=== PATIENT | male | born 1950 | race Caucasian/White ===

== ENCOUNTER → 2019-11-16 | Outpatient (CLI) | payer MEDICARE, BC | END | disposition home or self-care (01) | LOC: LABPAT 13:12 | PROVIDERS: ATTEND Surgery Plastic and Reconstructive Surgery | DX: Z01.810 Encounter for preprocedural cardiovascular examination (principal) | CPT/HCPCS: 93005 ==

== ENCOUNTER 2019-12-13 09:09 | Day surgery (SDC) | payer MEDICARE, BC ==
[2019-12-09 18:15] VITALS: BMI 24.8
--- NOTE | 2019-12-12 15:59 | P.GSHP ---
History of Present Illness H&P Date: 12/13/19 CHIEF COMPLAINT: Inguinal hernia, right. HISTORY OF PRESENT ILLNESS: The patient is a 68-year-old male who presents with a history of swelling and pain along the right groin. He has noted increased swelling including pain of the area. Now he presents for repair of his inguinal hernia. PAST MEDICAL HISTORY: Please see list. PAST SURGICAL HISTORY: Please see list. MEDICATIONS: Please see list. ALLERGIES: Please see list. SOCIAL HISTORY: No illicit drug use FAMILY HISTORY: No reports of Crohn disease or ulcerative colitis. REVIEW OF ORGAN SYSTEMS: CONSTITUTIONAL: No reports of fevers or chills. No reports of weight loss despite prior attempts. GI: Denies any blood in stools or constipation. PHYSICAL EXAM: VITAL SIGNS: Stable GENERAL: Well-developed pleasant in no acute distress. HEENT: No scleral icterus. Extraocular movements grossly intact. Moist buccal mucosa. NECK: Supple without lymphadenopathy. CHEST: Unlabored respirations. Equal bilateral excursions. CARDIOVASCULAR: Regular rate and rhythm. Distal 2+ pulses. ABDOMEN: Soft, nondistended. No peritoneal signs. Right inguinal swelling MUSCULOSKELETAL: No clubbing, cyanosis, or edema. ASSESSMENT: 1. Inguinal hernia, right initial and symptomatic. PLAN: 1. Recommend proceeding robotic inguinal repair with mesh with possible bilateral approach. 2. Benefits and risks of surgical intervention was discussed including possibility of open technique. 3. DVT prophylaxis. 4. Antibiotic prophylaxis. Past Medical History Past Medical History: Hypertension, Respiratory Disorder Additional Past Medical History / Comment(s): RBBB. Sarcoidosis. Hx spontaneous pneumothorax. Rt inguinal hernia. History of Any Multi-Drug Resistant Organisms: None Reported Past Surgical History: Appendectomy, Hernia Repair Additional Past Surgical History / Comment(s): Hernia's x3. Past Anesthesia/Blood Transfusion Reactions: No Reported Reaction Smoking Status: Former smoker - Past Family History Mother Family Medical History: No Reported History Medications and Allergies Home Medications Medication Instructions Recorded Confirmed Type Lansoprazole [Prevacid] 15 mg PO HS 12/09/19 12/09/19 History Losartan [Cozaar] 50 mg PO HS 12/09/19 12/09/19 History Multivitamins, Thera [Multivitamin 1 tab PO DAILY 12/09/19 12/09/19 History (formulary)] Zolpidem Tartrate [Ambien] 10 mg PO HS PRN 12/09/19 12/09/19 History amLODIPine [Norvasc] 5 mg PO HS 12/09/19 12/09/19 History predniSONE 10 mg PO DAILY 12/09/19 12/09/19 History Allergies Allergy/AdvReac Type Severity Reaction Status Date / Time No Known Allergies Allergy Verified 12/09/19 17:57
[~2019-12-13 09:09] MED LIST: ACETAMINOPHEN TAB 500 MG TAB PO STA; DEXAMETHASONE SOD PHOSPHATE 10 MG/ML 1 ML VIAL IV ONE; GABAPENTIN 300 MG CAP PO STA; HEPARIN SODIUM,PORCINE 5,000 UNIT/ML 1 ML VIAL SQ ONE; KETOROLAC 15 MG/ML 1 ML VIAL IVP SCH; ONDANSETRON 4 MG/2 ML VIAL IVP ONE; SCOPOLAMINE 1.5MG/72HR PATCH TRANSDERM ONE; TAMSULOSIN 0.4 MG CAP.ER.24H PO STA
[2019-12-13] MEDS ORDERED: LIDOCAINE 1% (10MG/ML) FOR IV START INTRADERMA ONE (10:00)
[2019-12-13] MEDS: LACTATED RINGERS 1,000 ML IV SCH ×3 (10:02→13:06)
[2019-12-13 10:04] LABS: Glucose,Whole Blood 98 mg/dL (75-99)
[2019-12-13] MEDS ORDERED: HYDROCORTISONE SUCCINATE 100 MG/2 ML VIAL IVP ONE (10:30)
--- NOTE | 2019-12-13 10:38 | P.ANPRN ---
Procedure Note - Anesthesia - Nerve Block Performed Bilateral Transversus Abdominis Single Time Out Performed: Yes Date of Procedure: 12/13/19 Procedure Start Time: Procedure Stop Time: Location of Patient: PreOp Indication: Acute Post-Operative Pain, Requested by Surgeon Sedation Type: Sedate with meaningful contact maintained Preparation: Sterile Prep Position: Supine Catheter: None Needle Types: Pajunk Needle Gauge: 21 Ultrasound used to visualize needle placement: Yes Ultrasound used to observe medication spread: Yes Injectate: 0.5% Ropivacaine (see comment for volume) (30) Pain Paresthesia on Injection Noted: No Resistance on Injection: Normal Image Stored and Saved: Yes Events: Uneventful and Well Tolerated
[2019-12-13] MEDS ORDERED: MIDAZOLAM 2 MG/2 ML VIAL ONE (10:51)
[2019-12-13] MEDS ORDERED: PHENYLEPHRINE-0.9% NACL SYG 1 MG/10 ML SYRINGE ONE (10:51)
[2019-12-13] MEDS ORDERED: PROPOFOL 10 MG/ML 20 ML VIAL IV ONE (10:51)
[2019-12-13] MEDS ORDERED: GLYCOPYRROLATE 0.2 MG/ML 2 ML VIAL ONE (10:51)
[2019-12-13] MEDS ORDERED: fentaNYL (PF) 50 MCG/ML 2 ML AMP ONE (10:51)
[2019-12-13] MEDS ORDERED: ROCURONIUM BROMIDE 10 MG/ML 5 ML VIAL IV ONE (10:51)
[2019-12-13] MEDS ORDERED: NEOSTIGMINE 1 MG/ML 10 ML VIAL ONE (10:51)
[2019-12-13] MEDS ORDERED: LIDOCAINE 1% INJ 10MG/ML (20 ML MDV) ONE (10:51)
[2019-12-13] MEDS ORDERED: ROPIVACAINE 5 MG/ML 30 ML VIAL ONE (10:51)
[2019-12-13] MEDS ORDERED: SUCCINYLCHOLINE CHLORIDE 100 MG/5 ML SYR IV ONE (10:51)
[2019-12-13 11:45] LABS: ALT 18 U/L (4-49); AST 28 U/L (17-59); African American GFR (CKD) >90 (>60 ml/min/1.73 sqM); Albumin 3.8 g/dL (3.5-5.0); Alkaline Phosphatase 48 U/L (38-126); Anion Gap 4 mmol/L; Blood Urea Nitrogen 14 mg/dL (9-20); Calcium 8.9 mg/dL (8.4-10.2); Carbon Dioxide 26 mmol/L (22-30); Chloride 108 mmol/L (98-107); Glucose 94 mg/dL (74-99); Non-African American GFR(CKD) 84 (>60 ml/min/1.73 sqM); Potassium 3.7 mmol/L (3.5-5.1); Sodium 138 mmol/L (137-145); Total Bilirubin 1.1 mg/dL (0.2-1.3); Total Protein 6.1 g/dL (6.3-8.2)
[2019-12-13] MEDS ORDERED: LIDOCAINE 1%-EPI 1:100,000 20 ML VIAL SQ ONE (11:53)
[2019-12-13 11:54] LABS: Basophils % (A) 0 %; Eosinophils # (A) 0.1 k/uL (0-0.7); Eosinophils % (A) 1 %; HGB 14.3 gm/dL (13.0-17.5); Lymphocytes # (A) 0.6 k/uL (1.0-4.8); Lymphocytes % (A) 6 %; MCV 94.1 fL (80.0-100.0); Mean Platelet Volume 7.2; Monocytes # (A) 0.4 k/uL (0-1.0); Monocytes % (A) 4 %; Neutrophils # (A) 8.9 k/uL (1.3-7.7); Neutrophils % (A) 89 %; Platelet Count 238 k/uL (150-450); RBC 4.47 m/uL (4.30-5.90); RDW 13.9 % (11.5-15.5)
[2019-12-13 12:12] VITALS: TEMP 98
[2019-12-13] MEDS: HYDROmorphone 0.5 MG/0.5 ML SYRINGE IVP PRN ×2 (12:20→13:00)
[2019-12-13] MEDS ORDERED: LACTATED RINGERS 1,000 ML IV ONE ×2 (14:13)
[2019-12-13 15:35] VITALS: BP 123/75; PULSE 78; RESP 18
--- NOTE | 2019-12-13 21:07 | P.OP ---
Date of Procedure: 12/13/19 Description of Procedure: SURGEON: AILYN DOCKERY MD TEMPLATE STORAGE CLERK: None. PREOPERATIVE DIAGNOSES: 1. History of multiple right inguinal hernia repairs 2. Right groin pain 3. Hypertensive heart disease 4. Sarcoidosis 5. Gastroesophageal reflux disease 6. History of multiple abdominal wall hernias POSTOPERATIVE DIAGNOSES: 1. History of multiple right inguinal hernia repairs 2. Right groin pain 3. Hypertensive heart disease 4. Sarcoidosis 5. Gastroesophageal reflux disease 6. History of multiple abdominal wall hernias 7. Peritoneal adhesions, right lower quadrant PROCEDURES PERFORMED: 1. Robotic-assisted da Alisson Xi laparoscopic lysis of adhesions ANESTHESIA: General, local, abdominal wall block ESTIMATED BLOOD LOSS: 5 mL. SPECIMENS REMOVED: None. COMPLICATIONS: None. OPERATIVE FINDINGS: 1. No recurrent right inguinal hernia 2. Intact mesh repair along right groin 3. Omental peritoneal adhesions right lower quadrant at right groin hernia site lysed INDICATIONS: The patient is a 68-year-old male with history of multiple abdominal wall hernias including four(4) prior right inguinal hernia repairs. He presents with concerns of recurrence. Surgical intervention was described for exploration including inguinal hernia repair with placement of mesh. Benefits and risks, including possibility of open technique were described at length. Informed consent was obtained. DESCRIPTION OF PROCEDURE: Patient was brought to the operating room, laid in supine position. After general induction, the abdomen was prepped and draped in standard sterile fashion. Prior to incision, a timeout protocol was confirmed with surgical team regarding patient's name including procedure to be performed. Preoperative medications including antibiotics were given. Additionally, bilateral SCDs including subcutaneous DVT prophylaxis was administered. The abdomen had been prepped and draped in standard sterile fashion. Ioban draping was also placed. Prior to incision, a timeout protocol was confirmed with surgical team regarding patient's name including procedures to be performed and location along the right groin. Initial positioning for the robotic assisted ports were selected whereby 20 cm superior to the target anatomy, 0 degree 5 mm laparoscopic trocar entry was performed at the left upper quadrant. The abdomen was insufflated to 15 mmHg which he had tolerated well. Diagnostic laparoscopy demonstrated right lower quadrant peritoneal adhesions including mesh at the right groin. Next, along the epigastrium, 8 mm robot trocar was placed. An 8-mm robotic trocar was placed under direct visualization at the right upper quadrant. An 8 mm port was placed at the left upper quadrant. All trocars were positioned between 8 to 10-cm apart from each other. The Da Alisson [employer] XI robot was primed, draped, prepared for docking along the right side of the patient. The patient was placed in Trendelenberg position 16-degrees. I then went to the [employer] Xi console. The web press operator assistant was at bedside for exchange of the robot arms and equipment. No hernia was identified along the left groin. The right groin was obscured by omental peritoneal adhesions at the right lower quadrant. The adhesions were sharply lysed using Bovie cautery and scissors. Once removed, mesh repair was confirmed along the right groin without any recurrent inguinal hernias. The robot was undocked from the patient's bedside. I then rescrubbed into the case. Insufflation was released from the abdominal cavity and all instruments were removed from the abdominal cavity. The rest of incisions were reapproximated using 4-0 Monocryl in a running subcuticular fashion. Local anesthetic was placed along the incision including for a right groin block. Incisions were cleansed using dilute hydrogen peroxide. Liquid glue was applied to the skin. At the end of the procedure, the needle, sponge and instrument counts had been verified correct by the surgical endoscopist. The patient had tolerated the procedure well and was taken to the postanesthesia care unit in Plan - Discharge Summary Discharge Rx Participant: No New Discharge Prescriptions: New Acetaminophen [Tylenol] 650 mg PO Q6HR PRN #3 capsule PRN Reason: Pain Continue predniSONE 10 mg PO DAILY amLODIPine [Norvasc] 5 mg PO HS Multivitamins, Thera [Multivitamin (formulary)] 1 tab PO DAILY Lansoprazole [Prevacid] 15 mg PO HS Losartan [Cozaar] 50 mg PO HS Zolpidem Tartrate [Ambien] 10 mg PO HS PRN PRN Reason: sleep Discharge Medication List Lansoprazole [Prevacid] 15 mg PO HS 12/09/19 [History] Losartan [Cozaar] 50 mg PO HS 12/09/19 [History] Multivitamins, Thera [Multivitamin (formulary)] 1 tab PO DAILY 12/09/19 [History] Zolpidem Tartrate [Ambien] 10 mg PO HS PRN 12/09/19 [History] amLODIPine [Norvasc] 5 mg PO HS 12/09/19 [History] predniSONE 10 mg PO DAILY 12/09/19 [History] Acetaminophen [Tylenol] 650 mg PO Q6HR PRN #3 capsule 12/13/19 [Rx] Follow up Appointment(s)/Referral(s): Ailyn Dockery MD [STAFF PHYSICIAN] - 12/21/19 (FOLLOW UP W DR DOCKERY ON December AT 4:30) Patient Instructions/Handouts: *[facility] - Managing Your Pain After Surgery Without Opioids, *[facility] - (Anesthesia) Discharge Instructions Outpatient Surgery, Exploratory Laparoscopy (DC) Activity/Diet/Wound Care/Special Instructions: No lifting over 10 pounds in 2 weeks, December 19. July shower. No bath tub soaks for two weeks, December 19. Diet as tolerated. Use Tylenol and ibuprofen scheduled for the next 24-48 hours for best pain relief. Use ice along incisions for the today to prevent swelling. HAD TORADOL (IV MOTRIN) AT 12:20. CAN HAVE AGAIN AT 6:20 HAD TYLENOL AT 10:30. CAN HAVE AGAIN AT 4:30 Discharge Disposition: HOME SELF-CARE
== END 2019-12-13 16:04 | disposition home or self-care (01) ==
LOC: OR 09:09
PROVIDERS: ATTEND Surgery Plastic and Reconstructive Surgery
DX: K66.0 Peritoneal adhesions (postprocedural) (postinfection) (principal); K21.9 Gastro-esophageal reflux disease without esophagitis; I11.9 Hypertensive heart disease without heart failure; I45.10 Unspecified right bundle-branch block; D86.9 Sarcoidosis, unspecified; Z87.09 Personal history of other diseases of the respiratory system; Z87.891 Personal history of nicotine dependence; Z79.52 Long term (current) use of systemic steroids; Z79.899 Other long term (current) drug therapy
CPT/HCPCS: 44180; 64488; 80053; 85025; J2250; J1644; J2710; J1720; J0690; J2405; J2001; J3010; J2795; J1885; J2370; J0330; J2704; J1170

== ENCOUNTER 2020-07-23 21:29 | Inpatient (IN) | payer MEDICARE, BC ==
[2020-07-23] MEDS ORDERED: SODIUM CHLORIDE 0.9% 1,000 ML IV STA (21:49)
[2020-07-23 21:52] LABS: Glucose,Whole Blood 105 mg/dL (75-99)
--- NOTE | 2020-07-23 21:53 | ED ---
Neuro HPI - General Chief Complaint: Neuro Symptoms/Deficit Stated Complaint: Poss stroke Time Seen by Provider: 07/23/20 21:42 Source: patient, family, RN notes reviewed, old records reviewed Mode of arrival: wheelchair Limitations: no limitations - History of Present Illness Is the patient presenting with stroke symptoms?: Yes -: hour(s) Initial Comments: This is a 69-year-old male with history of high blood pressure coming in for evaluation. Patient Dese for strokelike symptoms numbness toleft arm and left leg weakness difficulty with ambulation. No prior history of stroke no prior history of heart attack. No current headache. No trauma fevers. No recent change in medications denies drugs or alcohol Location: speech, left face, left arm, left leg History of same: No Place: home Severity: moderate Quality: numb Improves With: none Worsens With: none Context: gradual onset Associated Symptoms: weakness Treatments Prior to Arrival: none - Related Data Home Medications: Home Medications Medication Instructions Recorded Confirmed Lansoprazole [Prevacid] 15 mg PO HS 12/09/19 07/23/20 Losartan [Cozaar] 50 mg PO HS 12/09/19 07/23/20 Zolpidem Tartrate [Ambien] 10 mg PO HS PRN 12/09/19 07/23/20 amLODIPine [Norvasc] 5 mg PO HS 12/09/19 07/23/20 predniSONE 10 mg PO DAILY 12/09/19 07/23/20 Cholecalciferol (Vitamin D3) 125 mcg PO DAILY 07/23/20 07/23/20 [Vitamin D3 (5000 Iu)] Fish Oil/Dha/Epa [Fish Oil 1,200 2 cap PO DAILY 07/23/20 07/23/20 mg Fish Oil] Melatonin 10 mg PO HS 07/23/20 07/23/20 Vitamin C With Zinc 1 tab PO DAILY 07/23/20 07/23/20 Zinc 50 mg PO HS 07/23/20 07/23/20 Allergies/Adverse Reactions: Allergies Allergy/AdvReac Type Severity Reaction Status Date / Time No Known Allergies Allergy Verified 07/23/20 23:11 Review of Systems ROS Statement: Those systems with pertinent positive or pertinent negative responses have been documented in the HPI. ROS Other: All systems not noted in ROS Statement are negative. General Exam Limitations: no limitations Stroke MDM - Lab Data Result diagrams: 07/23/20 21:50 07/23/20 21:50 Lab Results 07/23/20 07/23/20 07/23/20 Range/Units 21:41 21:50 21:50 WBC 9.2 (3.8-10.6) k/uL RBC 4.44 (4.30-5.90) m/uL Hgb 14.7 (13.0-17.5) gm/dL Hct 41.9 (39.0-53.0) % MCV 94.4 (80.0-100.0) fL MCH 33.1 (25.0-35.0) pg MCHC 35.1 (31.0-37.0) g/dL RDW 13.7 (11.5-15.5) % Plt Count 248 (150-450) k/uL MPV 6.6 Neutrophils % 80 % Lymphocytes % 11 % Monocytes % 6 % Eosinophils % 2 % Basophils % 0 % Neutrophils # 7.4 (1.3-7.7) k/uL Lymphocytes # 1.0 (1.0-4.8) k/uL Monocytes # 0.6 (0-1.0) k/uL Eosinophils # 0.2 (0-0.7) k/uL Basophils # 0.0 (0-0.2) k/uL PT 10.1 (9.0-12.0) sec INR 0.9 (<1.2) APTT 24.0 (22.0-30.0) sec Sodium (137-145) mmol/L Potassium (3.5-5.1) mmol/L Chloride (98-107) mmol/L Carbon Dioxide (22-30) mmol/L Anion Gap mmol/L BUN (9-20) mg/dL Creatinine (0.66-1.25) mg/dL Est GFR (CKD-EPI)AfAm (>60 ml/min/1.73 sqM) Est GFR (CKD-EPI)NonAf (>60 ml/min/1.73 sqM) Glucose (74-99) mg/dL POC Glucose (mg/dL) 105 H (75-99) mg/dL POC Glu Independent Freight Agent ID Ceci, Margie Calcium (8.4-10.2) mg/dL Total Bilirubin (0.2-1.3) mg/dL AST (17-59) U/L ALT (4-49) U/L Alkaline Phosphatase (38-126) U/L Creatine Kinase (55-170) U/L Troponin I (0.000-0.034) ng/mL Total Protein (6.3-8.2) g/dL Albumin (3.5-5.0) g/dL 07/23/20 07/23/20 Range/Units 21:50 21:50 WBC (3.8-10.6) k/uL RBC (4.30-5.90) m/uL Hgb (13.0-17.5) gm/dL Hct (39.0-53.0) % MCV (80.0-100.0) fL MCH (25.0-35.0) pg MCHC (31.0-37.0) g/dL RDW (11.5-15.5) % Plt Count (150-450) k/uL MPV Neutrophils % % Lymphocytes % % Monocytes % % Eosinophils % % Basophils % % Neutrophils # (1.3-7.7) k/uL Lymphocytes # (1.0-4.8) k/uL Monocytes # (0-1.0) k/uL Eosinophils # (0-0.7) k/uL Basophils # (0-0.2) k/uL PT (9.0-12.0) sec INR (<1.2) APTT (22.0-30.0) sec Sodium 138 (137-145) mmol/L Potassium 4.0 (3.5-5.1) mmol/L Chloride 105 (98-107) mmol/L Carbon Dioxide 27 (22-30) mmol/L Anion Gap 6 mmol/L BUN 14 (9-20) mg/dL Creatinine 0.89 (0.66-1.25) mg/dL Est GFR (CKD-EPI)AfAm >90 (>60 ml/min/1.73 sqM) Est GFR (CKD-EPI)NonAf 87 (>60 ml/min/1.73 sqM) Glucose 103 H (74-99) mg/dL POC Glucose (mg/dL) (75-99) mg/dL POC Glu Independent Freight Agent ID Calcium 9.5 (8.4-10.2) mg/dL Total Bilirubin 0.6 (0.2-1.3) mg/dL AST 28 (17-59) U/L ALT 20 (4-49) U/L Alkaline Phosphatase 55 (38-126) U/L Creatine Kinase 111 (55-170) U/L Troponin I <0.012 (0.000-0.034) ng/mL Total Protein 6.4 (6.3-8.2) g/dL Albumin 4.1 (3.5-5.0) g/dL - NIH Stroke Scale 1a. Level of Consciousness: (0) alert 1b. LOC Questions: (0) answers correctly 1c. LOC Commands: (0) performs tasks correctly 2. Best Gaze: (0) normal 4. Facial Palsy: (0) normal symmetrical movement 5a. Motor Arm Left: (2) some gravity effort 5b. Motor Arm Right: (0) no drift 6a. Motor Leg Left: (2) some gravity effort 6b. Motor Leg Right: (0) no drift 7. Limb Ataxia: (1) present 1 limb 8. Sensory: (1) mild/moderate sensory loss 9. Best Language: (0) no aphasia 10. Dysarthria: (1) mild/moderate dysarthria 11. Extinction/Inattention: (0) no abnormality - Thrombolytic Inclusion/Exclusion Thrombolytic Inclusion Criteria: Symptom Onset < 4.5 h - Medical Decision Making 69 male DF for evaluation of acute CVA symptoms rapidly improving patient did refuse TPA here in the ER, patient will be admitted for persistent neurologic testing - Radiology Data Radiology results: report reviewed (CT CTA shows no significant acute disease), image reviewed - EKG Data -: EKG Interpreted by Me (EKG sinus rhythm 77 AK 220 QRS 132 QTC 506) Past Medical History Past Medical History: Hypertension, Respiratory Disorder Additional Past Medical History / Comment(s): RBBB. Sarcoidosis. Hx spontaneous pneumothorax. Rt inguinal hernia. History of Any Multi-Drug Resistant Organisms: None Reported Past Surgical History: Appendectomy, Hernia Repair Additional Past Surgical History / Comment(s): Hernia's x3. Past Anesthesia/Blood Transfusion Reactions: No Reported Reaction Past Psychological History: No Psychological Hx Reported Smoking Status: Former smoker Past Alcohol Use History: Occasional Past Drug Use History: None Reported - Past Family History Mother Family Medical History: No Reported History Course Vital Signs 07/23/20 07/23/20 07/23/20 21:30 21:41 21:45 Temperature 97.3 F L Pulse Rate 87 78 80 Respiratory 22 16 Rate Blood Pressure 154/85 156/84 O2 Sat by Pulse 97 94 L 96 Oximetry 07/23/20 07/23/20 07/23/20 22:00 22:15 22:30 Temperature Pulse Rate 72 68 68 Respiratory 18 18 16 Rate Blood Pressure 149/85 162/87 159/83 O2 Sat by Pulse 99 98 99 Oximetry 07/23/20 07/23/20 07/23/20 22:45 23:00 23:15 Temperature Pulse Rate 72 78 78 Respiratory 16 16 18 Rate Blood Pressure 150/79 136/88 131/86 O2 Sat by Pulse 98 97 98 Oximetry - Reevaluation(s) Reevaluation #1: 07/23/20 22:45 Code stroke was paged on patient arrival Reevaluation #2: 07/24/20 00:45 Length discussion with patient family as well as intervention neurology all recommendations from the medical side were to do tPA but family and patient do not want to do tPA patient states he is significantly improving throughout his time in the ER and since the event started, 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
[2020-07-23 21:58] LABS: Basophils % (A) 0 %; Eosinophils # (A) 0.2 k/uL (0-0.7); Eosinophils % (A) 2 %; HCT 41.9 % (39.0-53.0); HGB 14.7 gm/dL (13.0-17.5); Lymphocytes % (A) 11 %; MCH 33.1 pg (25.0-35.0); MCHC 35.1 g/dL (31.0-37.0); MCV 94.4 fL (80.0-100.0); Mean Platelet Volume 6.6; Monocytes # (A) 0.6 k/uL (0-1.0); Monocytes % (A) 6 %; Neutrophils # (A) 7.4 k/uL (1.3-7.7); Neutrophils % (A) 80 %; Platelet Count 248 k/uL (150-450); RBC 4.44 m/uL (4.30-5.90); RDW 13.7 % (11.5-15.5); WBC 9.2 k/uL (3.8-10.6)
--- NOTE | 2020-07-23 22:12 | XR ---
EXAMINATION TYPE: XR chest 1V DATE OF EXAM: 07/23/2020 COMPARISON: NONE HISTORY: Altered mental status TECHNIQUE: Single view FINDINGS: Heart is normal. There is poor inspiration. There is coarse interstitial density in the sneha gs with patchy areas of atelectasis. There are chest leads. There is no obvious heart failure. IMPRESSION: Poor inspiration with pulmonary fibrotic changes and atelectasis. Calcified granulomata a t the right pulmonary hilum. No heart failure seen.
[2020-07-23 22:18] LABS: AST 28 U/L (17-59); African American GFR (CKD) >90 (>60 ml/min/1.73 sqM); Albumin 4.1 g/dL (3.5-5.0); Anion Gap 6 mmol/L; Blood Urea Nitrogen 14 mg/dL (9-20); Calcium 9.5 mg/dL (8.4-10.2); Carbon Dioxide 27 mmol/L (22-30); Chloride 105 mmol/L (98-107); Glucose 103 mg/dL (74-99); INR 0.9 (<1.2); Non-African American GFR(CKD) 87 (>60 ml/min/1.73 sqM); Prothrombin Time 10.1 sec (9.0-12.0); Sodium 138 mmol/L (137-145); Total Bilirubin 0.6 mg/dL (0.2-1.3); Total Protein 6.4 g/dL (6.3-8.2)
[2020-07-23 22:19] LABS: ALT 20 U/L (4-49); Alkaline Phosphatase 55 U/L (38-126); Creatine Kinase 111 U/L (55-170)
--- NOTE | 2020-07-23 22:19 | CT ---
EXAMINATION TYPE: CT brain wo con for TPA DATE OF EXAM: 07/23/2020 COMPARISON: None HISTORY: Code Stroke CT DLP: 1077 mGycm Automated exposure control for dose reduction was used. Images of the brain obtained without contrast. There is some patchy hypodensity in the periventricular white matter. There is no mass effect nor mid line shift. There is no sign of intracranial hemorrhage. Calvarium is intact. IMPRESSION: Patchy white matter hypodensity consistent with chronic small vessel ischemia. No hemorrhage.
--- NOTE | 2020-07-23 22:28 | CT ---
EXAMINATION TYPE: CT angio head neck DATE OF EXAM: 07/23/2020 COMPARISON: None HISTORY: Code Stroke CT DLP: 510.1 mGycm Automated exposure control for dose reduction was used. CONTRAST: Performed with IV Contrast, patient injected with 65 mL of Isovue 370. Images obtained from the aortic arch to the vertex of the brain with IV contrast. There are 3-D post processed images. There is normal branching pattern of the great vessels on the aortic arch. There is some infiltrate a t the superior left pulmonary hilum. There are numerous calcified granulomata in the mediastinum. The re is arterial flow in both subclavian arteries. There is arterial flow in the common internal and external carotid arteries bilaterally. The carotid artery bifurcations appear widely patent. There is dilated right jugular vein. This measures up to 2. 8 cm in diameter. There is arterial flow in both vertebral arteries. There is no evidence of carotid or vertebral arter y aneurysm or dissection. There is arterial flow in the vertebrobasilar artery system. There is arterial flow in the anterior middle and posterior cerebral arteries. There is no mass effec t. I see no evidence of intracranial aneurysm or neovascularity. I see no evidence of intracranial ar terial stenosis. IMPRESSION: Negative CT angiogram of the neck. Negative CT angiogram of the brain. 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 Left upper lobe perihilar infiltrate and atelectasis. Left upper lobe pleu ral and pulmonary scarring. Emphysema.
[2020-07-23 23:20] VITALS: RESP 18
[2020-07-23] MEDS ORDERED: ASPIRIN 325 MG TAB PO STA (23:45)
[2020-07-24 05:07] LABS: Cholesterol 187 mg/dL (<200); HDL Cholesterol 73 mg/dL (40-60); LDL Cholesterol,Calculated 99 mg/dL (0-99); Triglycerides 77 mg/dL (<150)
[2020-07-24] MEDS ORDERED: CLOPIDOGREL 75 MG TAB PO SCH (10:00)
--- NOTE | 2020-07-24 10:01 | ECHOF ---
Referral Reason:Thrombus MEASUREMENTS -------- HEIGHT: 177.8 cm WEIGHT: 77.1 kg BP: 160/89 RVIDd: 3.5 cm (< 3.3) IVSd: 1.4 cm (0.6 - 1.1) LVIDd: 4.5 cm (3.9 - 5.3) LVPWd: 1.3 cm (0.6 - 1.1) IVSs: 1.6 cm LVIDs: 3.0 cm LVPWs: 2.0 cm LA Diam: 3.9 cm (2.7 - 3.8) LAESV Index (A-L): 26.95 ml/m Ao Diam: 4.4 cm (2.0 - 3.7) AV Cusp: 2.4 cm (1.5 - 2.6) MV EXCURSION: 22.907 mm (> 18.000) MV EF SLOPE: 18 mm/s (70 - 150) EPSS: 0.6 cm MV E Dennis: 0.71 m/s MV DecT: 248 ms MV A Dennis: 0.65 m/s MV E/A Ratio: 1.10 AR PHT: 675 ms RAP: 5.00 mmHg RVSP: 36.66 mmHg FINDINGS -------- Sinus rhythm. This was a technically adequate study. The left ventricular size is normal. There is moderate concentric left ventricular hypertrophy. O verall left ventricular systolic function is low-normal with, an EF between 50 - 55 %. The right ventricle is mildly enlarged. Normal LA size by volume 22+/-6 ml/m2. The right atrium is normal in size. Interatrial and interventricular septum intact. The aortic valve is trileaflet and appears structurally normal. There is [id number]-[id number] aortic re gurgitation. Mild mitral regurgitation is present. Mild tricuspid regurgitation present. There is mild pulmonary hypertension. The right ventricular systolic pressure, as measured by Doppler, is 36.66mmHg. Trace/mild (physiologic) pulmonic regurgitation. The aortic root is dilated measuring 4.4cm. Normal inferior vena cava with normal inspiratory collapse consistent with estimated right atrial pre ssure of 5 mmHg. There is no pericardial effusion. CONCLUSIONS -------- 1. The left ventricular size is normal. 2. There is moderate concentric left ventricular hypertrophy. 3. Overall left ventricular systolic function is low-normal with, an EF between 50 - 55 %. 4. The right ventricle is mildly enlarged. 5. The aortic valve is trileaflet and appears structurally normal. 6. There is kgnk-rw-tippytwo aortic regurgitation. 7. Mild mitral regurgitation is present. 8. Mild tricuspid regurgitation present. 9. There is mild pulmonary hypertension. 10. The right ventricular systolic pressure, as measured by Doppler, is 36.66mmHg. 11. Trace/mild (physiologic) pulmonic regurgitation. 12. The aortic root is dilated measuring 4.4cm. 13. There is no pericardial effusion. [employer] SALES: Brigid Whitten RDCS
--- NOTE | 2020-07-24 10:13 | P.CNNES ---
History of Present Illness Consult date: 07/24/20 Requesting physician: Richard Mullins Reason for Consult: stroke: for left arm and leg weakness History of Present Illness: This is a 69-year-old gentleman with medical history of hypertension presented emergency department on 07/23/2020 for left leg and arm weakness and numbness. Patient arrived to the emergency department on 07/23/2020 at around 21:29. According to the patient and he stated that the around 845 to 9:00 PM yesterday he noticed that his left leg was weak and felt off then after that he said down and then he notices left side of the cheek was numb like he went to a dentist, then noticed his left upper and lower extremity was weak as well as numb. He felt he was having slurring of the speech. He said that his episode lasted the for a few hours then resolved. He feels he is back to baseline. 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 He said he had workup at [facility] and he has not had any further episodes since. His current event seems different then the . He denies any stroke in the past. He denies that being on the aspirin or any other antiplatelets or being on statins. He is an ex-tobacco use and socially drinks alcohol. He is on prednisone 10 mg daily. In the ED the patient NIH stroke scale was 7: And received 2 to for the left arm, 2 for the left leg 1 for limb ataxia 1 for sensory and 1 for dysarthria. Some of the workup consisted of: Patient initial blood pressure was 154/85, heart rate of 87, temperature of 97.[address] of the head is reported as patchy white matter hypodensity consistent with chronic small vessel ischemia. No hemorrhage. CT angiography of the head and neck is reported as negative CT angiography of the neck. Negative CT angiography of the brain. 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 Old granulomatous disease in the left upper lobe perihilar infiltrate and atelectasis. Left upper lobe pleural and pulmonary scarring. Emphysema. Patient initial POC glucose is 105 and the rest of the basic CBC and electrolytes were reviewed and nothing stood out. Lipid panel: Triglyceride of 77, cholesterol 27, LDL of 99, HDL 73. EKG is reported as sinus rhythm with sinus arrhythmia with first-degree AV block. Right bundle branch block. Abnormal EKG. In the ED the patient's symptoms were rapidly improving and the patient refused TPA according to the ED note. SARS covid2 PCR is detected Review of Systems Review of system: The 12 point system was reviewed and apparent positive and negative per HPI. Past Medical History Past Medical History: Hypertension, Respiratory Disorder Additional Past Medical History / Comment(s): RBBB. Sarcoidosis. Hx spontaneous pneumothorax. Rt inguinal hernia. History of Any Multi-Drug Resistant Organisms: None Reported Past Surgical History: Appendectomy, Hernia Repair Additional Past Surgical History / Comment(s): Hernia's x3. Past Anesthesia/Blood Transfusion Reactions: No Reported Reaction Past Psychological History: No Psychological Hx Reported Smoking Status: Former smoker Past Alcohol Use History: Occasional Past Drug Use History: None Reported - Past Family History Mother Family Medical History: No Reported History Father Additional Family Medical History / Comment(s): ETOH Medications and Allergies Home Medications Medication Instructions Recorded Confirmed Type Lansoprazole [Prevacid] 15 mg PO HS 12/09/19 07/23/20 History Losartan [Cozaar] 50 mg PO HS 12/09/19 07/23/20 History Zolpidem Tartrate [Ambien] 10 mg PO HS PRN 12/09/19 07/23/20 History amLODIPine [Norvasc] 5 mg PO HS 12/09/19 07/23/20 History predniSONE 10 mg PO DAILY 12/09/19 07/23/20 History Cholecalciferol (Vitamin D3) 125 mcg PO DAILY 07/23/20 07/23/20 History [Vitamin D3 (5000 Iu)] Fish Oil/Dha/Epa [Fish Oil 1,200 2 cap PO DAILY 07/23/20 07/23/20 History mg Fish Oil] Melatonin 10 mg PO HS 07/23/20 07/23/20 History Vitamin C With Zinc 1 tab PO DAILY 07/23/20 07/23/20 History Zinc 50 mg PO HS 07/23/20 07/23/20 History Allergies Allergy/AdvReac Type Severity Reaction Status Date / Time No Known Allergies Allergy Verified 07/23/20 23:11 Physical Examination - Vital Signs Vital Signs: Vital Signs Temp Pulse Resp BP Pulse Ox 07/24/20 08:10 64 18 160/89 97 07/24/20 03:08 97.6 F 79 18 146/77 97 07/23/20 23:15 78 18 131/86 98 07/23/20 23:00 78 16 136/88 97 07/23/20 22:45 72 16 150/79 98 07/23/20 22:30 68 16 159/83 99 07/23/20 22:15 68 18 162/87 98 07/23/20 22:00 72 18 149/85 99 07/23/20 21:45 80 16 156/84 96 07/23/20 21:41 78 94 L 07/23/20 21:30 97.3 F L 87 22 154/85 97 Intake and Output 07/23/20 07/24/20 07/24/20 22:59 06:59 14:59 Other: Weight 77.111 kg GENERAL: The patient is lying in bed and is not in acute distress. CHEST: The heart rate is regular rate rhythm. No murmurs to auscultation. No carotid bruit bilaterally. LUNG: Clear to auscultation bilaterally no wheezing noted throughout. Not labored breathing. ABDOMEN/GI: Bowel sounds present in all 4 quadrants. No tenderness to palpation throughout. NEUROLOGICAL: Higher mental function: The patient is awake, alert, oriented to self, place and time. Patient is following commands. No aphasia and no neglect. Cranial nerves: The pupils are round, equal and reactive to light and accommodation. Visual ellis are full to confrontation throughout. Extraocular movement is intact no nystagmus is noted. Facial sensation is normal to touch throughout. The facial strength is normal throughout. Hearing is normal bilaterally to hand rub. Tongue is midline and moved [id number] without any difficulty. No dysarthria is noted. Shoulder shrug is normal bilaterally. Motor: Gait is normal. The strength is 5 over 5 throughout. Normal tone and bulk. Cerebellum: Normal finger to nose heel to chin bilaterally. Sensation: Sensation is normal to touch throughout. Reflexes (right/left): 2+ throughout. Plantars are downgoing bilaterally. Results Coagulation study is reviewed and is within normal limits. - Laboratory Findings CBC and BMP: 07/23/20 21:50 07/23/20 21:50 Abnormal Lab Findings: Abnormal Labs 07/23/20 07/23/20 07/24/20 21:41 21:50 00:35 Glucose 103 H POC Glucose (mg/dL) 105 H HDL Cholesterol SARS-CoV-2 (PCR) Detected A 07/24/20 04:24 Glucose POC Glucose (mg/dL) HDL Cholesterol 73 H SARS-CoV-2 (PCR) Assessment and Plan Assessment: This is a 69-year-old gentleman who presented emergency department on 07/23/2020 for left leg and arm weakness and numbness. Per the ED note the patient initial NIH was 7, his symptoms were improving and she refused IV TPA. Transient ischemic attack (with symptoms of left upper extremity weakness and numbness, left facial numbness and dysarthria). 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 Had work-up at [facility]). Pneumonia due to COVID-19 Pumonary Sarcoidosis (Old granulomatous disease in the left upper lobe perihilar infiltrate and atelectasis. Left upper lobe pleural and pulmonary scarring) History of hypertension Remote tobacco use Plan: CT of the head is reported as patchy white matter hypodensity consistent with chronic small vessel ischemia. No hemorrhage. CT angiography of the head and neck is reported as negative CT angiography of the neck. Negative CT angiography of the brain. 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 Old granulomatous disease in the left upper lobe perihilar infiltrate and atelectasis. Left upper lobe pleural and pulmonary scarring. Emphysema. Lipid panel: Triglyceride of 77, cholesterol 27, LDL of 99, HDL 73. Goal in [facility] is LDL <70. In the ED the patient was given aspirin 325 once and was started on aspirin 325 daily. I decreased the aspirin from 325 mg to 81 and I started the patient on Plavix 75 mg daily patient is to be on dual antiplatelets for 21 days and to continue aspirin indefinitely. I started the patient on Lipitor 40 mg daily at bedtime. Recommend MRI of the brain with and without contrast especially with history of sarcoidosis. He stated that he does not want MRI of the brain as an inpatient like it as an outpatient. 2-D echo is ordered and is pending. Continue cardiac monitoring. PT OT and TRAFFIC CHIEF are consulted. Will defer the rest of the managent to the primary team. The basic workup is performed as a stated above and the patient is clear from neurological perspective. The patient was notified that he needs to follow-up with a neurologist as outpatient within 1-2 weeks and that to get MRI of the brain (as outpatient). The plan is discussed with the patient's nurse. Thank you for the consultation. Gaudencio Gruber MD Neuro-Hospitalist Time with Patient: Greater than 30
[2020-07-24] MEDS: ENOXAPARIN 40 MG/0.4 ML SYRINGE SQ SCH ×2 (12:04→12:05)
[2020-07-24] MEDS: SODIUM CHLORIDE 0.9% 1,000 ML IV SCH ×2 (12:05→12:06)
[2020-07-24 15:18] VITALS: BP 133/83; PULSE 71; TEMP 97.8
[2020-07-24] MEDS ORDERED: ATORVASTATIN 40 MG TAB PO SCH (21:00)
[2020-07-25] MEDS ORDERED: ASPIRIN 325 MG TAB PO SCH (09:00)
[2020-07-25] MEDS ORDERED: ASPIRIN 81 MG PO SCH (09:00)
--- NOTE | 2020-08-09 23:39 | P.HPIM ---
History of Present Illness H&P Date: 07/24/20 Chief Complaint: Left sided weakness Patient is a 69-year-old male with a known history of sarcoidosis, history of spontaneous pneumothorax, hypertension, right bundle branch block history, previous history of smoking and occasional alcohol use presents to ER with complaints of left leg and arm weakness and numbness. Patient arrived to the hospital on 07/23/2020 at around 2129. Patient started having symptoms around 9 PM yesterday he started noticing that his left leg was weak and felt of them after that he sat down and then he noticed that his left side of the cheek was numb like he went to a dentist that he noticed his left upper and lower extremity weakness and numbness. He was having slurred speech. Symptoms lasted for about few hours. Currently patient is back to his baseline. Patient states that he did have intermittent episodes of right or left lower ex tremity weakness/numbness lasting for few seconds. Patient had work-up done at [facility] in and was told he had UROLOGIC NURSE sarcoidosis. Denied any complaints of headache or dizziness. Patient is on aspirin and statins at home. Patient is also on prednisone 10 mg daily for his sarcoidosis. In the ED patient had NIH score of 7. Patient did not want TPA. Symptoms have DVT prophylaxis CT head showed patchy white matter hypodensity consistent with chronic small vessel ischemic changes. No acute CVA noted. CT angiogram chest showed no significant stenosis. 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 Old granulomatous disease in the left upper lobe perihilar infiltrate and atelectasis. Left upper lobe pleural and pulmonary scarring. Emphysema. EKG showed sinus rhythm with first-degree AV block. Right bundle branch block. Laboratory data showed WBC 9.2 hemoglobin 14.7 platelets 248 INR 0.9 sodium 138 potassium 4.0 chloride 105 BUN 14 and creatinine 0.89 LDL is 799 and HDL 73. Troponin x1 - and CPK 111 patient is positive for COVID-19 PCR and repeat test came out not detected. Patient was vaccinated. Review of Systems Constitutional: Patient denies any fever or chills . No generalized weakness or weight loss. Abdomen: Patient denied nausea vomiting and diarrhea and abdominal pain. Cardiovascular: Patient denies any chest pain or short of breath no palpitations. Respiratory: patient denied any cough or sputum production. No shortness of arias ath Neurologic: Patient denied any numbness or tingling headache. Musculoskeletal: Patient denies any complaints of joint swelling or deformity. Skin: Negative Psychiatric: Negative Endocrine: No heat or cold intolerance. No recent weight gain. Genitourinary: No dysuria or hematuria. All other 14 point ROS negative except the above Past Medical History Past Medical History: Hypertension, Respiratory Disorder Additional Past Medical History / Comment(s): RBBB. Sarcoidosis. Hx spontaneous pneumothorax. Rt inguinal hernia. History of Any Multi-Drug Resistant Organisms: None Reported Past Surgical History: Appendectomy, Hernia Repair Additional Past Surgical History / Comment(s): Hernia's x3. Past Anesthesia/Blood Transfusion Reactions: No Reported Reaction Past Psychological History: No Psychological Hx Reported Smoking Status: Former smoker Past Alcohol Use History: Occasional Past Drug Use History: None Reported - Past Family History Mother Family Medical History: No Reported History Additional Family Medical History / Comment(s): ETOH Father Additional Family Medical History / Comment(s): ETOH Medications and Allergies Home Medications Medication Instructions Recorded Confirmed Type Lansoprazole [Prevacid] 15 mg PO HS 12/09/19 07/23/20 History Losartan [Cozaar] 50 mg PO HS 12/09/19 07/23/20 History Zolpidem Tartrate [Ambien] 10 mg PO HS PRN 12/09/19 07/23/20 History amLODIPine [Norvasc] 5 mg PO HS 12/09/19 07/23/20 History predniSONE 10 mg PO DAILY 12/09/19 07/23/20 History Cholecalciferol (Vitamin D3) 125 mcg PO DAILY 07/23/20 07/23/20 History [Vitamin D3 (5000 Iu)] Fish Oil/Dha/Epa [Fish Oil 1,200 2 cap PO DAILY 07/23/20 07/23/20 History mg Fish Oil] Melatonin 10 mg PO HS 07/23/20 07/23/20 History Vitamin C With Zinc 1 tab PO DAILY 07/23/20 07/23/20 History Zinc 50 mg PO HS 07/23/20 07/23/20 History Aspirin 81 mg PO DAILY #30 chew 07/24/20 Rx Atorvastatin [Lipitor] 40 mg PO HS #30 tab 07/24/20 Rx Clopidogrel [Plavix] 75 mg PO DAILY #21 tab 07/24/20 Rx Allergies Allergy/AdvReac Type Severity Reaction Status Date / Time No Known Allergies Allergy Verified 07/23/20 23:11 Physical Exam Vitals: Vital Signs Temp Pulse Resp BP Pulse Ox 07/24/20 08:10 64 18 160/89 97 07/24/20 03:08 97.6 F 79 18 146/77 97 07/23/20 23:15 78 18 131/86 98 07/23/20 23:00 78 16 136/88 97 07/23/20 22:45 72 16 150/79 98 07/23/20 22:30 68 16 159/83 99 07/23/20 22:15 68 18 162/87 98 07/23/20 22:00 72 18 149/85 99 07/23/20 21:45 80 16 156/84 96 07/23/20 21:41 78 94 L 07/23/20 21:30 97.3 F L 87 22 154/85 97 Intake and Output 07/23/20 07/24/20 07/24/20 22:59 06:59 14:59 Other: Weight 77.111 kg 77.111 kg PHYSICAL EXAMINATION: Patient is lying in the bed comfortably, no acute distress, awake alert and oriented.. HEENT: Normocephalic. Neck is supple. Pupils reactive. Nostrils clear. Oral cavity is moist. Ears reveal no drainage. Neck reveals no JVD, carotid bruits, or thyromegaly. CHEST EXAMINATION: Trachea is central. Symmetrical expansion. Lung ellis clear to auscultation and percussion. CARDIAC: Normal S1, S2 with no gallops. No murmurs ABDOMEN: Soft. Bowel sounds normal. No organomegaly. No abdominal bruits. Extremities: reveal no edema. No clubbing or cyanosis Neurologically awake, alert, oriented x3 with well-coordinated movements. No focal deficits noted Skin: No rash or skin lesions. Psychiatric: Coperative. Nonsuicidal Musculoskeletal: No joint swelling or deformity. Normal range of motion. Results CBC & Chem 7: 07/23/20 21:50 07/23/20 21:50 Labs: Abnormal Lab Results - Last 24 Hours (Table) 07/23/20 07/23/20 07/24/20 Range/Units 21:41 21:50 00:35 Glucose 103 H (74-99) mg/dL POC Glucose (mg/dL) 105 H (75-99) mg/dL HDL Cholesterol (40-60) mg/dL SARS-CoV-2 (PCR) Detected A (Not Detectd) 07/24/20 Range/Units 04:24 Glucose (74-99) mg/dL POC Glucose (mg/dL) (75-99) mg/dL HDL Cholesterol 73 H (40-60) mg/dL SARS-CoV-2 (PCR) (Not Detectd) Thrombosis Risk Factor Assmnt - DVT/VTE Prophylaxis DVT/VTE Prophylaxis: Pharmacologic Prophylaxis ordered - Choose All That Apply Any of the Below Risk Factors Present?: Yes Other Risk Factors: Yes Each Risk Factor Represents 2 Points: Age 61-74 years Other congenital or acquired thrombophilia - If yes, enter type in comment: No Each Risk Factor Represents 5 Points: Stroke (< 1 month) Thrombosis Risk Factor Assessment Total Risk Factor Score: 7 Thrombosis Risk Factor Assessment Level: High Risk Assessment and Plan Assessment: Left-sided weakness and numbness due to acute TIA. 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 Possible false positive. Patient asymptomatic. Repeat test negative. Pulmonary sarcoidosis with old granulomatous changes in the CT Hypertension History of smoking. Plan: Patient will be continued on telemetry monitoring. Continue with aspirin and statins. Plavix was added as per neurology recommendations. Continue with home medications including prednisone 10 mg daily. Continue with home blood pressure medications. Due to COVID-19 positive and patient is asymptomatic. Repeat COVID-19 was ordered which is negative. Patient did improve clinically and is at baseline. Patient would like to be discharged home. Time with Patient: Greater than 30
--- NOTE | 2020-08-09 23:40 | P.DS ---
Providers Date of admission: 07/23/20 23:46 Expected date of discharge: 07/24/20 Attending physician: Cash Hong Consults: 07/23/20 23:45 Consult Physician Routine Consulting Provider: Hyun Grey Consult Reason/Comments: cva Do you want consulting provider notified?: Yes Primary care physician: Jannie Camejo [facility] Course: Discharge diagnosis Left-sided weakness and numbness due to acute TIA. 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 Possible false positive. Patient asymptomatic. Repeat test negative. Pulmonary sarcoidosis with old granulomatous changes in the CT Hypertension History of smoking. Hospital course Patient is a 69-year-old male with a known history of sarcoidosis, history of spontaneous pneumothorax, hypertension, right bundle branch block history, previous history of smoking and occasional alcohol use presents to ER with complaints of left leg and arm weakness and numbness. Patient arrived to the hospital on 07/23/2020 at around 2129. Patient started having symptoms around 9 PM yesterday he started noticing that his left leg was weak and felt of them after that he sat down and then he noticed that his left side of the cheek was numb like he went to a dentist that he noticed his left upper and lower extremity weakness and numbness. He was having slurred speech. Symptoms lasted for about few hours. Currently patient is back to his baseline. Patient states that he did have intermittent episodes of right or left lower extremity weakness/numbness lasting for few seconds. 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 Denied any complaints of headache or dizziness. Patient is on aspirin and statins at home. Patient is also on prednisone 10 mg daily for his sarcoidosis. In the ED patient had NIH score of 7. Patient did not want TPA. Symptoms have DVT prophylaxis CT head showed patchy white matter hypodensity consistent with chronic small vessel ischemic changes. No acute CVA noted. CT angiogram chest showed no significant stenosis. 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 Old granulomatous disease in the left upper lobe perihilar infiltrate and atelectasis. Left upper lobe pleural and pulmonary scarring. Emphysema. EKG showed sinus rhythm with first-degree AV block. Right bundle branch block. Laboratory data showed WBC 9.2 hemoglobin 14.7 platelets 248 INR 0.9 sodium 138 potassium 4.0 chloride 105 BUN 14 and creatinine 0.89 LDL is 799 and HDL 73. Troponin x1 - and CPK 111 patient is positive for COVID-19 PCR and repeat test came out not detected. Patient was vaccinated. Patient was continued on telemetry monitoring. Continue with aspirin and statins. Plavix was added as per neurology recommendations. Continue with home medications including prednisone 10 mg daily. Continue with home blood pressure medications. Due to COVID-19 positive and patient is asymptomatic. Repeat COVID-19 was ordered which is negative. Patient did improve clinically and is at baseline. Patient would like to be discharged home. Discharge vitals reviewed. Patient Condition at Discharge: Serious Plan - Discharge Summary Discharge Rx Participant: No New Discharge Prescriptions: New Clopidogrel [Plavix] 75 mg PO DAILY #21 tab Aspirin 81 mg PO DAILY #30 chew Atorvastatin [Lipitor] 40 mg PO HS #30 tab Continue predniSONE 10 mg PO DAILY amLODIPine [Norvasc] 5 mg PO HS Lansoprazole [Prevacid] 15 mg PO HS Losartan [Cozaar] 50 mg PO HS Zolpidem Tartrate [Ambien] 10 mg PO HS PRN PRN Reason: sleep Vitamin C With Zinc 1 tab PO DAILY Cholecalciferol (Vitamin D3) [Vitamin D3 (5000 Iu)] 125 mcg PO DAILY Fish Oil/Dha/Epa [Fish Oil 1,200 mg Fish Oil] 2 cap PO DAILY Melatonin 10 mg PO HS Zinc 50 mg PO HS Discharge Medication List Lansoprazole [Prevacid] 15 mg PO HS 12/09/19 [History] Losartan [Cozaar] 50 mg PO HS 12/09/19 [History] Zolpidem Tartrate [Ambien] 10 mg PO HS PRN 12/09/19 [History] amLODIPine [Norvasc] 5 mg PO HS 12/09/19 [History] predniSONE 10 mg PO DAILY 12/09/19 [History] Cholecalciferol (Vitamin D3) [Vitamin D3 (5000 Iu)] 125 mcg PO DAILY 07/23/20 [History] Fish Oil/Dha/Epa [Fish Oil 1,200 mg Fish Oil] 2 cap PO DAILY 07/23/20 [History] Melatonin 10 mg PO HS 07/23/20 [History] Vitamin C With Zinc 1 tab PO DAILY 07/23/20 [History] Zinc 50 mg PO HS 07/23/20 [History] Aspirin 81 mg PO DAILY #30 chew 07/24/20 [Rx] Atorvastatin [Lipitor] 40 mg PO HS #30 tab 07/24/20 [Rx] Clopidogrel [Plavix] 75 mg PO DAILY #21 tab 07/24/20 [Rx] Follow up Appointment(s)/Referral(s): Jannie Camejo MD [Primary Care Provider] - 1-2 days Patient Instructions/Handouts: Ischemic Stroke (DC) Discharge Disposition: HOME SELF-CARE Plan of Treatment: Pt to have outpt MRI and follow up with neurologist pt to take aspirin and plavix for 21 days then can stop plavix.
== END 2020-07-24 15:15 | disposition home or self-care (01) | DRG 69 ==
LOC: EC 21:29 → 3SCARD 23:46
PROVIDERS: ADMIT Hospitalist; ATTEND Hospitalist
DX: G45.9 Transient cerebral ischemic attack, unspecified (principal); G83.14 Monoplegia of lower limb affecting left nondominant side; R20.0 Anesthesia of skin; D86.0 Sarcoidosis of lung; I10 Essential (primary) hypertension; I44.0 Atrioventricular block, first degree; I45.10 Unspecified right bundle-branch block; J43.9 Emphysema, unspecified; R29.707 NIHSS score 7; I86.8 Varicose veins of other specified sites; Z53.20 Procedure and treatment not carried out because of patient's decision for unspecified reasons; Z20.822 Contact with and (suspected) exposure to COVID-19; Z79.02 Long term (current) use of antithrombotics/antiplatelets; Z79.82 Long term (current) use of aspirin; Z79.899 Other long term (current) drug therapy; Z87.891 Personal history of nicotine dependence; R47.1 Dysarthria and anarthria; Z90.49 Acquired absence of other specified parts of digestive tract
CPT/HCPCS: 36415; 70450; 70496; 70498; 71045; 80053; 80061; 82550; 84484; 85025; 85610; 85730; 87635; 87636; 93005; 93306; 99291

== ENCOUNTER → 2020-08-22 | Outpatient (CLI) | payer MEDICARE, BC ==
--- NOTE | 2020-08-22 16:54 | MR ---
EXAMINATION TYPE: MR brain wo/w con DATE OF EXAM: 08/22/2020 COMPARISON: CT 07/23/2020 HISTORY: 69-year-old male TIA, had a fall, left sided weakness and dizziness. Hx of Sarcoid. TECHNIQUE: Multiplanar, multisequence images of the brain and brainstem were acquired before and aft er administration of 7.5 mL IV Gadavist. Diffusion weighted imaging is performed. FINDINGS: No evidence for acute infarction, hemorrhage, mass, mass effect, midline shift, herniation, effacemen t of basal cisterns, or extra-axial fluid collection. The ventricles and sulci are age-appropriate. Mild generalized supratentorial volume loss. Major intracranial flow voids are intact. T2/FLAIR weighted sequences show moderate to severe burden of scattered white white matter change in the subcortical, deep, and periventricular regions of both cerebral hemispheres. More confluent arreola es along the body of the lateral ventricles and atria of the lateral ventricles. Some patchy signal c hange is also present in the right paramedian elba. Midline structures demonstrate normal morphology. The craniocervical junction is normal. Post contrast images demonstrate no evidence of pathologic enhancement. Dural venous sinuses are pat ent. No suspicious susceptibility on the T2* gradient sequence. Lobulated mucosal thickening with mucous retention cysts along the floors of the maxillary sinuses. M oderate mucosal thickening ethmoid air cells and mild within the frontal sinuses. Globes are intact. IMPRESSION: Moderate to severe scattered burden of T2 bright white matter change, likely relating to chronic smal l vessel ischemic disease. No acute intracranial abnormality seen. No enhancing intracranial lesions. Mild to moderate chronic ethmoid and maxillary sinus disease.
== END | disposition home or self-care (01) ==
LOC: RADMRIMAIN 13:01
PROVIDERS: ATTEND Family Medicine
DX: R93.0 Abnormal findings on diagnostic imaging of skull and head, not elsewhere classified (principal); D86.9 Sarcoidosis, unspecified; J32.8 Other chronic sinusitis
CPT/HCPCS: 70553; A9585

== ENCOUNTER 2020-10-25 12:24 | Inpatient (IN) | payer MEDICARE, BC ==
[2020-10-25] MEDS ORDERED: HYDROmorphone 0.5 MG/0.5 ML SYRINGE IVP STA ×2 (12:46→13:42)
[2020-10-25] MEDS ORDERED: LIDOCAINE 1% INJ 10MG/ML (20 ML MDV) SQ ONE (12:47)
[2020-10-25 13:01] LABS: Basophils % (A) 0 %; Eosinophils % (A) 0 %; HCT 45.2 % (39.0-53.0); HGB 15.7 gm/dL (13.0-17.5); Lymphocytes # (A) 0.7 k/uL (1.0-4.8); Lymphocytes % (A) 7 %; MCH 33.4 pg (25.0-35.0); MCHC 34.7 g/dL (31.0-37.0); MCV 96.3 fL (80.0-100.0); Monocytes # (A) 0.3 k/uL (0-1.0); Monocytes % (A) 3 %; Neutrophils # (A) 9.3 k/uL (1.3-7.7); Neutrophils % (A) 88 %; Platelet Count 289 k/uL (150-450); RBC 4.69 m/uL (4.30-5.90); RDW 13.7 % (11.5-15.5); WBC 10.5 k/uL (3.8-10.6)
--- NOTE | 2020-10-25 13:08 | XR ---
EXAMINATION TYPE: XR chest 1V portable DATE OF EXAM: 10/25/2020 COMPARISON: 07/23/2020 HISTORY: Shortness of breath TECHNIQUE: Single frontal view of the chest is obtained. FINDINGS: There is a large right-sided pneumothorax with mediastinal deviation. Report medially call ed to ER physician 1:05 PM 10/25/2020. Subsegmental changes left lung. Underlying COPD suspected. Hear t size stable. IMPRESSION: 1. Large right pneumothorax with mediastinal deviation correlate for tension pneumothorax. Report catarino led to the ER clinician.
[2020-10-25 13:09] LABS: African American GFR (CKD) >90 (>60 ml/min/1.73 sqM); Anion Gap 10 mmol/L; Blood Urea Nitrogen 17 mg/dL (9-20); Calcium 9.9 mg/dL (8.4-10.2); Carbon Dioxide 22 mmol/L (22-30); Chloride 106 mmol/L (98-107); Glucose 113 mg/dL (74-99); Non-African American GFR(CKD) 83 (>60 ml/min/1.73 sqM); Potassium 3.9 mmol/L (3.5-5.1); Sodium 138 mmol/L (137-145)
[2020-10-25 13:21] LABS: Partial Thromboplastin Time 23.8 sec (22.0-30.0); Prothrombin Time 10.4 sec (9.0-12.0)
[2020-10-25] MEDS ORDERED: HYDROmorphone 0.5 MG/0.5 ML SYRINGE IM PRN (14:26)
[2020-10-25] MEDS ORDERED: NALOXONE 0.4 MG/ML 1 ML VIAL IV PRN (14:30)
[2020-10-25] MEDS ORDERED: ACETAMINOPHEN TAB 325 MG TAB PO PRN (14:30)
--- NOTE | 2020-10-25 14:36 | XR ---
EXAMINATION TYPE: XR chest 1V portable DATE OF EXAM: 10/25/2020 COMPARISON: 10/25/2020 HISTORY: Chest tube placement TECHNIQUE: Single frontal view of the chest is obtained. FINDINGS: There is interval placement of a chest tube with near complete reexpansion of the right nusrat ng. Subcutaneous emphysema noted. Heart size now appears more midline. Calcified lymph nodes in the h ilum and mediastinum compatible chronic granulomatous disease and suspect underlying COPD. IMPRESSION: 1. Marked improvement with near complete reexpansion of the right lung post chest tube insertion.
[2020-10-25] MEDS ORDERED: HYDROmorphone 0.5 MG/0.5 ML SYRINGE IVP PRN (14:43)
--- NOTE | 2020-10-25 16:31 | P.GSCN ---
History of Present Illness Consult date: 10/25/20 Reason for Consult: Spontaneous pneumothorax, recurrence Requesting physician: Guerrero Zendejas History of present illness: This is a 69-year-old gentleman who follows on an outpatient basis with Dr. Jannie Camejo for primary care. He has a previous medical history of spontaneous pneumothorax in 2004 although he doesn't remember which side, as well as spontaneous pneumothorax in the right lung last , 10/19/2020, TIA in July of this year without residual, pulmonary sarcoidosis, hypertension, previous tobacco dependence, and daily EtOH use without history of withdrawal. Apparently last week he had significant shortness of breath and presented to [facility] for evaluation treatment. He reportedly had a right- sided spontaneous pneumothorax, a chest tube was placed. Per the patient his nusrat ng re-expanded, however he was told that the chest tube was in the wrong spot and it was removed a short time later. He was transferred true [facility] for cardiothoracic surgery evaluation for follow-up. He reports he was there for about 24 hours, was told his pneumothorax was gone, and was sent home. This history is all obtained from the patient is we have no records or studies to evaluate. Apparently this morning he began to have the same symptoms of shortness of breath. He presented to [facility] emergency room, chest x-ray revealed significant right-sided pneumothorax and a thoravent was placed by the emergency room physicians with reexpansion of the right lung. The th oravent was placed to continuous wall suction and there is an intermittent air leak present. The patient is to be admitted for continued treatment with consultation placed to Dr. Lackey from cardiothoracic surgery for recommendations. Review of Systems Review of systems was completed and was negative except as noted - Respiratory Reports as per HPI, Reports dyspnea Past Medical History Past Medical History: No Reported History, Hypertension, Respiratory Disorder Additional Past Medical History / Comment(s): RBBB. Sarcoidosis. Hx spontaneous pneumothorax. Rt inguinal hernia. History of Any Multi-Drug Resistant Organisms: None Reported Past Surgical History: Appendectomy, Hernia Repair Additional Past Surgical History / Comment(s): Hernia's x3. Past Anesthesia/Blood Transfusion Reactions: No Reported Reaction Past Psychological History: No Psychological Hx Reported Smoking Status: Former smoker Past Alcohol Use History: Occasional Past Drug Use History: None Reported Additional History: Quit smoking 40 years ago; admits to 1-2 beers per day - Past Family History Mother Family Medical History: No Reported History, Dementia Additional Family Medical History / Comment(s): ETOH Father Family Medical History: CVA/TIA Additional Family Medical History / Comment(s): ETOH Medications and Allergies Home Medications Medication Instructions Recorded Confirmed Type Losartan [Cozaar] 50 mg PO HS 12/09/19 10/25/20 History amLODIPine [Norvasc] 5 mg PO HS 12/09/19 10/25/20 History predniSONE 10 mg PO DAILY 12/09/19 10/25/20 History Melatonin 10 mg PO HS 07/23/20 10/25/20 History Lansoprazole [Prevacid] 30 mg PO DAILY 10/25/20 10/25/20 History Multivitamins, Thera [Multivitamin 1 tab PO DAILY 10/25/20 10/25/20 History (formulary)] Zolpidem Tartrate [Zolpidem 12.5 mg PO HS 10/25/20 10/25/20 History Tartrate ER] Allergies Allergy/AdvReac Type Severity Reaction Status Date / Time No Known Allergies Allergy Verified 10/25/20 14:04 Surgical - Exam Vital Signs Temp Pulse Resp BP Pulse Ox 98 F 114 H 24 145/77 87 L 10/25/20 12:25 10/25/20 12:25 10/25/20 12:25 10/25/20 12:25 10/25/20 12:25 CONSTITUTIONAL: Awake and alert, appears comfortable, cooperative, well- developed, well-nourished, no pain, no acute distress EYES: Pupils equal, round, reactive to light, normal ocular movement ENT: Moist mucous membranes without oral lesions present NECK: No masses, no bruits, trachea midline RESPIRATORY: Lungs sounds clear to auscultation bilaterally. Respirations even, nonlabored. Currently on nonrebreather with oxygen saturation 98%. Strong cough. Right-sided thoravent present, connected to continuous wall suc tion, positive intermittent air leak CARDIOVASCULAR: S1, S2 present. Regular rate and rhythm, sinus rhythm on telemetry. Palpable peripheral pulses bilaterally. No edema present. No calf pain or tenderness noted. GASTROINTESTINAL: Abdomen soft, nontender, nondistended without masses or organ omegaly noted. There is no rebound or guarding present. Active bowel sounds present 4 quadrants. GENITOURINARY: Deferred INTEGUMENTARY: Skin is warm and dry with evidence of good perfusion. NEUROLOGIC: Cranial nerves II through XII intact, normal coordination, no obvious motor or sensory deficits, speech is normal MUSKULOSKELETAL: Able to move all extremities, strength equal bilaterally, normal posture PSYCHIATRIC: Alert and oriented to person place and time, appropriate affect, intact judgment and insight Results - Labs 10/25/20 12:50 10/25/20 12:50 Abnormal Lab Results - Last 24 Hours (Table) 10/25/20 10/25/20 Range/Units 12:50 12:50 Neutrophils # 9.3 H (1.3-7.7) k/uL Lymphocytes # 0.7 L (1.0-4.8) k/uL Glucose 113 H (74-99) mg/dL Diabetes panel 10/25/20 Range/Units 12:50 Sodium 138 (137-145) mmol/L Potassium 3.9 (3.5-5.1) mmol/L Chloride 106 (98-107) mmol/L Carbon Dioxide 22 (22-30) mmol/L BUN 17 (9-20) mg/dL Creatinine 0.93 (0.66-1.25) mg/dL Glucose 113 H (74-99) mg/dL Calcium 9.9 (8.4-10.2) mg/dL Calcium panel 10/25/20 Range/Units 12:50 Calcium 9.9 (8.4-10.2) mg/dL Pituitary panel 10/25/20 Range/Units 12:50 Sodium 138 (137-145) mmol/L Potassium 3.9 (3.5-5.1) mmol/L Chloride 106 (98-107) mmol/L Carbon Dioxide 22 (22-30) mmol/L BUN 17 (9-20) mg/dL Creatinine 0.93 (0.66-1.25) mg/dL Glucose 113 H (74-99) mg/dL Calcium 9.9 (8.4-10.2) mg/dL Adrenal panel 10/25/20 Range/Units 12:50 Sodium 138 (137-145) mmol/L Potassium 3.9 (3.5-5.1) mmol/L Chloride 106 (98-107) mmol/L Carbon Dioxide 22 (22-30) mmol/L BUN 17 (9-20) mg/dL Creatinine 0.93 (0.66-1.25) mg/dL Glucose 113 H (74-99) mg/dL Calcium 9.9 (8.4-10.2) mg/dL - Imaging Chest x-ray: report reviewed, image reviewed Assessment and Plan Assessment: 1. Spontaneous pneumothorax, right-sided, status post thoravent placement by the emergency room physicians 2. History of spontaneous pneumothorax in 2004, not clear which side, with recent spontaneous pneumothorax in the right lung last , 10/19/2020 3. TIA in July of this year without residual 4. Pulmonary sarcoidosis 5. Hypertension 6. Previous tobacco dependence 7. Daily EtOH use without history of withdrawal Plan: The patient was seen and examined in the emergency room with Dr. Lackey. Chart/diagnostics were reviewed. We will continue thoravent to wall suction for another 24 hours. Likely we will remove suction tomorrow and send patient for CT of the chest to evaluate the lungs. Incentive spirometry was ordered and should be encouraged. Pain control with current medication regimen. Increase activity, ambulate as tolerated, may add more suction tubing to allow patient to ambulate in the room. We did discuss the possibility of VATS procedure as once pneumothorax has reoccurred it is likely to continue to recur, and surgery is the best course of treatment. The patient is reluctant at this time but will consider it. Medical management of other comorbidities per primary care service. More recommendations to follow. Thank you for this consult. We will follow along with you Time with Patient: Greater than 30
--- NOTE | 2020-10-25 16:41 | ED ---
General Adult HPI - General Chief complaint: Shortness of Breath Stated complaint: Collapsed Lung/BOBBY Time Seen by Provider: 10/25/20 12:38 Source: patient, RN notes reviewed, old records reviewed Mode of arrival: ambulatory Limitations: no limitations - History of Present Illness Initial comments: Patient is a 69-year-old male with past medical history remarkable for hypertension, respiratory neuro sarcoidosis, right bundle branch block who presents emergency Department complaining of right-sided chest discomfort with shortness of breath. Patient last week 6 days ago had a spontaneous pneumothorax diagnosed at an outside hospital. Chest tube was initially placed to reexpand the lung, and that was removed as it became misplaced. Repeat chest x-ray revealed lung reexpansion. They determined that he did not require an additional chest tube. He was admitted to the hospital for observation and eventually discharge without an additional chest tube placed. Chest tube was in total in place for approximately 5 minutes. Patient states that today he began having reaccumulation of shortness of breath, particularly over the right chest. States some right-sided chest discomfort as well. Denies any nausea, vomiting, abdominal pain. Denies any headache, lightheadedness, numbness, weakness. He denies any fevers, chills, cough. He has been vaccinated for COVID-19. His no other acute complaints at this time. He states that today his shortness of breath began at home, and he is not overly exerting himself. He states this is identical to the previous instance of spontaneous pneumothorax in terms of his presentation. - Related Data Home Medications Medication Instructions Recorded Confirmed Losartan [Cozaar] 50 mg PO HS 12/09/19 10/25/20 amLODIPine [Norvasc] 5 mg PO HS 12/09/19 10/25/20 predniSONE 10 mg PO DAILY 12/09/19 10/25/20 Melatonin 10 mg PO HS 07/23/20 10/25/20 Lansoprazole [Prevacid] 30 mg PO DAILY 10/25/20 10/25/20 Multivitamins, Thera [Multivitamin 1 tab PO DAILY 10/25/20 10/25/20 (formulary)] Zolpidem Tartrate [Zolpidem 12.5 mg PO HS 10/25/20 10/25/20 Tartrate ER] Allergies Allergy/AdvReac Type Severity Reaction Status Date / Time No Known Allergies Allergy Verified 10/25/20 14:04 Review of Systems ROS Statement: Those systems with pertinent positive or pertinent negative responses have been documented in the HPI. Review of Systems: CONST: Denies fever EYES: Denies blurry vision ENT: Denies nasal congestion C/V: Endorses primarily right-sided chest pain. RESP: Endorses shortness of breath GI: Denies abdominal pain : Denies dysuria SKIN: Denies rash. MSK: Denies joint pain. NEURO: Denies headache ROS Other: All systems not noted in ROS Statement are negative. Past Medical History Past Medical History: No Reported History, Hypertension, Respiratory Disorder Additional Past Medical History / Comment(s): RBBB. Sarcoidosis. Hx spontaneous pneumothorax. Rt inguinal hernia. History of Any Multi-Drug Resistant Organisms: None Reported Past Surgical History: Appendectomy, Hernia Repair Additional Past Surgical History / Comment(s): Hernia's x3. Past Anesthesia/Blood Transfusion Reactions: No Reported Reaction Past Psychological History: No Psychological Hx Reported Smoking Status: Former smoker Past Alcohol Use History: Occasional Past Drug Use History: None Reported - Past Family History Mother Family Medical History: No Reported History Additional Family Medical History / Comment(s): ETOH Father Additional Family Medical History / Comment(s): ETOH General Exam - General Exam Comments Initial Comments: General: Appears in no acute distress. HEAD: Normal with no signs of head trauma. EYES: PERRLA, EOMI, conjunctiva normal, no discharge. ENT: Hearing grossly intact, normal oropharynx. RESPIRATORY: Patient has reduced breath sounds over the right lung field. He has mild tachypnea. Patient is saturating 87% on room air, but 95% on 15 L nonrebreather. C/V: Patient is tachycardic with regular rhythm. S1 and S2 auscultated. Peripheral pulses are 2+ intact throughout. ABD: Abd is soft, nontender, nondistended EXT: Normal range of motion, no obvious deformity SKIN: No rashes or lesions observed on exposed skin. NEURO: Alert and oriented 4. Limitations: no limitations Course Vital Signs 10/25/20 10/25/20 10/25/20 12:25 12:43 13:44 Temperature 98 F Pulse Rate 114 H 105 H 86 Respiratory 24 20 20 Rate Blood Pressure 145/77 131/91 129/80 O2 Sat by Pulse 87 L 97 98 Oximetry 10/25/20 10/25/20 10/25/20 14:13 16:00 17:00 Temperature Pulse Rate 79 67 66 Respiratory 20 20 22 Rate Blood Pressure 116/75 142/85 132/79 O2 Sat by Pulse 99 98 99 Oximetry Procedures - Chest Tube Insertion Consent Obtained: written consent Side of Procedure: right Indication: Pneumothorax Placed on monitor/pulse oximetry: Yes Site Prep: Chloroprep, Sterile Drape Applied Local Anesthesia: Lidocaine 1% Amount (mLs): 10 Insertion Site: Other (2nd intercostal space midclavicular line) Scalpel: #11 Tube Size (Ukrainian): Other (13 F thoravent) Returns: Air Sutured in Place: No (Sterile dressing in place) Attached to Suction: Yes Type of Suction: Pleuravac Repeat X-ray Results: Lung Inflated Patient Tolerated Procedure: well Complications: Pain Medical Decision Making - Medical Decision Making Based on the patient's presentation and physical exam, I'm concerned for recurrence of his spontaneous pneumothorax. I cannot rule out the possibility of cardiac etiology at this time either. Therefore cardiac labs will be ordered as well as a chest x-ray, EKG. He will be connected to continuous cardiac monitoring was in the department. Patient was in agreement this plan. Patient's EKG shows right bundle branch block which is old, no signs of acute ischemia. Patient's lavatory studies are remarkable for a negative troponin. Remainder of his labs are unremarkable. Patient's chest x-ray revealed a moderate sized right pneumothorax. I did discuss with the patient the results of his chest x-ray And explained that we will be placing a chest tube at this time. He was in agreement this plan. Thoravent chest tube was placed in the second intercostal space on the right side midclavicular line. Patient tolerated the procedure well. This was done after providing pain medication Dilaudid as well as anesthetizing the area locally with lidocaine 10 mL. See separate procedure note for further details. Repeat chest x-ray revealed marked improvement in the right-sided pneumothorax. Patient's oxygen saturations are improved at this time. I did discuss with him that we will admit him to the hospital. Chest tube was placed to pleuravac which is in turn connected to suction. He will be admitted to a telemetry bed for chest tube monitoring. I did consult cardiothoracic surgery [facility] for management of the chest tube. They agreed to accept the consultation. I spoke with the patient's admitting Dr. Larissa sim who accepted the patient. Therefore patient was admitted to the hospital to a telemetry bed in serious condition. - Lab Data Result diagrams: 10/25/20 12:50 10/25/20 12:50 Lab Results 10/25/20 10/25/20 10/25/20 Range/Units 12:50 12:50 12:57 WBC 10.5 (3.8-10.6) k/uL RBC 4.69 (4.30-5.90) m/uL Hgb 15.7 (13.0-17.5) gm/dL Hct 45.2 (39.0-53.0) % MCV 96.3 (80.0-100.0) fL MCH 33.4 (25.0-35.0) pg MCHC 34.7 (31.0-37.0) g/dL RDW 13.7 (11.5-15.5) % Plt Count 289 (150-450) k/uL MPV 7.0 Neutrophils % 88 % Lymphocytes % 7 % Monocytes % 3 % Eosinophils % 0 % Basophils % 0 % Neutrophils # 9.3 H (1.3-7.7) k/uL Lymphocytes # 0.7 L (1.0-4.8) k/uL Monocytes # 0.3 (0-1.0) k/uL Eosinophils # 0.0 (0-0.7) k/uL Basophils # 0.0 (0-0.2) k/uL PT (9.0-12.0) sec INR (<1.2) APTT (22.0-30.0) sec Sodium 138 (137-145) mmol/L Potassium 3.9 (3.5-5.1) mmol/L Chloride 106 (98-107) mmol/L Carbon Dioxide 22 (22-30) mmol/L Anion Gap 10 mmol/L BUN 17 (9-20) mg/dL Creatinine 0.93 (0.66-1.25) mg/dL Est GFR (CKD-EPI)AfAm >90 (>60 ml/min/1.73 sqM) Est GFR (CKD-EPI)NonAf 83 (>60 ml/min/1.73 sqM) Glucose 113 H (74-99) mg/dL Calcium 9.9 (8.4-10.2) mg/dL Magnesium 2.0 (1.6-2.3) mg/dL Troponin I <0.012 (0.000-0.034) ng/mL 10/25/20 Range/Units 12:57 WBC (3.8-10.6) k/uL RBC (4.30-5.90) m/uL Hgb (13.0-17.5) gm/dL Hct (39.0-53.0) % MCV (80.0-100.0) fL MCH (25.0-35.0) pg MCHC (31.0-37.0) g/dL RDW (11.5-15.5) % Plt Count (150-450) k/uL MPV Neutrophils % % Lymphocytes % % Monocytes % % Eosinophils % % Basophils % % Neutrophils # (1.3-7.7) k/uL Lymphocytes # (1.0-4.8) k/uL Monocytes # (0-1.0) k/uL Eosinophils # (0-0.7) k/uL Basophils # (0-0.2) k/uL PT 10.4 (9.0-12.0) sec INR 1.0 (<1.2) APTT 23.8 (22.0-30.0) sec Sodium (137-145) mmol/L Potassium (3.5-5.1) mmol/L Chloride (98-107) mmol/L Carbon Dioxide (22-30) mmol/L Anion Gap mmol/L BUN (9-20) mg/dL Creatinine (0.66-1.25) mg/dL Est GFR (CKD-EPI)AfAm (>60 ml/min/1.73 sqM) Est GFR (CKD-EPI)NonAf (>60 ml/min/1.73 sqM) Glucose (74-99) mg/dL Calcium (8.4-10.2) mg/dL Magnesium (1.6-2.3) mg/dL Troponin I (0.000-0.034) ng/mL - EKG Data -: EKG Interpreted by Me EKG Comments: 12-lead Electrocardiogram Interpretation Note EKG was reviewed and interpreted by myself. 12-lead ECG performed at 12:30 is interpreted by me as revealing sinus tachycardia at a rate of 105 beats per minute. [place] appears normal. CT interval is 194 ms, QRS duration is 140 ms, QTc is 467 ms.. Patient is T-wave inversions in the anterior precordial leads which is seen on prior EKGs.. There is a right bundle branch block. This is seen on prior EKGs.. By my interpretation this EKG is non-diagnostic for acute ischemia. In comparison with prior EKGs, there are no acute changes. Disposition Clinical Impression: Spontaneous pneumothorax, Chest tube in place, History of sarcoidosis, Hypoxia Disposition: ADMITTED IP TO THIS HOSP Condition: Serious
[2020-10-25] MEDS ORDERED: MELATONIN 5 MG TABLET PO PRN (16:43)
--- NOTE | 2020-10-25 16:48 | P.HPIM ---
History of Present Illness Patient is a pleasant 69-year-old male came in with chest pain sharp in nature found to have a spontaneous pneumothorax on the right side. Patient has a prominent in place which is connected to suction. Patient had a pneumothorax which was significant which was reduced to be a small pneumothorax after the chest tube placement. Patient was recently is seen at an outside hospital was subsequently transferred to [facility] for right-sided pneumothorax. Chest tube was placed in the ER at that time which was malpo sitioned because of the chest tube was removed was transferred to cardiothoracic service, patient was monitored for a day without replacement of the chest to patient did okay without any recurrence of pneumothorax patient was subsequently discharged. Patient started having chest pain again came to the hospital found to have pneumothorax again. Patient doesn't use any oxygen but does have history of pulmonary and the neurosarcoidosis for which patient follows up with a specialist at [facility] REVIEW OF SYSTEMS: CONSTITUTIONAL: No fever, no malaise, no fatigue. HEENT: No recent visual problems or hearing problems. Denied any sore throat. CARDIOVASCULAR: No chest pain, orthopnea, PND, no palpitations, no syncope. PULMONARY: No shortness of breath, no cough, no hemoptysis. Patient has a right-sided predominant connected to suction GASTROINTESTINAL: No diarrhea, no nausea, no vomiting, no abdominal pain. NEUROLOGICAL: No headaches, no weakness, no numbness. HEMATOLOGICAL: Denies any bleeding or petechiae. GENITOURINARY: Denies any burning micturition, frequency, or urgency. MUSCULOSKELETAL/RHEUMATOLOGICAL: Denies any joint pain, swelling, or any muscle pain. ENDOCRINE: Denies any polyuria or polydipsia. The rest of the 14-point review of systems is negative. PHYSICAL EXAMINATION: GENERAL: The patient is alert and oriented x3, not in any acute distress. Well developed, well nourished. HEENT: Pupils are round and equally reacting to light. EOMI. No scleral icterus. No conjunctival pallor. Normocephalic, atraumatic. No pharyngeal erythema. No thyromegaly. CARDIOVASCULAR: S1 and S2 present. No murmurs, rubs, or gallops. PULMONARY: Chest is clear to auscultation, no wheezing or crackles. ABDOMEN: Soft, nontender, nondistended, normoactive bowel sounds. No palpable organomegaly. MUSCULOSKELETAL: No joint swelling or deformity. EXTREMITIES: No cyanosis, clubbing, or pedal edema. NEUROLOGICAL: Gross neurological examination did not reveal any focal deficits. SKIN: No rashes. Assessment and plan -Spontaneous pneumothorax right-sided, patient does have extensive history of sarcoidosis, continue with chest tube cardio thoracic surgery evaluated the patient and patient had history of spontaneous pneumothorax in the past. -Pulmonary and neurosarcoidosis patient is on prednisone which will be continued along with GI prophylaxis -Hypertension -Alcohol use, counseling was provided -CVA TIA in the past DVT prophylaxis: Lovenox Past Medical History Past Medical History: No Reported History, Hypertension, Respiratory Disorder Additional Past Medical History / Comment(s): RBBB. Sarcoidosis. Hx spontaneous pneumothorax. Rt inguinal hernia. History of Any Multi-Drug Resistant Organisms: None Reported Past Surgical History: Appendectomy, Hernia Repair Additional Past Surgical History / Comment(s): Hernia's x3. Past Anesthesia/Blood Transfusion Reactions: No Reported Reaction Past Psychological History: No Psychological Hx Reported Smoking Status: Former smoker Past Alcohol Use History: Occasional Past Drug Use History: None Reported - Past Family History Mother Family Medical History: No Reported History Additional Family Medical History / Comment(s): ETOH Father Family Medical History: CVA/TIA Additional Family Medical History / Comment(s): ETOH Medications and Allergies Home Medications Medication Instructions Recorded Confirmed Type Losartan [Cozaar] 50 mg PO HS 12/09/19 10/25/20 History amLODIPine [Norvasc] 5 mg PO HS 12/09/19 10/25/20 History predniSONE 10 mg PO DAILY 12/09/19 10/25/20 History Melatonin 10 mg PO HS 07/23/20 10/25/20 History Lansoprazole [Prevacid] 30 mg PO DAILY 10/25/20 10/25/20 History Multivitamins, Thera [Multivitamin 1 tab PO DAILY 10/25/20 10/25/20 History (formulary)] Zolpidem Tartrate [Zolpidem 12.5 mg PO HS 10/25/20 10/25/20 History Tartrate ER] Allergies Allergy/AdvReac Type Severity Reaction Status Date / Time No Known Allergies Allergy Verified 10/25/20 14:04 Physical Exam Vitals: Vital Signs Temp Pulse Resp BP Pulse Ox 10/25/20 16:00 67 20 142/85 98 10/25/20 14:13 79 20 116/75 99 10/25/20 13:44 86 20 129/80 98 10/25/20 12:43 105 H 20 131/91 97 10/25/20 12:25 98 F 114 H 24 145/77 87 L Intake and Output 10/25/20 10/25/20 10/25/20 06:59 14:59 22:59 Other: Weight 170 kg Results CBC & Chem 7: 10/25/20 12:50 10/25/20 12:50 Labs: Abnormal Lab Results - Last 24 Hours (Table) 10/25/20 10/25/20 Range/Units 12:50 12:50 Neutrophils # 9.3 H (1.3-7.7) k/uL Lymphocytes # 0.7 L (1.0-4.8) k/uL Glucose 113 H (74-99) mg/dL
[2020-10-25] MEDS: HYDROcodone/APAP 5-325MG 1 EACH TAB PO PRN (17:07)
[2020-10-25] MEDS ORDERED: VERAPAMIL 80 MG TAB PO SCH (17:15)
[2020-10-25] MEDS ORDERED: VALPROATE SODIUM 250 MG in SODIUM CHLORIDE 0.9% 100 ML IVPB SCH (18:00)
[2020-10-25] MEDS: LOSARTAN 50 MG TAB PO SCH (20:51)
[2020-10-25] MEDS: amLODIPine 5 MG TAB PO SCH (20:51)
[2020-10-25] MEDS: KETOROLAC 15 MG/ML 1 ML VIAL IVP PRN (22:00)
[2020-10-25] MEDS: ZOLPIDEM 5 MG TAB PO PRN (22:01)
[2020-10-26] MEDS: HYDROcodone/APAP 5-325MG 1 EACH TAB PO PRN ×2 (01:31→08:29)
[2020-10-26] MEDS: KETOROLAC 15 MG/ML 1 ML VIAL IVP PRN ×2 (06:16→12:44)
[2020-10-26] MEDS: PANTOPRAZOLE 40 MG TABLET PO SCH (06:16)
--- NOTE | 2020-10-26 07:51 | P.PN ---
Subjective Progress Note Date: 10/26/20 Principal diagnosis: Spontaneous pneumothorax, right-sided, status post thoravent placement by the emergency room physicians. Previous medical history of spontaneous pneumothorax in 2004, not clear which side, with recent spontaneous pneumothorax in the right lung 10/19/2020, TIA in July 2020 without residual, pulmonary sarcoidosis (sees specialist at [facility]), hypertension, previous tobacco dependence, daily EtOH use without history of withdrawal The patient is currently sitting up in bed on the cardiac stepdown unit in no acute distress. States pain is controlled on current medication regimen, denies shortness of breath. Has been ambulatory in the room. Right-sided chest tube present to continuous wall suction with no evidence of air leak this morning. Chest x-ray reviewed. No other new concerns. Objective - Vital Signs Vital signs: Vital Signs Temp 97.8 F 10/25/20 20:00 Pulse 68 10/26/20 04:00 Resp 18 10/26/20 04:00 BP 148/60 10/26/20 04:00 Pulse Ox 98 10/26/20 04:00 Intake & Output 10/25/20 10/26/20 10/26/20 18:59 06:59 18:59 Weight 170 kg 76.7 kg Other: Voiding Method Urinal # Voids 2 - Exam CONSTITUTIONAL: Appears comfortable, cooperative, no acute distress RESPIRATORY: Lungs sounds diminished bilaterally. Respirations even, nonlabored. Currently on room air with oxygen saturation 97%. Able to achieve 1500 mL on incentive spirometry. Strong cough. CARDIOVASCULAR: S1, S2 present. Regular rate and rhythm, sinus rhythm on telemetry. Palpable peripheral pulses bilaterally. No edema present. No calf pain or tenderness noted. GASTROINTESTINAL: Abdomen soft, nontender, nondistended. Active bowel sounds present 4 quadrants. Tolerating diet. GENITOURINARY: Continues to void INTEGUMENTARY: Skin is warm and dry with evidence of good perfusion. NEUROLOGIC: Cranial nerves II through XII intact MUSKULOSKELETAL: Able to move all extremities, strength equal bilaterally, gait normal PSYCHIATRIC: Alert and oriented to person place and time, appropriate affect, intact judgment and insight INVASIVE LINES AND TUBES: Right pleural chest tubes present and connected to wall suction, no air leaks present, no drainage. - Allied health notes Allied health notes reviewed: nursing - Labs CBC & Chem 7: 10/25/20 12:50 10/25/20 12:50 Labs: Abnormal Lab Results - Last 24 Hours (Table) 10/25/20 10/25/20 Range/Units 12:50 12:50 Neutrophils # 9.3 H (1.3-7.7) k/uL Lymphocytes # 0.7 L (1.0-4.8) k/uL Glucose 113 H (74-99) mg/dL - Imaging and Cardiology Chest x-ray: image reviewed Assessment and Plan Assessment: 1. Spontaneous pneumothorax, right-sided, status post thoravent placement by the emergency room physicians 2. History of spontaneous pneumothorax in 2004, not clear which side, with recent spontaneous pneumothorax in the right lung last , 10/19/2020 3. TIA in July of this year without residual 4. Pulmonary sarcoidosis 5. Hypertension 6. Previous tobacco dependence 7. Daily EtOH use without history of withdrawal Plan: 1. Suction removed from chest tube, nonocclusive cap placed 2. Will send patient for CT of the chest without contrast to evaluate the lungs 3. Encourage incentive spirometry use 10 times every hour while awake 4. Pain controlled current medication regimen 5. Increase activity, ambulate as tolerated 6. Medical management other comorbidities per primary care service 7. More recommendations to follow regarding chest tube management, possibility of VATS Time with Patient: Greater than 30
--- NOTE | 2020-10-26 08:01 | XR ---
EXAMINATION TYPE: XR chest 1V DATE OF EXAM: 10/26/2020 COMPARISON: 10/25/2020 HISTORY: 69-year-old male chest tube evaluation, pneumothorax evaluation TECHNIQUE: Single frontal view of the chest is obtained. FINDINGS: Right-sided chest tube is present. Some lung markings are seen up to the right apex but th ere is also a pleural edge seen projecting at the right mid to lower lung. Subcutaneous emphysema xander ng the right side of the chest. Interstitial changes similar throughout the left hemithorax. Heart up per limits of normal in size. Calcified mediastinal and hilar lymph nodes suggest prior granulomatous disease. IMPRESSION: 1. Right-sided chest tube in place. Lung markings are seen up to the apex but a pleural edge is also noted at the right mid and lower lung. Unable to exclude an anterior pneumothorax. We note that a CT of the chest has been ordered. This will be helpful in better characterizing the potential underlying pneumothorax. 2. Similar interstitial changes and some volume loss throughout the left side of the chest.
[2020-10-26] MEDS: ENOXAPARIN 40 MG/0.4 ML SYRINGE SQ SCH (08:28)
[2020-10-26] MEDS: predniSONE 10 MG TAB PO SCH (08:29)
--- NOTE | 2020-10-26 09:01 | CT ---
EXAMINATION TYPE: CT chest wo con DATE OF EXAM: 10/26/2020 COMPARISON: Radiograph same day HISTORY: 69-year-old male pneumothorax TECHNIQUE: Contiguous axial scanning of the chest without IV contrast. Coronal and sagittal reconstru ctions performed. CT DLP: 532.7 mGycm Automated exposure control for dose reduction was used. FINDINGS: Heart normal size without pericardial effusion. Ectatic ascending aorta 3.9 cm. Mild atherosclerotic arch calcifications within the target vessel bra nching anatomy. Numerous calcified mediastinal hilar lymph nodes compatible with prior granulomatous disease. There is some irregular opacity at the right hilum and infrahilar level measuring 3.4 x 1.6 cm. Punct ate calcifications are present within this density suggesting possible cicatricial atelectasis. Additional 1.5 cm subpleural nodule periphery of the right lower lung, axial image 32. 6 mm right basilar pulmonary nodule, axial image 40 There appears to be consolidation volume loss extending along the medial left upper lobe. Again, calc ifications are associated with this density suggesting cicatricial atelectasis. Moderate emphysema. Some scattered bullous change. A right anterior chest wall enters the second intercostal space. Scattered bullous changes are presen t. There is a small right-sided pneumothorax measuring approximately 15%. This is located mostly depe ndent anterior base but also extends medially into the apex. Scattered subcutaneous emphysema along the right chest wall. Hepatic hypodensities measuring up to 1.2 cm, likely cysts. Bones: No osseous destructive process. IMPRESSION: 1. RIGHT-SIDED CHEST TUBE ENTERING THE ANTERIOR SECOND INTERCOSTAL SPACE. THERE IS A SMALL UNDERLYING PNEUMOTHORAX ESTIMATED AT 15%. 2. COPD WITH SOME ASSOCIATED BULLOUS CHANGE. EVIDENCE OF PRIOR GRANULOMATOUS DISEASE. 3. FOCAL IRREGULAR RIGHT INFRAHILAR OPACITY MEASURING 3.4 X 1.6 CM. GIVEN INTERNAL PUNCTATE CALCIFICA TIONS, POSSIBLE CICATRICIAL ATELECTASIS. 3 MONTH FOLLOW-UP CONTRAST ENHANCED CT RECOMMENDED TO EXCLUD E THE POSSIBILITY OF AN EARLY MASS. 4. SIMILAR SMALLER DENSITY MEDIAL LEFT UPPER LOBE ALONG WITH SOME NODULARITY MEASURING UP TO 1.5 CM O N THE RIGHT. ALL OF THESE AREAS SHOULD BE REASSESSED WELL AT THE 3 MONTH FOLLOW-UP.
--- NOTE | 2020-10-26 13:53 | P.PN ---
Subjective Progress Note Date: 10/26/20 Patient is a pleasant 69-year-old male came in with chest pain sharp in nature found to have a spontaneous pneumothorax on the right side. Patient has a prominent in place which is connected to suction. Patient had a pneumothorax which was significant which was reduced to be a small pneumothorax after the chest tube placement. Patient was recently is seen at an outside hospital was subsequently transferred to [facility] for right-sided pneumothorax. Chest tube was placed in the ER at that time which was malpositioned because of the chest tube was removed was transferred to cardiotho racic service, patient was monitored for a day without replacement of the chest to patient did okay without any recurrence of pneumothorax patient was subsequently discharged. Patient started having chest pain again came to the hospital found to have pneumothorax again. Patient doesn't use any oxygen but does have history of pulmonary and the neurosarcoidosis for which patient follows up with a specialist at [facility] 10/26/2020 Patient is evaluated today sitting up in bed, patient denies any chest pain, cough, shortness of breath. Patient has a Serevent in place to the right chest wall, not to suction. Patient had a chest CT today which revealed a 50% pneumo. Patient is ambulating, using incentive spirometry. Patient is being followed by cardio thoracic services for management of sore event. Vital signs are stable today, afebrile, heart rate 77, blood pressure 118/64, 97% on room air. Patient's chemistry, blood count panel within normal limits. Patient continues on all current home medications, IV Dilaudid, [place] for pain management. ROS: Constitutional: Denied any fatigue denied any fever. Cardio vascular: denied any chest pain, palpitations Gastrointestinal denied any nausea vomiting Pulmonary: Denied any shortness of breath cough Neurologic denied any new focal deficits All inpatient medications were reviewed and appropriate changes in these medications as dictated in the interval history and assessment and plan. PHYSICAL EXAMINATION: GENERAL: The patient is alert and oriented x3, not in any acute distress. Well developed, well nourished. HEENT: Pupils are round and equally reacting to light. EOMI. No scleral icterus. No conjunctival pallor. Normocephalic, atraumatic. No pharyngeal erythema. No thyromegaly. CARDIOVASCULAR: S1 and S2 present. No murmurs, rubs, or gallops. PULMONARY: Chest is clear to auscultation, no wheezing or crackles. ABDOMEN: Soft, nontender, nondistended, normoactive bowel sounds. No palpable organomegaly. MUSCULOSKELETAL: No joint swelling or deformity. EXTREMITIES: No cyanosis, clubbing, or pedal edema. NEUROLOGICAL: Gross neurological examination did not reveal any focal deficits. SKIN: No rashes. Assessment and plan -Spontaneous pneumothorax right-sided, patient does have extensive history of sarcoidosis, continue with chest tube cardio thoracic surgery evaluated the patient and patient had history of spontaneous pneumothorax in the past. -Pulmonary and neurosarcoidosis patient is on prednisone which will be continued along with GI prophylaxis -Hypertension -Alcohol use, counseling was provided -CVA TIA in the past DVT prophylaxis: Lovenox Patient's chest CT today revealed a pneumo thorax at 15%. Patient will have a repeat chest x-ray in the morning. Discharge recommendations from cardiothoracic surgery. Objective - Vital Signs Vital signs: Vital Signs Temp 97.8 F 10/25/20 20:00 Pulse 77 10/26/20 08:00 Resp 20 10/26/20 08:00 BP 118/64 10/26/20 08:00 Pulse Ox 97 10/26/20 08:00 Intake & Output 10/25/20 10/26/20 10/26/20 18:59 06:59 18:59 Intake Total 240 Balance 240 Weight 170 kg 76.7 kg Intake: Oral 240 Other: Voiding Method Urinal # Voids 2 - Labs CBC & Chem 7: 10/25/20 12:50 10/25/20 12:50 Assessment and Plan Time with Patient: Greater than 30
[2020-10-26 17:00] VITALS: TEMP 98.5
[2020-10-26] MEDS: amLODIPine 5 MG TAB PO SCH (19:56)
[2020-10-26] MEDS: LOSARTAN 50 MG TAB PO SCH (19:56)
[2020-10-26] MEDS: ZOLPIDEM 5 MG TAB PO PRN (23:41)
[2020-10-27] MEDS: PANTOPRAZOLE 40 MG TABLET PO SCH (06:52)
--- NOTE | 2020-10-27 07:27 | XR ---
EXAMINATION TYPE: XR chest 2V DATE OF EXAM: 10/27/2020 COMPARISON: 10/26/2020, CTA 1221 INDICATION: Pneumothorax TECHNIQUE: Frontal and lateral views of the chest are obtained. FINDINGS: The heart size is normal. The pulmonary vasculature is normal. Some atelectatic changes may be at the left base.. Right-sided chest tube is present. Pleural line is evident again at the right midlung. CT appears to demonstrate extensive emphysematous changes with small loculated pneumothorax at the base. IMPRESSION: 1. Right-sided pneumothorax. This may be loculated based on CT findings.
[2020-10-27] MEDS: ENOXAPARIN 40 MG/0.4 ML SYRINGE SQ SCH (08:51)
[2020-10-27] MEDS: predniSONE 10 MG TAB PO SCH (08:52)
--- NOTE | 2020-10-27 13:04 | P.PN ---
Subjective Progress Note Date: 10/27/20 Principal diagnosis: Spontaneous pneumothorax, right-sided, status post thoravent placement by the emergency room physicians. Past medical history significant for spontaneous pneumothorax in 2004, not clear which side, with recent spontaneous pneumothorax in the right lung 10/19/2020, TIA in July 2020 without residual, pulmonary sarcoidosis (sees specialist at [facility]), hypertension, remote history of tobacco dependence, daily EtOH use without history of withdrawal. The patient was seen in follow-up today 10/27/2020 at his bedside on the cardiac stepdown unit. Currently is laying in bed, is awake, alert and oriented 3 and is in no acute distress. Denies any complaints of shortness of breath or pain at this time. Right chest Thoravent remains in place with nonocclusive cap, intermittent air leak present. Oxygen saturations are 98% on room air. He is achieving 0605-2114 ml on his incentive spirometry with encouragement. A computed tomography scan of his chest was completed yesterday without contrast which demonstrated a small underlying pneumothorax estimated at around 15%, COPD with some associated bullous change, evidence of prior granulomatous disease, focal irregular right infrahilar opacity measuring 3.4 x 1.6 cm, with similar smaller density medial left upper lobe along with some nodularity measuring up to 1.5 cm on the right. The patient reports that he is anxious to be discharged home and reports he has been up ambulating in the cardiac stepdown unit hallway without difficulty. Objective - Vital Signs Vital signs: Vital Signs Temp 98.5 F 10/26/20 16:00 Pulse 82 10/27/20 04:00 Resp 18 10/27/20 04:00 BP 130/71 10/27/20 04:00 Pulse Ox 100 10/27/20 04:00 Intake & Output 10/26/20 10/27/20 10/27/20 18:59 06:59 18:59 Intake Total 1020 118 Output Total 300 Balance 720 118 Weight 76.3 kg Intake: Oral 1020 118 Output: Urine 300 Other: Voiding Method Urinal # Voids 1 - Exam CONSTITUTIONAL: Lying in bed on the cardiac stepdown unit. Appears comfortable, cooperative, no acute distress. RESPIRATORY: Lungs sounds essentially clear throughout, diminished to his right lower lobe. Respirations are symmetrical and nonlabored. Currently on room air with oxygen saturation 98%. Able to achieve 6041-1010 mL on incentive spirometry. Strong cough. CARDIOVASCULAR: S1, S2 present, negative for S3, gallop or murmur. Regular rate and rhythm. Palpable peripheral pulses bilaterally. No edema present. No calf pain or tenderness noted. GASTROINTESTINAL: Abdomen soft, nontender, nondistended. Active bowel sounds present 4 quadrants. Tolerating diet. GENITOURINARY: Continues to void. INTEGUMENTARY: Skin is warm and dry, no clubbing or cyanosis is present. NEUROLOGIC: Cranial nerves II through XII intact. No focal deficits. MUSKULOSKELETAL: Able to move all extremities, strength equal bilaterally, gait normal. PSYCHIATRIC: Alert and oriented to person place and time, appropriate affect, intact judgment and insight. INVASIVE LINES AND TUBES: Right pleural Thoravent tube present with nonocclusive, intermittent air leak is present. - Labs CBC & Chem 7: 10/25/20 12:50 10/25/20 12:50 Assessment and Plan Assessment: 1. Spontaneous right sided pneumothorax, status post thoravent placement by the emergency room physicians 2. History of spontaneous pneumothorax in 2004, not clear which side, with recent spontaneous pneumothorax on the right side last , 10/19/2020 3. TIA in July of this year without residual 4. Pulmonary sarcoidosis, treated with daily prednisone 5. Hypertension 6. Remote history of tobacco dependence 7. Daily EtOH use without history of withdrawal Plan: 1. Right Thoravent remains in place with nonocclusive, intermittent air leak remains present. Per the cardiothoracic surgery standpoint the patient could be discharged home with the Thoravent in place and follow up as an outpatient with close monitoring for resolution of his air leak. Teaching was completed with the patient on the Thoravent to monitor for air leak resolution. 2. If the patient is discharged home, he will be sent home with a prescription for a follow-up chest x-ray for next week. 3. Continue to encourage incentive spirometry use 10 times every hour while awake. 4. Pain controlled current medication regimen. 5. Increase activity, ambulate as tolerated. Out of bed for all meals. 6. Medical management other comorbidities per primary care service. 7. More recommendations to follow regarding chest tube management, if the patient's air leak does not resolve he may require a VATS procedure. Time with Patient: Greater than 30
[2020-10-27 14:10] VITALS: BP 131/75; PULSE 82; RESP 18
--- NOTE | 2020-10-27 16:21 | P.DS ---
Providers Date of admission: 10/25/20 14:30 Attending physician: Diogo Dias Consults: 10/25/20 14:30 Consult Physician Stat Consulting Provider: Raul Lackey Reason/Comments: Chest tube, spontaneous pneumothorax Do you want consulting provider notified?: Already Contacted Primary care physician: Jannie Camejo [facility] Course: Final diagnoses -Spontaneous pneumothorax right-sided, patient does have extensive history of sarcoidosis, will discharge with thoravent,follow-up chest x-ray and follow-up with cardiothoracic in the office -Pulmonary and neurosarcoidosis patient is on prednisone which will be continued along with GI prophylaxis -Hypertension -Alcohol use, counseling was provided -CVA TIA in the past DVT prophylaxis: Lovenox GI prophylaxis: Protonix Discharge disposition Patient has been cleared by cardiothoracic services for discharge home with Thoravent in place to the right chest wall. Patient will have a repeat chest x- ray completed in one week, and will follow-up with Dr. Jaimes in the office. Hospital course This is a pleasant 69-year-old male who came in with a chest pain sharp in nature and was found to have a spontaneous pneumothorax on the right side. Patient received a thoravent in the EC, and was placed to suction with a consult for cardiothoracic services. Initially the pneumothorax was significant and was reduced to a small pneumothorax 15% post for thoravent placement. Patient was treated at [facility] for a right-sided pneumothorax on October 19, patient had a chest tube that was placed in the ER at that time that was malp ositioned, chest tube was removed and patient was transferred to cardiothoracic services. Patient was monitored for a day, and did okay without any recurrence of pneumothorax and was discharged. Patient presented to the ER at [facility] for urine on October 26 with chest pain, was found to have a repeat pneumothorax. Patient does not use oxygen at home, however has a history of neurosarcoidosis, he follows with a specialist at [place] is maintained on oral prednisone daily. Chest CT on 10/26/2020 revealed moderate bullous emphysema, small underlying pneumothorax estimated at 15%. Patient had a follow-up chest x-ray on 10/27/2020 which revealed a right-sided pneumothorax, questionable loculated findings based on CT results. Vital signs have remained stable this admission, afebrile, sinus rhythm heart rate in the 80s, 131/75, 96% on room air. Patient's blood count was within normal limits, coagulation panel within normal limits, chem panel within normal limits with a glucose level of 113. Troponin negative 1. Patient is discharged on all home medications. 10/27/2020 Patient is evaluated today sitting up at the bedside, he continues to ambulate without difficulty on room air. Patient continues to use his incentive spirometer. Patient denies any chest pain, cough, short of breath. Patient states that he is tolerating a diet, denies any nausea, vomiting, diarrhea. Patient denies fever or chills. Patient will be discharged home with thoravent in place, with a follow-up chest x-ray in one week. Patient's vital signs are stable today. Please see medication reconciliation for list of current medications. Patient Condition at Discharge: Fair Plan - Discharge Summary New Discharge Prescriptions: Continue predniSONE 10 mg PO DAILY amLODIPine [Norvasc] 5 mg PO HS Losartan [Cozaar] 50 mg PO HS Multivitamins, Thera [Multivitamin (formulary)] 1 tab PO DAILY Zolpidem Tartrate [Zolpidem Tartrate ER] 12.5 mg PO HS Melatonin 10 mg PO HS Lansoprazole [Prevacid] 30 mg PO DAILY Discharge Medication List Losartan [Cozaar] 50 mg PO HS 12/09/19 [History] amLODIPine [Norvasc] 5 mg PO HS 12/09/19 [History] predniSONE 10 mg PO DAILY 12/09/19 [History] Melatonin 10 mg PO HS 07/23/20 [History] Lansoprazole [Prevacid] 30 mg PO DAILY 10/25/20 [History] Multivitamins, Thera [Multivitamin (formulary)] 1 tab PO DAILY 10/25/20 [History] Zolpidem Tartrate [Zolpidem Tartrate ER] 12.5 mg PO HS 10/25/20 [History] Follow up Appointment(s)/Referral(s): Jannie Camejo MD [Primary Care Provider] - 1-2 days (Patient to schedule appointment.) Steven Jaimes MD [STAFF PHYSICIAN] - 11/03/20 1:45 pm (Follow up please with a 2 view chest xray next week as scheduled.) Ambulatory/Diagnostic Orders: XR chest 2V [RAD.AMB] Time Frame: 1 Week, Location: None Selected XR chest 2V [RAD.AMB] Time Frame: 1 Week, Facility: [facility], Location: [facility] Patient Instructions/Handouts: Spontaneous Pneumothorax (DC) Activity/Diet/Wound Care/Special Instructions: Continue to encourage ambulation, increase activity level Continue to use incentive spirometry 10 times an hour while awake Discharge Disposition: HOME SELF-CARE
== END 2020-10-27 15:40 | disposition home or self-care (01) | DRG 201 ==
LOC: EC 12:24 → 3SCARD 14:30
PROVIDERS: ADMIT Internal Medicine; ATTEND Internal Medicine
PROC: 0W9930Z Drainage of Right Pleural Cavity with Drainage Device, Percutaneous Approach (ICD-10-PCS; principal; 2020-10-25)
DX: J93.83 Other pneumothorax (principal); D86.0 Sarcoidosis of lung; J43.9 Emphysema, unspecified; J93.82 Other air leak; R09.02 Hypoxemia; I10 Essential (primary) hypertension; I45.10 Unspecified right bundle-branch block; Z79.52 Long term (current) use of systemic steroids; Z79.899 Other long term (current) drug therapy; Z87.891 Personal history of nicotine dependence; Z87.19 Personal history of other diseases of the digestive system; Z90.49 Acquired absence of other specified parts of digestive tract; Z86.73 Personal history of transient ischemic attack (TIA), and cerebral infarction without residual deficits; Z72.89 Other problems related to lifestyle; Z98.890 Other specified postprocedural states; Z71.41 Alcohol abuse counseling and surveillance of alcoholic; Z81.1 Family history of alcohol abuse and dependence; Z81.8 Family history of other mental and behavioral disorders
CPT/HCPCS: 31500; 36415; 71045; 71046; 71250; 80048; 83735; 84484; 85025; 85610; 85730; 93005; 96374; 96376; 99285

== ENCOUNTER 2020-10-31 23:57 | Inpatient (IN) | payer MEDICARE, BC ==
--- NOTE | 2020-11-01 00:39 | ED ---
SOB HPI - General Chief Complaint: Shortness of Breath Stated Complaint: SOB Time Seen by Provider: 11/01/20 00:19 Source: patient, family Mode of arrival: wheelchair Limitations: no limitations - History of Present Illness Initial Comments: This patient is 69-year-old man with history of sarcoidosis and previous spontaneous pneumothoraces who presents with complaint that he is becoming short of breath and he noticed some expansion of his right chest wall. The patient recent history notable for developing some shortness of breath and going to [facility] on October 19. He reportedly had right-sided spontaneous pneumothorax and then had a chest tube placed. It is reported that the pneumothorax had resolved and the chest tube was removed at that time. He did subsequently go to [facility] where he was reportedly observed for 24 hours and then discharged in good condition. He returned to this hospital on October 25 was shortness of breath was found to have recurrent pneumothorax on the right side. He had a sore events placed and was in the hospital until use discharged with the plan to follow-up in 7 days. MD Complaint: shortness of breath, chest pain -: hour(s) Severity: moderate Quality: dull Consistency: constant Improves With: nothing Worsens With: nothing Known History Of: other (Sarcoidosis, pneumothorax.) Associated Symptoms: denies other symptoms Treatments Prior to Arrival: none - Related Data Home Medications Medication Instructions Recorded Confirmed Losartan [Cozaar] 50 mg PO HS 12/09/19 10/25/20 amLODIPine [Norvasc] 5 mg PO HS 12/09/19 10/25/20 predniSONE 10 mg PO DAILY 12/09/19 10/25/20 Melatonin 10 mg PO HS 07/23/20 10/25/20 Lansoprazole [Prevacid] 30 mg PO DAILY 10/25/20 10/25/20 Multivitamins, Thera [Multivitamin 1 tab PO DAILY 10/25/20 10/25/20 (formulary)] Zolpidem Tartrate [Zolpidem 12.5 mg PO HS 10/25/20 10/25/20 Tartrate ER] Allergies Allergy/AdvReac Type Severity Reaction Status Date / Time No Known Allergies Allergy Verified 11/01/20 00:12 Review of Systems ROS Statement: Those systems with pertinent positive or pertinent negative responses have been documented in the HPI. ROS Other: All systems not noted in ROS Statement are negative. Constitutional: Denies: fever, chills, weakness Respiratory: Reports: as per HPI, cough, dyspnea. Denies: wheezes, hemoptysis Cardiovascular: Reports: as per HPI, chest pain. Denies: palpitations, edema, syncope Gastrointestinal: Denies: abdominal pain, vomiting, diarrhea Genitourinary: Denies: dysuria, frequency Musculoskeletal: Denies: back pain Skin: Denies: rash Neurological: Denies: headache, weakness Past Medical History Past Medical History: Hypertension, Respiratory Disorder Additional Past Medical History / Comment(s): RBBB. Sarcoidosis. Hx spontaneous pneumothorax. Rt inguinal hernia. History of Any Multi-Drug Resistant Organisms: None Reported Past Surgical History: Appendectomy, Hernia Repair Additional Past Surgical History / Comment(s): Hernia's x3. Past Anesthesia/Blood Transfusion Reactions: No Reported Reaction Past Psychological History: No Psychological Hx Reported Smoking Status: Former smoker Past Alcohol Use History: Occasional Past Drug Use History: None Reported - Past Family History Mother Family Medical History: No Reported History Additional Family Medical History / Comment(s): ETOH Father Family Medical History: CVA/TIA Additional Family Medical History / Comment(s): ETOH General Exam Limitations: no limitations General appearance: alert, in no apparent distress Head exam: Present: atraumatic, normocephalic Eye exam: Present: normal appearance. Absent: scleral icterus, conjunctival injection Neck exam: Present: normal inspection Respiratory exam: Present: respiratory distress (Tachypnea), chest wall tenderness (Subcu changes emphysema on the right side), decreased breath sounds (Right side). Absent: normal lung sounds bilaterally, wheezes, rales, rhonchi, stridor, accessory muscle use, prolonged expiratory Cardiovascular Exam: Present: normal rhythm, tachycardia, normal heart sounds. Absent: systolic murmur, diastolic murmur, rubs, gallop GI/Abdominal exam: Present: soft. Absent: distended, tenderness, guarding, rebound, rigid Extremities exam: Present: normal inspection, normal capillary refill. Absent: pedal edema, calf tenderness Back exam: Present: normal inspection. Absent: CVA tenderness (R), CVA tenderness (L) Neurological exam: Present: alert Skin exam: Present: warm, dry, intact, normal color. Absent: rash Course Vital Signs 11/01/20 11/01/20 00:04 00:59 Temperature 98.3 F Pulse Rate 108 H 93 Respiratory 26 H 18 Rate Blood Pressure 121/79 123/77 O2 Sat by Pulse 94 L 97 Oximetry Medical Decision Making - Medical Decision Making Chest x-ray reveals recurrent pneumothorax. Patient was placed back on suction. Case discussed with Dr. Jaimes and admitted to the medical service. - Lab Data Result diagrams: 11/01/20 00:45 Lab Results 11/01/20 Range/Units 00:45 WBC 10.1 (3.8-10.6) k/uL RBC 4.51 (4.30-5.90) m/uL Hgb 15.1 (13.0-17.5) gm/dL Hct 44.0 (39.0-53.0) % MCV 97.5 (80.0-100.0) fL MCH 33.4 (25.0-35.0) pg MCHC 34.3 (31.0-37.0) g/dL RDW 14.4 (11.5-15.5) % Plt Count 263 (150-450) k/uL MPV 7.5 Neutrophils % 78 % Lymphocytes % 10 % Monocytes % 7 % Eosinophils % 4 % Basophils % 1 % Neutrophils # 7.9 H (1.3-7.7) k/uL Lymphocytes # 1.0 (1.0-4.8) k/uL Monocytes # 0.7 (0-1.0) k/uL Eosinophils # 0.4 (0-0.7) k/uL Basophils # 0.1 (0-0.2) k/uL Poikilocytosis Slight - EKG Data -: EKG Interpreted by Nh EKG shows normal: sinus rhythm, axis (Normal), intervals (QRS duration 160 ms, prolonged consistent with a right bundle-branch block. VT interval 196 ms, normal. QTC 495 ms, normal.), QRS complexes (Possible old inferior infarct. Right bundle-branch block.), ST-T waves (Normal) Rate: normal (Rate 99 bpm) Disposition Clinical Impression: Chest tube in place, Spontaneous pneumothorax Disposition: ADMITTED IP TO THIS [facility] Condition: Fair Referrals: Jannie Camejo MD [Primary Care Provider] - 1-2 days
--- NOTE | 2020-11-01 00:44 | XR ---
EXAMINATION TYPE: XR chest 1V portable DATE OF EXAM: 11/01/2020 COMPARISON: 10/27/2020 HISTORY: Pneumothorax. Short of breath TECHNIQUE: Single view. There is large right-sided pneumothorax. Heart and mediastinum are shifted slightly to the left side . There are chest leads. There is right upper chest tube. There is soft tissue air on the right chest wall. There is coarse interstitial density in the left lung. Heart size is normal. IMPRESSION: Increased pneumothorax compared to last exam. There is some mild tension. Follow-up recom mended. Chest tube obstruction is suspected.
[2020-11-01 01:16] LABS: Basophils # (A) 0.1 k/uL (0-0.2); Basophils % (A) 1 %; Eosinophils # (A) 0.4 k/uL (0-0.7); Eosinophils % (A) 4 %; HGB 15.1 gm/dL (13.0-17.5); Lymphocytes % (A) 10 %; MCH 33.4 pg (25.0-35.0); MCHC 34.3 g/dL (31.0-37.0); MCV 97.5 fL (80.0-100.0); Mean Platelet Volume 7.5; Monocytes # (A) 0.7 k/uL (0-1.0); Monocytes % (A) 7 %; Neutrophils # (A) 7.9 k/uL (1.3-7.7); Neutrophils % (A) 78 %; Platelet Count 263 k/uL (150-450); Poikilocytosis Slight; RBC 4.51 m/uL (4.30-5.90); RDW 14.4 % (11.5-15.5); WBC 10.1 k/uL (3.8-10.6)
[2020-11-01] MEDS ORDERED: MORPHINE SULFATE 4 MG/ML SYRINGE IV PRN (01:17)
[2020-11-01] MEDS ORDERED: ONDANSETRON 4 MG/2 ML VIAL IVP PRN (01:17)
[2020-11-01] MEDS ORDERED: NALOXONE 0.4 MG/ML 1 ML VIAL IV PRN (01:17)
[2020-11-01] MEDS ORDERED: MAG HYDROX/AL HYDROX/SIMETH 30 ML CUP PO PRN (01:17)
[2020-11-01] MEDS ORDERED: HYDROmorphone 0.5 MG/0.5 ML SYRINGE IVP STA (01:20)
[2020-11-01 01:43] LABS: ALT 18 U/L (4-49); AST 23 U/L (17-59); African American GFR (CKD) >90 (>60 ml/min/1.73 sqM); Albumin 3.9 g/dL (3.5-5.0); Alkaline Phosphatase 54 U/L (38-126); Anion Gap 9 mmol/L; Blood Urea Nitrogen 19 mg/dL (9-20); Calcium 9.5 mg/dL (8.4-10.2); Carbon Dioxide 23 mmol/L (22-30); Chloride 108 mmol/L (98-107); Glucose 83 mg/dL (74-99); Non-African American GFR(CKD) 86 (>60 ml/min/1.73 sqM); Potassium 3.6 mmol/L (3.5-5.1); Sodium 140 mmol/L (137-145); Total Bilirubin 0.8 mg/dL (0.2-1.3); Total Protein 6.2 g/dL (6.3-8.2)
[2020-11-01] MEDS: HYDROmorphone 1 MG/ML 1 ML SYRINGE IVP PRN ×4 (04:25→15:59)
[2020-11-01] MEDS: HYDROmorphone 0.5 MG/0.5 ML SYRINGE IVP PRN ×3 (08:53→20:12)
[2020-11-01] MEDS: THIAMINE 100 MG TAB PO SCH (09:57)
[2020-11-01] MEDS: FAMOTIDINE 20 MG TAB PO SCH ×2 (09:57→20:06)
[2020-11-01] MEDS: MULTIVITAMINS, THERA 1 EACH TAB PO SCH (09:57)
[2020-11-01] MEDS: PANTOPRAZOLE 40 MG TABLET PO SCH (09:57)
[2020-11-01] MEDS ORDERED: guaiFENesin-DM 100-10MG/5ML 10 ML CUP PO PRN (10:24)
--- NOTE | 2020-11-01 10:24 | P.HPIM ---
History of Present Illness This is a pleasant 69 years old male with past medical history of hypertension. Sarcoidosis pulmonary sarcoidosis with chronic dyspnea and coughing. He had previous history of TIA and he was told it could be related to his neurosa rcoidosis however he is not sure. Patient takes prednisone daily for the last 38 years. he was recently discharged from the hospital -10/27 Patient presents because of dyspnea. He has history of spontaneous pneumothorax on 10/26/2020 status post thora-vent. Patient was tachypneic on admission at 26-27, he was saturating 94% on room air, currently his breathing easier 18-20 breaths per minute to 98% on 2 L oxygen via nasal cannula. Labs are unremarkable including CBC, BMP, liver enzymes. Chest x-ray:. Chest acute obstruction is suspected Review of Systems CONSTITUTIONAL: No fever, no malaise, no fatigue. HEENT: No recent visual problems or hearing problems. Denied any sore throat. CARDIOVASCULAR: No orthopnea, PND, no palpitations, no syncope. PULMONARY: No chest wall tenderness, no hemoptysis. GASTROINTESTINAL: No diarrhea, no nausea, no vomiting, no abdominal pain. Normoactive bowel sounds. NEUROLOGICAL: No headaches, no weakness, no numbness. HEMATOLOGICAL: Denies any bleeding or petechiae. GENITOURINARY: Denies any burning micturition, frequency, or urgency. MUSCULOSKELETAL/RHEUMATOLOGICAL: Denies any joint pain, swelling, or any muscle pain. ENDOCRINE: Denies any polyuria or polydipsia. Past Medical History Past Medical History: Hypertension, Respiratory Disorder Additional Past Medical History / Comment(s): RBBB. Sarcoidosis. Hx spontaneous pneumothorax. Rt inguinal hernia. History of Any Multi-Drug Resistant Organisms: None Reported Past Surgical History: Appendectomy, Hernia Repair Additional Past Surgical History / Comment(s): Hernia's x3. Past Anesthesia/Blood Transfusion Reactions: No Reported Reaction Past Psychological History: No Psychological Hx Reported Smoking Status: Former smoker Past Alcohol Use History: Occasional Past Drug Use History: None Reported - Past Family History Mother Family Medical History: No Reported History Additional Family Medical History / Comment(s): ETOH Father Family Medical History: CVA/TIA Additional Family Medical History / Comment(s): ETOH Medications and Allergies Home Medications Medication Instructions Recorded Confirmed Type Losartan [Cozaar] 50 mg PO HS 12/09/19 11/01/20 History amLODIPine [Norvasc] 5 mg PO HS 12/09/19 11/01/20 History predniSONE 10 mg PO DAILY 12/09/19 11/01/20 History Melatonin 10 mg PO HS 07/23/20 11/01/20 History Lansoprazole [Prevacid] 30 mg PO DAILY 10/25/20 11/01/20 History Multivitamins, Thera [Multivitamin 1 tab PO DAILY 10/25/20 11/01/20 History (formulary)] Zolpidem Tartrate [Zolpidem 12.5 mg PO HS 10/25/20 11/01/20 History Tartrate ER] Allergies Allergy/AdvReac Type Severity Reaction Status Date / Time No Known Allergies Allergy Verified 11/01/20 09:32 Physical Exam Vitals: Vital Signs Temp Pulse Resp BP Pulse Ox 11/01/20 08:56 77 18 113/81 95 11/01/20 04:24 98.0 F 75 18 126/83 98 11/01/20 03:00 98 11/01/20 02:00 98 11/01/20 01:28 84 20 123/72 98 11/01/20 00:59 93 18 123/77 97 11/01/20 00:26 27 H 11/01/20 00:04 98.3 F 108 H 26 H 121/79 94 L Intake and Output 10/31/20 11/01/20 11/01/20 22:59 06:59 14:59 Other: Weight 77.111 kg GENERAL: The patient is alert and oriented x3, not in any acute distress. Well developed, well nourished. HEENT: Pupils are round and equally reacting to light. EOMI. No scleral icterus. No conjunctival pallor. Normocephalic, atraumatic. No pharyngeal erythema. No thyromegaly. CARDIOVASCULAR: S1 and S2 present. No murmurs, rubs, or gallops. -PULMONARY: Chest is clear to auscultation, no wheezing or crackles. Right chest to vent, connected to chest tube ABDOMEN: Soft, nontender, nondistended, normoactive bowel sounds. No palpable organomegaly. MUSCULOSKELETAL: No joint swelling or deformity. EXTREMITIES: No cyanosis, clubbing, or pedal edema. NEUROLOGICAL: Gross neurological examination did not reveal any focal deficits. SKIN: No rashes. No petechiae Results CBC & Chem 7: 11/01/20 00:45 11/01/20 00:45 Labs: Abnormal Lab Results - Last 24 Hours (Table) 11/01/20 11/01/20 Range/Units 00:45 00:45 Neutrophils # 7.9 H (1.3-7.7) k/uL Chloride 108 H (98-107) mmol/L Total Protein 6.2 L (6.3-8.2) g/dL Assessment and Plan Assessment: Recurrent right-sided spontaneous pneumothorax Hypertension, with possible obstructed chest tube. History of sarcoidosis on steroids. Alcohol abuse Plan: This is a pleasant 69 years old male who presents with recurrent spontaneous pneumothorax. Patient status Thora vent. Thoracic surgeon consulted. Labs and medication were reviewed.. Continue same treatment. Continue with symptomatic treatment. Resume home medication. Monitor lytes and vitals. DVT and GI prophylaxis. Further recommendations depends on the clinical course of the patient DVT prophylaxis: Subcutaneous heparin GI Prophylaxis: Pepcid
--- NOTE | 2020-11-01 10:34 | P.GSCN ---
History of Present Illness Consult date: 11/01/20 Reason for Consult: Right-sided pneumothorax Requesting physician: Vipul Castrejon History of present illness: This is a 69-year-old gentleman who follows on an outpatient basis with Dr. Jannie Camejo for primary care. He has a previous medical history of spontaneous pneumothorax in 2004 although he doesn't remember which side, as well as spontaneous pneumothorax in the right lung 10/19/2020 with recent admission here for the same, TIA in July of this year without residual, pulmonary sarcoidosis, hypertension, previous tobacco dependence, and daily EtOH use without history of withdrawal. Apparently a couple of weeks ago he had significant shortness of breath and presented to [facility] for evaluation treatment. He reportedly had a right-sided spontaneous pneumothorax, a chest tube was placed. Per the patient his lung re-expanded, however he was told that the chest tube was in the wrong spot and it was removed a short time later. He was transferred true [facility] for cardiothoracic surgery evaluation for follow-up. He reports he was there for about 24 hours, was told his pneumothorax was gone, and was sent home. This history is all obtained from the patient is we have no records or studies to evaluate. Last week he began to have the same symptoms of shortness of breath. He presented to [facility] emergency room, chest x-ray revealed significant right-sided pneumothorax and a thoravent was placed by the emergency room physicians with reexpansion of the right lung. The patient was admitted for further treatment, suction was removed from the thoravent the next day and a computed tomography scan was obtained. We did discuss surgical intervention at that time for repeated pneumothorax as there was high probability this would continue to happen, the patient wished for conservative treatment and did not want surgery at that time. The patient continued to recover and was sent home with the thoravent in place as there was still an air leak present to follow up with cardiothoracic surgery this 11/03/2020. He had been recovering without incident at home, however yesterday he became significantly more short of breath and was unable to walk any signi ficant distance without having to sit to catch his breath. In addition, he felt the right side of his chest where the thoravent was present had increased in size. He presented to [facility] emergency room again, chest x-ray was completed demonstrating increased right-sided pneumothorax. The thoravent was placed to continuous wall suction and there is an intermittent air leak present. The patient is to be admitted for continued treatment with consultation placed to cardiothoracic surgery for recommendations. Review of Systems Review of systems was completed and was negative except as noted - Respiratory Reports as per HPI, Reports dyspnea Past Medical History Past Medical History: Hypertension, Respiratory Disorder Additional Past Medical History / Comment(s): RBBB. Sarcoidosis. Hx spontaneous pneumothorax. Rt inguinal hernia. History of Any Multi-Drug Resistant Organisms: None Reported Past Surgical History: Appendectomy, Hernia Repair Additional Past Surgical History / Comment(s): Hernia's x3. Past Anesthesia/Blood Transfusion Reactions: No Reported Reaction Past Psychological History: No Psychological Hx Reported Smoking Status: Former smoker Past Alcohol Use History: Occasional Past Drug Use History: None Reported - Past Family History Mother Family Medical History: No Reported History Additional Family Medical History / Comment(s): ETOH Father Family Medical History: CVA/TIA Additional Family Medical History / Comment(s): ETOH Medications and Allergies Home Medications Medication Instructions Recorded Confirmed Type Losartan [Cozaar] 50 mg PO HS 12/09/19 11/01/20 History amLODIPine [Norvasc] 5 mg PO HS 12/09/19 11/01/20 History predniSONE 10 mg PO DAILY 12/09/19 11/01/20 History Melatonin 10 mg PO HS 07/23/20 11/01/20 History Lansoprazole [Prevacid] 30 mg PO DAILY 10/25/20 11/01/20 History Multivitamins, Thera [Multivitamin 1 tab PO DAILY 10/25/20 11/01/20 History (formulary)] Zolpidem Tartrate [Zolpidem 12.5 mg PO HS 10/25/20 11/01/20 History Tartrate ER] Allergies Allergy/AdvReac Type Severity Reaction Status Date / Time No Known Allergies Allergy Verified 11/01/20 09:32 Surgical - Exam Vital Signs Temp Pulse Resp BP Pulse Ox 98.3 F 108 H 26 H 121/79 94 L 11/01/20 00:04 11/01/20 00:04 11/01/20 00:04 11/01/20 00:04 11/01/20 00:04 CONSTITUTIONAL: Awake and alert, appears comfortable, cooperative, well- developed, well-nourished, mild pain reported at the thoravent site, no acute distress EYES: Pupils equal, round, reactive to light, normal ocular movement ENT: Moist mucous membranes without oral lesions present NECK: No masses, no bruits, trachea midline RESPIRATORY: Lungs sounds are present bilaterally but diminished in the right lung base. Respirations even, nonlabored. Currently on 2 L nasal cannula with oxygen saturation 98%. Strong cough. Right sided thoravent present to cont inuous wall suction with intermittent air leak present CARDIOVASCULAR: S1, S2 present. Regular rate and rhythm, sinus rhythm on telemetry. Palpable peripheral pulses bilaterally. No edema presen GASTROINTESTINAL: Abdomen soft, nontender, nondistended without masses or organomegaly noted. There is no rebound or guarding present. Active bowel sounds present 4 quadrants. GENITOURINARY: Deferred INTEGUMENTARY: Skin is warm and dry with evidence of good perfusion. NEUROLOGIC: Cranial nerves II through XII intact, normal coordination, no obvious motor or sensory deficits, speech is normal MUSKULOSKELETAL: Able to move all extremities, strength equal bilaterally, normal posture PSYCHIATRIC: Alert and oriented to person place and time, appropriate affect, intact judgment and insight Results - Labs 11/01/20 00:45 11/01/20 00:45 Abnormal Lab Results - Last 24 Hours (Table) 11/01/20 11/01/20 Range/Units 00:45 00:45 Neutrophils # 7.9 H (1.3-7.7) k/uL Chloride 108 H (98-107) mmol/L Total Protein 6.2 L (6.3-8.2) g/dL Diabetes panel 11/01/20 Range/Units 00:45 Sodium 140 (137-145) mmol/L Potassium 3.6 (3.5-5.1) mmol/L Chloride 108 H (98-107) mmol/L Carbon Dioxide 23 (22-30) mmol/L BUN 19 (9-20) mg/dL Creatinine 0.90 (0.66-1.25) mg/dL Glucose 83 (74-99) mg/dL Calcium 9.5 (8.4-10.2) mg/dL AST 23 (17-59) U/L ALT 18 (4-49) U/L Alkaline Phosphatase 54 (38-126) U/L Total Protein 6.2 L (6.3-8.2) g/dL Albumin 3.9 (3.5-5.0) g/dL Calcium panel 11/01/20 Range/Units 00:45 Calcium 9.5 (8.4-10.2) mg/dL Albumin 3.9 (3.5-5.0) g/dL Pituitary panel 11/01/20 Range/Units 00:45 Sodium 140 (137-145) mmol/L Potassium 3.6 (3.5-5.1) mmol/L Chloride 108 H (98-107) mmol/L Carbon Dioxide 23 (22-30) mmol/L BUN 19 (9-20) mg/dL Creatinine 0.90 (0.66-1.25) mg/dL Glucose 83 (74-99) mg/dL Calcium 9.5 (8.4-10.2) mg/dL Adrenal panel 11/01/20 Range/Units 00:45 Sodium 140 (137-145) mmol/L Potassium 3.6 (3.5-5.1) mmol/L Chloride 108 H (98-107) mmol/L Carbon Dioxide 23 (22-30) mmol/L BUN 19 (9-20) mg/dL Creatinine 0.90 (0.66-1.25) mg/dL Glucose 83 (74-99) mg/dL Calcium 9.5 (8.4-10.2) mg/dL Total Bilirubin 0.8 (0.2-1.3) mg/dL AST 23 (17-59) U/L ALT 18 (4-49) U/L Alkaline Phosphatase 54 (38-126) U/L Total Protein 6.2 L (6.3-8.2) g/dL Albumin 3.9 (3.5-5.0) g/dL - Imaging Chest x-ray: report reviewed, image reviewed Assessment and Plan Assessment: 1. Spontaneous pneumothorax, right-sided, thoravent present and connected to continuous wall suction 2. History of spontaneous pneumothorax in 2004, not clear which side, with recent spontaneous pneumothorax in the right lung 10/19/2020 with admission 10/25/2020 for the same 3. TIA in July of this year without residual 4. Pulmonary sarcoidosis 5. Hypertension 6. Previous tobacco dependence 7. Daily EtOH use without history of withdrawal Plan: The patient was seen and examined in the emergency room. Chart/diagnostics were reviewed. The case was discussed in detail with Dr. Jaimes including a previous admission, and CT findings. We will continue thoravent to wall suction. VATS surgery with stapling of blebs and mechanical pleurodesis was discussed again with the patient, at this time he is agreeable as he states he cannot continue to live this way. We will likely plan for surgery in the next 24-48 hours. Incentive spirometry was ordered and should be encouraged. Pain control with current medication regimen. Increase activity, ambulate as tolerated, may add more suction tubing to allow patient to ambulate in the room. Medical management of other comorbidities per primary care service. More recommendations to follow. Thank you for this consult. We will follow along with you Time with Patient: Greater than 30
[2020-11-01] MEDS: amLODIPine 5 MG TAB PO SCH (20:05)
[2020-11-01] MEDS: HEPARIN SODIUM,PORCINE/PF 5,000 UNIT/0.5 ML SYRINGE SQ SCH (20:06)
[2020-11-01] MEDS: LOSARTAN 50 MG TAB PO SCH (20:06)
[2020-11-01] MEDS: SENNOSIDES-DOCUSATE SODIUM 1 EACH TAB PO SCH (20:06)
[2020-11-01] MEDS: MELATONIN 5 MG TABLET PO SCH (20:06)
[2020-11-01] MEDS: ZOLPIDEM 5 MG TAB PO SCH (21:33)
[2020-11-02] MEDS: HYDROmorphone 0.5 MG/0.5 ML SYRINGE IVP PRN (06:56)
--- NOTE | 2020-11-02 07:52 | P.PN ---
Subjective Progress Note Date: 11/02/20 Principal diagnosis: Spontaneous pneumothorax, right-sided, thoravent present and connected to continuous wall suction. Previous medical history of spontaneous pneumothorax in 2004, not clear which side, with recent spontaneous pneumothorax in the right lung 10/19/2020, with admission 10/25/2020 for the same, TIA in July of this year without residual, pulmonary sarcoidosis, hypertension, previous tobacco dependence, daily EtOH use without history of withdrawal Patient currently sitting up in bed on the cardiac stepdown unit in no acute distress. States pain is mostly controlled on current medication regimen, denies shortness of breath and is currently on room air. Apparently this morning he coughed up a large chunk of what sounds like a mucous plug and since then has had no air leak in his chest tube. He does state he feels better and his breathing is better since this event. He is tentatively scheduled for right VATS tomorrow afternoon. States he has been out of bed and ambulatory in the room. No other new concerns. Objective - Vital Signs Vital signs: Vital Signs Temp 98.6 F 11/02/20 03:56 Pulse 84 11/02/20 03:56 Resp 18 11/02/20 03:56 BP 128/72 11/02/20 03:56 Pulse Ox 96 11/02/20 03:56 Intake & Output 11/01/20 11/02/20 11/02/20 18:59 06:59 18:59 Intake Total 0 240 Output Total 0 Balance 0 240 Weight 71.5 kg Intake: Oral 0 240 Output: Chest Tube Drainage 0 Thora-Vent Right 0 Other: # Voids 2 - Exam CONSTITUTIONAL: Appears comfortable, cooperative, no acute distress RESPIRATORY: Lungs sounds diminished bilaterally. Respirations even, nonlabored. Currently on room air with oxygen saturation 96%. Able to achieve 1500 mL on incentive spirometry. Strong cough. CARDIOVASCULAR: S1, S2 present. Regular rate and rhythm, sinus rhythm on telemetry. Palpable peripheral pulses bilaterally. No edema present. No calf pain or tenderness noted. GASTROINTESTINAL: Abdomen soft, nontender, nondistended. Active bowel sounds present 4 quadrants. Tolerating diet. GENITOURINARY: Continues to void clear, yellow urine INTEGUMENTARY: Skin is warm and dry with evidence of good perfusion. NEUROLOGIC: Cranial nerves II through XII intact MUSKULOSKELETAL: Able to move all extremities, strength equal bilaterally, gait normal PSYCHIATRIC: Alert and oriented to person place and time, appropriate affect, intact judgment and insight INVASIVE LINES AND TUBES: Right thoravent present and connected to wall suction, no air leaks present with minimal serous drainage. - Allied health notes Allied health notes reviewed: nursing - Labs CBC & Chem 7: 11/01/20 00:45 11/01/20 00:45 - Imaging and Cardiology Chest x-ray: image reviewed Assessment and Plan Assessment: 1. Spontaneous pneumothorax, right-sided, thoravent present and connected to continuous wall suction 2. History of spontaneous pneumothorax in 2004, not clear which side, with recent spontaneous pneumothorax in the right lung 10/19/2020 with admission 10/25/2020 for the same 3. TIA in July of this year without residual 4. Pulmonary sarcoidosis 5. Hypertension 6. Previous tobacco dependence 7. Daily EtOH use without history of withdrawal Plan: 1. Continue thoravent to wall suction 2. The patient is tentatively scheduled for right sided VATS tomorrow afternoon with Dr. Preston 3. Encourage incentive spirometry use 4. Increase activity, ambulate as tolerated 5. Pain control with current medication regimen 6. Medical management of other comorbidities per primary care service 7. More recommendations to follow Time with Patient: Greater than 30
--- NOTE | 2020-11-02 08:23 | XR ---
EXAMINATION TYPE: XR chest 1V portable DATE OF EXAM: 11/02/2020 COMPARISON: 11/01/2020 HISTORY: Right pneumothorax TECHNIQUE: Single frontal view of the chest is obtained. FINDINGS: Chest tube was placed in position. There remains diffuse subcutaneous emphysema. Lucency a long the right hemidiaphragm suspicious for residual pneumothorax. There is prominence of the right h ilum with interstitial changes involving the left lung. Left basilar infiltrate and small. Right victor hugo hilar infiltrate noted. IMPRESSION: 1. Fluoroscopy guided placement with residual pneumothorax may be slightly reduced relative to prior exam. Diffuse subcutaneous emphysema noted
[2020-11-02] MEDS: FAMOTIDINE 20 MG TAB PO SCH ×2 (08:54→20:50)
[2020-11-02] MEDS: PANTOPRAZOLE 40 MG TABLET PO SCH (08:54)
[2020-11-02] MEDS: THIAMINE 100 MG TAB PO SCH (08:54)
[2020-11-02] MEDS: HEPARIN SODIUM,PORCINE/PF 5,000 UNIT/0.5 ML SYRINGE SQ SCH ×2 (08:54→20:50)
[2020-11-02] MEDS: MULTIVITAMINS, THERA 1 EACH TAB PO SCH (08:54)
--- NOTE | 2020-11-02 14:34 | P.PN ---
Subjective This is a pleasant 69 years old male with past medical history of hypertension. Sarcoidosis pulmonary sarcoidosis with chronic dyspnea and coughing. He had previous history of TIA and he was told it could be related to his neurosarcoidosis however he is not sure. Patient takes prednisone daily for the last 38 years. he was recently discharged from the hospital -10/27 Patient presents because of dyspnea. He has history of spontaneous pneumothorax on 10/26/2020 status post thora-vent. Patient was tachypneic on admission at 26-27, he was saturating 94% on room air, currently his breathing easier 18-20 breaths per minute to 98% on 2 L oxygen via nasal cannula. Labs are unremarkable including CBC, BMP, liver enzymes. Chest x-ray:. Chest acute obstruction is suspected 11/02/2020 Patient is dyspneic. Showing slightly improved right pneumothorax and subcutaneous emphysema. He is saturating 86% on room air and 95% in 2 L. Rest of vital signs stable. Planned for VATS with cardiothoracic surgery team tomorrow Objective - Vital Signs Vital signs: Vital Signs Temp 97.6 F 11/02/20 08:00 Pulse 84 11/02/20 12:00 Resp 18 11/02/20 03:56 BP 108/69 11/02/20 12:00 Pulse Ox 95 11/02/20 12:00 Intake & Output 11/01/20 11/02/20 11/02/20 18:59 06:59 18:59 Intake Total 0 240 580 Output Total 0 Balance 0 240 580 Weight 71.5 kg Intake: Oral 0 240 580 Output: Chest Tube Drainage 0 Thora-Vent Right 0 Other: # Voids 2 - Exam GENERAL: The patient is alert and oriented x3, not in any acute distress. Well developed, well nourished. HEENT: Pupils are round and equally reacting to light. EOMI. No scleral icterus. No conjunctival pallor. Normocephalic, atraumatic. No pharyngeal erythema. No thyromegaly. CARDIOVASCULAR: S1 and S2 present. No murmurs, rubs, or gallops. -PULMONARY: Chest is clear to auscultation, no wheezing or crackles. Right chest to vent, connected to chest tube ABDOMEN: Soft, nontender, nondistended, normoactive bowel sounds. No palpable organomegaly. MUSCULOSKELETAL: No joint swelling or deformity. EXTREMITIES: No cyanosis, clubbing, or pedal edema. NEUROLOGICAL: Gross neurological examination did not reveal any focal deficits. SKIN: No rashes. No petechiae - Labs CBC & Chem 7: 11/01/20 00:45 11/01/20 00:45 Assessment and Plan Assessment: Recurrent right-sided spontaneous pneumothorax Hypertension, with possible obstructed chest tube. History of sarcoidosis on steroids. Alcohol abuse Plan: This is a pleasant 69 years old male who presents with recurrent spontaneous pneumothorax. Patient status Thora vent. Thoracic surgeon consulted. Plan for VATS with cardiothoracic surgery team tomorrow Labs and medication were reviewed.. Continue same treatment. Continue with symptomatic treatment. Resume home medication. Monitor lytes and vitals. DVT and GI prophylaxis. Further recommendations depends on the clinical course of the patient DVT prophylaxis: Subcutaneous heparin GI Prophylaxis: Pepcid
[2020-11-02] MEDS ORDERED: ACETAMINOPHEN TAB 500 MG TAB PO PRN (15:32)
[2020-11-02] MEDS: ALPRAZolam 0.25 MG TAB PO PRN (16:04)
[2020-11-02] MEDS: amLODIPine 5 MG TAB PO SCH (20:49)
[2020-11-02] MEDS: ZOLPIDEM 5 MG TAB PO SCH (20:50)
[2020-11-02] MEDS: SENNOSIDES-DOCUSATE SODIUM 1 EACH TAB PO SCH (20:50)
[2020-11-02] MEDS: LOSARTAN 50 MG TAB PO SCH (20:50)
[2020-11-02] MEDS: MELATONIN 5 MG TABLET PO SCH (20:50)
[2020-11-03] MEDS: PANTOPRAZOLE 40 MG TABLET PO SCH (06:15)
[2020-11-03] MEDS: FAMOTIDINE 20 MG TAB PO SCH ×2 (06:15→20:54)
[2020-11-03] MEDS: HEPARIN SODIUM,PORCINE/PF 5,000 UNIT/0.5 ML SYRINGE SQ SCH ×2 (06:15→20:54)
[2020-11-03] MEDS: ALPRAZolam 0.25 MG TAB PO PRN (06:16)
[2020-11-03] MEDS: MULTIVITAMINS, THERA 1 EACH TAB PO SCH (06:16)
[2020-11-03] MEDS: THIAMINE 100 MG TAB PO SCH (06:16)
--- NOTE | 2020-11-03 08:51 | XR ---
EXAMINATION TYPE: XR chest 2V DATE OF EXAM: 11/03/2020 COMPARISON: 11/02/2020 TECHNIQUE: PA and lateral views submitted. HISTORY: Right pneumothorax FINDINGS: Diffuse subcutaneous emphysema noted and there is a large right-sided pneumothorax. Chest tube noted. Patient is rotated which limits assessment for mediastinal deviation. Prominence of the right hilum with left lower lobe infiltrate and small effusion. Left apical pleural thickening. Findings are raegan lar to prior exam. IMPRESSION: 1. Large right pneumothorax similar to prior exam 2. Left lower lobe infiltrate and small effusion.
--- NOTE | 2020-11-03 09:48 | XR ---
EXAMINATION TYPE: XR chest 1V portable DATE OF EXAM: 11/03/2020 COMPARISON: 11/03/2020 HISTORY: Right-sided pneumothorax TECHNIQUE: Single frontal view of the chest is obtained. FINDINGS: Persistent right-sided pneumothorax appears slightly improved relative to prior exam. Ches t tube noted in position. Mild prominence the right hilum and calcified lymph nodes suspected. Subseg mental left basilar atelectasis or infiltrate. Diffuse subcutaneous emphysema and underlying COPD. IMPRESSION: 1. There appears be interval mild improvement in the right-sided pneumothorax
--- NOTE | 2020-11-03 09:55 | P.PN ---
Subjective Progress Note Date: 11/03/20 Principal diagnosis: Spontaneous pneumothorax, right-sided, thoravent present and connected to continuous wall suction. Previous medical history of spontaneous pneumothorax in 2004, not clear which side, with recent spontaneous pneumothorax in the right lung 10/19/2020, with admission 10/25/2020 for the same, TIA in July of this year without residual, pulmonary sarcoidosis, hypertension, previous tobacco dependence, daily EtOH use without history of withdrawal Patient currently sitting up in bed on the cardiac stepdown unit in no acute distress. States pain is mostly controlled on current medication regimen, denies shortness of breath and is currently on room air. X-rays and computed tomography scan were reviewed with Dr. Preston this morning. This morning's chest x-ray looked a bit worse, T piece was connected to thoravent with syringe suction applied, subsequently patient did have air leak present in the chest tube chamber. He is scheduled for right VATS with stapling of blebs and mechanical pleurodesis this afternoon. No other new concerns. Objective - Vital Signs Vital signs: Vital Signs Temp 97.7 F 11/03/20 08:00 Pulse 87 11/03/20 08:00 Resp 16 11/03/20 08:00 BP 103/71 11/03/20 08:00 Pulse Ox 95 11/03/20 08:00 Intake & Output 11/02/20 11/03/20 11/03/20 18:59 06:59 18:59 Intake Total 580 240 Output Total 12 Balance 580 228 Weight 73.5 kg Intake: Oral 580 240 Output: Chest Tube Drainage 10 Thora-Vent Right 10 Urine 2 - Exam CONSTITUTIONAL: Appears comfortable, cooperative, no acute distress RESPIRATORY: Lungs sounds diminished bilaterally. Respirations even, nonlabored. Currently on room air with oxygen saturation 94%. Able to achieve 1500 mL on incentive spirometry. Strong cough. CARDIOVASCULAR: S1, S2 present. Regular rate and rhythm, sinus rhythm on telemetry. Palpable peripheral pulses bilaterally. No edema present. No calf pain or tenderness noted. GASTROINTESTINAL: Abdomen soft, nontender, nondistended. Active bowel sounds p resent 4 quadrants. Currently NPO for surgery GENITOURINARY: Continues to void clear, yellow urine INTEGUMENTARY: Skin is warm and dry with evidence of good perfusion. NEUROLOGIC: Cranial nerves II through XII intact MUSKULOSKELETAL: Able to move all extremities, strength equal bilaterally, gait normal PSYCHIATRIC: Alert and oriented to person place and time, appropriate affect, intact judgment and insight INVASIVE LINES AND TUBES: Right thoravent present to waterseal, intermittent air leak present with expiration. - Allied health notes Allied health notes reviewed: nursing - Labs CBC & Chem 7: 11/01/20 00:45 11/01/20 00:45 - Imaging and Cardiology Chest x-ray: report reviewed, image reviewed Assessment and Plan Assessment: 1. Spontaneous pneumothorax, right-sided, thoravent present with intermittent a ir leak present 2. History of spontaneous pneumothorax in 2004, not clear which side, with recent spontaneous pneumothorax in the right lung 10/19/2020 with admission 10/25/2020 for the same 3. TIA in July of this year without residual 4. Pulmonary sarcoidosis 5. Hypertension 6. Previous tobacco dependence 7. Daily EtOH use without history of withdrawal Plan: 1. Continue thoravent to waterseal 2. The patient is scheduled for right sided VATS with stapling of blebs and mechanical pleurodesis this afternoon with Dr. Preston 3. Encourage incentive spirometry use 4. Increase activity, ambulate as tolerated 5. Pain control with current medication regimen 6. Medical management of other comorbidities per primary care service 7. More recommendations to follow Time with Patient: Greater than 30
[2020-11-03] MEDS ORDERED: LACTATED RINGERS 1,000 ML IV ONE (12:45)
[2020-11-03] MEDS ORDERED: ONDANSETRON 4 MG/2 ML VIAL IVP ONE (12:50)
[2020-11-03] MEDS ORDERED: MIDAZOLAM 2 MG/2 ML VIAL IV ONE (13:11)
[2020-11-03] MEDS ORDERED: ROCURONIUM 10 MG/ML (5 ML VIAL) IV ONE (13:49)
[2020-11-03] MEDS ORDERED: SODIUM CHLORIDE 0.9% (PF) 10 ML VIAL ONE (13:49)
[2020-11-03] MEDS ORDERED: PHENYLEPHRINE-0.9% NACL SYG 1,000 MCG/10 ML SYRINGE ONE (13:49)
[2020-11-03] MEDS ORDERED: MIDAZOLAM 2 MG/2 ML VIAL ONE (13:49)
[2020-11-03] MEDS ORDERED: ROPIVACAINE 5 MG/ML 30 ML VIAL ONE (13:49)
[2020-11-03] MEDS ORDERED: LIDOCAINE 1% INJ 10MG/ML (20 ML MDV) ONE (13:49)
[2020-11-03] MEDS ORDERED: SUGAMMADEX SODIUM 500 MG/5 ML SDV IV ONE (13:49)
[2020-11-03] MEDS ORDERED: PROPOFOL 10 MG/ML 20 ML VIAL IV ONE (13:49)
[2020-11-03] MEDS ORDERED: SUCCINYLCHOLINE CHLORIDE 100 MG/5 ML SYR IV ONE (13:49)
[2020-11-03] MEDS ORDERED: HYDROmorphone (PF) 1 MG/ML ONE (13:49)
[2020-11-03] MEDS ORDERED: fentaNYL (PF) 50 MCG/ML 2 ML AMP ONE (13:49)
[2020-11-03] MEDS ORDERED: GLYCOPYRROLATE 0.2 MG/ML 2 ML VIAL ONE (13:49)
[2020-11-03] MEDS ORDERED: NEOSTIGMINE 1 MG/ML 10 ML VIAL ONE (13:49)
--- NOTE | 2020-11-03 14:38 | P.ANPRN ---
Procedure Note - Anesthesia - Nerve Block Performed Right Erector Spinae Time Out Performed: Yes (13:11) Date of Procedure: 11/03/20 Procedure Start Time: :11 Procedure Stop Time: Location of Patient: PreOp Indication: Acute Post-Operative Pain, Requested by Surgeon (Kary) Sedation Type: Sedate with meaningful contact maintained Preparation: Sterile Prep Position: Sitting Catheter: None Needle Types: Pajunk Needle Gauge: 21 Ultrasound used to visualize needle placement: Yes Ultrasound used to observe medication spread: Yes Injectate: 0.5% Ropivacaine (see comment for volume) (15cc + 5cc PFNormal saline) Blood Aspirated: No Pain Paresthesia on Injection Noted: No Resistance on Injection: Normal Image Stored and Saved: Yes Events: Uneventful and Well Tolerated
[2020-11-03] MEDS ORDERED: HYDROmorphone 0.5 MG/0.5 ML SYRINGE IVP ONE ×2 (16:44→17:25)
[2020-11-03] MEDS: fentaNYL (PF) 50 MCG/ML 2 ML AMP IVP ONE ×4 (16:48→17:34)
--- NOTE | 2020-11-03 17:11 | XR ---
EXAMINATION TYPE: XR chest 1V portable DATE OF EXAM: 11/03/2020 COMPARISON: 11/03/2020 HISTORY: Right-sided pneumothorax TECHNIQUE: FINDINGS: There is right-sided chest tube over the mid lung field. There is soft tissue air on the ri ght chest wall. There is probably a small right pneumothorax. There is coarse interstitial density an d atelectasis in both lungs. There is no gross heart failure. There is a second right chest tube with the tip at the right lung apex. There are chest leads. IMPRESSION: Very small right-sided pneumothorax probably not changed compared to exam earlier today. There is increased patchy atelectasis at the lung bases compared to exam this morning.
--- NOTE | 2020-11-03 17:27 | OP ---
OPERATIVE REPORT DATE OF SURGERY: 11/03/2020 SURGEON: Dr. Maude Preston. ANESTHESIA: General. PREOPERATIVE DIAGNOSIS: Pulmonary sarcoidosis with persistent right pneumothorax. POSTOPERATIVE DIAGNOSIS: Pulmonary sarcoidosis with persistent right pneumothorax with presence of multiple bullae. PROCEDURE: Video thoracoscopic exploration, resection of bullae and mechanical pleurodesis. INDICATION FOR SURGERY: The patient is a 69-year-old gentleman with a history of pulmonary sarcoidosis who presented with right pneumothorax over the last several weeks with failed chest tube therapy at [facility], then eventually Thora-Vent therapy, and at this point has a Thora-Vent with persistent pneumothorax. The patient was offered potential surgical therapy, understanding that in view of his diseased lungs and blebs, we might be in a scenario postoperatively of prolonged air leak. He understood it and agreed to proceed. DESCRIPTION OF PROCEDURE: The patient was brought to the operating room, where general double-lumen endotracheal intubation was performed easily. Fiberoptic bronchoscopy confirmed good position of the tube. A Saenz catheter was inserted. Sequential compression stockings were inserted. Proper timeout was conducted. The patient was placed in a left lateral decubitus position and all pressure points were supported. An axillary roll was placed. Position was held with a dumas bag. We started by deflating the right lung and we made a 12 mm incision at the level of the eighth intercostal space mid axillary line, through which a 10.5 mm port was inserted. A 10 mm zero-degree scope was inserted. Exploration revealed some adhesions between the right upper lobe and the anterior chest wall with adjacent ruptured bleb. There were blebs that were not ruptured at the level of the lower lobe and other area in the upper lobe. We proceeded with a hook cautery at lysing all the adhesions to be able to identify and resect that particular area with ruptured blebs. This was done again with no problem. Subsequently, in firing multiple reinforced 60 mm JASON staplers, an area encompassing the ruptured bleb and the adjacent blebs was resected. A separate bleb close by was also separately resected with another firing of a 60 mm reinforced JASON. At this point, attention was moved to a conglomeration of blebs that were not ruptured at the level of the right lower lobe. Those were also excised by firing a 60 mm reinforced JASON in what seemed to be a healthier lung at the base, with two firings for that. All staple lines appeared to be hemostatic. Progel was sprayed over the upper lobe area of the adhesions and the lysis. Subsequently we proceeded with a Bovie pad at aggressive mechanical pleurodesis of the parietal chest wall. Two 28-Danish chest tubes, one posterior apical and one anterior apical, were placed and connected to suction. Patient tolerated the procedure well, was extubated and transferred to the recovery room in stable condition. MMODL / IJN: [id number] /
[2020-11-03] MEDS: HYDROcodone/APAP 5-325MG 1 EACH TAB PO PRN (18:22)
[2020-11-03] MEDS: KETOROLAC 15 MG/ML 1 ML VIAL IVP PRN (18:22)
[2020-11-03] MEDS: HYDROmorphone 1 MG/ML 1 ML SYRINGE IVP PRN ×2 (18:22→20:55)
[2020-11-03] MEDS: LOSARTAN 50 MG TAB PO SCH (20:54)
[2020-11-03] MEDS: SENNOSIDES-DOCUSATE SODIUM 1 EACH TAB PO SCH (20:54)
[2020-11-03] MEDS: ZOLPIDEM 5 MG TAB PO SCH (20:54)
[2020-11-03] MEDS: MELATONIN 5 MG TABLET PO SCH (20:54)
[2020-11-03] MEDS: amLODIPine 5 MG TAB PO SCH (20:54)
[2020-11-04] MEDS: KETOROLAC 15 MG/ML 1 ML VIAL IVP PRN (00:55)
[2020-11-04] MEDS: HYDROmorphone 1 MG/ML 1 ML SYRINGE IVP PRN ×5 (02:25→20:57)
[2020-11-04] MEDS: HEPARIN SODIUM,PORCINE/PF 5,000 UNIT/0.5 ML SYRINGE SQ SCH ×2 (08:26→19:48)
[2020-11-04] MEDS: MULTIVITAMINS, THERA 1 EACH TAB PO SCH (08:32)
[2020-11-04] MEDS: THIAMINE 100 MG TAB PO SCH (08:32)
[2020-11-04] MEDS: PANTOPRAZOLE 40 MG TABLET PO SCH (08:32)
[2020-11-04] MEDS: FAMOTIDINE 20 MG TAB PO SCH ×2 (08:32→19:48)
--- NOTE | 2020-11-04 09:31 | XR ---
EXAMINATION TYPE: XR chest 1V portable DATE OF EXAM: 11/04/2020 COMPARISON: Chest radiograph November 03, 2020 HISTORY: Postop right VATS. TECHNIQUE: Single frontal view of the chest is obtained. FINDINGS: Two right chest tubes in stable position. The cardiomediastinal silhouette and pulmonary v asculature are within normal limits. There is redemonstration of low lung volumes with patchy airspace opacity on the left. Minimally impr michael subcutaneous emphysema in the right greater than left chest wall and neck. The subcutaneous gas limits assessment for a right pneumothorax. The osseous structures are intact. IMPRESSION: Stable right-sided chest tubes and similar left patchy airspace opacity. Degree of subcu taneous gas over the right chest wall limits assessment for pneumothorax. A CT may be considered if clinically warranted.
--- NOTE | 2020-11-04 09:53 | P.PN ---
Subjective Progress Note Date: 11/03/20 69 years old male with past medical history of hypertension. Sarcoidosis pulmonary sarcoidosis with chronic dyspnea and coughing. He had previous history of TIA and he was told it could be related to his neurosarcoidosis however he is not sure. Patient takes prednisone daily for the last 38 years. he was recently discharged from the hospital -10/27 Patient presents because of dyspnea. He has history of spontaneous pneumothorax on 10/26/2020 status post thora-vent. Patient was tachypneic on admission at 26-27, he was saturating 94% on room air, currently his breathing easier 18-20 breaths per minute to 98% on 2 L oxygen via nasal cannula. Labs are unremarkable including CBC, BMP, liver enzymes. Chest x-ray:. Chest acute obstruction is suspected Objective - Vital Signs Vital signs: Vital Signs Temp 98.2 F 11/03/20 11:18 Pulse 91 11/03/20 11:18 Resp 16 11/03/20 11:18 BP 136/85 11/03/20 11:18 Pulse Ox 97 11/03/20 11:18 Intake & Output 11/02/20 11/03/20 11/03/20 18:59 06:59 18:59 Intake Total 580 240 Output Total 12 Balance 580 228 Weight 73.5 kg Intake: Oral 580 240 Output: Chest Tube Drainage 10 Thora-Vent Right 10 Urine 2 - Exam GENERAL: The patient is alert and oriented x3, not in any acute distress. Well developed, well nourished. HEENT: Pupils are round and equally reacting to light. EOMI. No scleral icterus. No conjunctival pallor. Normocephalic, atraumatic. No pharyngeal erythema. No th yromegaly. CARDIOVASCULAR: S1 and S2 present. No murmurs, rubs, or gallops. -PULMONARY: Chest is clear to auscultation, no wheezing or crackles. Right chest to vent, connected to chest tube ABDOMEN: Soft, nontender, nondistended, normoactive bowel sounds. No palpable organomegaly. MUSCULOSKELETAL: No joint swelling or deformity. EXTREMITIES: No cyanosis, clubbing, or pedal edema. NEUROLOGICAL: Gross neurological examination did not reveal any focal deficits. SKIN: No rashes. No petechiae - Labs CBC & Chem 7: 11/01/20 00:45 11/01/20 00:45 Assessment and Plan Assessment: Recurrent right-sided spontaneous pneumothorax Hypertension, with possible obstructed chest tube. History of sarcoidosis on steroids. Alcohol abuse Plan: This is a pleasant 69 years old male who presents with recurrent spontaneous pneumothorax. Patient status Thora vent. Thoracic surgeon consulted. Plan for VATS with cardiothoracic surgery team tomorrow Labs and medication were reviewed.. Continue same treatment. Continue with symptomatic treatment. Resume home medication. Monitor lytes and vitals. DVT and GI prophylaxis. Further recommendations depends on the clinical course of the patient DVT prophylaxis: Subcutaneous heparin GI Prophylaxis: Pepcid
[2020-11-04 10:51] LABS: HCT 38.7 % (39.0-53.0); MCH 33.2 pg (25.0-35.0); MCHC 33.7 g/dL (31.0-37.0); MCV 98.3 fL (80.0-100.0); Mean Platelet Volume 7.6; Platelet Count 214 k/uL (150-450); Poikilocytosis Slight; RBC 3.93 m/uL (4.30-5.90); RDW 13.9 % (11.5-15.5); WBC 10.7 k/uL (3.8-10.6)
[2020-11-04] MEDS: HYDROcodone/APAP 5-325MG 1 EACH TAB PO PRN ×3 (11:01→19:47)
[2020-11-04 11:12] LABS: Potassium 4.2 mmol/L (3.5-5.1)
[2020-11-04 11:13] LABS: Calcium 8.6 mg/dL (8.4-10.2)
--- NOTE | 2020-11-04 12:19 | P.PN ---
Subjective Progress Note Date: 11/04/20 Principal diagnosis: Pulmonary sarcoidosis with persistent right-sided pneumothorax and presence of multiple bullae. Past medical history significant for spontaneous pneumothorax in 2004, not clear which side, with recent right-sided pneumothorax on 10/19/2020, TIA in July 2020 without residual, hypertension, remote history of tobacco dependence, daily EtOH use without history of withdrawal. POD #1 right sided video thoracoscopic exploration, resection of bullae and mechanical pleurodesis. The patient was seen in follow-up today 11/04/2020 at his bedside on the cardiac stepdown unit. Currently he is lying in bed, is awake, alert and oriented 3 and is in no acute distress. He denies any complaints of shortness of breath although is complaining of some surgical type pain to his chest tube insertion sites rating his pain 8 out of 10 on the pain scale. Oxygen saturations are 95% on 2 L nasal cannula and he is achieving 1000 mL on his incentive spirometry with encouragement. Remote telemetry is showing normal sinus rhythm with a bundle branch block heart rate 85 BPM. Right anterior and posterior pleural chest tubes remain in place to low continuous wall suction -20 cm H2O. No air leak is present. Draining thin serosanguineous drainage. Objective - Vital Signs Vital signs: Vital Signs Temp 99 F 11/04/20 04:38 Pulse 95 11/04/20 04:38 Resp 17 11/04/20 04:38 BP 108/61 11/04/20 04:38 Pulse Ox 96 11/04/20 07:25 Intake & Output 11/03/20 11/04/20 11/04/20 18:59 06:59 18:59 Intake Total 1450 Output Total 697 350 Balance 753 -350 Weight 82.5 kg Intake: IV 1450 Output: Chest Tube Drainage 172 150 Right Lower Lateral Chest 120 70 Right Upper Lateral Chest 52 80 Urine 500 200 Estimated Blood Loss 25 Other: Voiding Method Indwelling Catheter Indwelling Catheter # Voids 2 1 - Exam CONSTITUTIONAL: Laying in bed on the cardiac stepdown unit. Appears comfortable, cooperative, no apparent acute distress. HEENT: Neck is supple, no JVD, no lymphadenopathy. RESPIRATORY: Lungs sounds essentially clear throughout, few scattered crackles to his right lobes, diminished to his bilateral bases. Respirations are symmetrical and nonlabored. Currently on 2 L nasal cannula with oxygen saturations 95%. Able to achieve 1000 mL on his incentive spirometry. Strong cough. CARDIOVASCULAR: Regular rhythm and rate. S1 and S2 present, negative for S3, gallop or murmur. Palpable peripheral pulses bilaterally. No calf pain or tenderness noted. Heart hugger in place with patient demonstrating appropriate use. Sequential compression devices in place to his bilateral lower extremities. GASTROINTESTINAL: Abdomen soft, nontender, nondistended. Active bowel sounds present 4 quadrants. Tolerating diet. Passing flatus. No guarding or rig idity. GENITOURINARY: Saenz present draining claudia urine. INTEGUMENTARY: Skin is warm and dry with no evidence of clubbing or cyanosis. Right lateral chest incisions clean, dry and approximated. No drainage or redness is present. Dressings are clean, dry and intact. NEUROLOGIC: Cranial nerves II through XII intact. No focal deficits. MUSKULOSKELETAL: Able to move all extremities, strength equal bilaterally, generalized weakness. PSYCHIATRIC: Alert and oriented to person place and time, appropriate affect, intact judgment and insight. INVASIVE LINES AND TUBES: Right anterior and posterior pleural chest tubes present and connected to low continuous wall suction, no air leaks present. Draining thin serosanguineous drainage. Anterior chest tube drained 80 mL output in the last 8 hours and 140 mL output since surgery. Posterior chest tube drained 70 mL output in the last 8 hours and 210 mL output since surgery. - Labs CBC & Chem 7: 11/04/20 09:50 11/01/20 00:45 Labs: Abnormal Lab Results - Last 24 Hours (Table) 11/04/20 Range/Units 09:50 WBC 10.7 H (3.8-10.6) k/uL RBC 3.93 L (4.30-5.90) m/uL Hct 38.7 L (39.0-53.0) % Assessment and Plan Assessment: 1. Spontaneous pneumothorax, right-sided, with history of pulmonary sarcoidosis and presence of multiple bullae, status post right-sided video thoracoscopic exploration, resection of bullae and mechanical pleurodesis 2. History of spontaneous pneumothorax in 2004, not clear which side, with recent spontaneous pneumothorax in the right lung 10/19/2020 with admission 10/15 for the same 3. TIA in July of this year without residual 4. Pulmonary sarcoidosis 5. Hypertension 6. Remote history of tobacco dependence 7. Daily EtOH use without history of withdrawal Plan: 1. Place right anterior and posterior chest tubes to water seal. Continue to monitor for air leaks. 2. Increase activity as tolerated. Out of bed for all meals, ambulate as tolerated. 3. Encourage incentive spirometry use 10 times every hour while awake. 4. Pain control with current medication regimen 5. Medical management of other comorbidities per primary care service 6. Pathology results remain pending. 7. Continue to monitor daily chest x-rays. 8. Discontinue Saenz catheter, continue to record accurate and strict I's and O's. 9. More recommendations to follow based on patient's clinical course. Time with Patient: Greater than 30
[2020-11-04] MEDS: predniSONE 10 MG TAB PO SCH (15:26)
--- NOTE | 2020-11-04 17:47 | P.PN ---
Subjective Progress Note Date: 11/04/20 Principal diagnosis: Recurrent right-sided pneumothorax Alcohol abuse 69 years old male with past medical history of hypertension. Sarcoidosis pulmonary sarcoidosis with chronic dyspnea and coughing. He had previous history of TIA and he was told it could be related to his neurosarcoidosis however he is not sure. Patient takes prednisone daily for the last 38 years. he was recently discharged from the hospital -10/27 Patient presents because of dyspnea. He has history of spontaneous pneumothorax on 10/26/2020 status post thora-vent. Patient was tachypneic on admission at 26-27, he was saturating 94% on room air, currently his breathing easier 18-20 breaths per minute to 98% on 2 L oxygen via nasal cannula. Labs are unremarkable including CBC, BMP, liver enzymes. Chest x-ray:. Chest acute obstruction is suspected 11/04/2020 Patient seen and evaluated at his bedside on the cardiac stepdown unit. Currently he is lying in bed, is awake, alert and oriented 3 and is in no acute distress. He denies any complaints of shortness of breath although is complaining of some surgical type pain to his chest tube insertion sites rating his pain 8 out of 10 on the pain scale. Oxygen saturations are 95% on 2 L nasal cannula and he is achieving 1000 mL on his incentive spirometry with encouragement; vital signs are stable with a temperature of 99, pulse 95, respirations 17 and blood pressure 128/61. Remote telemetry is showing normal sinus rhythm with a bundle branch block heart rate 85 BPM. Right anterior and posterior pleural chest tubes remain in place to low continuous wall suction -20 cm H2O. No air leak is present. Draining thin serosanguineous drainage. Right anterior and posterior chest tubes to water is seen; thoracic surgery following and recommending to encourage and incentive spirometry and increase activity; continue with current pain control medication; plan to repeat chest x- ray tomorrow with further recommendations Objective - Vital Signs Vital signs: Vital Signs Temp 99 F 11/04/20 04:38 Pulse 95 11/04/20 04:38 Resp 17 11/04/20 04:38 BP 108/61 11/04/20 04:38 Pulse Ox 96 11/04/20 07:25 Intake & Output 11/03/20 11/04/20 11/04/20 18:59 06:59 18:59 Intake Total 1450 Output Total 697 350 Balance 753 -350 Weight 82.5 kg Intake: IV 1450 Output: Chest Tube Drainage 172 150 Right Lower Lateral Chest 120 70 Right Upper Lateral Chest 52 80 Urine 500 200 Estimated Blood Loss 25 Other: Voiding Method Indwelling Catheter Indwelling Catheter # Voids 2 1 - Exam GENERAL: The patient is alert and oriented x3, not in any acute distress. Well developed, well nourished. HEENT: Pupils are round and equally reacting to light. EOMI. No scleral icterus. No conjunctival pallor. Normocephalic, atraumatic. No pharyngeal erythema. No thyromegaly. CARDIOVASCULAR: S1 and S2 present. No murmurs, rubs, or gallops. -PULMONARY: Chest is clear to auscultation, no wheezing or crackles. Right chest to vent, connected to chest tube ABDOMEN: Soft, nontender, nondistended, normoactive bowel sounds. No palpable organomegaly. MUSCULOSKELETAL: No joint swelling or deformity. EXTREMITIES: No cyanosis, clubbing, or pedal edema. NEUROLOGICAL: Gross neurological examination did not reveal any focal deficits. SKIN: No rashes. No petechiae - Labs CBC & Chem 7: 11/04/20 09:50 11/04/20 09:50 Assessment and Plan Assessment: Recurrent right-sided spontaneous pneumothorax Hypertension, with possible obstructed chest tube. History of sarcoidosis on steroids. Alcohol abuse Plan: This is a pleasant 69 years old male who presents with recurrent spontaneous pneumothorax. Patient status Thora vent. Thoracic surgeon consulted. Plan for VATS with cardiothoracic surgery team tomorrow Labs and medication were reviewed.. Continue same treatment. Continue with symptomatic treatment. Resume home medication. Monitor lytes and vitals. DVT and GI prophylaxis. Further recommendations depends on the clinical course of the patient DVT prophylaxis: Subcutaneous heparin GI Prophylaxis: Pepcid
[2020-11-04] MEDS: amLODIPine 5 MG TAB PO SCH (19:48)
[2020-11-04] MEDS: LOSARTAN 50 MG TAB PO SCH (19:48)
[2020-11-04] MEDS: SENNOSIDES-DOCUSATE SODIUM 1 EACH TAB PO SCH (19:48)
[2020-11-04] MEDS: MELATONIN 5 MG TABLET PO SCH (20:56)
[2020-11-04] MEDS: ZOLPIDEM 5 MG TAB PO SCH (20:57)
[2020-11-05] MEDS: HYDROmorphone 1 MG/ML 1 ML SYRINGE IVP PRN (00:49)
--- NOTE | 2020-11-05 07:25 | XR ---
EXAMINATION TYPE: XR chest 1V portable DATE OF EXAM: 11/05/2020 COMPARISON: 11/04/2020 HISTORY: Shortness of breath TECHNIQUE: Single frontal view of the chest is obtained. FINDINGS: There are 2 right-sided chest tubes and no pneumothorax. There is ill-defined scattered in terstitial and airspace opacities bilaterally with no interval change. The lung volumes are small. There is diffuse subcutaneous emphysema on the right which is stable. The heart size is normal pulmonary vasculature does not appear grossly congested. The osseous structures are grossly intact. IMPRESSION: Mild scattered diffuse interstitial and airspace opacity unchanged since the prior study . No change in the right-sided chest tubes and no pneumothorax. No change in the right subcutaneous e mphysema.
[2020-11-05 08:00] LABS: Basophils % (A) 0 %; Eosinophils # (A) 0.2 k/uL (0-0.7); Eosinophils % (A) 1 %; HCT 40.4 % (39.0-53.0); HGB 13.8 gm/dL (13.0-17.5); Lymphocytes # (A) 0.5 k/uL (1.0-4.8); Lymphocytes % (A) 5 %; MCH 33.2 pg (25.0-35.0); MCV 97.5 fL (80.0-100.0); Mean Platelet Volume 7.6; Monocytes # (A) 0.7 k/uL (0-1.0); Monocytes % (A) 6 %; Neutrophils # (A) 9.7 k/uL (1.3-7.7); Neutrophils % (A) 87 %; Platelet Count 261 k/uL (150-450); RBC 4.15 m/uL (4.30-5.90); RDW 13.4 % (11.5-15.5); WBC 11.2 k/uL (3.8-10.6)
[2020-11-05] MEDS ORDERED: HYDROcodone/APAP 5-325MG 1 EACH TAB PO PRN (08:16)
[2020-11-05 08:18] LABS: Potassium 4.5 mmol/L (3.5-5.1)
[2020-11-05] MEDS: MULTIVITAMINS, THERA 1 EACH TAB PO SCH (08:54)
[2020-11-05] MEDS: predniSONE 10 MG TAB PO SCH (08:54)
[2020-11-05] MEDS: HEPARIN SODIUM,PORCINE/PF 5,000 UNIT/0.5 ML SYRINGE SQ SCH ×2 (08:54→20:30)
[2020-11-05] MEDS: FAMOTIDINE 20 MG TAB PO SCH ×2 (08:54→20:30)
[2020-11-05] MEDS: THIAMINE 100 MG TAB PO SCH (08:54)
[2020-11-05] MEDS: PANTOPRAZOLE 40 MG TABLET PO SCH (08:54)
--- NOTE | 2020-11-05 10:22 | P.CNPUL ---
History of Present Illness Consult date: 11/05/20 Reason for consult: pneumothorax History of present illness: This is a very pleasant 69-year-old male patient with previous history of sarcoidosis and previous history of strokes is pneumothorax on the left back in 2004 secondary to COPD and emphysematous lung. The patient is having issues with recurrent right-sided pneumothorax and the patient was ultimately taken to the operating room and underwent a right-sided thoracoscopic exploration, resected the bullae and underwent a mechanical pleurodesis. Today the patient is postop day #2. Doing well. The patient has to chest tubes one anterior and one posterior and there is no evidence of air leak and subsequent chest x-rays showing adequate expansion of both lungs. No evidence of any pneumothorax. His resting comfortably in bed. He is on room air oxygen. He remains on 10 mg of p rednisone and he has been seeing a loan approver outside [place] was kept in mind 10 mg of prednisone for YEARS. Meanwhile, the CAT scan of the chest shows no evidence of any interstitial infiltrates, groundglass changes or any other indications of active sarcoidosis. There is extensive mediastinal lymph node calcification related to previous/old sarcoidosis. No history of kidney stones. No uveitis. No skin lesions. No hepatitic insufficiency. No encephalopathy. Review of Systems Constitutional: Denies chills, Denies fever Eyes: denies as per HPI, denies blurred vision, denies bulging eye, denies decreased vision, denies diplopia, denies discharge, denies dry eye, denies irritation, denies itching, denies pain, denies photophobia, denies loss of peripheral vision, denies loss of vision, denies tunnel vision/blind spots Ears: deny: decreased hearing, ear discharge, earache, tinnitus Breasts: absent: as per HPI, gynecomastia Cardiovascular: Reports decreased exercise tolerance Respiratory: Reports dyspnea Genitourinary: Reports as per HPI Musculoskeletal: Reports as per HPI Musculoskeletal: absent: ankle pain, ankle stiffness, ankle swelling, as per HPI, elbow pain, elbow stiffness, elbow swelling, foot pain, foot stiffness, foot swelling, hand pain, hand stiffness, hand swelling, hip pain, hip stiffness, hip swelling, knee pain, knee stiffness, knee swelling, shoulder pain, shoulder stiffness, shoulder swelling, wrist pain, wrist stiffness, wrist swelling Integumentary: Reports as per HPI Neurological: Reports as per HPI Psychiatric: Reports as per HPI Endocrine: Reports as per HPI Hematologic/Lymphatic: Reports as per HPI Allergic/Immunologic: Reports as per HPI Past Medical History Past Medical History: Hypertension, Respiratory Disorder Additional Past Medical History / Comment(s): RBBB. Sarcoidosis. Hx spontaneous pneumothorax. Rt inguinal hernia. History of Any Multi-Drug Resistant Organisms: None Reported Past Surgical History: Appendectomy, Hernia Repair Additional Past Surgical History / Comment(s): Hernia's x3. Past Anesthesia/Blood Transfusion Reactions: No Reported Reaction Past Psychological History: No Psychological Hx Reported Smoking Status: Former smoker Past Alcohol Use History: Occasional Past Drug Use History: None Reported - Past Family History Mother Family Medical History: No Reported History Additional Family Medical History / Comment(s): ETOH Father Family Medical History: CVA/TIA Additional Family Medical History / Comment(s): ETOH Medications and Allergies Home Medications Medication Instructions Recorded Confirmed Type Losartan [Cozaar] 50 mg PO HS 12/09/19 11/01/20 History amLODIPine [Norvasc] 5 mg PO HS 12/09/19 11/01/20 History predniSONE 10 mg PO DAILY 12/09/19 11/01/20 History Melatonin 10 mg PO HS 07/23/20 11/01/20 History Lansoprazole [Prevacid] 30 mg PO DAILY 10/25/20 11/01/20 History Multivitamins, Thera [Multivitamin 1 tab PO DAILY 10/25/20 11/01/20 History (formulary)] Zolpidem Tartrate [Zolpidem 12.5 mg PO HS 10/25/20 11/01/20 History Tartrate ER] Allergies Allergy/AdvReac Type Severity Reaction Status Date / Time No Known Allergies Allergy Verified 11/01/20 09:32 Physical Exam Vitals: Vital Signs Temp Pulse Resp BP Pulse Ox 11/05/20 08:58 91 L 11/05/20 04:30 98.7 F 82 18 122/71 95 11/04/20 23:10 82 17 103/68 93 L 11/04/20 19:45 98.9 F 84 17 124/71 93 L 11/04/20 16:00 99.3 F 82 16 111/66 95 11/04/20 13:55 88 18 11/04/20 12:00 98.2 F 88 18 108/61 99 Intake and Output 11/04/20 11/05/20 11/05/20 22:59 06:59 14:59 Intake Total 560 240 Output Total 90 570 Balance 470 -570 240 Intake: Oral 560 240 Output: Chest Tube Drainage 90 100 Right Lower Lateral Chest 40 50 Right Upper Lateral Chest 50 50 Urine 470 Other: Voiding Method Urinal Urinal # Voids 1 Weight 83 kg CONSTITUTIONAL: Laying in bed on the cardiac stepdown unit. Appears comfortable, cooperative, no apparent acute distress. HEENT: Neck is supple, no JVD, no lymphadenopathy. RESPIRATORY: Lungs sounds essentially clear throughout, few scattered crackles to his right lobes, diminished to his bilateral bases. Respirations are symmetrical and nonlabored. Currently on 2 L nasal cannula with oxygen saturations 95%. Able to achieve 1000 mL on his incentive spirometry. Strong cough. CARDIOVASCULAR: Regular rhythm and rate. S1 and S2 present, negative for S3, gallop or murmur. Palpable peripheral pulses bilaterally. No calf pain or tenderness noted. Heart hugger in place with patient demonstrating appropriate use. Sequential compression devices in place to his bilateral lower extremities. GASTROINTESTINAL: Abdomen soft, nontender, nondistended. Active bowel sounds present 4 quadrants. Tolerating diet. Passing flatus. No guarding or rigidity. GENITOURINARY: Saenz present draining claudia urine. INTEGUMENTARY: Skin is warm and dry with no evidence of clubbing or cyanosis. Right lateral chest incisions clean, dry and approximated. No drainage or redness is present. Dressings are clean, dry and intact. NEUROLOGIC: Cranial nerves II through XII intact. No focal deficits. MUSKULOSKELETAL: Able to move all extremities, strength equal bilaterally, generalized weakness. PSYCHIATRIC: Alert and oriented to person place and time, appropriate affect, intact judgment and insight. INVASIVE LINES AND TUBES: Right anterior and posterior pleural chest tubes present and connected to low continuous wall suction, no air leaks present. Draining thin serosanguineous drainage. Results - Laboratory Findings CBC and BMP: 11/05/20 07:21 11/05/20 07:21 Abnormal lab findings: Abnormal Labs 11/01/20 11/01/20 11/04/20 00:45 00:45 09:50 WBC 10.7 H RBC 3.93 L Hct 38.7 L Neutrophils # 7.9 H Lymphocytes # Sodium Chloride 108 H Glucose Total Protein 6.2 L 11/04/20 11/05/20 11/05/20 09:50 07:21 07:21 WBC 11.2 H RBC 4.15 L Hct Neutrophils # 9.7 H Lymphocytes # 0.5 L Sodium 134 L 133 L Chloride Glucose 123 H 112 H Total Protein - Diagnostic Findings Chest x-ray: image reviewed CT scan - chest: image reviewed Assessment and Plan Plan: 1. Spontaneous pneumothorax, right-sided, with history of pulmonary sarcoidosis and presence of multiple bullae, status post right-sided video thoracoscopic exploration, resection of bullae and mechanical pleurodesis, and the patient is postop day #2. The chest x-ray from today showing no acute pneumothorax. Chest tubes are in place. No evidence of any air leak. 2. History of spontaneous pneumothorax in 2004, not clear which side, with recent spontaneous pneumothorax in the right lung 10/19/2020 with admission 10/25/2020 for the same 3. COPD with emphysematous upper lobe blebs 4. Pulmonary sarcoidosis maintained on 10 mg of prednisone for many years. CAT scan of the chest is not showing any acute inflammatory changes or sarcoidosis. There is chronic calcification mediastinal lymph nodes related to previous history of sarcoid. 5. Hypertension 6. Remote history of tobacco dependence 7. Daily EtOH use without history of withdrawal 8 TIA in July of this year without residual Plan: Chest tube management per thoracic surgery. The posterior chest tube can be likely removed today Chest x-ray shows no evidence of pneumothorax Patient was restarted on prednisone 10 mg by mouth daily. My advice to ultimately wean the patient off prednisone and discontinued knowing that his CAT scan of the chest has not shown any evidence of active sarcoidosis. He sarcoidosis currently quiescent that inactive and stable. As such, I do not see any value for long-term steroids use in this patient. Obviously this can be tapered off on outpatient basis He'll be also useful to look at the pathology samples from surgical resection to see if there is any sarcoidosis activity. I think that predominant pathology will be emphysema. Continues incentive spirometer Daily chest x-rays We'll continue to follow
--- NOTE | 2020-11-05 10:59 | P.PN ---
Subjective Progress Note Date: 11/05/20 Principal diagnosis: Pulmonary sarcoidosis with persistent right-sided pneumothorax and presence of multiple bullae. Past medical history significant for spontaneous pneumothorax in 2004, not clear which side, with recent right-sided pneumothorax on 10/19/2020, TIA in July 2020 without residual, hypertension, remote history of tobacco dependence, daily EtOH use without history of withdrawal. POD #2 right sided video thoracoscopic exploration, resection of bullae and mechanical pleurodesis. The patient was seen in follow-up today 11/05/2020 at his bedside on the cardiac stepdown unit. Currently he is sitting up to the bedside chair, is awake, alert and oriented 3 and is in no acute distress. The patient's nurse this morning reports that he is having some episodes of confusion and is pulling off his telemetry leads. His dilaudid was discontinued due to the episodes of confusion. He denies any complaints of shortness of breath at this time, although is complaining of some surgical type pain to his chest tube insertion sites rating his pain 5 out of 10 on the pain scale. Oxygen saturation are 95% on room air and he is achieving 8481-6649 mL on his incentive spirometry with encouragement. Surgical pathology results remain pending. Remote telemetry showing normal sinus rhythm heart rate 87 BPM. He has been afebrile the last 24 hours. Right anterior and posterior chest tubes remain in place on waterseal. No air leak is present. Draining thin serosanguineous drainage. Objective - Vital Signs Vital signs: Vital Signs Temp 98.7 F 11/05/20 04:30 Pulse 82 11/05/20 04:30 Resp 18 11/05/20 04:30 BP 122/71 11/05/20 04:30 Pulse Ox 91 L 11/05/20 08:58 Intake & Output 11/04/20 11/05/20 11/05/20 18:59 06:59 18:59 Intake Total 1640 240 Output Total 490 570 Balance 1150 -570 240 Weight 83 kg Intake: Oral 1640 240 Output: Chest Tube Drainage 90 100 Right Lower Lateral Chest 40 50 Right Upper Lateral Chest 50 50 Urine 400 470 Other: Voiding Method Urinal Urinal # Voids 1 - Exam CONSTITUTIONAL: Sitting up to the bedside chair on the cardiac stepdown unit. Appears comfortable, cooperative, no apparent acute distress. HEENT: Neck is supple, no JVD, no lymphadenopathy. RESPIRATORY: Lungs sounds essentially clear throughout, few scattered crackles to his right lobes, diminished to his bilateral bases, right greater than left. Respirations are symmetrical and nonlabored. Currently on room air with oxygen saturations 95%. Able to achieve 7469-5758 mL on his incentive spirometry. Strong cough. CARDIOVASCULAR: Regular rhythm and rate. S1 and S2 present, negative for S3, gallop or murmur. Palpable peripheral pulses bilaterally. No calf pain or tenderness noted. Heart hugger in place with patient demonstrating appropriate use. Sequential compression devices in place to his bilateral lower extremities. Remote telemetry showing normal sinus rhythm heart rate 87 BPM. GASTROINTESTINAL: Abdomen soft, nontender, nondistended. Active bowel sounds present 4 quadrants. Tolerating diet. Passing flatus. No guarding or rigidity. Bowel movement this a.m. GENITOURINARY: Continues to void. INTEGUMENTARY: Skin is warm and dry with no evidence of clubbing or cyanosis. Right lateral chest incisions clean, dry and approximated. No drainage or redness is present. Dressings are clean, dry and intact. NEUROLOGIC: Cranial nerves II through XII intact. No focal deficits. MUSKULOSKELETAL: Able to move all extremities, strength equal bilaterally, generalized weakness. PSYCHIATRIC: Alert and oriented to person place and time, appropriate affect, intact judgment and insight. Episodes of confusion. INVASIVE LINES AND TUBES: Right anterior and posterior pleural chest tubes present and connected to low continuous wall suction, no air leaks present. Draining thin serosanguineous drainage. Anterior chest tube drained 50 mL output in the last 8 hours and 100 mL output since surgery. Posterior chest tube drained 50 mL output in the last 8 hours and 100 mL output since surgery. - Labs CBC & Chem 7: 11/05/20 07:21 11/05/20 07:21 Labs: Abnormal Lab Results - Last 24 Hours (Table) 11/04/20 11/05/20 11/05/20 Range/Units 09:50 07: 07:21 WBC 11.2 H (3.8-10.6) k/uL RBC 4.15 L (4.30-5.90) m/uL Neutrophils # 9.7 H (1.3-7.7) k/uL Lymphocytes # 0.5 L (1.0-4.8) k/uL Sodium 134 L 133 L (137-145) mmol/L Glucose 123 H 112 H (74-99) mg/dL Assessment and Plan Assessment: 1. Spontaneous pneumothorax, right-sided, with history of pulmonary sarcoidosis and presence of multiple bullae, status post right-sided video thoracoscopic exploration, resection of bullae and mechanical pleurodesis 2. History of spontaneous pneumothorax in 2004, not clear which side, with recent spontaneous pneumothorax in the right lung 10/19/2020 with admission 10/25/2020 for the same 3. TIA in July of this year without residual 4. Pulmonary sarcoidosis 5. Hypertension 6. Remote history of tobacco dependence 7. Daily EtOH use without history of withdrawal Plan: 1. Keep posterior chest tube to water seal. Continue to monitor for air leaks. Right anterior chest tube was removed without incident. Vaseline impregnated gauze, 4 x 4 gauze to cover and secured with tape. 2. Increase activity as tolerated. Out of bed for all meals, ambulate as tolerated. 3. Encourage incentive spirometry use 10 times every hour while awake. 4. Pain control with current medication regimen. Dilaudid discontinued due to episodes of confusion. 5. Medical management of other comorbidities per primary care service. 6. Pathology results remain pending. 7. Continue to monitor daily chest x-rays. 8. Continue to record accurate and strict I's and O's. 9. Pulmonary medicine consult noted and appreciated. 10. More recommendations to follow based on patient's clinical course. Time with Patient: Greater than 30
--- NOTE | 2020-11-05 17:14 | P.PN ---
Subjective Progress Note Date: 11/05/20 Principal diagnosis: Recurrent right-sided pneumothorax COPD with emphysematous upper lobe blebs Pulmonary sarcoidosis 69 years old male with past medical history of hypertension. Sarcoidosis pulmonary sarcoidosis with chronic dyspnea and coughing. He had previous history of TIA and he was told it could be related to his neurosarcoidosis however he is not sure. Patient takes prednisone daily for the last 38 years. he was recently discharged from the hospital -10/27 Patient presents because of dyspnea. He has history of spontaneous pneumothorax on 10/26/2020 status post thora-vent. Patient was tachypneic on admission at 26-27, he was saturating 94% on room air, currently his breathing easier 18-20 breaths per minute to 98% on 2 L oxygen via nasal cannula. Labs are unremarkable including CBC, BMP, liver enzymes. Chest x-ray:. Chest acute obstruction is suspected 11/04/2020 Patient seen and evaluated at his bedside on the cardiac stepdown unit. Currently he is lying in bed, is awake, alert and oriented 3 and is in no acute distress. He denies any complaints of shortness of breath although is complain ing of some surgical type pain to his chest tube insertion sites rating his pain 8 out of 10 on the pain scale. Oxygen saturations are 95% on 2 L nasal cannula and he is achieving 1000 mL on his incentive spirometry with encouragement; vital signs are stable with a temperature of 99, pulse 95, respirations 17 and blood pressure 128/61. Remote telemetry is showing normal sinus rhythm with a bundle branch block heart rate 85 BPM. Right anterior and posterior pleural chest tubes remain in place to low continuous wall suction -20 cm H2O. No air leak is present. Draining thin serosanguineous drainage. Right anterior and posterior chest tubes to water is seen; thoracic surgery following and recommending to encourage and incentive spirometry and increase activity; continue with current pain control medication; plan to repeat chest x- ray tomorrow with further recommendations 11/05/2020 Patient is seen and evaluated in room with family members at bedside; sitting up in bed and denies any complaint of chest pain; reports he's been ambulating adequately; per nursing staff patient had episode of confusion this morning, Dilaudid was discontinued Vital signs remained stable with temperature of 98.7, pulse 82, respiration 18 and blood pressure 122/71; O2 saturation 97% on room air Thoracic surgery is following and right anterior chest tube was removed this morning; plan is to continue with posterior chest tube to waterseal; patient is recommended to continue to increase activity as tolerated and continue with incentive spirometry 10 times every hour while awake Objective - Vital Signs Vital signs: Vital Signs Temp 98.7 F 11/05/20 04:30 Pulse 82 11/05/20 04:30 Resp 18 11/05/20 04:30 BP 122/71 11/05/20 04:30 Pulse Ox 91 L 11/05/20 08:58 Intake & Output 11/04/20 11/05/20 11/05/20 18:59 06:59 18:59 Intake Total 1640 240 Output Total 490 570 Balance 1150 -570 240 Weight 83 kg Intake: Oral 1640 240 Output: Chest Tube Drainage 90 100 Right Lower Lateral Chest 40 50 Right Upper Lateral Chest 50 50 Urine 400 470 Other: Voiding Method Urinal Urinal # Voids 1 - Exam GENERAL: The patient is alert and oriented x3, not in any acute distress. Well developed, well nourished. HEENT: Pupils are round and equally reacting to light. EOMI. No scleral icterus. No conjunctival pallor. Normocephalic, atraumatic. No pharyngeal erythema. No thyromegaly. CARDIOVASCULAR: S1 and S2 present. No murmurs, rubs, or gallops. -PULMONARY: Chest is clear to auscultation, no wheezing or crackles. Right chest to vent, connected to chest tube ABDOMEN: Soft, nontender, nondistended, normoactive bowel sounds. No palpable organomegaly. MUSCULOSKELETAL: No joint swelling or deformity. EXTREMITIES: No cyanosis, clubbing, or pedal edema. NEUROLOGICAL: Gross neurological examination did not reveal any focal deficits. SKIN: No rashes. No petechiae - Labs CBC & Chem 7: 11/05/20 07:21 11/05/20 07:21 Labs: Abnormal Lab Results - Last 24 Hours (Table) 11/04/20 11/04/20 11/05/20 Range/Units 09:50 09:50 07: WBC 10.7 H 11.2 H (3.8-10.6) k/uL RBC 3.93 L 4.15 L (4.30-5.90) m/uL Hct 38.7 L (39.0-53.0) % Neutrophils # 9.7 H (1.3-7.7) k/uL Lymphocytes # 0.5 L (1.0-4.8) k/uL Sodium 134 L (137-145) mmol/L Glucose 123 H (74-99) mg/dL 11/05/20 Range/Units 07:21 WBC (3.8-10.6) k/uL RBC (4.30-5.90) m/uL Hct (39.0-53.0) % Neutrophils # (1.3-7.7) k/uL Lymphocytes # (1.0-4.8) k/uL Sodium 133 L (137-145) mmol/L Glucose 112 H (74-99) mg/dL Assessment and Plan Assessment: Recurrent right-sided spontaneous pneumothorax Hypertension, with possible obstructed chest tube. History of sarcoidosis on steroids. Alcohol abuse Plan: This is a pleasant 69 years old male who presents with recurrent spontaneous pneumothorax. Patient status Thora vent. Thoracic surgeon consulted. Plan for VATS with cardiothoracic surgery team tomorrow Labs and medication were reviewed.. Continue same treatment. Continue with symptomatic treatment. Resume home medication. Monitor lytes and vitals. DVT and GI prophylaxis. Further recommendations depends on the clinical course of the patient DVT prophylaxis: Subcutaneous heparin GI Prophylaxis: Pepcid
[2020-11-05] MEDS: HYDROcodone/APAP 5-325MG 1 EACH TAB PO PRN ×2 (18:04→22:16)
[2020-11-05 19:59] LABS: Appearance,Urine Clear (Clear); Bilirubin,Urine Negative (Negative); Blood,Urine Negative (Negative); Color,Urine Light Yellow; Glucose,Urine (UA) Negative (Negative); Ketones,Urine Negative (Negative); Leukocyte Esterase,Urine Negative (Negative); Nitrite,Urine Negative (Negative); Protein,Urine Negative (Negative); Specific Gravity,Urine 1.006 (1.001-1.035); Urobilinogen,Urine <2.0 mg/dL (<2.0)
[2020-11-05] MEDS: SENNOSIDES-DOCUSATE SODIUM 1 EACH TAB PO SCH (20:30)
[2020-11-05] MEDS: amLODIPine 5 MG TAB PO SCH (20:30)
[2020-11-05] MEDS: LOSARTAN 50 MG TAB PO SCH (20:30)
[2020-11-05] MEDS: MELATONIN 5 MG TABLET PO SCH (22:16)
[2020-11-05] MEDS: ZOLPIDEM 5 MG TAB PO SCH (22:16)
[2020-11-05 22:48] VITALS: RESP 18
[2020-11-06] MEDS: HYDROcodone/APAP 5-325MG 1 EACH TAB PO PRN ×2 (02:10→05:51)
[2020-11-06] MEDS: THIAMINE 100 MG TAB PO SCH (09:01)
[2020-11-06] MEDS: HEPARIN SODIUM,PORCINE/PF 5,000 UNIT/0.5 ML SYRINGE SQ SCH (09:01)
[2020-11-06] MEDS: predniSONE 10 MG TAB PO SCH (09:01)
[2020-11-06] MEDS: FAMOTIDINE 20 MG TAB PO SCH (09:01)
[2020-11-06] MEDS: PANTOPRAZOLE 40 MG TABLET PO SCH (09:01)
[2020-11-06] MEDS: MULTIVITAMINS, THERA 1 EACH TAB PO SCH (09:01)
--- NOTE | 2020-11-06 09:12 | XR ---
EXAMINATION TYPE: XR chest 1V portable DATE OF EXAM: 11/06/2020 COMPARISON: 11/05/2020 HISTORY: Postop VATS TECHNIQUE: Single frontal view of the chest is obtained. FINDINGS: Diffuse subcutaneous emphysema and chest tube noted in position. No sizable pneumothorax. Bilateral consolidation and small effusion with left pleural thickening. Heart size normal. Calcified mediastinal and hilar lymph nodes suspected. Diffuse subcutaneous emphysema. IMPRESSION: 1. Bilateral infiltrate and small effusion with diffuse subcutaneous emphysema. No sizable pneumothor ax.
--- NOTE | 2020-11-06 09:50 | P.PN ---
Subjective Progress Note Date: 11/06/20 Principal diagnosis: Pulmonary sarcoidosis with persistent right-sided pneumothorax and presence of multiple bullae. Past medical history significant for spontaneous pneumothorax in 2004, not clear which side, with recent right-sided pneumothorax on 10/19/2020, TIA in July 2020 without residual, hypertension, remote history of tobacco dependence, daily EtOH use without history of withdrawal. POD #3 right sided video thoracoscopic exploration, resection of bullae and mechanical pleurodesis. The patient was seen in follow-up today 11/06/2020 at his bedside on the cardiac stepdown unit. Currently the patient is sitting up to the bedside edge, is awake, alert and oriented 3 and is in no acute apparent distress. Denies any complaints of shortness of breath or pain at this time. He reports he had much better night last night and states he feels much improved since having his anterior right pleural chest tube removed yesterday. Remote telemetry showing normal sinus rhythm heart rate 69 BPM. Oxygen saturation are 97% on room air and he is achieving 1250 mL on his incentive spirometry with encouragement. Right pleural chest tube remains in place to water seal. No air leak is present. Draining thin serosanguineous drainage with 130 mL output in the last 24 hours. Surgical pathology results remain pending. Chest x-ray this morning demonstrates bilateral infiltrate and small effusion with effusive subcutaneous emphysema and no sizable pneumothorax. Objective - Vital Signs Vital signs: Vital Signs Temp 98 F 11/06/20 04:00 Pulse 82 11/06/20 04:00 Resp 18 11/06/20 04:00 BP 128/76 11/06/20 04:00 Pulse Ox 96 11/06/20 07:46 Intake & Output 11/05/20 11/06/20 11/06/20 18:59 06:59 18:59 Intake Total 480 400 120 Output Total 380 400 Balance 100 0 120 Weight 76.2 kg Intake: Oral 480 400 120 Output: Chest Tube Drainage 80 0 Right Lower Lateral Chest 0 Right Upper Lateral Chest 80 Urine 300 400 Other: Voiding Method Urinal Urinal # Voids 2 - Exam CONSTITUTIONAL: Sitting up to the bedside edge on the cardiac stepdown unit. Appears comfortable, cooperative, no apparent acute distress. HEENT: Neck is supple, no JVD, no lymphadenopathy. RESPIRATORY: Lungs sounds essentially clear throughout, few scattered crackles to his right lobes, diminished to his bilateral bases. Respirations are symmetrical and nonlabored. Currently on room air with oxygen saturations 97%. Able to achieve 1250 mL on his incentive spirometry. Strong cough. CARDIOVASCULAR: Regular rhythm and rate. S1 and S2 present, negative for S3, gallop or murmur. Palpable peripheral pulses bilaterally. No calf pain or tenderness noted. Heart hugger in place with patient demonstrating appropriate use. Sequential compression devices in place to his bilateral lower ex tremities. Remote telemetry showing normal sinus rhythm heart rate 69 BPM. GASTROINTESTINAL: Abdomen soft, nontender, nondistended. Active bowel sounds present 4 quadrants. Tolerating diet. Passing flatus. No guarding or rigidity. GENITOURINARY: Continues to void. INTEGUMENTARY: Skin is warm and dry with no evidence of clubbing or cyanosis. Right lateral chest incisions clean, dry and approximated. No drainage or redness is present. Dressings are clean, dry and intact. NEUROLOGIC: Cranial nerves II through XII intact. No focal deficits. MUSKULOSKELETAL: Able to move all extremities, strength equal bilaterally, generalized weakness. PSYCHIATRIC: Alert and oriented to person place and time, appropriate affect, intact judgment and insight. INVASIVE LINES AND TUBES: Right pleural chest tube present and connected to waterseal, no air leaks present. Draining thin serosanguineous drainage. Right pleural chest tube drained 130 mL output in the last 24 hours. - Allied health notes Allied health notes reviewed: nursing - Labs CBC & Chem 7: 11/05/20 07:21 11/05/20 07:21 Labs: Abnormal Lab Results - Last 24 Hours (Table) 11/05/20 Range/Units 07:21 Procalcitonin 0.53 H (0.02-0.09) ng/mL - Imaging and Cardiology Chest x-ray: report reviewed, image reviewed Assessment and Plan Assessment: 1. Spontaneous pneumothorax, right-sided, with history of pulmonary sarcoidosis and presence of multiple bullae, status post right-sided video thoracoscopic exploration, resection of bullae and mechanical pleurodesis 2. History of spontaneous pneumothorax in 2004, not clear which side, with recent spontaneous pneumothorax in the right lung 10/19/2020 with admission 10/25/2020 for the same 3. TIA in July of this year without residual 4. Pulmonary sarcoidosis 5. Hypertension 6. Remote history of tobacco dependence 7. Daily EtOH use without history of withdrawal Plan: 1. We will clamp his right pleural chest tube today for 2 hours, on clamping the chest tube after 2 hours and if there is no air leak present we will remove the chest tube and obtain a chest x-ray 2 hours after chest tube removal. If there is no pneumothorax after chest tube removal the patient may be discharged home per the cardiothoracic surgery standpoint. 2. Increase activity as tolerated. Out of bed for all meals, ambulate as tolerated. 3. Encourage incentive spirometry use 10 times every hour while awake. 4. Pain control with current medication regimen. Once his chest tube has been removed we will discontinue the [place]. 5. Medical management of other comorbidities per primary care service. 6. Pathology results remain pending. 7. Continue to monitor daily chest x-rays. 8. Continue to record accurate and strict I's and O's. 9. More recommendations to follow based on patient's clinical course. Time with Patient: Greater than 30
[2020-11-06 12:36] VITALS: BP 137/78; PULSE 67; TEMP 98
--- NOTE | 2020-11-06 12:39 | P.PN ---
Subjective Progress Note Date: 11/06/20 Principal diagnosis: Right-sided pneumothorax This is a very pleasant 69-year-old male patient with previous history of sarcoidosis and previous history of strokes is pneumothorax on the left back in 2004 secondary to COPD and emphysematous lung. The patient is having issues wi th recurrent right-sided pneumothorax and the patient was ultimately taken to the operating room and underwent a right-sided thoracoscopic exploration, resected the bullae and underwent a mechanical pleurodesis. Today the patient is postop day #2. Doing well. The patient has to chest tubes one anterior and one posterior and there is no evidence of air leak and subsequent chest x-rays showing adequate expansion of both lungs. No evidence of any pneumothorax. His resting comfortably in bed. He is on room air oxygen. He remains on 10 mg of prednisone and he has been seeing a colon and rectal surgeon outside [place] was kept in mind 10 mg of prednisone for YEARS. Meanwhile, the CAT scan of the chest shows no evidence of any interstitial infiltrates, groundglass changes or any other indications of active sarcoidosis. There is extensive mediastinal lymph node calcification related to previous/old sarcoidosis. No history of kidney stones. No uveitis. No skin lesions. No hepatitic insufficiency. No encephalopathy. On 11/06/2020 patient seen in follow-upon selective care unit, this morning his chest x-ray showed bilateral infiltrates and small pleural effusion with diffuse cutaneous emphysema, but no sizable pneumothorax, right-sided chest tube has been discontinued.is breathing comfortably, he is on room air with a pulse ox of 94%, vital signs have been stable, follow-up chest x-ray is pending. no fever or chills, no complaints of chest discomfort, his incisions are clean dry and intact, surgical dressings are in place. Coarse crackles bilateral bases right greater than left. No new labs today, surgical biopsy results are still pending at this time. Objective - Vital Signs Vital signs: Vital Signs Temp 97.3 F L 11/06/20 08:10 Pulse 75 11/06/20 08:10 Resp 18 11/06/20 08:10 BP 150/69 11/06/20 08:10 Pulse Ox 94 L 11/06/20 08:10 Intake & Output 11/05/20 11/06/20 11/06/20 18:59 06:59 18:59 Intake Total 480 400 120 Output Total 380 400 Balance 100 0 120 Weight 76.2 kg Intake: Oral 480 400 120 Output: Chest Tube Drainage 80 0 Right Lower Lateral Chest 0 Right Upper Lateral Chest 80 Urine 300 400 Other: Voiding Method Urinal Urinal Urinal # Voids 2 1 - Exam GENERAL EXAM: Alert, very pleasant, 69-year-old white male, on room air, the pulse ox is 94-96% comfortable in no apparent distress. HEAD: Normocephalic/atraumatic. EYES: Normal reaction of pupils, equal size. Conjunctiva pink, sclera white. NOSE: Clear with pink turbinates. THROAT: No erythema or exudates. NECK: No masses, no JVD, no thyroid enlargement, no adenopathy. CHEST: No chest wall deformity. Symmetrical expansion. Right lateral chest incision clean dry and intact, covered with surgical dressing. Chest tube on the right side has been discontinued, insertion site is covered with surgical dressing, clean dry and intact. LUNGS: Equal air entry with diffuse crackles bilateral bases, coarse, right g reater than left. CVS: Regular rate and rhythm, normal S1 and S2, no gallops, no murmurs, no rubs ABDOMEN: Soft, nontender. No hepatosplenomegaly, normal bowel sounds, no guarding or rigidity. EXTREMITIES: No clubbing, no edema, no cyanosis, 2+ pulses and upper and lower extremities. MUSCULOSKELETAL: Muscle strength and tone normal. SPINE: No scoliosis or deformity SKIN: No rashes CENTRAL NERVOUS SYSTEM: Alert and oriented -3. No focal deficits, tone is normal in all 4 extremities. PSYCHIATRIC: Alert and oriented -3. Appropriate affect. Intact judgment and insight. - Labs CBC & Chem 7: 11/05/20 07:21 11/05/20 07:21 Labs: Abnormal Lab Results - Last 24 Hours (Table) 11/05/20 Range/Units 07:21 Procalcitonin 0.53 H (0.02-0.09) ng/mL Assessment and Plan Plan: 1. Spontaneous pneumothorax, right-sided, with history of pulmonary sarcoidosis and presence of multiple bullae, status post right-sided video thoracoscopic exploration, resection of bullae and mechanical pleurodesis, and the patient is postop day #3. The chest x-ray from today showing no acute pneumothorax. Chest tubes has been discontinued. No evidence of any air leak. 2. History of spontaneous pneumothorax in 2004, not clear which side, with recent spontaneous pneumothorax in the right lung 10/19/2020 with admission 10/25/2020 for the same 3. COPD with emphysematous upper lobe blebs 4. Pulmonary sarcoidosis maintained on 10 mg of prednisone for many years. CAT scan of the chest is not showing any acute inflammatory changes or sarcoidosis. There is chronic calcification mediastinal lymph nodes related to previous history of sarcoid. 5. Hypertension 6. Remote history of tobacco dependence 7. Daily EtOH use without history of withdrawal 8 TIA in July of this year without residual Plan: Right chest has been discontinued Follow-up chest x-ray is pending Vital signs are stable Patient is on room air Breathing comfortably Continue encouraging deep breathing and coughing and incentive spirometry use Surgical biopsy results are still pending at this time Patient continues on prednisone 10 mg daily Outpatient follow-up in the office with Dr. Gabriel in 7-10 days upon discharge Time with Patient: Less than 30
--- NOTE | 2020-11-06 13:11 | XR ---
EXAMINATION TYPE: XR chest 2V DATE OF EXAM: 11/06/2020 COMPARISON: 11/06/2020 TECHNIQUE: PA and lateral views submitted. HISTORY: Right pneumothorax FINDINGS: Chest tube is been removed and there is diffuse subcutaneous emphysema but no evidence of sizable pne umothorax. Subsegmental areas of consolidation persist. Heart size stable. Apical pleural thickening noted. IMPRESSION: 1. Chest tube removal with no sizable pneumothorax. Persistent bilateral infiltrate and subcutaneous emphysema on the right.
== END 2020-11-06 15:18 | disposition home or self-care (01) | DRG 165 ==
LOC: EC 23:57 → 3SCARD 11-01 01:18
PROVIDERS: ADMIT Hospitalist; ATTEND Hospitalist
PROC: 0B5N4ZZ Destruction of Right Pleura, Percutaneous Endoscopic Approach (ICD-10-PCS; principal; 2020-11-03 12:30)
DX: J93.83 Other pneumothorax (principal); Z86.73 Personal history of transient ischemic attack (TIA), and cerebral infarction without residual deficits; Z87.891 Personal history of nicotine dependence; F10.10 Alcohol abuse, uncomplicated; I10 Essential (primary) hypertension; J44.9 Chronic obstructive pulmonary disease, unspecified; K40.90 Unilateral inguinal hernia, without obstruction or gangrene, not specified as recurrent; D86.89 Sarcoidosis of other sites; J93.82 Other air leak; D86.0 Sarcoidosis of lung
CPT/HCPCS: 36415; 64999; 71045; 71046; 76942; 80048; 80053; 81003; 84145; 84484; 85025; 85027; 86850; 86900; 86901; 88307; 93005; 94760; 96374; 96376; 99285

== ENCOUNTER → 2020-11-10 | Outpatient (CLI) | payer MEDICARE, BC ==
--- NOTE | 2020-11-10 09:55 | XR ---
EXAMINATION TYPE: XR chest 2V DATE OF EXAM: 11/10/2020 COMPARISON: 11/06/2020 TECHNIQUE: PA and lateral views submitted. HISTORY: Postop FINDINGS: Persistent diffuse subcutaneous emphysema along the right chest. Areas of consolidation involving the right lower lobe and small effusion or pleural thickening and right upper lobe are noted. No sizable pneumothorax. Pleural reflection at the left lung base stable with apical pleural thickening. Heart size unchanged and there is calcified lymph nodes in the mediastinum and hilum. IMPRESSION: 1. Persistent subcutaneous emphysema with right-sided infiltrate and no sizable pneumothorax.
== END | disposition home or self-care (01) ==
LOC: RADXRMAIN 09:37
PROVIDERS: ATTEND Nurse Practitioner Family
DX: Z48.813 Encounter for surgical aftercare following surgery on the respiratory system (principal); J98.2 Interstitial emphysema; J93.0 Spontaneous tension pneumothorax
CPT/HCPCS: 71046

== ENCOUNTER → 2020-12-11 | Outpatient (CLI) | payer MEDICARE, BC ==
--- NOTE | 2020-12-11 15:38 | XR ---
EXAMINATION TYPE: XR chest 2V DATE OF EXAM: 12/11/2020 COMPARISON: Chest x-ray 11/10/2020 HISTORY: Chest pain TECHNIQUE: Frontal and lateral views of the chest are obtained. FINDINGS: Extensive scarring within the lungs is again noted. Subcutaneous emphysema has resolved. T here is tenting of the left hemidiaphragm unchanged. Cardiac and mediastinal sweat shows a similar ap pearance, there is evidence of old granulomatous disease, calcified hilar and mediastinal nodes. Apic al pleural thickening on the left is unchanged. IMPRESSION: Stable abnormal chest x-ray there is scarring and old granulomatous disease
== END | disposition home or self-care (01) ==
LOC: RADXRMAIN 15:02
PROVIDERS: ATTEND Nurse Practitioner Acute Care
DX: D71 Functional disorders of polymorphonuclear neutrophils (principal); R91.8 Other nonspecific abnormal finding of lung field
CPT/HCPCS: 71046

== ENCOUNTER → 2020-12-18 | Outpatient (CLI) | payer MEDICARE, BC ==
[2020-12-18 16:18] LABS: African American GFR (CKD) >90 (>60 ml/min/1.73 sqM); Blood Urea Nitrogen 17 mg/dL (9-20); Non-African American GFR(CKD) 86 (>60 ml/min/1.73 sqM)
--- NOTE | 2020-12-18 17:10 | CT ---
EXAMINATION TYPE: CT abdomen w con DATE OF EXAM: 12/18/2020 COMPARISON: None. HISTORY: RUQ pain x2 weeks CT DLP: 1092 mGycm, Automated Exposure Control for Dose Reduction was Utilized. CONTRAST: CT scan of the abdomen is performed with oral and with IV Contrast, patient injected with 100 mL of I sovue 300. FINDINGS: LUNG BASES: Mild to moderate bibasilar linear scarring and/or atelectasis. Calcified right hilar and subcarinal lymph nodes consistent with product of old granulomatous disease. LIVER/GB: Occasional hypodense small lesions throughout the liver too small to further characterize b ut presumed benign. Contracted gallbladder without surrounding inflammatory change. Tiny gallstone to wards the gallbladder neck coronal image 44. No biliary dilatation. PANCREAS: No significant abnormality is seen. SPLEEN: No significant abnormality is seen. ADRENALS: No significant abnormality is seen. KIDNEYS: Possible punctate nonobstructing 1 to 2 mm calculus right kidney midpole level coronal image 60. Symmetric cortical medullary uptake and excretion without hydronephrosis seen bilaterally. Occas ional tiny hypodense lesion too small to further characterize presumed benign BOWEL: Oral contrast does not reach colonic level making evaluation distally slightly suboptimal. Occ asional distal colonic diverticula. No CT evidence for acute diverticulitis. No suspicious small or l arge bowel dilatation. LYMPH NODES: No greater than 1cm abdominal lymph nodes are appreciated. OSSEOUS STRUCTURES: Slight scoliotic curvature with mild multilevel spurring. OTHER: Mild/moderate calcified plaque infrarenal abdominal aorta extends into branch vessels. IMPRESSION: Single gallstone towards gallbladder neck in contracted gallbladder. No CT evidence for a cute cholecystitis. No abnormal biliary dilatation. Single nonobstructing 1 to 2 mm right renal calcu mamadou. No acute findings identified.
== END | disposition home or self-care (01) ==
LOC: RADCTMAIN 15:36
PROVIDERS: ATTEND Physician Assistant Medical
DX: K80.80 Other cholelithiasis without obstruction (principal); N20.0 Calculus of kidney; R19.01 Right upper quadrant abdominal swelling, mass and lump
CPT/HCPCS: 82565; 84520; 74160; 36415; Q9967

== ENCOUNTER → 2021-02-22 | Outpatient (CLI) | payer MEDICARE, BC ==
--- NOTE | 2021-02-22 07:47 | US ---
EXAMINATION TYPE: US abdomen complete DATE OF EXAM: 02/22/2021 COMPARISON: CT 2020 CLINICAL HISTORY: Attn: right upper quadrant pain. Right flank pain x couple months EXAM MEASUREMENTS: Liver Length: 14.2 cm Gallbladder Wall: 0.2 cm CBD: 0.3 cm Right Kidney: 9.9 x 5.3 x 5.9 cm Pancreas: obscured by overlying midline bowel gas Liver: limited visualization, scanned intercostally, appears wnl as seen Gallbladder: limited visualization, scanned intercostally, appears wnl as seen Evidence for sonographic Ramey's sign: no CBD: visualized portions wnl, Right Kidney: 0.5cm echogenic focus mid pole The liver is homogenous. The intrahepatic portion of the IVC and proximal abdominal aorta are within normal limits. There is no evidence of cholelithiasis. Common bile duct is unremarkable. The visu alized portions of the pancreas are homogenous. The spleen is unremarkable. Kidneys are symmetric a nd free of hydronephrosis. No renal lesions are seen. IMPRESSION: Nonobstructing right renal calculus.
== END | disposition home or self-care (01) ==
LOC: RADUSWWP 06:58
PROVIDERS: ATTEND Family Medicine
DX: N20.0 Calculus of kidney (principal)
CPT/HCPCS: 76705

== ENCOUNTER → 2021-05-08 | Outpatient (CLI) | payer MEDICARE, BC ==
--- NOTE | 2021-05-08 17:31 | MR ---
EXAMINATION TYPE: MR knee LT wo con DATE OF EXAM: 05/08/2021 COMPARISON: Radiograph 04/24/2021 HISTORY: 70-year-old male Left inner knee pain, painful kneecap, and swelling for 1 month. TECHNIQUE: Multiplanar, multisequence imaging of the left knee is performed without IV contrast. FINDINGS: The ACL, PCL, and LCL complex are intact. There is thickening and intermediate signal along the MCL which otherwise remains intact. Moderate diffuse thinning of medial compartment articular cartilage with areas of full-thickness cart ilage loss especially along the mid peripheral aspect of the joint and additional full-thickness hardeep dral defect measuring 6 cm wide and 1.3 cm AP along the mid weightbearing aspect of the joint. Patchy degenerative subchondral signal changes on both sides of the joint. The posterior horn and body of the medial meniscus is diffusely degenerative, torn, and extruded. Mild diffuse thinning of lateral compartment articular cartilage. Lateral meniscus appears intact. Focal deep cartilage fissuring and cartilage flaps along the superior aspect of the mid patella, sagi ttal image 18. Otherwise, patellofemoral compartment cartilage is maintained. Extensor mechanism appears intact. There is a moderate to large knee joint effusion with mild chronic synovitis. A trace leaking Giron's cyst is noted. There is deep soft tissue edema also present probably extravasating joint fluid. 1.7 cm multilocular ganglion cyst formation at the origin of the medial head gastrocnemius. Normal popliteal artery anatomy. Generalized muscle atrophy. No suspicious bone marrow replacement. IMPRESSION: 1. 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 2. Grade 1 MCL sprain. 3. Deep fissuring with formation of cartilage flaps along the superior third mid patella. The remaini ng patellofemoral compartment articular cartilage is largely maintained. 4. Moderate to large knee joint effusion with mild chronic synovitis. Deep soft tissue edema probably represents extravasated joint fluid.
== END | disposition home or self-care (01) ==
LOC: RADMRIMAIN 11:04
PROVIDERS: ATTEND Orthopaedic Surgery
DX: M17.12 Unilateral primary osteoarthritis, left knee (principal); M65.88 Other synovitis and tenosynovitis, other site

== ENCOUNTER 2021-07-26 17:25 | Inpatient (IN) | payer MEDICARE, BC ==
--- NOTE | 2021-07-26 18:58 | CT ---
EXAMINATION TYPE: CT abdomen pelvis wo con CT DLP: 588 mGycm, Automated exposure control for dose reduction was used. DATE OF EXAM: 07/26/2021 6:31 PM COMPARISON: CT abdomen pelvis most recent from 12/18/2020 CLINICAL INDICATION:Male, 70 years old with history of abdominal pain, localized; LLQ pain TECHNIQUE: Standard CT of the abdomen and pelvis without IV or oral contrast. Lack of IV or oral co ntrast limits evaluation of solid and hollow organ viscera. Coronal and sagittal reformats were perfo rmed. FINDINGS: LOWER CHEST: Paraseptal emphysema changes in the lung bases. ABDOMEN LIVER: Hepatic dome cyst. GALLBLADDER AND BILE DUCTS: Unremarkable. PANCREAS: Unremarkable. SPLEEN: Unremarkable. ADRENAL GLANDS: Unremarkable. KIDNEYS AND URETERS: No evidence of hydronephrosis or obstructing renal calculus. Nonobstructing krystal l calculi measuring up to 3 mm on the right are present. The ureters are unremarkable. PELVIS BLADDER: Unremarkable REPRODUCTIVE: Coarse calcifications of the prostate gland are identified. Prostate gland is enlarged measuring up to 56 mm in transverse dimension. ABDOMEN & PELVIS STOMACH AND BOWEL: There is inflammatory changes around the sigmoid colon around multiple colonic div erticula. There is free air extending into the mesentery up near the upper abdomen and around the dis carmen esophagus. No evidence of organizing fluid collection at this time. No evidence of bowel obstruct ion. PERITONEUM: No evidence of free fluid. VASCULATURE: No evidence of aortic aneurysm. Atherosclerosis of the arterial vasculature are present. MUSCULOSKELETAL: No acute osseous abnormalities. LYMPH NODES: No gross evidence for lymphadenopathy. SOFT TISSUE/ABDOMINAL WALL: Unremarkable Findings communicated to Nurse Keon Best on 07/26/2021 6:[address] Tucker Betancourt. IMPRESSION: 1. Perforated sigmoid colonic diverticulitis with extensive pneumoperitoneum throughout the mesentery and extending up into the upper abdomen around the distal esophagus. No evidence organizing fluid co llection to suggest abscess at this time. 2. Nonobstructing right renal calculi. 3. Paraseptal emphysema changes. 4. Prostatomegaly.
[2021-07-26] MEDS ORDERED: SODIUM CHLORIDE 0.9% 1,000 ML IV STA (19:02)
[2021-07-26] MEDS ORDERED: PIPERACILLIN-TAZOBACTAM 3.375 GM in SODIUM CHLORIDE 0.9% 100 ML IVPB STA (19:02)
[2021-07-26] MEDS ORDERED: MORPHINE SULFATE 4 MG/ML SYRINGE IVP STA (19:07)
--- NOTE | 2021-07-26 19:12 | ED ---
General Adult HPI - General Chief complaint: Abdominal Pain Stated complaint: Abd pain Time Seen by Provider: 07/26/21 19:01 Source: patient Mode of arrival: ambulatory Limitations: no limitations - History of Present Illness Initial comments: Dictation was produced using [employer] dictation software. please excuse any grammatical, word or spelling errors. Chief Complaint: 70-year-old male past nuchal history of sarcoidosis presents to the emergency department for abdominal pain History of Present Illness: 70-year-old male presents emergency department for abdominal pain. Patient states he's been having symptoms for approximately 5-6 days. His pain increased exponentially today prompting him to come to the emergency department. Denies any fever or constitutional symptoms. No history of diverticulitis. He has had some small bouts of loose stool. Denies any nausea. Patient does report that his pain was initially in his left lower quadrant however not feels like it starting to migrate upwards into his left upper quadrant. Patient's was at the bedside is a nurse states that patient likely has diverticulitis. The ROS documented in this emergency department record has been reviewed and confirmed by me. Those systems with pertinent positive or negative responses have been documented in the HPI. All other systems are other negative and/or noncontributory. PHYSICAL EXAM: General Impression: Alert and oriented x3, acute distress secondary to pain HEENT: Normocephalic atraumatic, extra-ocular movements intact, pupils equal and reactive to light bilaterally, mucous membranes moist. Cardiovascular: Heart regular rate and rhythm Chest: Able to complete full sentences, no retractions, no tachypnea Abdomen: Peritoneal abdomen, voluntary guarding Musculoskeletal: Pulses present and equal in all extremities, no peripheral edema Motor: no focal deficits noted Neurological: CN II-XII grossly intact, no focal motor or sensory deficits noted Skin: Intact with no visualized rashes Psych: Normal affect and mood ED course: 70-year-old male presents to the emergency department for abdominal pain for several days. He has a surgical abdomen on physical examination. Vital signs upon arrival shows heart rate of 1:15, temperature 99.4, rest of vital signs within acceptable limits. Computed tomography scan of the abdomen and pelvis was ordered by triage nurse. Report was reviewed showing diverticulitis with pneumoperitoneum. 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 She spoke with one of our surgeons, Dr. Camejo about patient's case. Laboratory evaluation shows leukocytosis of 15.0. Coag panel is unremarkable. Metabolic panel is within acceptable limits. Case was discussed with Dr. Nielsen who is willing to accept patients care for hospital admission. He requests that medicine be consulted. Patient started on Zosyn. EKG interpretation: Ventricular rate 70, sinus rhythm, WV interval 204, QS 154, QTC 425 no WV prolongation, no QTC prolongation, no ST or T-wave changes noted. EKG compared to 11/01/2020 showing no changes. Overall, this EKG is unremarkable - Related Data Home Medications Medication Instructions Recorded Confirmed Losartan [Cozaar] 50 mg PO HS 12/09/19 07/26/21 amLODIPine [Norvasc] 5 mg PO HS 12/09/19 07/26/21 predniSONE 10 mg PO DAILY 12/09/19 07/26/21 Zolpidem Tartrate [Zolpidem 12.5 mg PO HS 10/25/20 07/26/21 Tartrate ER] Ascorbic Acid [Vitamin C] 500 mg PO DAILY 06/18/21 07/26/21 Cholecalciferol [Vitamin D3 (25 25 mcg PO DAILY 06/18/21 07/26/21 Mcg = 1000 Iu)] [place]-3 Fatty Acids/Fish Oil [Fish 2 capsule PO DAILY 06/18/21 07/26/21 Oil 1,000 mg Softgel] Lansoprazole 15 mg PO HS 07/26/21 07/26/21 Allergies Allergy/AdvReac Type Severity Reaction Status Date / Time No Known Allergies Allergy Verified 07/26/21 19:41 Review of Systems ROS Statement: Those systems with pertinent positive or pertinent negative responses have been documented in the HPI. ROS Other: All systems not noted in ROS Statement are negative. Past Medical History Past Medical History: Hypertension, Respiratory Disorder Additional Past Medical History / Comment(s): RBBB. Sarcoidosis. Hx spontaneous pneumothorax. Rt inguinal hernia. History of Any Multi-Drug Resistant Organisms: None Reported Past Surgical History: Orthopedic Surgery Additional Past Surgical History / Comment(s): Hernia's x3. Past Anesthesia/Blood Transfusion Reactions: No Reported Reaction Past Psychological History: No Psychological Hx Reported Smoking Status: Former smoker Past Alcohol Use History: None Reported Past Drug Use History: None Reported - Past Family History Mother Family Medical History: No Reported History Additional Family Medical History / Comment(s): ETOH Father Family Medical History: CVA/TIA Additional Family Medical History / Comment(s): ETOH General Exam Limitations: no limitations Course Vital Signs 07/26/21 07/26/21 18:02 19:04 Temperature 99.4 F 99.2 F Pulse Rate 115 H 83 Respiratory 18 18 Rate Blood Pressure 117/57 125/69 O2 Sat by Pulse 98 98 Oximetry Medical Decision Making - Lab Data Result diagrams: 07/26/21 19:04 07/26/21 19:04 Lab Results 07/26/21 07/26/21 07/26/21 Range/Units 19:04 19:04 19:04 WBC 15.0 H (3.8-10.6) k/uL RBC 4.43 (4.30-5.90) m/uL Hgb 14.0 (13.0-17.5) gm/dL Hct 43.0 (39.0-53.0) % MCV 97.1 D (80.0-100.0) fL MCH 31.7 (25.0-35.0) pg MCHC 32.7 (31.0-37.0) g/dL RDW 13.8 (11.5-15.5) % Plt Count 277 (150-450) k/uL MPV 7.0 Neutrophils % 91 % Lymphocytes % 4 % Monocytes % 4 % Eosinophils % 1 % Basophils % 0 % Neutrophils # 13.6 H (1.3-7.7) k/uL Lymphocytes # 0.5 L (1.0-4.8) k/uL Monocytes # 0.6 (0-1.0) k/uL Eosinophils # 0.1 (0-0.7) k/uL Basophils # 0.0 (0-0.2) k/uL PT 10.3 (9.0-12.0) sec INR 0.9 (<1.2) APTT 25.4 (22.0-30.0) sec Sodium 136 L (137-145) mmol/L Potassium 4.0 (3.5-5.1) mmol/L Chloride 102 (98-107) mmol/L Carbon Dioxide 27 (22-30) mmol/L Anion Gap 7 mmol/L BUN 14 (9-20) mg/dL Creatinine 1.04 (0.66-1.25) mg/dL Est GFR (CKD-EPI)AfAm 84 (>60 ml/min/1.73 sqM) Est GFR (CKD-EPI)NonAf 72 (>60 ml/min/1.73 sqM) Glucose 114 H (74-99) mg/dL Plasma Lactic Acid Stefan (0.7-2.0) mmol/L Calcium 8.8 (8.4-10.2) mg/dL Total Bilirubin 1.1 (0.2-1.3) mg/dL AST 24 (17-59) U/L ALT 17 (4-49) U/L Alkaline Phosphatase 52 (38-126) U/L Total Protein 6.3 (6.3-8.2) g/dL Albumin 3.9 (3.5-5.0) g/dL 07/26/21 Range/Units 19:04 WBC (3.8-10.6) k/uL RBC (4.30-5.90) m/uL Hgb (13.0-17.5) gm/dL Hct (39.0-53.0) % MCV (80.0-100.0) fL MCH (25.0-35.0) pg MCHC (31.0-37.0) g/dL RDW (11.5-15.5) % Plt Count (150-450) k/uL MPV Neutrophils % % Lymphocytes % % Monocytes % % Eosinophils % % Basophils % % Neutrophils # (1.3-7.7) k/uL Lymphocytes # (1.0-4.8) k/uL Monocytes # (0-1.0) k/uL Eosinophils # (0-0.7) k/uL Basophils # (0-0.2) k/uL PT (9.0-12.0) sec INR (<1.2) APTT (22.0-30.0) sec Sodium (137-145) mmol/L Potassium (3.5-5.1) mmol/L Chloride (98-107) mmol/L Carbon Dioxide (22-30) mmol/L Anion Gap mmol/L BUN (9-20) mg/dL Creatinine (0.66-1.25) mg/dL Est GFR (CKD-EPI)AfAm (>60 ml/min/1.73 sqM) Est GFR (CKD-EPI)NonAf (>60 ml/min/1.73 sqM) Glucose (74-99) mg/dL Plasma Lactic Acid Stefan 1.4 (0.7-2.0) mmol/L Calcium (8.4-10.2) mg/dL Total Bilirubin (0.2-1.3) mg/dL AST (17-59) U/L ALT (4-49) U/L Alkaline Phosphatase (38-126) U/L Total Protein (6.3-8.2) g/dL Albumin (3.5-5.0) g/dL Disposition Clinical Impression: Diverticulitis Disposition: ADMITTED IP TO THIS HOSP Condition: Serious Referrals: Jannie Camejo MD [Primary Care Provider] - 1-2 days
[2021-07-26] MEDS ORDERED: NALOXONE 0.4 MG/ML 1 ML VIAL IV PRN (19:20)
[2021-07-26] MEDS ORDERED: ONDANSETRON 4 MG/2 ML VIAL IVP PRN (19:20)
[2021-07-26] MEDS ORDERED: MORPHINE SULFATE 4 MG/ML SYRINGE IV PRN (19:20)
[2021-07-26 19:28] LABS: Basophils % (A) 0 %; Eosinophils # (A) 0.1 k/uL (0-0.7); Eosinophils % (A) 1 %; Lymphocytes # (A) 0.5 k/uL (1.0-4.8); Lymphocytes % (A) 4 %; MCH 31.7 pg (25.0-35.0); MCHC 32.7 g/dL (31.0-37.0); MCV 97.1 fL (80.0-100.0); Monocytes # (A) 0.6 k/uL (0-1.0); Monocytes % (A) 4 %; Neutrophils # (A) 13.6 k/uL (1.3-7.7); Neutrophils % (A) 91 %; Platelet Count 277 k/uL (150-450); RBC 4.43 m/uL (4.30-5.90); RDW 13.8 % (11.5-15.5)
[2021-07-26] MEDS ORDERED: PIPERACILLIN-TAZOBACTAM 3.375 GM in SODIUM CHLORIDE 0.9% 100 ML IVPB ONE (19:30)
[2021-07-26 19:36] LABS: INR 0.9 (<1.2); Partial Thromboplastin Time 25.4 sec (22.0-30.0); Prothrombin Time 10.3 sec (9.0-12.0)
[2021-07-26 19:38] LABS: Albumin 3.9 g/dL (3.5-5.0); Calcium 8.8 mg/dL (8.4-10.2); Total Bilirubin 1.1 mg/dL (0.2-1.3); Total Protein 6.3 g/dL (6.3-8.2)
[2021-07-26] MEDS: KETOROLAC 15 MG/ML 1 ML VIAL IVP SCH (21:00)
[2021-07-26] MEDS: SODIUM CHLORIDE 0.9% 1,000 ML IV SCH (21:01)
[2021-07-26] MEDS: metroNIDAZOLE-NS PMX 500 MG in SALINE 1 100ML.BAG IVPB SCH (21:02)
[2021-07-27] MEDS ORDERED: KETOROLAC 15 MG/ML 1 ML VIAL ONE (02:55)
[2021-07-27] MEDS: HEPARIN SODIUM,PORCINE/PF 5,000 UNIT/0.5 ML SYRINGE SQ SCH ×4 (05:41→23:03)
[2021-07-27] MEDS: ACETAMINOPHEN IV (For NPO) 1,000 MG in EMPTY BAG 1 BAG IVPB SCH ×5 (07:27→21:06)
[2021-07-27] MEDS: KETOROLAC 15 MG/ML 1 ML VIAL IVP SCH ×4 (07:29→21:07)
[2021-07-27] MEDS: metroNIDAZOLE-NS PMX 500 MG in SALINE 1 100ML.BAG IVPB SCH ×4 (07:29→21:40)
[2021-07-27] MEDS: SODIUM CHLORIDE 0.9% 1,000 ML IV SCH ×3 (07:30→21:06)
[2021-07-27] MEDS: PIPERACILLIN-TAZOBACTAM 3.375 GM in SODIUM CHLORIDE 0.9% 100 ML IVPB SCH ×3 (07:39→21:06)
--- NOTE | 2021-07-27 07:55 | P.GSHP ---
History of Present Illness H&P Date: 07/27/21 Chief Complaint: Perforated sigmoid diverticulitis 70-year-old male presents to the ER yesterday with a 1.5 days worth of left lower abdominal pain. Mild anorexia, no nausea or vomiting. Pain was a 10 out of 10 when he came to the ER. He was tachycardic at 1:15 in the ER initially. White blood cell count 15. CAT scan was performed which revealed a area of proximal sigmoid diverticulitis with evidence of retroperitoneal perforation containing a moderate amount of air. The amount of inflammatory changes in that area are somewhat minimal and there is no evidence of any abscess or sizable fluid collection. The patient was started on Zosyn and Flagyl last night. A nalgesics were provided. Pain is now a 0 out of 10 more unless he is moving. Patient's tachycardia resolved as well. No fevers. Repeat labs pending. 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 He takes 10 mg daily. - Review of Systems Comment: The patient denies any acute changes in vision or hearing, no dysphagia or odynophagia, no chest pain or shortness of breath, no dysuria or hematuria, no headache, no runny nose, no rectal bleeding or melena, no unexplained weight loss Past Medical History Past Medical History: Hypertension, Respiratory Disorder Additional Past Medical History / Comment(s): RBBB. Sarcoidosis. Hx spontaneous pneumothorax. Rt inguinal hernia. History of Any Multi-Drug Resistant Organisms: None Reported Past Surgical History: Orthopedic Surgery Additional Past Surgical History / Comment(s): Hernia's x3. knee Past Anesthesia/Blood Transfusion Reactions: No Reported Reaction Past Psychological History: No Psychological Hx Reported Additional Psychological History / Comment(s): Pt resides with his spouse. He is independent. Smoking Status: Former smoker Past Alcohol Use History: None Reported Additional Past Alcohol Use History / Comment(s): Pt started smoking in 1967 and quit in 1979. Past Drug Use History: None Reported - Past Family History Mother Family Medical History: No Reported History Additional Family Medical History / Comment(s): ETOH Father Family Medical History: CVA/TIA Additional Family Medical History / Comment(s): ETOH Medications and Allergies Home Medications Medication Instructions Recorded Confirmed Type Losartan [Cozaar] 50 mg PO HS 12/09/19 07/26/21 History amLODIPine [Norvasc] 5 mg PO HS 12/09/19 07/26/21 History predniSONE 10 mg PO DAILY 12/09/19 07/26/21 History Zolpidem Tartrate [Zolpidem 12.5 mg PO HS 10/25/20 07/26/21 History Tartrate ER] Ascorbic Acid [Vitamin C] 500 mg PO DAILY 06/18/21 07/26/21 History Cholecalciferol [Vitamin D3 (25 25 mcg PO DAILY 06/18/21 07/26/21 History Mcg = 1000 Iu)] [place]-3 Fatty Acids/Fish Oil [Fish 2 capsule PO DAILY 06/18/21 07/26/21 History Oil 1,000 mg Softgel] Lansoprazole 15 mg PO HS 07/26/21 07/26/21 History Allergies Allergy/AdvReac Type Severity Reaction Status Date / Time No Known Allergies Allergy Verified 07/26/21 19:41 Surgical - Exam Vital Signs Temp Pulse Resp BP Pulse Ox 99.4 F 115 H 18 117/57 98 07/26/21 18:02 07/26/21 18:02 07/26/21 18:02 07/26/21 18:02 07/26/21 18:02 Physical exam: General: Well-developed, well-nourished HEENT: Normocephalic, sclerae nonicteric Abdomen: Mild left lower quadrant tenderness, nondistended Extremities: No edema Neuro: Alert and oriented Results - Labs 07/26/21 19:04 07/26/21 19:04 Abnormal Lab Results - Last 24 Hours (Table) 07/26/21 07/26/21 Range/Units 19:04 19:04 WBC 15.0 H (3.8-10.6) k/uL Neutrophils # 13.6 H (1.3-7.7) k/uL Lymphocytes # 0.5 L (1.0-4.8) k/uL Sodium 136 L (137-145) mmol/L Glucose 114 H (74-99) mg/dL Diabetes panel 07/26/21 Range/Units 19:04 Sodium 136 L (137-145) mmol/L Potassium 4.0 (3.5-5.1) mmol/L Chloride 102 (98-107) mmol/L Carbon Dioxide 27 (22-30) mmol/L BUN 14 (9-20) mg/dL Creatinine 1.04 (0.66-1.25) mg/dL Glucose 114 H (74-99) mg/dL Calcium 8.8 (8.4-10.2) mg/dL AST 24 (17-59) U/L ALT 17 (4-49) U/L Alkaline Phosphatase 52 (38-126) U/L Total Protein 6.3 (6.3-8.2) g/dL Albumin 3.9 (3.5-5.0) g/dL Calcium panel 07/26/21 Range/Units 19:04 Calcium 8.8 (8.4-10.2) mg/dL Albumin 3.9 (3.5-5.0) g/dL Pituitary panel 07/26/21 Range/Units 19:04 Sodium 136 L (137-145) mmol/L Potassium 4.0 (3.5-5.1) mmol/L Chloride 102 (98-107) mmol/L Carbon Dioxide 27 (22-30) mmol/L BUN 14 (9-20) mg/dL Creatinine 1.04 (0.66-1.25) mg/dL Glucose 114 H (74-99) mg/dL Calcium 8.8 (8.4-10.2) mg/dL Adrenal panel 07/26/21 Range/Units 19:04 Sodium 136 L (137-145) mmol/L Potassium 4.0 (3.5-5.1) mmol/L Chloride 102 (98-107) mmol/L Carbon Dioxide 27 (22-30) mmol/L BUN 14 (9-20) mg/dL Creatinine 1.04 (0.66-1.25) mg/dL Glucose 114 H (74-99) mg/dL Calcium 8.8 (8.4-10.2) mg/dL Total Bilirubin 1.1 (0.2-1.3) mg/dL AST 24 (17-59) U/L ALT 17 (4-49) U/L Alkaline Phosphatase 52 (38-126) U/L Total Protein 6.3 (6.3-8.2) g/dL Albumin 3.9 (3.5-5.0) g/dL Assessment and Plan (1) Diverticulitis Narrative/Plan: 70-year-old male with perforated sigmoid diverticulitis with moderate amount of retroperitoneal air. Patient doing much better this morning. I had discussed his case with his and the patient last night while he was in the emergency department. Our plan at the time was 2 try to treat him conservatively with bowel rest and antibiotics and see if we can avoid operative intervention. So far that seems to be progressing well. We'll begin sips of liquids at this time. Continue broad-spectrum antibiotics. Await consultation to the hospitalist and pulmonary. Repeat labs today and tomorrow. Gradually increase activity. Current Visit: Yes Status: Acute Code(s): K57.92 - DVTRCLI OF INTEST, PART UNSP, W/O PERF OR ABSCESS W/O BLEED SNOMED Code(s): 085430326
[2021-07-27] MEDS: methylPREDNISolone SOD SUCCI 40 MG/ML 1 ML VIAL IV SCH ×2 (08:27→21:07)
[2021-07-27] MEDS: PANTOPRAZOLE 40 MG/10 ML VIAL IV SCH (08:28)
[2021-07-27 09:08] LABS: Basophils # (A) 0.03 X 10*3/uL (0.00-0.10); Basophils % (A) 0.3 %; Eosinophils # (A) 0.11 X 10*3/uL (0.04-0.35); Eosinophils % (A) 1.1 %; HCT 34.7 % (39.6-50.0); HGB 11.7 g/dL (13.0-17.0); Immature Grans, Automated 0.7 %; Lymphocytes % (A) 4.8 %; MCH 32.7 pg (27.0-32.0); MCHC 33.7 g/dL (32.0-37.0); MCV 96.9 fL (80.0-97.0); Mean Platelet Volume 10.3 fL (9.5-12.2); Monocytes # (A) 0.91 X 10*3/uL (0.20-1.00); Monocytes % (A) 8.8 %; NRBC Per 100 WBC 0 /100 WBCS (0.0-0.0); Neutrophils # (A) 8.78 X 10*3/uL (1.80-7.70); Neutrophils % (A) 84.3 %; Platelet Count 202 X 10*3/uL (140-440); RBC 3.58 X 10*6/uL (4.40-5.60); RDW 13.7 % (11.5-14.5)
--- NOTE | 2021-07-27 09:26 | P.CNPUL ---
History of Present Illness Consult date: 07/27/21 Requesting physician: Chepe Camejo Reason for consult: other (Sarcoidosis) Chief complaint: Abdominal pain History of present illness: This is a very pleasant 70-year-old male patient who follows with Dr. Jannie Camejo as his primary care provider. He has a history of hypertension, gastroesophageal reflux disease, former smoker. He also has a history of pulmonary sarcoidosis and follows with Dr. Gabriel in our office for the same. He is maintained on prednisone 10 mg daily. He also has a history of previous spontaneous pneumothorax. Most recently on the right side requiring video tho rascopic exploration, resection of bullae and mechanical pleurodesis in October 2020. He presented here to the emergency room yesterday with complaints of abdominal pain mostly in the left lower quadrant. No previous history of diverticulitis. No fever or chills. Computed tomography scan of the abdomen and pelvis revealed a perforated sigmoid colonic diverticulitis with extensive pneumoperitoneum throughout the mesentery and extending up into the upper abdomen around the distal esophagus. No evidence of organizing fluid collection to suggest abscess at this time. There is a nonobstructive right renal calculi. He had been seen and evaluated by surgical services. No intervention planned at this time. White count 10.4. Hemoglobin 11.7. Sodium 136. Potassium 4.0. Chloride 102. Bicarb 27. BUN 19. Creatinine 1.04. AST 24. ALT 17. Lactic acid 1.4. He's been started on Zosyn and Flagyl. Normal saline at 130 ML's per hour. He is seen today in consultation on the regular medical floor. He is laying comfortably in bed. Awake and alert in no acute distress. His left lower quadrant abdominal pain is present but subsiding. He is maintaining O2 saturations in the 90s on room air. He's been afebrile. Hemodynamically stable. Review of Systems REVIEW OF SYSTEMS: CONSTITUTIONAL: Denies any recent significant weight loss or weight gain. EYES: Denies change in vision. EARS, NOSE, MOUTH, THROAT: Denies headaches, denies sore throat. CARDIOVASCULAR: Denies chest pain, palpitations or syncopal episodes. RESPIRATORY: Denies shortness of breath, cough, congestion or hemoptysis. GASTROINTESTINAL: Abdominal pain, mainly in the left lower quadrant GENITOURINARY: Denies hematuria, denies infections. MUSKULOSKELETAL: Denies pain, denies swelling. INTEGUMENTARY: Denies rash, denies eczema. NEUROLOGICAL: Denies recent memory loss, no recent seizure activity. PSYCHIATRIC: Denies anxiety, denies depression. HEMATOLOGIC/LYMPHATIC: Denies anemia, denies enlarged lymph nodes. Past Medical History Past Medical History: Hypertension, Respiratory Disorder Additional Past Medical History / Comment(s): RBBB. Sarcoidosis. Hx spontaneous pneumothorax. Rt inguinal hernia. History of Any Multi-Drug Resistant Organisms: None Reported Past Surgical History: Orthopedic Surgery Additional Past Surgical History / Comment(s): Hernia's x3. knee Past Anesthesia/Blood Transfusion Reactions: No Reported Reaction Past Psychological History: No Psychological Hx Reported Additional Psychological History / Comment(s): Pt resides with his spouse. He is independent. Smoking Status: Former smoker Past Alcohol Use History: None Reported Additional Past Alcohol Use History / Comment(s): Pt started smoking in 1967 and quit in 1979. Past Drug Use History: None Reported - Past Family History Mother Family Medical History: No Reported History Additional Family Medical History / Comment(s): ETOH Father Family Medical History: CVA/TIA Additional Family Medical History / Comment(s): ETOH Medications and Allergies Home Medications Medication Instructions Recorded Confirmed Type Losartan [Cozaar] 50 mg PO HS 12/09/19 07/26/21 History amLODIPine [Norvasc] 5 mg PO HS 12/09/19 07/26/21 History predniSONE 10 mg PO DAILY 12/09/19 07/26/21 History Zolpidem Tartrate [Zolpidem 12.5 mg PO HS 10/25/20 07/26/21 History Tartrate ER] Ascorbic Acid [Vitamin C] 500 mg PO DAILY 06/18/21 07/26/21 History Cholecalciferol [Vitamin D3 (25 25 mcg PO DAILY 06/18/21 07/26/21 History Mcg = 1000 Iu)] [place]-3 Fatty Acids/Fish Oil [Fish 2 capsule PO DAILY 06/18/21 07/26/21 History Oil 1,000 mg Softgel] Lansoprazole 15 mg PO HS 07/26/21 07/26/21 History Allergies Allergy/AdvReac Type Severity Reaction Status Date / Time No Known Allergies Allergy Verified 07/26/21 19:41 Physical Exam Vitals: Vital Signs Temp Pulse Pulse Resp BP BP Pulse Ox 07/27/21 02:00 98.0 F 70 16 109/66 96 07/26/21 23:05 98.3 F 74 16 126/69 96 07/26/21 22:32 98.9 F 82 18 116/67 97 07/26/21 19:04 99.2 F 83 18 125/69 98 07/26/21 18:02 99.4 F 115 H 18 117/57 98 Intake and Output 07/26/21 07/27/21 07/27/21 22:59 06:59 14:59 Intake Total 590 Balance 590 Intake: Oral 590 Other: # Voids 2 Weight 79.379 kg 79.379 kg GENERAL EXAM: Alert, very pleasant 70-year-old male patient, on room air, fairly comfortable in no apparent distress. HEAD: Normocephalic. EYES: Normal reaction of pupils, equal size. NOSE: Clear with pink turbinates. THROAT: No erythema or exudates. NECK: No masses, no JVD. CHEST: No chest wall deformity. LUNGS: Equal air entry with no crackles, wheeze, rhonchi or dullness. CVS: S1 and S2 normal with no audible murmur, regular rhythm. ABDOMEN: Left lower quadrant tenderness. SPINE: No scoliosis or deformity SKIN: No rashes CENTRAL NERVOUS SYSTEM: No focal deficits, tone is normal in all 4 extremities. EXTREMITIES: There is no peripheral edema. No clubbing, no cyanosis. Peripheral pulses are intact. Results - Laboratory Findings CBC and BMP: 07/27/21 05:32 07/26/21 19:04 PT/INR, D-dimer PT 10.3 sec (9.0-12.0) 07/26/21 19:04 INR 0.9 (<1.2) 07/26/21 19:04 Abnormal lab findings: Abnormal Labs 07/26/21 07/26/21 07/27/21 19:04 19:04 05:32 WBC 15.0 H 10.40 H RBC 3.58 L Hgb 11.7 L Hct 34.7 L MCH 32.7 H Immature Gran # 0.07 H Neutrophils # 13.6 H 8.78 H Lymphocytes # 0.5 L 0.50 L Sodium 136 L Glucose 114 H Assessment and Plan Assessment: 1 Acute abdominal pain secondary to perforated sigmoid diverticulitis with moderate amount of retroperitoneal air. Currently being treated conservatively. On Zosyn and Flagyl. 2 History of sarcoidosis, currently inactive and stable, maintained on prednisone 10 mg daily in the outpatient setting 3 History of right-sided spontaneous pneumothorax status post video thorascopic exploration, resection of the bullae and mechanical pleurodesis in October 2020 4 History of gastroesophageal reflux disease 5 Former smoker 6 History of hypertension Plan: The patient was seen and evaluated Computed tomography scan of the abdomen and labs reviewed Continued on Zosyn and Flagyl for now Add IV Solu Medrol 40 mg every 12 hours We will continue to follow and make further recommendations based on his clinical status I have personally seen and examined the patient, performed the documentation and the assessment and plan as written. Number of minutes spent on the visit: 20.
[2021-07-27] MEDS: FAMOTIDINE 20 MG/2 ML VIAL IV SCH ×2 (09:34→21:07)
[2021-07-27 09:35] LABS: African American GFR (CKD) 87.4 (60.0-200.0); Albumin 3.1 g/dL (3.8-4.9); Albumin/Globulin Ratio 1.72 (1.60-3.17); Anion Gap 9.7 mmol/L (10.00-18.00); BUN/Creat Ratio 10.4 Ratio (12.00-20.00); Blood Urea Nitrogen 10.4 mg/dL (9.0-27.0); Calcium 8.1 mg/dL (8.7-10.3); Carbon Dioxide 24.3 mmol/L (20.0-27.5); Globulin 1.8 g/dL (1.6-3.3); Non-African American GFR(CKD) 75.4 (60.0-200.0); Total Bilirubin 0.8 mg/dL (0.30-1.20); Total Protein 4.9 g/dL (6.2-8.2)
--- NOTE | 2021-07-27 11:15 | P.CONS ---
History of Present Illness - History of Present Illness This is a pleasant 70 male with past medical history of sarcoidosis, hypert ension. Presents because of abdominal pain in the left lower quadrant about 10/10 inm severity and now feels better with pain medication , pain is not radiating much, non specific in character, no nausea or vomiting , no diarrhea , his last bowel movement was about 2 days ago. also he is not eating well over the last two days he denies chest pain or shortness of breath, no fever , no headache or dizziness, no weakens or numbness he denies smoking or alcohol or illicit drugs Hemodynamically stable and patient is afebrile. As leukocytosis with WBC 15k, INR 0.9 BMP showing mild low sodium 136, rest of BMP and liver enzymes are unremarkable. CT of the abdomen and pelvis with no contrast, perforated sigmoid colonic diverticulitis with extensive pneumoperitoneum throughout the mesentery and e xtending up into the upper abdomen around the distal esophagus. No evidence of organizing fluid collection to suggest abscess at this time. Nonobstructing right renal calculi.Septal emphysema changes. Prostatomegaly Patient currently on normal saline with 30 mL/h and Zosyn. Review of Systems CONSTITUTIONAL: No fever, no malaise, no fatigue. HEENT: No recent visual problems or hearing problems. Denied any sore throat. CARDIOVASCULAR: No orthopnea, PND, no palpitations, no syncope. PULMONARY: No shortness of breath, no cough, no hemoptysis. GASTROINTESTINAL: No diarrhea, no nausea, no vomiting, Normoactive bowel sounds. NEUROLOGICAL: No headaches, no weakness, no numbness. HEMATOLOGICAL: Denies any bleeding or petechiae. GENITOURINARY: Denies any burning micturition, frequency, or urgency. MUSCULOSKELETAL/RHEUMATOLOGICAL: Denies any joint pain, swelling, or any muscle pain. ENDOCRINE: Denies any polyuria or polydipsia. Past Medical History Past Medical History: Hypertension, Respiratory Disorder Additional Past Medical History / Comment(s): RBBB. Sarcoidosis. Hx spontaneou s pneumothorax. Rt inguinal hernia. History of Any Multi-Drug Resistant Organisms: None Reported Past Surgical History: Orthopedic Surgery Additional Past Surgical History / Comment(s): Hernia's x3. knee Past Anesthesia/Blood Transfusion Reactions: No Reported Reaction Past Psychological History: No Psychological Hx Reported Additional Psychological History / Comment(s): Pt resides with his spouse. He is independent. Smoking Status: Former smoker Past Alcohol Use History: None Reported Additional Past Alcohol Use History / Comment(s): Pt started smoking in 1967 and quit in 1979. Past Drug Use History: None Reported - Past Family History Mother Family Medical History: No Reported History Additional Family Medical History / Comment(s): ETOH Father Family Medical History: CVA/TIA Additional Family Medical History / Comment(s): ETOH Medications and Allergies Home Medications Medication Instructions Recorded Confirmed Type Losartan [Cozaar] 50 mg PO HS 12/09/19 07/26/21 History amLODIPine [Norvasc] 5 mg PO HS 12/09/19 07/26/21 History predniSONE 10 mg PO DAILY 12/09/19 07/26/21 History Zolpidem Tartrate [Zolpidem 12.5 mg PO HS 10/25/20 07/26/21 History Tartrate ER] Ascorbic Acid [Vitamin C] 500 mg PO DAILY 06/18/21 07/26/21 History Cholecalciferol [Vitamin D3 (25 25 mcg PO DAILY 06/18/21 07/26/21 History Mcg = 1000 Iu)] [place]-3 Fatty Acids/Fish Oil [Fish 2 capsule PO DAILY 06/18/21 07/26/21 History Oil 1,000 mg Softgel] Lansoprazole 15 mg PO HS 07/26/21 07/26/21 History Allergies Allergy/AdvReac Type Severity Reaction Status Date / Time No Known Allergies Allergy Verified 07/26/21 19:41 Physical Exam Vitals: Vital Signs Temp Pulse Pulse Resp BP BP Pulse Ox 07/27/21 02:00 98.0 F 70 16 109/66 96 07/26/21 23:05 98.3 F 74 16 126/69 96 07/26/21 22:32 98.9 F 82 18 116/67 97 07/26/21 19:04 99.2 F 83 18 125/69 98 07/26/21 18:02 99.4 F 115 H 18 117/57 98 Intake and Output 07/26/21 07/27/21 07/27/21 22:59 06:59 14:59 Intake Total 590 Balance 590 Intake: Oral 590 Other: # Voids 2 Weight 79.379 kg 79.379 kg GENERAL: The patient is alert and oriented x3, not in any acute distress. Well developed, well nourished. HEENT: Pupils are round and equally reacting to light. EOMI. No scleral icterus. No conjunctival pallor. Normocephalic, atraumatic. No pharyngeal erythema. No thyromegaly. CARDIOVASCULAR: S1 and S2 present. No murmurs, rubs, or gallops. PULMONARY: Chest is clear to auscultation, no wheezing or crackles. -ABDOMEN: Soft, M.D. LQ tenderness, nondistended, normoactive bowel sounds. No palpable organomegaly. MUSCULOSKELETAL: No joint swelling or deformity. EXTREMITIES: No cyanosis, clubbing, or pedal edema. NEUROLOGICAL: Gross neurological examination did not reveal any focal deficits. SKIN: No rashes. no petechiae. Results CBC & Chem 7: 07/27/21 05:32 07/27/21 05:32 Labs: Abnormal Lab Results - Last 24 Hours (Table) 07/26/21 07/26/21 Range/Units 19:04 19:04 WBC 15.0 H (3.8-10.6) k/uL Neutrophils # 13.6 H (1.3-7.7) k/uL Lymphocytes # 0.5 L (1.0-4.8) k/uL Sodium 136 L (137-145) mmol/L Glucose 114 H (74-99) mg/dL Assessment and Plan Assessment: Acute diverticulitis, perforated sigmoid diverticulitis and extensive pneumo peritoneum Hypertension History of sarcoidosis None obstructing right renal calculi Enlarged prostate Plan: This is a pleasant 70 years old male who presents with acute diverticulitis Continue with antibiotic, currently on [facility] Surgery primary team on the case Pain management Continue with IV normal saline hydration Check hemoglobin A1c Labs and medication were reviewed.. Continue same treatment. Continue with symptomatic treatment. Resume home medication. Monitor lytes and vitals. DVT and GI prophylaxis. Further recommendations depends on the clinical course of the patient DVT prophylaxis: Subcutaneous heparin GI Prophylaxis: Pepcid PT/OT: Pending Prognosis is guarded Thank you for consulting us, we will follow up
[2021-07-27] MEDS: HYDROmorphone 1 MG/ML 1 ML SYRINGE IVP PRN ×2 (14:12→19:35)
[2021-07-28] MEDS: HYDROmorphone 1 MG/ML 1 ML SYRINGE IVP PRN (00:09)
[2021-07-28] MEDS: metroNIDAZOLE-NS PMX 500 MG in SALINE 1 100ML.BAG IVPB SCH ×4 (03:18→20:12)
[2021-07-28] MEDS: ACETAMINOPHEN IV (For NPO) 1,000 MG in EMPTY BAG 1 BAG IVPB SCH ×4 (03:19→20:09)
[2021-07-28] MEDS: SODIUM CHLORIDE 0.9% 1,000 ML IV SCH ×3 (03:26→20:13)
[2021-07-28] MEDS: KETOROLAC 15 MG/ML 1 ML VIAL IVP SCH ×3 (04:32→16:25)
[2021-07-28] MEDS: PIPERACILLIN-TAZOBACTAM 3.375 GM in SODIUM CHLORIDE 0.9% 100 ML IVPB SCH ×3 (04:32→20:12)
[2021-07-28 08:59] LABS: Basophils # (A) 0.01 X 10*3/uL (0.00-0.10); Basophils % (A) 0.1 %; Eosinophils # (A) 0 X 10*3/uL (0.04-0.35); Eosinophils % (A) 0 %; HCT 34.7 % (39.6-50.0); HGB 11.7 g/dL (13.0-17.0); Immature Grans, Automated 0.7 %; Lymphocytes # (A) 0.23 X 10*3/uL (0.90-5.00); Lymphocytes % (A) 2.3 %; MCH 32.2 pg (27.0-32.0); MCHC 33.7 g/dL (32.0-37.0); MCV 95.6 fL (80.0-97.0); Monocytes # (A) 0.19 X 10*3/uL (0.20-1.00); Monocytes % (A) 1.9 %; NRBC Per 100 WBC 0 /100 WBCS (0.0-0.0); Neutrophils # (A) 9.48 X 10*3/uL (1.80-7.70); Platelet Count 224 X 10*3/uL (140-440); RBC 3.63 X 10*6/uL (4.40-5.60); RDW 13.3 % (11.5-14.5); WBC 9.98 X 10*3/uL (4.50-10.00)
[2021-07-28] MEDS: HEPARIN SODIUM,PORCINE/PF 5,000 UNIT/0.5 ML SYRINGE SQ SCH ×2 (09:00→16:20)
[2021-07-28] MEDS: methylPREDNISolone SOD SUCCI 40 MG/ML 1 ML VIAL IV SCH ×2 (09:00→20:13)
[2021-07-28] MEDS: PANTOPRAZOLE 40 MG/10 ML VIAL IV SCH (09:00)
[2021-07-28 09:27] LABS: African American GFR (CKD) 99.2 (60.0-200.0); Anion Gap 11.3 mmol/L (10.00-18.00); BUN/Creat Ratio 16.89 Ratio (12.00-20.00); Blood Urea Nitrogen 15.2 mg/dL (9.0-27.0); Calcium 8.2 mg/dL (8.7-10.3); Carbon Dioxide 21.7 mmol/L (20.0-27.5); Non-African American GFR(CKD) 85.6 (60.0-200.0); Potassium 4.2 mmol/L (3.5-5.5)
--- NOTE | 2021-07-28 10:18 | P.PN ---
Subjective Progress Note Date: 07/28/21 This is a very pleasant 70-year-old male patient who follows with Dr. Jannie Camejo as his primary care provider. He has a history of hypertension, gastroesophageal reflux disease, former smoker. He also has a history of pulmonary sarcoidosis and follows with Dr. Gabriel in our office for the same. He is maintained on prednisone 10 mg daily. He also has a history of previous spontaneous pneumothorax. Most recently on the right side requiring video thorascopic exploration, resection of bullae and mechanical pleurodesis in October 2020. He presented here to the emergency room yesterday with complaints of abdominal pain mostly in the left lower quadrant. No previous history of diverticulitis. No fever or chills. Computed tomography scan of the abdomen and pelvis revealed a perforated sigmoid colonic diverticulitis with extensive pneumoperitoneum throughout the mesentery and extending up into the upper abdomen around the distal esophagus. No evidence of organizing fluid collection to suggest abscess at this time. There is a nonobstructive right renal calculi. He had been seen and evaluated by surgical services. No intervention planned at this time. White count 10.4. Hemoglobin 11.7. Sodium 136. Potassium 4.0. Chloride 102. Bicarb 27. BUN 19. Creatinine 1.04. AST 24. ALT 17. Lactic acid 1.4. He's been started on Zosyn and Flagyl. Normal saline at 130 ML's per hour. He is seen today in consultation on the regular medical floor. He is laying comfortably in bed. Awake and alert in no acute distress. His left lower quadrant abdominal pain is present but subsiding. He is maintaining O2 saturations in the 90s on room air. He's been afebrile. Hemodynamically stable. The patient is seen today in 07/28/2021 in follow-up on the regular medical floor. He is currently sitting up in bed. Awake and alert in no acute distress. His abdominal pain is improving. He is on room air. No IV fluids. He is continued on Zosyn and Flagyl. White count 9.9. Hemoglobin 11.7. Sodium 143. Potassium 4.2. BUN 15. Creatinine 0.9. Glucose 118. Heparin for DVT prophylaxis. He remains on IV Solu-Medrol, IV Protonix. Tolerating a clear liquid diet. Objective - Vital Signs Vital signs: Vital Signs Temp 97.8 F 07/28/21 02:00 Pulse 89 07/28/21 02:00 Resp 16 07/28/21 02:00 BP 150/78 07/28/21 02:00 Pulse Ox 96 07/28/21 02:00 Intake & Output 07/27/21 07/28/21 07/28/21 18:59 06:59 18:59 Intake Total 100 925 Balance 100 925 Intake: Intake, IV Titration 100 925 Amount Piperacillin-Tazobactam 3 200 .375 gm In Sodium Chloride 0.9% 100 ml @ 25 mls/hr IVPB Q8H [facility] Rx#: [id number] Sodium Chloride 0.9% 1, 525 000 ml @ 130 mls/hr IV . Q7H42M [facility] Rx#:[id number] metroNIDAZOLE-NS PMX 500 100 200 mg In Saline 1 100ml.bag @ 100 mls/hr IVPB Q6H [facility] Rx#:[id number] - Exam GENERAL EXAM: Alert, very pleasant 70-year-old male patient, on room air, comfortable in no apparent distress. HEAD: Normocephalic. EYES: Normal reaction of pupils, equal size. NOSE: Clear with pink turbinates. THROAT: No erythema or exudates. NECK: No masses, no JVD. CHEST: No chest wall deformity. LUNGS: Equal air entry with no crackles, wheeze, rhonchi or dullness. CVS: S1 and S2 normal with no audible murmur, regular rhythm. ABDOMEN: Left lower quadrant tenderness. SPINE: No scoliosis or deformity SKIN: No rashes CENTRAL NERVOUS SYSTEM: No focal deficits, tone is normal in all 4 extremities. EXTREMITIES: There is no peripheral edema. No clubbing, no cyanosis. Peripheral pulses are intact. - Labs CBC & Chem 7: 07/28/21 05:58 07/28/21 05:58 Labs: Abnormal Lab Results - Last 24 Hours (Table) 07/28/21 07/28/21 Range/Units 05:58 05:58 RBC 3.63 L (4.40-5.60) X 10*6/uL Hgb 11.7 L (13.0-17.0) g/dL Hct 34.7 L (39.6-50.0) % MCH 32.2 H (27.0-32.0) pg Immature Gran # 0.07 H (0.00-0.04) X 10*3/uL Neutrophils # 9.48 H (1.80-7.70) X 10*3/uL Lymphocytes # 0.23 L (0.90-5.00) X 10*3/uL Monocytes # 0.19 L (0.20-1.00) X 10*3/uL Eosinophils # 0 L (0.04-0.35) X 10*3/uL Chloride 110 H (96-109) mmol/L Glucose 118 H (70-110) mg/dL Calcium 8.2 L (8.7-10.3) mg/dL Assessment and Plan Assessment: 1 Acute abdominal pain secondary to perforated sigmoid diverticulitis with moderate amount of retroperitoneal air. Currently being treated conservatively. On Zosyn and Flagyl. 2 History of sarcoidosis, currently inactive and stable, maintained on prednisone 10 mg daily in the outpatient setting 3 History of right-sided spontaneous pneumothorax status post video thorascopic exploration, resection of the bullae and mechanical pleurodesis in October 2020 4 History of gastroesophageal reflux disease 5 Former smoker 6 History of hypertension Plan: The patient was seen and evaluated Medications and labs reviewed Continued on Zosyn and Flagyl Tolerating clear liquid diet We will continue to follow I have personally seen and examined the patient, performed the documentation and the assessment and plan as written. Number of minutes spent on the visit: 10.
--- NOTE | 2021-07-28 12:55 | P.PN ---
Progress Note - Text Progress Note Date: 07/28/21 Patient's resting comfortably in his bed. He denies any significant pain. On exam his vital signs are stable. At esophagus and minimal tenderness in the lower quadrants. Improving diverticula is. Patient received IV antibiotics and supportive care.
[2021-07-28] MEDS ORDERED: LOSARTAN 50 MG TAB PO SCH (21:00)
[2021-07-28] MEDS ORDERED: SODIUM CHLORIDE 0.9% 500 ML 500 ML IV ONE (21:17)
--- NOTE | 2021-07-28 21:22 | P.PN ---
Subjective This is a pleasant 70 male with past medical history of sarcoidosis, hypertension. Presents because of abdominal pain in the left lower quadrant ab out 12/24 inm severity and now feels better with pain medication , pain is not radiating much, non specific in character, no nausea or vomiting , no diarrhea , his last bowel movement was about 2 days ago. also he is not eating well over the last two days he denies chest pain or shortness of breath, no fever , no headache or dizziness, no weakens or numbness he denies smoking or alcohol or illicit drugs Hemodynamically stable and patient is afebrile. As leukocytosis with WBC 15k, INR 0.9 BMP showing mild low sodium 136, rest of BMP and liver enzymes are unremarkable. CT of the abdomen and pelvis with no contrast, perforated sigmoid colonic diverticulitis with extensive pneumoperitoneum throughout the mesentery and extending up into the upper abdomen around the distal esophagus. No evidence of organizing fluid collection to suggest abscess at this time. Nonobstructing right renal calculi.Septal emphysema changes. Prostatomegaly Patient currently on normal saline with 30 mL/h and Zosyn. 07/28/2021 Patient abdominal pain in the left lower quadrant is improving, no nausea vomiting today. However patient still nothing by mouth. He does not have bowel movement and passing gas. Blood pressure is slightly elevated and restarted his Cozaar. Later on tonight patient refused to take his night dose of Solu-Medrol because it gets somewhat agitated, restarted his Ambien at night dose as needed also give him a bolus of 500 mL and close monitoring. Labs are stable. Hemoglobin A1c is 5.4%. He remains on Solu-Medrol 40 mg twice daily, Flagyl and Zosyn and normal saline at 1 30 mL/h Objective - Vital Signs Vital signs: Vital Signs Temp 97.8 F 07/28/21 02:00 Pulse 89 07/28/21 08:00 Resp 16 07/28/21 08:00 BP 150/78 07/28/21 02:00 Pulse Ox 96 07/28/21 02:00 Intake & Output 07/27/21 07/28/21 07/28/21 18:59 06:59 18:59 Intake Total 100 925 Balance 100 925 Intake: Intake, IV Titration 100 925 Amount Piperacillin-Tazobactam 3 200 .375 gm In Sodium Chloride 0.9% 100 ml @ 25 mls/hr IVPB Q8H [facility] Rx#: [id number] Sodium Chloride 0.9% 1, 525 000 ml @ 130 mls/hr IV . Q7H42M [facility] Rx#:[id number] metroNIDAZOLE-NS PMX 500 100 200 mg In Saline 1 100ml.bag @ 100 mls/hr IVPB Q6H [facility] Rx#:[id number] - Exam GENERAL: The patient is alert and oriented x3, not in any acute distress. Well developed, well nourished. HEENT: Pupils are round and equally reacting to light. EOMI. No scleral icterus. No conjunctival pallor. Normocephalic, atraumatic. No pharyngeal erythema. No thyromegaly. CARDIOVASCULAR: S1 and S2 present. No murmurs, rubs, or gallops. PULMONARY: Chest is clear to auscultation, no wheezing or crackles. -ABDOMEN: Soft, LLQ tenderness, nondistended, normoactive bowel sounds. No palpable organomegaly. MUSCULOSKELETAL: No joint swelling or deformity. EXTREMITIES: No cyanosis, clubbing, or pedal edema. NEUROLOGICAL: Gross neurological examination did not reveal any focal deficits. SKIN: No rashes. no petechiae. - Labs CBC & Chem 7: 07/28/21 05:58 07/28/21 05:58 Labs: Abnormal Lab Results - Last 24 Hours (Table) 07/28/21 07/28/21 Range/Units 05:58 05:58 RBC 3.63 L (4.40-5.60) X 10*6/uL Hgb 11.7 L (13.0-17.0) g/dL Hct 34.7 L (39.6-50.0) % MCH 32.2 H (27.0-32.0) pg Immature Gran # 0.07 H (0.00-0.04) X 10*3/uL Neutrophils # 9.48 H (1.80-7.70) X 10*3/uL Lymphocytes # 0.23 L (0.90-5.00) X 10*3/uL Monocytes # 0.19 L (0.20-1.00) X 10*3/uL Eosinophils # 0 L (0.04-0.35) X 10*3/uL Chloride 110 H (96-109) mmol/L Glucose 118 H (70-110) mg/dL Calcium 8.2 L (8.7-10.3) mg/dL Assessment and Plan Assessment: Acute diverticulitis, perforated sigmoid diverticulitis and extensive pneumoperitoneum Hypertension History of sarcoidosis None obstructing right renal calculi Enlarged prostate Plan: This is a pleasant 70 years old male who presents with acute diverticulitis Continue with antibiotic, currently on Zosyn Surgery primary team on the case Pain management Continue with IV normal saline hydration Labs and medication were reviewed.. Continue same treatment. Continue with symptomatic treatment. Resume home medication. Monitor lytes and vitals. DVT and GI prophylaxis. Further recommendations depends on the clinical course of the patient DVT prophylaxis: Subcutaneous heparin GI Prophylaxis: Pepcid PT/OT: Pending Prognosis is guarded Thank you for consulting us, we will follow up
[2021-07-28] MEDS: ZOLPIDEM 5 MG TAB PO PRN (23:02)
[2021-07-29] MEDS: ACETAMINOPHEN IV (For NPO) 1,000 MG in EMPTY BAG 1 BAG IVPB SCH ×2 (00:22→09:06)
[2021-07-29] MEDS: HEPARIN SODIUM,PORCINE/PF 5,000 UNIT/0.5 ML SYRINGE SQ SCH ×4 (00:22→23:09)
[2021-07-29] MEDS: SODIUM CHLORIDE 0.9% 1,000 ML IV SCH ×3 (02:48→15:32)
[2021-07-29] MEDS: PIPERACILLIN-TAZOBACTAM 3.375 GM in SODIUM CHLORIDE 0.9% 100 ML IVPB SCH ×3 (02:56→20:10)
[2021-07-29] MEDS: metroNIDAZOLE-NS PMX 500 MG in SALINE 1 100ML.BAG IVPB SCH ×4 (02:56→20:10)
[2021-07-29] MEDS: predniSONE 10 MG TAB PO SCH (09:13)
[2021-07-29] MEDS: PANTOPRAZOLE 40 MG/10 ML VIAL IV SCH (09:13)
[2021-07-29] MEDS: HYDROmorphone 1 MG/ML 1 ML SYRINGE IVP PRN ×3 (09:17→20:08)
--- NOTE | 2021-07-29 10:09 | P.PN ---
Progress Note - Text Progress Note Date: 07/29/21 Patient has complaints of increased pain today. He was roughly pain-free yesterday and then suddenly had more pain on exam vital signs are stable. Abdomen soft. There is tenderness in the left and right lower quadrant. There is no rebound or guarding. Diverticula is. Patient was instructed to stop drinking is clear liquids. He will continue IV antibiotics. He'll be closely observed.
--- NOTE | 2021-07-29 12:07 | P.PN ---
Subjective Progress Note Date: 07/29/21 Principal diagnosis: Acute abdominal pain, perforated sigmoid diverticulitis, history of sarcoidosis This is a very pleasant 70-year-old male patient who follows with Dr. Jannie bunch as his primary care provider. He has a history of hypertension, gastroesophageal reflux disease, former smoker. He also has a history of pulmonary sarcoidosis and follows with Dr. Gabriel in our office for the same. He is maintained on prednisone 10 mg daily. He also has a history of previous spontaneous pneumothorax. Most recently on the right side requiring video thorascopic exploration, resection of bullae and mechanical pleurodesis in October 2020. He presented here to the emergency room yesterday with complaints of abdominal pain mostly in the left lower quadrant. No previous history of diverticulitis. No fever or chills. Computed tomography scan of the abdomen and pelvis revealed a perforated sigmoid colonic diverticulitis with extensive pneumoperitoneum throughout the mesentery and extending up into the upper abdomen around the distal esophagus. No evidence of organizing fluid collection to suggest abscess at this time. There is a nonobstructive right renal calculi. He had been seen and evaluated by surgical services. No intervention planned at this time. White count 10.4. Hemoglobin 11.7. Sodium 136. Potassium 4.0. Chloride 102. Bicarb 27. BUN 19. Creatinine 1.04. AST 24. ALT 17. Lactic acid 1.4. He's been started on Zosyn and Flagyl. Normal saline at 130 ML's per hour. He is seen today in consultation on the regular medical floor. He is laying comfortably in bed. Awake and alert in no acute distress. His left lower quadrant abdominal pain is present but subsiding. He is maintaining O2 saturations in the 90s on room air. He's been afebrile. Hemodynamically stable. The patient is seen today in 07/28/2021 in follow-up on the regular medical floor. He is currently sitting up in bed. Awake and alert in no acute distress. His abdominal pain is improving. He is on room air. No IV fluids. He is continued on Zosyn and Flagyl. White count 9.9. Hemoglobin 11.7. Sodium 143. Potassium 4.2. BUN 15. Creatinine 0.9. Glucose 118. Heparin for DVT prophylaxis. He remains on IV Solu-Medrol, IV Protonix. Tolerating a clear liquid diet. On 07/29/2021 patient seen in follow-up on medical surgical floor, patient is awake and alert, in no acute distress, room air pulse ox is 95%, his been afebrile, vital signs have been stable. His abdomen is soft with some tenderness in the left and right lower quadrant, no rebound or guarding. He continues on IV antibiotics for acute diverticulitis. General surgeries on the case and followed closely. Patient is just on clear liquids. Antibiotic coverage with Zosyn. And Flagyl. Patient continues on IV steroids, which we can switch over to his home dose prednisone 10 mg daily. Denies any difficulty breathing. No cough and no chest pain. Today's labs have been reviewed, white blood cell count is 9.9, improving hemoglobin is 11.7, electrolytes and renal profile were unremarkable. Objective - Vital Signs Vital signs: Vital Signs Temp 98.6 F 07/29/21 05:00 Pulse 71 07/29/21 05:00 Resp 16 07/29/21 05:00 BP 118/68 07/29/21 05:00 Pulse Ox 95 07/29/21 05:00 Intake & Output 07/28/21 07/29/21 07/29/21 18:59 06:59 18:59 Intake Total 600 Balance 600 Intake: Intake, IV Titration 600 Amount Sodium Chloride 0.9% 1, 600 000 ml @ 130 mls/hr IV . Q7H42M [facility] Rx#:[id number] Other: Voiding Method Toilet - Exam GENERAL EXAM: Alert, active, 70-year-old white male on room air with pulse ox of 95% comfortable in no apparent distress. HEAD: Normocephalic/atraumatic. EYES: Normal reaction of pupils, equal size. Conjunctiva pink, sclera white. NOSE: Clear with pink turbinates. THROAT: No erythema or exudates. NECK: No masses, no JVD, no thyroid enlargement, no adenopathy. CHEST: No chest wall deformity. Symmetrical expansion. LUNGS: Equal air entry with no crackles, wheeze, rhonchi or dullness. CVS: Regular rate and rhythm, normal S1 and S2, no gallops, no murmurs, no rubs ABDOMEN: Soft, slightly tender in the bilateral lower quadrants without rebound or guarding. hepatosplenomegaly, normal bowel sounds, no guarding or rigidity. EXTREMITIES: No clubbing, no edema, no cyanosis, 2+ pulses and upper and lower extremities. MUSCULOSKELETAL: Muscle strength and tone normal. SPINE: No scoliosis or deformity SKIN: No rashes CENTRAL NERVOUS SYSTEM: Alert and oriented -3. No focal deficits, tone is normal in all 4 extremities. PSYCHIATRIC: Alert and oriented -3. Appropriate affect. Intact judgment and insight. - Labs CBC & Chem 7: 07/28/21 05:58 07/28/21 05:58 Assessment and Plan Plan: Assessment: #1. Acute abdominal pain secondary to perforated sigmoid diverticulitis with moderate amount of retroperitoneal air, being treated conservatively with Zosyn and Flagyl #2. History of sarcoidosis, inactive and stable, on maintenance dose prednisone 10 mg daily #3. History of right-sided spontaneous pneumothorax status post video thoracoscopic exploration, resection of the dual a and mechanical pleurodesis in October 2020 #4. History of GERD/reflux #5. Former smoker #6. History of hypertension Plan: Patient can be switched back to his oral prednisone 10 mg daily We'll DC IV steroids From pulmonary perspective he stable Continues on IV antibiotics Tolerating clear liquids Surgical recommendations GI and DVT prophylaxis I have personally seen and examined the patient, performed the documentation and the assessment and plan as written. Number of minutes spent on the visit: [10] Time with Patient: Less than 30
[2021-07-29] MEDS ORDERED: LOSARTAN 25 MG TAB PO SCH (21:00)
[2021-07-29] MEDS: ZOLPIDEM 5 MG TAB PO PRN (22:02)
[2021-07-30] MEDS: SODIUM CHLORIDE 0.9% 1,000 ML IV SCH ×3 (00:44→18:32)
[2021-07-30] MEDS: metroNIDAZOLE-NS PMX 500 MG in SALINE 1 100ML.BAG IVPB SCH ×3 (03:17→14:43)
[2021-07-30] MEDS: PIPERACILLIN-TAZOBACTAM 3.375 GM in SODIUM CHLORIDE 0.9% 100 ML IVPB SCH ×3 (03:19→21:30)
[2021-07-30] MEDS: HYDROmorphone 1 MG/ML 1 ML SYRINGE IVP PRN ×3 (03:39→11:32)
--- NOTE | 2021-07-30 08:22 | P.PN ---
Subjective This is a pleasant 70 male with past medical history of sarcoidosis, hypertension. Presents because of abdominal pain in the left lower quadrant ab out 12/24 inm severity and now feels better with pain medication , pain is not radiating much, non specific in character, no nausea or vomiting , no diarrhea , his last bowel movement was about 2 days ago. also he is not eating well over the last two days he denies chest pain or shortness of breath, no fever , no headache or dizziness, no weakens or numbness he denies smoking or alcohol or illicit drugs Hemodynamically stable and patient is afebrile. As leukocytosis with WBC 15k, INR 0.9 BMP showing mild low sodium 136, rest of BMP and liver enzymes are unremarkable. CT of the abdomen and pelvis with no contrast, perforated sigmoid colonic diverticulitis with extensive pneumoperitoneum throughout the mesentery and extending up into the upper abdomen around the distal esophagus. No evidence of organizing fluid collection to suggest abscess at this time. Nonobstructing right renal calculi.Septal emphysema changes. Prostatomegaly Patient currently on normal saline with 30 mL/h and Zosyn. 07/28/2021 Patient abdominal pain in the left lower quadrant is improving, no nausea vomiting today. However patient still nothing by mouth. He does not have bowel movement and passing gas. Blood pressure is slightly elevated and restarted his Cozaar. Later on tonight patient refused to take his night dose of Solu-Medrol because it gets somewhat agitated, restarted his Ambien at night dose as needed also give him a bolus of 500 mL and close monitoring. Labs are stable. Hemoglobin A1c is 5.4%. He remains on Solu-Medrol 40 mg twice daily, Flagyl and Zosyn and normal saline at 1 30 mL/h 07/29/2021 Patient awake and alert not in distress, he was started on liquid diet but he started developing pain in his left lower quadrant and some colic which comes and goes which concerned him, explanation provided for the patient. He is hemodynamically stable. Steroids discharged back to prednisone 10 mg orally. We added losartan 25 mg daily, we'll increase it to his home dose of 50 mg from tomorrow. Continue with IV fluids normal saline 1:30, Flagyl and Zosyn per surgery team will follow closely as well Objective - Vital Signs Vital signs: Vital Signs Temp 98.6 F 07/29/21 05:00 Pulse 71 07/29/21 05:00 Resp 16 07/29/21 05:00 BP 118/68 07/29/21 05:00 Pulse Ox 95 07/29/21 05:00 Intake & Output 07/28/21 07/29/21 07/29/21 18:59 06:59 18:59 Intake Total 600 Balance 600 Intake: Intake, IV Titration 600 Amount Sodium Chloride 0.9% 1, 600 000 ml @ 130 mls/hr IV . Q7H42M [facility] Rx#:[id number] Other: Voiding Method Toilet - Exam GENERAL: The patient is alert and oriented x3, not in any acute distress. Well developed, well nourished. HEENT: Pupils are round and equally reacting to light. EOMI. No scleral icterus. No conjunctival pallor. Normocephalic, atraumatic. No pharyngeal erythema. No thyromegaly. CARDIOVASCULAR: S1 and S2 present. No murmurs, rubs, or gallops. PULMONARY: Chest is clear to auscultation, no wheezing or crackles. -ABDOMEN: Soft, LLQ tenderness, nondistended, normoactive bowel sounds. No palpable organomegaly. MUSCULOSKELETAL: No joint swelling or deformity. EXTREMITIES: No cyanosis, clubbing, or pedal edema. NEUROLOGICAL: Gross neurological examination did not reveal any focal deficits. SKIN: No rashes. no petechiae. - Labs CBC & Chem 7: 07/28/21 05:58 07/28/21 05:58 Assessment and Plan Assessment: Acute diverticulitis, perforated sigmoid diverticulitis and extensive pneum operitoneum Hypertension History of sarcoidosis None obstructing right renal calculi Enlarged prostate Plan: This is a pleasant 70 years old male who presents with acute diverticulitis Continue with antibiotic, currently on Zosyn Surgery primary team on the case Pain management Continue with IV normal saline hydration Labs and medication were reviewed.. Continue same treatment. Continue with symptomatic treatment. Resume home medication. Monitor lytes and vitals. DVT and GI prophylaxis. Further recommendations depends on the clinical course of the patient DVT prophylaxis: Subcutaneous heparin GI Prophylaxis: Pepcid PT/OT: Pending Prognosis is guarded Thank you for consulting us, we will follow up
[2021-07-30] MEDS: PANTOPRAZOLE 40 MG/10 ML VIAL IV SCH (08:38)
[2021-07-30] MEDS: HEPARIN SODIUM,PORCINE/PF 5,000 UNIT/0.5 ML SYRINGE SQ SCH ×2 (08:38→18:30)
[2021-07-30] MEDS: predniSONE 10 MG TAB PO SCH (08:38)
[2021-07-30 08:59] LABS: African American GFR (CKD) >90 (>60 ml/min/1.73 sqM); Anion Gap 9 mmol/L; Blood Urea Nitrogen 12 mg/dL (9-20); Calcium 7.9 mg/dL (8.4-10.2); Carbon Dioxide 24 mmol/L (22-30); Chloride 105 mmol/L (98-107); Glucose 78 mg/dL (74-99); Magnesium 1.9 mg/dL (1.6-2.3); Non-African American GFR(CKD) 81 (>60 ml/min/1.73 sqM); Potassium 3.3 mmol/L (3.5-5.1); Sodium 138 mmol/L (137-145)
[2021-07-30 09:19] LABS: Basophils % (A) 0 %; Eosinophils # (A) 0.1 k/uL (0-0.7); Eosinophils % (A) 1 %; HCT 39.1 % (39.0-53.0); HGB 12.7 gm/dL (13.0-17.5); Lymphocytes # (A) 0.5 k/uL (1.0-4.8); Lymphocytes % (A) 5 %; MCH 32.5 pg (25.0-35.0); MCHC 32.5 g/dL (31.0-37.0); MCV 99.9 fL (80.0-100.0); Monocytes # (A) 0.5 k/uL (0-1.0); Monocytes % (A) 4 %; Neutrophils # (A) 10.1 k/uL (1.3-7.7); Neutrophils % (A) 89 %; Platelet Count 337 k/uL (150-450); RBC 3.91 m/uL (4.30-5.90); RDW 13.8 % (11.5-15.5); WBC 11.4 k/uL (3.8-10.6)
[2021-07-30] MEDS ORDERED: Potassium Replacement Protocol 1 EACH MISC MISCELLANE PRN (09:27)
--- NOTE | 2021-07-30 10:30 | P.PN ---
Subjective Progress Note Date: 07/30/21 Principal diagnosis: Acute abdominal pain, perforated sigmoid diverticulitis, history of sarcoidosis This is a very pleasant 70-year-old male patient who follows with Dr. Jannie bunch as his primary care provider. He has a history of hypertension, gastroesophageal reflux disease, former smoker. He also has a history of pulmonary sarcoidosis and follows with Dr. Gabriel in our office for the same. He is maintained on prednisone 10 mg daily. He also has a history of previous spontaneous pneumothorax. Most recently on the right side requiring video thorascopic exploration, resection of bullae and mechanical pleurodesis in October 2020. He presented here to the emergency room yesterday with complaints of abdominal pain mostly in the left lower quadrant. No previous history of diverticulitis. No fever or chills. Computed tomography scan of the abdomen and pelvis revealed a perforated sigmoid colonic diverticulitis with extensive pneumoperitoneum throughout the mesentery and extending up into the upper abdomen around the distal esophagus. No evidence of organizing fluid collection to suggest abscess at this time. There is a nonobstructive right renal calculi. He had been seen and evaluated by surgical services. No intervention planned at this time. White count 10.4. Hemoglobin 11.7. Sodium 136. Potassium 4.0. Chloride 102. Bicarb 27. BUN 19. Creatinine 1.04. AST 24. ALT 17. Lactic acid 1.4. He's been started on Zosyn and Flagyl. Normal saline at 130 ML's per hour. He is seen today in consultation on the regular medical floor. He is laying comfortably in bed. Awake and alert in no acute distress. His left lower quadrant abdominal pain is present but subsiding. He is maintaining O2 saturations in the 90s on room air. He's been afebrile. Hemodynamically stable. The patient is seen today in 07/28/2021 in follow-up on the regular medical floor. He is currently sitting up in bed. Awake and alert in no acute distress. His abdominal pain is improving. He is on room air. No IV fluids. He is continued on Zosyn and Flagyl. White count 9.9. Hemoglobin 11.7. Sodium 143. Potassium 4.2. BUN 15. Creatinine 0.9. Glucose 118. Heparin for DVT prophylaxis. He remains on IV Solu-Medrol, IV Protonix. Tolerating a clear liquid diet. On 07/29/2021 patient seen in follow-up on medical surgical floor, patient is awake and alert, in no acute distress, room air pulse ox is 95%, his been afebrile, vital signs have been stable. His abdomen is soft with some tenderness in the left and right lower quadrant, no rebound or guarding. He continues on IV antibiotics for acute diverticulitis. General surgeries on the case and followed closely. Patient is just on clear liquids. Antibiotic coverage with Zosyn. And Flagyl. Patient continues on IV steroids, which we can switch over to his home dose prednisone 10 mg daily. Denies any difficulty breathing. No cough and no chest pain. Today's labs have been reviewed, white blood cell count is 9.9, improving hemoglobin is 11.7, electrolytes and renal profile were unremarkable. On 07/30/2021 patient seen in follow-up on medical surgical floor, he has no pulmonary complaints, his lung sounds are clear, room air pulse ox is 96%. He continues to have left lower quadrant tenderness, he remains on antibiotics with Zosyn and Flagyl. Patient has been afebrile, hemodynamically stable, he has been tolerating sips of clear liquids, however this morning he states his left lower quadrant pain is not any better. Today's labs have been reviewed, his blood blood cell count is 11.4, hemoglobin is 12.7, his platelet count is 337, potassium is 3.3, sodium is 138, the rest of the electrolytes and renal profile are unremarkable. Objective - Vital Signs Vital signs: Vital Signs Temp 99 F 07/30/21 03:55 Pulse 78 07/30/21 03:55 Resp 16 07/30/21 03:55 BP 147/79 07/30/21 03:55 Pulse Ox 96 07/30/21 03:55 Intake & Output 07/29/21 07/30/21 07/30/21 18:59 06:59 18:59 Intake Total 1400 Balance 1400 Intake: Intake, IV Titration 1400 Amount Piperacillin-Tazobactam 3 200 .375 gm In Sodium Chloride 0.9% 100 ml @ 25 mls/hr IVPB Q8H [facility] Rx#: [id number] Sodium Chloride 0.9% 1, 1000 000 ml @ 130 mls/hr IV . Q7H42M [facility] Rx#:[id number] metroNIDAZOLE-NS PMX 500 200 mg In Saline 1 100ml.bag @ 100 mls/hr IVPB Q6H [facility] Rx#:[id number] Other: Voiding Method Toilet Toilet # Voids 4 - Exam GENERAL EXAM: Alert, active, 70-year-old white male on room air with pulse ox of 96% comfortable in no apparent distress. HEAD: Normocephalic/atraumatic. EYES: Normal reaction of pupils, equal size. Conjunctiva pink, sclera white. NOSE: Clear with pink turbinates. THROAT: No erythema or exudates. NECK: No masses, no JVD, no thyroid enlargement, no adenopathy. CHEST: No chest wall deformity. Symmetrical expansion. LUNGS: Equal air entry with no crackles, wheeze, rhonchi or dullness. CVS: Regular rate and rhythm, normal S1 and S2, no gallops, no murmurs, no rubs ABDOMEN: Soft, slightly tender in the bilateral lower quadrants without rebound or guarding. hepatosplenomegaly, normal bowel sounds, no guarding or rigidity. EXTREMITIES: No clubbing, no edema, no cyanosis, 2+ pulses and upper and lower extremities. MUSCULOSKELETAL: Muscle strength and tone normal. SPINE: No scoliosis or deformity SKIN: No rashes CENTRAL NERVOUS SYSTEM: Alert and oriented -3. No focal deficits, tone is normal in all 4 extremities. PSYCHIATRIC: Alert and oriented -3. Appropriate affect. Intact judgment and insight. - Labs CBC & Chem 7: 07/30/21 08:27 07/30/21 08:27 Labs: Abnormal Lab Results - Last 24 Hours (Table) 07/30/21 07/30/21 Range/Units 08:27 08:27 WBC 11.4 H (3.8-10.6) k/uL RBC 3.91 L (4.30-5.90) m/uL Hgb 12.7 L (13.0-17.5) gm/dL Neutrophils # 10.1 H (1.3-7.7) k/uL Lymphocytes # 0.5 L (1.0-4.8) k/uL Potassium 3.3 L (3.5-5.1) mmol/L Calcium 7.9 L (8.4-10.2) mg/dL Assessment and Plan Plan: Assessment: #1. Acute abdominal pain secondary to perforated sigmoid diverticulitis with moderate amount of retroperitoneal air, being treated conservatively with Zosyn and Flagyl #2. History of sarcoidosis, inactive and stable, on maintenance dose prednisone 10 mg daily #3. History of right-sided spontaneous pneumothorax status post video thoracosc opic exploration, resection of the dual a and mechanical pleurodesis in October 2020 #4. History of GERD/reflux #5. Former smoker #6. History of hypertension Plan: From pulmonary perspective patient has remained stable Vital signs are stable However he continues to have left lower quadrant tenderness He remains on IV antibiotics Discussed case with Dr. Camejo, patient will likely need surgical intervention for perforated sigmoid diverticulitis We'll continue to follow closely with general surgery for any critical care/pulmonary needs I have personally seen and examined the patient, performed the documentation and the assessment and plan as written. Number of minutes spent on the visit: [10] Time with Patient: Less than 30
[2021-07-30] MEDS: POTASSIUM CHLORIDE 10 MEQ in WATER FOR INJECTION 1 100ML.BAG IVPB SCH ×4 (11:21→23:23)
--- NOTE | 2021-07-30 11:42 | P.PN ---
Subjective Progress Note Date: 07/30/21 Principal diagnosis: Diverticulitis Patient seen this morning complaining of increased abdominal pain. He says that Friday and Friday he had minimal if any discomfort. Yesterday afternoon he started having some vague abdominal discomfort and gassiness. This progressed overnight through this morning. I spoke with the extrusion supervisor who evaluated the patient earlier. He was concerned that his exam had changed. Today's white blood cell count went back up a little bit to 11. He is afebrile. Objective - Vital Signs Vital signs: Vital Signs Temp 99 F 07/30/21 03:55 Pulse 78 07/30/21 03:55 Resp 16 07/30/21 03:55 BP 147/79 07/30/21 03:55 Pulse Ox 96 07/30/21 03:55 Intake & Output 07/29/21 07/30/21 07/30/21 18:59 06:59 18:59 Intake Total 1400 Balance 1400 Intake: Intake, IV Titration 1400 Amount Piperacillin-Tazobactam 3 200 .375 gm In Sodium Chloride 0.9% 100 ml @ 25 mls/hr IVPB Q8H [facility] Rx#: [id number] Sodium Chloride 0.9% 1, 1000 000 ml @ 130 mls/hr IV . Q7H42M [facility] Rx#:[id number] metroNIDAZOLE-NS PMX 500 200 mg In Saline 1 100ml.bag @ 100 mls/hr IVPB Q6H [facility] Rx#:[id number] Other: Voiding Method Toilet Toilet # Voids 4 - Exam Abdomen: Soft, left-sided tenderness increased with increased swelling - Labs CBC & Chem 7: 07/30/21 08:27 07/30/21 08:27 Labs: Abnormal Lab Results - Last 24 Hours (Table) 07/30/21 07/30/21 Range/Units 08:27 08:27 WBC 11.4 H (3.8-10.6) k/uL RBC 3.91 L (4.30-5.90) m/uL Hgb 12.7 L (13.0-17.5) gm/dL Neutrophils # 10.1 H (1.3-7.7) k/uL Lymphocytes # 0.5 L (1.0-4.8) k/uL Potassium 3.3 L (3.5-5.1) mmol/L Calcium 7.9 L (8.4-10.2) mg/dL Assessment and Plan (1) Diverticulitis Narrative/Plan: 70-year-old male with progression of his perforated sigmoid diverticulitis. Options reviewed. We'll proceed with exploratory laparotomy with partial colectomy, possible colostomy at this time. Risks of bleeding, infection, need for ostomy, abscess, hernia, leak, ureteral injury, dehiscence, anesthesia related complications reviewed. He understands and wishes to proceed. Current Visit: Yes Status: Acute Code(s): K57.92 - DVTRCLI OF INTEST, PART UNSP, W/O PERF OR ABSCESS W/O BLEED SNOMED Code(s): 694829447
[2021-07-30] MEDS ORDERED: IV FLUID CONTINUATION 1,000 ML IV ONE ×2 (13:15)
[2021-07-30] MEDS ORDERED: ONDANSETRON 4 MG/2 ML VIAL IVP ONE (13:29)
[2021-07-30] MEDS ORDERED: DEXAMETHASONE SOD PHOSPHATE 10 MG/ML 1 ML VIAL IVP ONE (13:30)
[2021-07-30] MEDS ORDERED: MIDAZOLAM 2 MG/2 ML VIAL IVP ONE (13:31)
[2021-07-30] MEDS ORDERED: NALOXONE 0.4 MG/ML 1 ML VIAL IV PRN (13:51)
--- NOTE | 2021-07-30 13:54 | P.ANPRN ---
Procedure Note - Anesthesia - Epidural/Spinal Epidural Time Out Performed: Yes Date of Procedure: 07/30/21 Procedure Start Time: 13:29 Procedure Stop Time: 13:36 Indication: Acute Post-Operative Pain, Requested by Surgeon Sedation Type: Sedate with meaningful contact maintained Preparation: Sterile Prep Position: Sitting Catheter: Indwelling Needle Guage: 18 Injectate: Test Dose Lidocaine1.5% w/1:200,000 epi (negative test) Narrative: STONEY @5, CATHETER AT 14CM. Blood Aspirated: No Pain Paresthesia on Injection Noted: No Events: Uneventful and Well Tolerated
[2021-07-30] MEDS ORDERED: SUCCINYLCHOLINE CHLORIDE 100 MG/5 ML SYR IV ONE (14:02)
[2021-07-30] MEDS ORDERED: MIDAZOLAM 2 MG/2 ML VIAL ONE (14:02)
[2021-07-30] MEDS ORDERED: PHENYLEPHRINE-0.9% NACL SYG 1,000 MCG/10 ML SYRINGE ONE (14:02)
[2021-07-30] MEDS ORDERED: NEOSTIGMINE 1 MG/ML 10 ML VIAL ONE (14:02)
[2021-07-30] MEDS ORDERED: fentaNYL (PF) 50 MCG/ML 2 ML AMP ONE (14:02)
[2021-07-30] MEDS ORDERED: GLYCOPYRROLATE 0.2 MG/ML 2 ML VIAL ONE (14:02)
[2021-07-30] MEDS ORDERED: LIDOCAINE 2% INJ 20 MG/ML (2 ML VIAL) ONE (14:02)
[2021-07-30] MEDS ORDERED: ROCURONIUM 10 MG/ML (5 ML VIAL) IV ONE (14:02)
[2021-07-30] MEDS ORDERED: BUPIVACAINE (PF) 0.25% 30 ML VIAL SQ ONE (14:36)
[2021-07-30] MEDS ORDERED: LACTATED RINGERS 1,000 ML IV ONE (14:44)
[2021-07-30] MEDS ORDERED: METOCLOPRAMIDE 5 MG/ML 2 ML VIAL IVP PRN (16:18)
--- NOTE | 2021-07-30 16:24 | P.OP ---
Date of Procedure: 07/30/21 Procedure(s) Performed: PREOPERATIVE DIAGNOSIS: Perforated sigmoid diverticulitis POSTOPERATIVE DIAGNOSIS: Same PROCEDURE: Sigmoid colectomy with end colostomy SURGEON: Nell EBL: 50 mL ANESTHESIA: General COMPLICATIONS: None OPERATIVE PROCEDURE: Patient place in the operative table in the supine position. The patient was placed under general anesthesia. The abdomen was prepped and draped in usual sterile fashion. A vertical incision was made encompassing extending from the suprapubic region above the umbilicus. The fascia was divided as well. Upon entrance into the peritoneal cavity a light semi-purulent fluid was identified. The Bookwalter retractor was utilized. There were small bowel loops that were gently adherence to the inflamed sigmoid colon loop. These were able to be lysed quite easily. The sigmoid colon just beyond the junction with the descending colon was adherent to the left pelvic sidewall. There was noted to be some air present within the retroperitoneum. As I mobilized the sigmoid colon bluntly away from the pelvic sidewall 1 and possibly 2 separate areas of perforation from the sigmoid colon was seen. Blunt dissection was utilized to mobilize the colon medially. The bowel was divided proximally and distally to this using a linear 75 stapler. The mesentery was divided using the LigaSure device. A small area of bleeding was controlled using a #2 [id number] Vicryl suture. The retroperitoneum was inspected. There was a tract present extending into the retroperitoneum along the mesentery of the sigmoid colon. This was bluntly dissected. Some additional purulence was evacuated from that area. Compressing the retroperitoneum on the left hand side allowed for the escape of some air bubbles. I did also bluntly dissect into the retroperitoneum proximal on the colonic mesentery and some additional air and light purulence was evacuated. The descending colon was further mobilized to allow for colostomy placement. Once I had enough length on the colon the abdomen was copiously irrigated with 3 L of saline. No further purulence was encountered at that time. A circular incision was made in the left midabdomen. Dissection through the subcutaneous fat and fascia took place using electrocautery. I bluntly entered the perineal cavity and this was further bluntly opened. The bowel was brought out through this defect in the left midabdomen. I placed a drain into the pelvis from the right lower quadrant. This drain extended into our retroperitoneal dissection as well. This was in place using a 3-0 silk stitch. The midline fascia was then reapproximated using 2 separate double-stranded #1 PDS sutures. The subcutaneous tissues were irrigated. The subcutaneous tissues were closed using 3-0 Vicryl sutures. The skin was then loosely reapproximated using keyon. The ostomy was then addressed. A portion of the pericolonic fat was removed using the LigaSure device. The staple line was then removed using electrocautery. The ostomy was then matured in a [place] fashion using interrupted 3-0 Vicryl sutures. An ostomy appliance was then applied. Sterile dressings were then applied to the midline incision. DISPOSITION: Stable to recovery room
[2021-07-30] MEDS: ROPIVACAINE 250 MG, HYDROMORPHONE (PF) 5 MG in SODIUM CHLORIDE 0.9% 200 ML EPIDURAL PRN ×2 (16:25→17:51)
[2021-07-30] MEDS ORDERED: MORPHINE SULFATE 4 MG/ML SYRINGE IVP ONE (17:30)
[2021-07-30] MEDS: ZOLPIDEM 5 MG TAB PO PRN (21:54)
--- NOTE | 2021-07-30 23:33 | P.PN ---
Subjective Progress Note Date: 07/30/21 This is a pleasant 70 male with past medical history of sarcoidosis, hypertension. Presents because of abdominal pain in the left lower quadrant about 10/10 inm severity and now feels better with pain medication , pain is not radiating much, non specific in character, no nausea or vomiting , no diarrhea , his last bowel movement was about 2 days ago. also he is not eating well over the last two days he denies chest pain or shortness of breath, no fever , no headache or dizziness, no weakens or numbness he denies smoking or alcohol or illicit drugs Hemodynamically stable and patient is afebrile. As leukocytosis with WBC 15k, INR 0.9 BMP showing mild low sodium 136, rest of BMP and liver enzymes are unremarkable. CT of the abdomen and pelvis with no contrast, perforated sigmoid colonic diverticulitis with extensive pneumoperitoneum throughout the mesentery and extending up into the upper abdomen around the distal esophagus. No evidence of organizing fluid collection to suggest abscess at this time. Nonobstructing right renal calculi.Septal emphysema changes. Prostatomegaly Patient currently on normal saline with 30 mL/h and Zosyn. 07/28/2021 Patient abdominal pain in the left lower quadrant is improving, no nausea vomiting today. However patient still nothing by mouth. He does not have bowel movement and passing gas. Blood pressure is slightly elevated and restarted his Cozaar. Later on tonight patient refused to take his night dose of Solu-Medrol because it gets somewhat agitated, restarted his Ambien at night dose as needed also give him a bolus of 500 mL and close monitoring. Labs are stable. Hemoglobin A1c is 5.4%. He remains on Solu-Medrol 40 mg twice daily, Flagyl and Zosyn and normal saline at 1 30 mL/h 07/29/2021 Patient awake and alert not in distress, he was started on liquid diet but he started developing pain in his left lower quadrant and some colic which comes and goes which concerned him, explanation provided for the patient. He is hemodynamically stable. Steroids discharged back to prednisone 10 mg orally. We added losartan 25 mg daily, we'll increase it to his home dose of 50 mg from tomorrow. Continue with IV fluids normal saline 1:30, Flagyl and Zosyn per surgery team will follow closely as well 07/30/2021 Patient evaluated today ambulating from the rest room. Denies nausea, denies vomiting. Has not had a BM in 2 days. He is scheduled to undergo surgical repair of perforated diverticula today. He is also following with pulmonary for history of pulmonary sarcoidosis, continues on oral prednisone daily. Labs today white count 11.4, hemoglobin 12.7, neutrophils 10.1, sodium 138, potassium 3.3, magnesium 1.9, calcium 7.9. Patient received 1 bag of IV potassium. We will repeat this afternoon. Temperature 90.9, heart rate 78, blood pressure 147/79, 96% room air. Currently complains of abdominal pain mainly left lower quadrant rating a 6 out of 10 states that the pain medication helps when he gets it ho wever he is currently requesting medication. Continues on IV metronidazole, IV Zosyn. Review of Systems Constitutional: Denied any fatigue denied any fever. Cardio vascular: denied any chest pain, palpitations Gastrointestinal: denied any nausea, vomiting, diarrhea. Reports abdominal pain, bloating. Pulmonary: Denied any shortness of breath cough Neurologic denied any new focal deficits All inpatient medications were reviewed and appropriate changes in these medications as dictated in the interval history and assessment and plan. PHYSICAL EXAMINATION: GENERAL: The patient is alert and oriented x3, not in any acute distress. Well developed, well nourished. HEENT: Pupils are round and equally reacting to light. EOMI. No scleral icterus. No conjunctival pallor. Normocephalic, atraumatic. No pharyngeal erythema. No thyromegaly. CARDIOVASCULAR: S1 and S2 present. No murmurs, rubs, or gallops. PULMONARY: Chest is clear to auscultation, no wheezing or crackles. ABDOMEN: Soft, tender, nondistended, hypoactive bowel sounds. No palpable organomegaly. MUSCULOSKELETAL: No joint swelling or deformity. EXTREMITIES: No cyanosis, clubbing, or pedal edema. NEUROLOGICAL: Gross neurological examination did not reveal any focal deficits. SKIN: No rashes. Assessment and Plan Assessment Acute abdominal pain secondary to acute diverticulitis, perforated sigmoid diverticulitis and extensive pneumoperitoneum scheduled to undergo surgical repair later today. Hypokalemia, improved after replacement therapy History of hypertension, currently normotensive - losartan has been increased prior to surgery, this may need to be adjusted to avoid postsurgical hypotension. History of sarcoidosis, on prednisone daily History of spontaneous pneumothorax Non obstructing right renal calculi Enlarged prostate GI Prophylaxis DVT Prophylaxis as per primary Full Code Plan Patient pending surgical intervention today Continue IV antibiotics Continue IV fluids Pain management Follow up labs in AM. Ordered incentive spirometer Thank you kindly for this consultation. The impression and plan of care has been dictated by Mae Quintana, Nurse Practitioner as directed. Dr. Larissa MD I have performed a history and physical examination and medical decision making of this patient, discussed the same with the dictator, and agree with the dictators assessment and plan as written, documented as a scribe. Based on total visit time, I have performed more than 50% of this visit. Objective - Vital Signs Vital signs: Vital Signs Temp 99.1 F 07/30/21 13:17 Pulse 91 07/30/21 13:17 Resp 16 07/30/21 13:17 BP 136/75 07/30/21 13:17 Pulse Ox 95 07/30/21 13:17 Intake & Output 07/29/21 07/30/21 07/30/21 18:59 06:59 18:59 Intake Total 1400 Balance 1400 Intake: Intake, IV Titration 1400 Amount Piperacillin-Tazobactam 3 200 .375 gm In Sodium Chloride 0.9% 100 ml @ 25 mls/hr IVPB Q8H [facility] Rx#: [id number] Sodium Chloride 0.9% 1, 1000 000 ml @ 130 mls/hr IV . Q7H42M [facility] Rx#:[id number] metroNIDAZOLE-NS PMX 500 200 mg In Saline 1 100ml.bag @ 100 mls/hr IVPB Q6H [facility]WAN[facility] Rx#:[id number] Other: Voiding Method Toilet Toilet # Voids 4 - Labs CBC & Chem 7: 07/30/21 08:27 07/30/21 17:47 Labs: Abnormal Lab Results - Last 24 Hours (Table) 07/30/21 07/30/21 Range/Units 08:27 08:27 WBC 11.4 H (3.8-10.6) k/uL RBC 3.91 L (4.30-5.90) m/uL Hgb 12.7 L (13.0-17.5) gm/dL Neutrophils # 10.1 H (1.3-7.7) k/uL Lymphocytes # 0.5 L (1.0-4.8) k/uL Potassium 3.3 L (3.5-5.1) mmol/L Calcium 7.9 L (8.4-10.2) mg/dL Assessment and Plan Time with Patient: Less than 30
[2021-07-31] MEDS: metroNIDAZOLE-NS PMX 500 MG in SALINE 1 100ML.BAG IVPB SCH ×4 (01:00→21:05)
[2021-07-31] MEDS: SODIUM CHLORIDE 0.9% 1,000 ML IV SCH ×4 (01:00→21:09)
[2021-07-31] MEDS: HEPARIN SODIUM,PORCINE/PF 5,000 UNIT/0.5 ML SYRINGE SQ SCH ×4 (01:00→22:28)
[2021-07-31] MEDS: LOSARTAN 50 MG TAB PO SCH ×2 (02:55→21:05)
[2021-07-31] MEDS: PIPERACILLIN-TAZOBACTAM 3.375 GM in SODIUM CHLORIDE 0.9% 100 ML IVPB SCH ×3 (04:00→17:25)
--- NOTE | 2021-07-31 07:37 | P.PN ---
Progress Note - Text Progress Note Date: 07/31/21 (262) Anesthesia Postop [day 1] Status post sigmoid colectomy with end colostomy with epidural [Day 2] Patient seen and examined. Doing well [without complaint]. VAS 0 out of 10. no nausea or vomiting. mild pruritus, instructed medications are available Ropivacaine 0.1% with Dilaudid 20 mcg/mL at 8 mL an hour. Objective: Vital signs reviewed Lungs: Good chest excursion Abdomen: Appears nondistended Other: Epidural Site Intact without induration. Dressing intact Neuro: No apparent motor block. Sensory within normal limits. Assessment: Status post sigmoid colectomy with end colostomy postop day 1 Plan: Continue current care with your medical management. Anticipate reevaluation tomorrow.
[2021-07-31] MEDS: predniSONE 10 MG TAB PO SCH (08:44)
[2021-07-31] MEDS: PANTOPRAZOLE 40 MG/10 ML VIAL IV SCH (08:45)
[2021-07-31 10:35] LABS: Basophils # (A) 0.03 X 10*3/uL (0.00-0.10); Basophils % (A) 0.2 %; Eosinophils # (A) 0 X 10*3/uL (0.04-0.35); Eosinophils % (A) 0 %; HGB 11.6 g/dL (13.0-17.0); Immature Grans, Automated 0.8 %; Lymphocytes # (A) 0.35 X 10*3/uL (0.90-5.00); Lymphocytes % (A) 2.2 %; MCH 31.4 pg (27.0-32.0); MCHC 32.2 g/dL (32.0-37.0); MCV 97.3 fL (80.0-97.0); Mean Platelet Volume 9.7 fL (9.5-12.2); Monocytes # (A) 0.58 X 10*3/uL (0.20-1.00); Monocytes % (A) 3.7 %; NRBC Per 100 WBC 0 /100 WBCS (0.0-0.0); Neutrophils # (A) 14.72 X 10*3/uL (1.80-7.70); Neutrophils % (A) 93.1 %; Platelet Count 335 X 10*3/uL (140-440); RDW 13.8 % (11.5-14.5)
--- NOTE | 2021-07-31 10:35 | P.PN ---
Subjective Progress Note Date: 07/31/21 This is a very pleasant 70-year-old male patient who follows with Dr. Jannie Camejo as his primary care provider. He has a history of hypertension, gastroesophageal reflux disease, former smoker. He also has a history of pulmonary sarcoidosis and follows with Dr. Gabriel in our office for the same. He is maintained on prednisone 10 mg daily. He also has a history of previous spontaneous pneumothorax. Most recently on the right side requiring video thorascopic exploration, resection of bullae and mechanical pleurodesis in October 2020. He presented here to the emergency room yesterday with complaints of abdominal pain mostly in the left lower quadrant. No previous history of diverticulitis. No fever or chills. Computed tomography scan of the abdomen and pelvis revealed a perforated sigmoid colonic diverticulitis with extensive pneumoperitoneum throughout the mesentery and extending up into the upper abdomen around the distal esophagus. No evidence of organizing fluid collection to suggest abscess at this time. There is a nonobstructive right renal calculi. He had been seen and evaluated by surgical services. No intervention planned at this time. White count 10.4. Hemoglobin 11.7. Sodium 136. Potassium 4.0. Chloride 102. Bicarb 27. BUN 19. Creatinine 1.04. AST 24. ALT 17. Lactic acid 1.4. He's been started on Zosyn and Flagyl. Normal saline at 130 ML's per hour. He is seen today in consultation on the regular medical floor. He is laying comfortably in bed. Awake and alert in no acute distress. His left lower quadrant abdominal pain is present but subsiding. He is maintaining O2 saturations in the 90s on room air. He's been afebrile. Hemodynamically stable. The patient is seen today in 07/28/2021 in follow-up on the regular medical floor. He is currently sitting up in bed. Awake and alert in no acute distress. His abdominal pain is improving. He is on room air. No IV fluids. He is continued on Zosyn and Flagyl. White count 9.9. Hemoglobin 11.7. Sodium 143. Potassium 4.2. BUN 15. Creatinine 0.9. Glucose 118. Heparin for DVT prophylaxis. He remains on IV Solu-Medrol, IV Protonix. Tolerating a clear liquid diet. The patient is seen today 07/31/2021 in follow-up on the regular medical floor. He did have ongoing issues with abdominal pain and subsequently had undergone a sigmoid colectomy with end colostomy performed yesterday 07/30/2021. Postoperative day #1. He is seen resting quite comfortably in bed. He is awake and alert in no acute distress. He is maintaining good O2 saturations in the 90s on room air. He is working well with the incentive spirometer pulling greater than 1500 ML's. He has normal saline running at 130 ML's per hour. He is tolerating a clear liquid diet. Epidural catheter in place for pain control utilizing ropivacaine and Dilaudid at 8 ML's/hour. Ostomy with a small amount of stool. CLAYTON drain in place with 70 ML's returned. Currently in a +1400 ML balance. He is continued on Flagyl and Zosyn. Objective - Vital Signs Vital signs: Vital Signs Temp 98.5 F 07/31/21 04:45 Pulse 88 07/31/21 04:45 Resp 16 07/31/21 04:45 BP 112/66 07/31/21 04:45 Pulse Ox 92 L 07/31/21 07:53 Intake & Output 07/30/21 07/31/21 07/31/21 18:59 06:59 18:59 Intake Total 1616.1 Output Total 400 600 70 Balance 1216.1 -600 -70 Weight 79.379 kg Intake: IV 1616.1 Output: Drainage 70 Abdomen 70 Urine 350 600 Estimated Blood Loss 50 Other: Voiding Method Indwelling Catheter - Exam GENERAL EXAM: Alert, 70-year-old male patient, on room air, comfortable in no apparent distress. HEAD: Normocephalic. EYES: Normal reaction of pupils, equal size. NOSE: Clear with pink turbinates. THROAT: No erythema or exudates. NECK: No masses, no JVD. CHEST: No chest wall deformity. LUNGS: Equal air entry with no crackles, wheeze, rhonchi or dullness. CVS: S1 and S2 normal with no audible murmur, regular rhythm. ABDOMEN: Abdominal incision clean and dry. Colostomy with a small amount of stool. CLAYTON drain in place. SPINE: Epidural in place. Dressing dry and intact. No scoliosis or deformity SKIN: No rashes CENTRAL NERVOUS SYSTEM: No focal deficits, tone is normal in all 4 extremities. EXTREMITIES: There is no peripheral edema. No clubbing, no cyanosis. Peripheral pulses are intact. - Labs CBC & Chem 7: 07/30/21 08:27 07/30/21 17:47 Assessment and Plan Assessment: 1 Acute abdominal pain secondary to perforated sigmoid diverticulitis with moderate amount of retroperitoneal air. Required surgery on 07/30/2021 with sigmoid colectomy and end colostomy. Postoperative day #1. On Zosyn and Flagyl. 2 History of sarcoidosis, currently inactive and stable, maintained on prednisone 10 mg daily in the outpatient setting 3 History of right-sided spontaneous pneumothorax status post video thorascopic exploration, resection of the bullae and mechanical pleurodesis in October 2020 4 History of gastroesophageal reflux disease 5 Former smoker 6 History of hypertension Plan: The patient was seen and evaluated Medications reviewed Epidural in place, ropivacaine/Dilaudid for pain control Continued on Zosyn and Flagyl Tolerating clear liquid diet Encouraged increased use of the incentive spirometer Increase his activity as tolerated We will continue to follow I have personally seen and examined the patient, performed the documentation and the assessment and plan as written. Number of minutes spent on the visit: 10.
[2021-07-31 10:55] LABS: African American GFR (CKD) 77.9 (60.0-200.0); Anion Gap 14.3 mmol/L (10.00-18.00); BUN/Creat Ratio 15.64 Ratio (12.00-20.00); Blood Urea Nitrogen 17.2 mg/dL (9.0-27.0); Calcium 7.9 mg/dL (8.7-10.3); Carbon Dioxide 19.7 mmol/L (20.0-27.5); Magnesium 2.4 mg/dL (1.5-2.4); Non-African American GFR(CKD) 67.2 (60.0-200.0); Potassium 4.5 mmol/L (3.5-5.5)
--- NOTE | 2021-07-31 12:53 | P.PN ---
Subjective Progress Note Date: 07/31/21 This is a pleasant 70 male with past medical history of sarcoidosis, hypertension. Presents because of abdominal pain in the left lower quadrant about 10/10 inm severity and now feels better with pain medication , pain is not radiating much, non specific in character, no nausea or vomiting , no diarrhea , his last bowel movement was about 2 days ago. also he is not eating well over the last two days he denies chest pain or shortness of breath, no fever , no headache or dizziness, no weakens or numbness he denies smoking or alcohol or illicit drugs Hemodynamically stable and patient is afebrile. As leukocytosis with WBC 15k, INR 0.9 BMP showing mild low sodium 136, rest of BMP and liver enzymes are unremarkable. CT of the abdomen and pelvis with no contrast, perforated sigmoid colonic diverticulitis with extensive pneumoperitoneum throughout the mesentery and extending up into the upper abdomen around the distal esophagus. No evidence of organizing fluid collection to suggest abscess at this time. Nonobstructing right renal calculi.Septal emphysema changes. Prostatomegaly Patient currently on normal saline with 30 mL/h and Zosyn. 07/28/2021 Patient abdominal pain in the left lower quadrant is improving, no nausea vomiting today. However patient still nothing by mouth. He does not have bowel movement and passing gas. Blood pressure is slightly elevated and restarted his Cozaar. Later on tonight patient refused to take his night dose of Solu-Medrol because it gets somewhat agitated, restarted his Ambien at night dose as needed also give him a bolus of 500 mL and close monitoring. Labs are stable. Hemoglobin A1c is 5.4%. He remains on Solu-Medrol 40 mg twice daily, Flagyl and Zosyn and normal saline at 1 30 mL/h 07/29/2021 Patient awake and alert not in distress, he was started on liquid diet but he started developing pain in his left lower quadrant and some colic which comes and goes which concerned him, explanation provided for the patient. He is hemodynamically stable. Steroids discharged back to prednisone 10 mg orally. We added losartan 25 mg daily, we'll increase it to his home dose of 50 mg from tomorrow. Continue with IV fluids normal saline 1:30, Flagyl and Zosyn per surgery team will follow closely as well 07/30/2021 Patient evaluated today ambulating from the rest room. Denies nausea, denies vomiting. Has not had a BM in 2 days. He is scheduled to undergo surgical repair of perforated diverticula today. He is also following with pulmonary for history of pulmonary sarcoidosis, continues on oral prednisone daily. Labs today white count 11.4, hemoglobin 12.7, neutrophils 10.1, sodium 138, potassium 3.3, magnesium 1.9, calcium 7.9. Patient received 1 bag of IV potassium. We will repeat this afternoon. Temperature 90.9, heart rate 78, blood pressure 147/79, 96% room air. Currently complains of abdominal pain mainly left lower quadrant rating a 6 out of 10 states that the pain medication helps when he gets it ho wever he is currently requesting medication. Continues on IV metronidazole, IV Zosyn. 07/31/2021 Post operative day #1 sigmoid colectomy with end colostomy secondary to perf orated sigmoid diverticula. Patient is monitored on medical floor. Afebrile, blood pressure 112/66. Saturating 92-94% on room air, incentive spirometer at the bedside which patient is able to achieve 1500. Continues on losartan 50 mg daily dose which was increased preoperatively. Continues on IV metronidazole, IV zosyn. Epidural is infusing for pain control. Tolerating clear liquid diet. He has gas and small amt of brown liquid stool through ostomy. Pulmonary services are also on consultation. Labs today showing WBC 15.8, hgb 11.6, potassium 4.5, calcium 7.6. Review of Systems Constitutional: Denied any fatigue denied any fever. Cardio vascular: denied any chest pain, palpitations Gastrointestinal: denied any nausea, vomiting, diarrhea. Having gas and stool through ostomy. Pulmonary: Denied any shortness of breath cough Neurologic denied any new focal deficits All inpatient medications were reviewed and appropriate changes in these medications as dictated in the interval history and assessment and plan. PHYSICAL EXAMINATION: GENERAL: The patient is alert and oriented x3, not in any acute distress. Well developed, well nourished. HEENT: Pupils are round and equally reacting to light. EOMI. No scleral icterus. No conjunctival pallor. Normocephalic, atraumatic. No pharyngeal erythema. No thyromegaly. CARDIOVASCULAR: S1 and S2 present. No murmurs, rubs, or gallops. PULMONARY: Chest is clear to auscultation, no wheezing or crackles. ABDOMEN: Soft, tender, nondistended, hypoactive bowel sounds. No palpable organomegaly. Post surgical abdomen with ostomy present left of midline. MUSCULOSKELETAL: No joint swelling or deformity. EXTREMITIES: No cyanosis, clubbing, or pedal edema. NEUROLOGICAL: Gross neurological examination did not reveal any focal deficits. SKIN: No rashes. Surgical dressing intact. Assessment and Plan Assessment Acute abdominal pain secondary to acute diverticulitis, perforated sigmoid diverticulitis and extensive pneumoperitoneum Post operative day # 1 sigmoid colectomy with end colostomy. Hypokalemia, improved after replacement therapy History of hypertension, currently normotensive - losartan has been increased prior to surgery, monitor for hypotension History of sarcoidosis, on prednisone daily History of spontaneous pneumothorax Non obstructing right renal calculi Enlarged prostate GI Prophylaxis DVT Prophylaxis as per primary Full Code Plan Clear liquid diet Continue IV antibiotics Continue IV fluids Pain management per primary Encourage ambulation, incentive spirometry Thank you kindly for this consultation. The impression and plan of care has been dictated by Mae Quintana, Nurse Practitioner as directed. Dr. Larissa MD I have performed a history and physical examination and medical decision making of this patient, discussed the same with the dictator, and agree with the dictators assessment and plan as written, documented as a scribe. Based on total visit time, I have performed more than 50% of this visit. Objective - Vital Signs Vital signs: Vital Signs Temp 98.5 F 07/31/21 04:45 Pulse 88 07/31/21 04:45 Resp 16 07/31/21 04:45 BP 112/66 07/31/21 04:45 Pulse Ox 92 L 07/31/21 07:53 Intake & Output 07/30/21 07/31/21 07/31/21 18:59 06:59 18:59 Intake Total 1616.1 Output Total 400 600 70 Balance 1216.1 -600 -70 Weight 79.379 kg Intake: IV 1616.1 Output: Drainage 70 Abdomen 70 Urine 350 600 Estimated Blood Loss 50 Other: Voiding Method Indwelling Catheter - Labs CBC & Chem 7: 07/31/21 06:30 07/31/21 06:30 Assessment and Plan Time with Patient: Less than 30
--- NOTE | 2021-07-31 12:53 | P.PN ---
Subjective Progress Note Date: 07/31/21 CHIEF COMPLAINT: Perforated sigmoid diverticulitis HISTORY OF PRESENT ILLNESS: Patient is postop day #1 status post sigmoid colectomy with end colostomy. He has epidural in place. He reports that his pain is controlled. Denies any nausea or vomiting. He is having liquidy brown stool through his ostomy. Coloring clear liquids. CLAYTON drain with 70 mL of serosanguineous output. Afebrile. WBC is up from 11.4-15.8 hemoglobin 11.6 platelets 335 sodium is 140 potassium 4.5 creatinine 1.1 magnesium 2.4 PHYSICAL EXAM: VITAL SIGNS: Reviewed. GENERAL: Well-developed in no acute distress. HEENT: No sclera icterus. Extraocular movements grossly intact. Moist buccal mucosa. Head is atraumatic, normocephalic. ABDOMEN: Soft. Incisional dressing there are 3 small areas of blood saturation noted. Ostomy with small amount of liquidy brown stool. Stoma beefy red. NEUROLOGIC: Alert and oriented. Cranial nerves II through XII grossly intact. ASSESSMENT: 1. Perforated sigmoid diverticulitis status post sigmoid colectomy with end colostomy PLAN: -Continue epidural catheter for pain -Continue clear liquid diet -Continue IV fluids -Continue antibiotics -Encouraged patient to use incentive spirometer -Encouraged patient to increase activity -DVT prophylaxis subcu heparin and GI prophylaxis Protonix Physician Financial Institution Treasurer note has been reviewed by physician. Signing provider agrees with the documented findings, assessment, and plan of care. I have personally seen and examined the patient, reviewed the CARD SELLER /PAs history, exam and MDM and agree with the assessment and plan as written. Based on total visit time, I have performed more than 50% of the visit. As above: Patient says his pain is much improved. Vital signs of been stable. Labs noted. Continue clear liquids. Increase activity. Objective - Vital Signs Vital signs: Vital Signs Temp 97.6 F 07/31/21 11:28 Pulse 77 07/31/21 11:28 Resp 16 07/31/21 11:28 BP 119/74 07/31/21 11:28 Pulse Ox 92 L 07/31/21 07:53 Intake & Output 07/30/21 07/31/21 07/31/21 18:59 06:59 18:59 Intake Total 1616.1 Output Total 400 600 70 Balance 1216.1 -600 -70 Weight 79.379 kg Intake: IV 1616.1 Output: Drainage 70 Abdomen 70 Urine 350 600 Estimated Blood Loss 50 Other: Voiding Method Indwelling Catheter Indwelling Catheter - Labs CBC & Chem 7: 07/31/21 06:30 07/31/21 06:30 Labs: Abnormal Lab Results - Last 24 Hours (Table) 07/31/21 07/31/21 Range/Units 06:30 06:30 WBC 15.80 H (4.50-10.00) X 10*3/uL RBC 3.70 L (4.40-5.60) X 10*6/uL Hgb 11.6 L (13.0-17.0) g/dL Hct 36.0 L (39.6-50.0) % MCV 97.3 H (80.0-97.0) fL Immature Gran # 0.12 H (0.00-0.04) X 10*3/uL Neutrophils # 14.72 H (1.80-7.70) X 10*3/uL Lymphocytes # 0.35 L (0.90-5.00) X 10*3/uL Eosinophils # 0 L (0.04-0.35) X 10*3/uL Carbon Dioxide 19.7 L (20.0-27.5) mmol/L Calcium 7.9 L (8.7-10.3) mg/dL
[2021-07-31 14:14] VITALS: BMI 25.1
[2021-07-31] MEDS: ROPIVACAINE 250 MG, HYDROMORPHONE (PF) 5 MG in SODIUM CHLORIDE 0.9% 200 ML EPIDURAL PRN (18:11)
[2021-07-31] MEDS: ZOLPIDEM 5 MG TAB PO PRN (22:28)
[2021-08-01] MEDS: PIPERACILLIN-TAZOBACTAM 3.375 GM in SODIUM CHLORIDE 0.9% 100 ML IVPB SCH ×3 (00:26→14:49)
[2021-08-01] MEDS: metroNIDAZOLE-NS PMX 500 MG in SALINE 1 100ML.BAG IVPB SCH ×4 (00:26→19:49)
[2021-08-01] MEDS: SODIUM CHLORIDE 0.9% 1,000 ML IV SCH ×3 (04:55→22:15)
--- NOTE | 2021-08-01 07:40 | P.PN ---
Progress Note - Text Progress Note Date: 08/01/21 A 70-year-old gentleman because of the #2 status post colectomy with thoracic epidural for pain control. Patient denies any pain around the incision. He denies any paresthesia or weakness in the lower extremities. We will plan on taking the epidural catheter out by tomorrow.
[2021-08-01] MEDS: PANTOPRAZOLE 40 MG/10 ML VIAL IV SCH (07:50)
[2021-08-01] MEDS: HEPARIN SODIUM,PORCINE/PF 5,000 UNIT/0.5 ML SYRINGE SQ SCH ×2 (07:51→14:50)
[2021-08-01] MEDS: predniSONE 10 MG TAB PO SCH (07:51)
[2021-08-01 09:07] LABS: Basophils # (A) 0.01 X 10*3/uL (0.00-0.10); Basophils % (A) 0.1 %; Eosinophils # (A) 0.03 X 10*3/uL (0.04-0.35); Eosinophils % (A) 0.3 %; HCT 33.5 % (39.6-50.0); HGB 11.2 g/dL (13.0-17.0); Lymphocytes % (A) 5.2 %; MCH 32.4 pg (27.0-32.0); MCHC 33.4 g/dL (32.0-37.0); MCV 96.8 fL (80.0-97.0); Mean Platelet Volume 10.1 fL (9.5-12.2); Monocytes % (A) 5.2 %; NRBC Per 100 WBC 0 /100 WBCS (0.0-0.0); Neutrophils # (A) 10.17 X 10*3/uL (1.80-7.70); Neutrophils % (A) 88.2 %; Platelet Count 315 X 10*3/uL (140-440); RBC 3.46 X 10*6/uL (4.40-5.60); WBC 11.52 X 10*3/uL (4.50-10.00)
--- NOTE | 2021-08-01 09:07 | P.PN ---
Subjective Progress Note Date: 08/01/21 This is a pleasant 70 male with past medical history of sarcoidosis, hypertension. Presents because of abdominal pain in the left lower quadrant about 10/10 inm severity and now feels better with pain medication , pain is not radiating much, non specific in character, no nausea or vomiting , no diarrhea , his last bowel movement was about 2 days ago. also he is not eating well over the last two days he denies chest pain or shortness of breath, no fever , no headache or dizziness, no weakens or numbness he denies smoking or alcohol or illicit drugs Hemodynamically stable and patient is afebrile. As leukocytosis with WBC 15k, INR 0.9 BMP showing mild low sodium 136, rest of BMP and liver enzymes are unremarkable. CT of the abdomen and pelvis with no contrast, perforated sigmoid colonic diverticulitis with extensive pneumoperitoneum throughout the mesentery and extending up into the upper abdomen around the distal esophagus. No evidence of organizing fluid collection to suggest abscess at this time. Nonobstructing right renal calculi.Septal emphysema changes. Prostatomegaly Patient currently on normal saline with 30 mL/h and Zosyn. 07/28/2021 Patient abdominal pain in the left lower quadrant is improving, no nausea vomiting today. However patient still nothing by mouth. He does not have bowel movement and passing gas. Blood pressure is slightly elevated and restarted his Cozaar. Later on tonight patient refused to take his night dose of Solu-Medrol because it gets somewhat agitated, restarted his Ambien at night dose as needed also give him a bolus of 500 mL and close monitoring. Labs are stable. Hemoglobin A1c is 5.4%. He remains on Solu-Medrol 40 mg twice daily, Flagyl and Zosyn and normal saline at 1 30 mL/h 07/29/2021 Patient awake and alert not in distress, he was started on liquid diet but he started developing pain in his left lower quadrant and some colic which comes and goes which concerned him, explanation provided for the patient. He is hemodynamically stable. Steroids discharged back to prednisone 10 mg orally. We added losartan 25 mg daily, we'll increase it to his home dose of 50 mg from tomorrow. Continue with IV fluids normal saline 1:30, Flagyl and Zosyn per surgery team will follow closely as well 07/30/2021 Patient evaluated today ambulating from the rest room. Denies nausea, denies vomiting. Has not had a BM in 2 days. He is scheduled to undergo surgical repair of perforated diverticula today. He is also following with pulmonary for history of pulmonary sarcoidosis, continues on oral prednisone daily. Labs today white count 11.4, hemoglobin 12.7, neutrophils 10.1, sodium 138, potassium 3.3, magnesium 1.9, calcium 7.9. Patient received 1 bag of IV potassium. We will repeat this afternoon. Temperature 90.9, heart rate 78, blood pressure 147/79, 96% room air. Currently complains of abdominal pain mainly left lower quadrant rating a 6 out of 10 states that the pain medication helps when he gets it ho wever he is currently requesting medication. Continues on IV metronidazole, IV Zosyn. 07/31/2021 Post operative day #1 sigmoid colectomy with end colostomy secondary to perf orated sigmoid diverticula. Patient is monitored on medical floor. Afebrile, blood pressure 112/66. Saturating 92-94% on room air, incentive spirometer at the bedside which patient is able to achieve 1500. Continues on losartan 50 mg daily dose which was increased preoperatively. Continues on IV metronidazole, IV zosyn. Epidural is infusing for pain control. Tolerating clear liquid diet. He has gas and small amt of brown liquid stool through ostomy. Pulmonary services are also on consultation. Labs today showing WBC 15.8, hgb 11.6, potassium 4.5, calcium 7.6. 08/01/2021 Patient is evaluated today on bedrest, postoperative day #2. Epidural is infusing states he is having zero pain. Plan is for epidural to be removed tomorrow per patient. He is producing gas and stool from the ostomy. CLAYTON drain in place with serosanguineous drainage. Continues with indwelling catheter, urine is clear yellow. Continues with IV fluids. Appetite is fair, he would like more than clear liquid diet. He is using incentive spirometer. Denies chest pain, shortness of breath. No acute issues overnight. groundwater monitoring technician can be discontinued. Had concerns with blood pressure on the lower side and taking his losartan. Blood pressure in the 140's systolic today, decreased losartan to 25 m g po HS. Labs today are pending. Review of Systems Constitutional: Denied any fatigue denied any fever. Cardio vascular: denied any chest pain, palpitations Gastrointestinal: denied any nausea, vomiting, diarrhea. Having gas and stool through ostomy. Pulmonary: Denied any shortness of breath cough Neurologic denied any new focal deficits All inpatient medications were reviewed and appropriate changes in these medications as dictated in the interval history and assessment and plan. PHYSICAL EXAMINATION: GENERAL: The patient is alert and oriented x3, not in any acute distress. Well developed, well nourished. HEENT: Pupils are round and equally reacting to light. EOMI. No scleral icterus. No conjunctival pallor. Normocephalic, atraumatic. No pharyngeal erythema. No thyromegaly. CARDIOVASCULAR: S1 and S2 present. No murmurs, rubs, or gallops. PULMONARY: Chest is clear to auscultation, no wheezing or crackles. ABDOMEN: Soft, tender, nondistended, hypoactive bowel sounds. No palpable organomegaly. Post surgical abdomen with ostomy present left of midline. MUSCULOSKELETAL: No joint swelling or deformity. EXTREMITIES: No cyanosis, clubbing, or pedal edema. NEUROLOGICAL: Gross neurological examination did not reveal any focal deficits. SKIN: No rashes. Surgical dressing intact. Assessment and Plan Assessment Acute abdominal pain secondary to acute diverticulitis, perforated sigmoid diverticulitis and extensive pneumoperitoneum Post operative day # 2 sigmoid colectomy with end colostomy. Hypokalemia, improved after replacement therapy History of hypertension History of sarcoidosis, on prednisone daily History of spontaneous pneumothorax Non obstructing right renal calculi Enlarged prostate GI Prophylaxis DVT Prophylaxis as per primary Full Code Plan Discontinue cardiac ekg monitor Decrease losartan to 25 mg PO HS Diet per primary Continue IV antibiotics Continue IV fluids Pain management per primary, plan is for epidural to be discontinued tomorrow IDC to be removed when patient ambulatory and epidural is removed Encourage ambulation, incentive spirometry Thank you kindly for this consultation. The impression and plan of care has been dictated by Mae Quintana, Nurse Practitioner as directed. Dr. Larissa MD I have performed a history and physical examination and medical decision making of this patient, discussed the same with the dictator, and agree with the dictators assessment and plan as written, documented as a scribe. Based on total visit time, I have performed more than 50% of this visit. Objective - Vital Signs Vital signs: Vital Signs Temp 98.2 F 08/01/21 05:13 Pulse 84 05/18/22 08:30 Resp 18 08/01/21 05:13 BP 141/68 08/01/21 08:30 Pulse Ox 95 08/01/21 05:13 Intake & Output 07/31/21 08/01/21 08/01/21 18:59 06:59 18:59 Intake Total 100 Output Total 347 410 Balance -347 -310 Weight 79.379 kg Intake: Intake, IV Titration 100 Amount Piperacillin-Tazobactam 3 100 .375 gm In Sodium Chloride 0.9% 100 ml @ 25 mls/hr IVPB Q8HR [facility] Rx# :[id number] Output: Drainage 70 10 Abdomen 70 10 Urine 275 300 Stool 2 100 Other: Voiding Method Indwelling Catheter Indwelling Catheter - Labs CBC & Chem 7: 07/31/21 06:30 07/31/21 06:30 Labs: Abnormal Lab Results - Last 24 Hours (Table) 07/31/21 07/31/21 Range/Units 06:30 06:30 WBC 15.80 H (4.50-10.00) X 10*3/uL RBC 3.70 L (4.40-5.60) X 10*6/uL Hgb 11.6 L (13.0-17.0) g/dL Hct 36.0 L (39.6-50.0) % MCV 97.3 H (80.0-97.0) fL Immature Gran # 0.12 H (0.00-0.04) X 10*3/uL Neutrophils # 14.72 H (1.80-7.70) X 10*3/uL Lymphocytes # 0.35 L (0.90-5.00) X 10*3/uL Eosinophils # 0 L (0.04-0.35) X 10*3/uL Carbon Dioxide 19.7 L (20.0-27.5) mmol/L Calcium 7.9 L (8.7-10.3) mg/dL Assessment and Plan Time with Patient: Less than 30
[2021-08-01 10:16] LABS: African American GFR (CKD) 81.4 (60.0-200.0); Anion Gap 7.8 mmol/L (10.00-18.00); BUN/Creat Ratio 19.53 Ratio (12.00-20.00); Blood Urea Nitrogen 20.7 mg/dL (9.0-27.0); Calcium 7.9 mg/dL (8.7-10.3); Carbon Dioxide 23.2 mmol/L (20.0-27.5); Non-African American GFR(CKD) 70.3 (60.0-200.0); Potassium 3.7 mmol/L (3.5-5.5)
--- NOTE | 2021-08-01 10:54 | P.PN ---
Subjective Progress Note Date: 08/01/21 This is a very pleasant 70-year-old male patient who follows with Dr. Jannie Camejo as his primary care provider. He has a history of hypertension, gastroesophageal reflux disease, former smoker. He also has a history of pulmonary sarcoidosis and follows with Dr. Gabriel in our office for the same. He is maintained on prednisone 10 mg daily. He also has a history of previous spontaneous pneumothorax. Most recently on the right side requiring video thorascopic exploration, resection of bullae and mechanical pleurodesis in October 2020. He presented here to the emergency room yesterday with complaints of abdominal pain mostly in the left lower quadrant. No previous history of diverticulitis. No fever or chills. Computed tomography scan of the abdomen and pelvis revealed a perforated sigmoid colonic diverticulitis with extensive pneumoperitoneum throughout the mesentery and extending up into the upper abdomen around the distal esophagus. No evidence of organizing fluid collection to suggest abscess at this time. There is a nonobstructive right renal calculi. He had been seen and evaluated by surgical services. No intervention planned at this time. White count 10.4. Hemoglobin 11.7. Sodium 136. Potassium 4.0. Chloride 102. Bicarb 27. BUN 19. Creatinine 1.04. AST 24. ALT 17. Lactic acid 1.4. He's been started on Zosyn and Flagyl. Normal saline at 130 ML's per hour. He is seen today in consultation on the regular medical floor. He is laying comfortably in bed. Awake and alert in no acute distress. His left lower quadrant abdominal pain is present but subsiding. He is maintaining O2 saturations in the 90s on room air. He's been afebrile. Hemodynamically stable. The patient is seen today in 07/28/2021 in follow-up on the regular medical floor. He is currently sitting up in bed. Awake and alert in no acute distress. His abdominal pain is improving. He is on room air. No IV fluids. He is continued on Zosyn and Flagyl. White count 9.9. Hemoglobin 11.7. Sodium 143. Potassium 4.2. BUN 15. Creatinine 0.9. Glucose 118. Heparin for DVT prophylaxis. He remains on IV Solu-Medrol, IV Protonix. Tolerating a clear liquid diet. The patient is seen today 07/31/2021 in follow-up on the regular medical floor. He did have ongoing issues with abdominal pain and subsequently had undergone a sigmoid colectomy with end colostomy performed yesterday 07/30/2021. Postoperative day #1. He is seen resting quite comfortably in bed. He is awake and alert in no acute distress. He is maintaining good O2 saturations in the 90s on room air. He is working well with the incentive spirometer pulling greater than 1500 ML's. He has normal saline running at 130 ML's per hour. He is tolerating a clear liquid diet. Epidural catheter in place for pain control utilizing ropivacaine and Dilaudid at 8 ML's/hour. Ostomy with a small amount of stool. CLAYTON drain in place with 70 ML's returned. Currently in a +1400 ML balance. He is continued on Flagyl and Zosyn. The patient is seen today 08/01/2021 in follow-up on the regular medical floor. He is awake and alert in no acute distress. Postoperative day #2. He continues to maintain good O2 saturations in the mid 90s on room air. He is working with the incentive spirometer. He is afebrile. Hemodynamically stable. White count 11.5. Hemoglobin 11.2. Sodium 137. Potassium 3.7. BUN 21. Creatinine 1.1. He remains on Zosyn and Flagyl. Heparin for DVT prophylaxis. Tolerating a cl ear liquid diet. Ostomy function. Objective - Vital Signs Vital signs: Vital Signs Temp 98.2 F 08/01/21 05:13 Pulse 68 08/01/21 08:40 Resp 18 08/01/21 08:40 BP 141/68 08/01/21 08:30 Pulse Ox 95 08/01/21 05:13 Intake & Output 07/31/21 08/01/21 08/01/21 18:59 06:59 18:59 Intake Total 100 Output Total 347 410 100 Balance -347 -310 -100 Weight 79.379 kg Intake: Intake, IV Titration 100 Amount Piperacillin-Tazobactam 3 100 .375 gm In Sodium Chloride 0.9% 100 ml @ 25 mls/hr IVPB Q8HR [facility] Rx# :[id number] Output: Drainage 70 10 Abdomen 70 10 Urine 275 300 Stool 2 100 100 Other: Voiding Method Indwelling Catheter Indwelling Catheter Indwelling Catheter - Exam GENERAL EXAM: Alert, 70-year-old male patient, on room air, oxygen saturation 95%, comfortable in no apparent distress. HEAD: Normocephalic. EYES: Normal reaction of pupils, equal size. NOSE: Clear with pink turbinates. THROAT: No erythema or exudates. NECK: No masses, no JVD. CHEST: No chest wall deformity. LUNGS: Equal air entry with no crackles, wheeze, rhonchi or dullness. CVS: S1 and S2 normal with no audible murmur, regular rhythm. ABDOMEN: Abdominal incision clean and dry. Colostomy with a small amount of stool. CLAYTON drain in place. SPINE: Epidural in place. Dressing dry and intact. No scoliosis or deformity SKIN: No rashes CENTRAL NERVOUS SYSTEM: No focal deficits, tone is normal in all 4 extremities. EXTREMITIES: There is no peripheral edema. No clubbing, no cyanosis. Peripheral pulses are intact. - Labs CBC & Chem 7: 08/01/21 05:42 08/01/21 05:42 Labs: Abnormal Lab Results - Last 24 Hours (Table) 07/31/21 08/01/21 08/01/21 Range/Units 06:30 05:42 05:42 WBC 11.52 H (4.50-10.00) X 10*3/uL RBC 3.46 L (4.40-5.60) X 10*6/uL Hgb 11.2 L (13.0-17.0) g/dL Hct 33.5 L (39.6-50.0) % MCH 32.4 H (27.0-32.0) pg Immature Gran # 0.11 H (0.00-0.04) X 10*3/uL Neutrophils # 10.17 H (1.80-7.70) X 10*3/uL Lymphocytes # 0.60 L (0.90-5.00) X 10*3/uL Eosinophils # 0.03 L (0.04-0.35) X 10*3/uL Carbon Dioxide 19.7 L (20.0-27.5) mmol/L Anion Gap 7.80 L (10.00-18.00) mmol/L Calcium 7.9 L 7.9 L (8.7-10.3) mg/dL Assessment and Plan Assessment: 1 Acute abdominal pain secondary to perforated sigmoid diverticulitis with moderate amount of retroperitoneal air. Required surgery on 07/30/2021 with sigmoid colectomy and end colostomy. Postoperative day #2. On Zosyn and Flagyl. 2 History of sarcoidosis, currently inactive and stable, maintained on prednisone 10 mg daily in the outpatient setting 3 History of right-sided spontaneous pneumothorax status post video thorascopic exploration, resection of the bullae and mechanical pleurodesis in October 2020 4 History of gastroesophageal reflux disease 5 Former smoker 6 History of hypertension Plan: The patient was seen and evaluated Medications and labs reviewed Continued on Zosyn and Flagyl Tolerating clear liquid diet Encouraged increased use of the incentive spirometer Increase his activity as tolerated Stable and on room air We will see as needed I have personally seen and examined the patient, performed the documentation and the assessment and plan as written. Number of minutes spent on the visit: 10.
--- NOTE | 2021-08-01 14:51 | P.PN ---
Subjective Progress Note Date: 08/01/21 CHIEF COMPLAINT: Perforated sigmoid diverticulitis HISTORY OF PRESENT ILLNESS: Patient is postop day #2 status post sigmoid colectomy with end colostomy. He has epidural in place. He reports that his pain is controlled. Denies any nausea or vomiting. He is having liquidy brown stool through his ostomy. He is tolerating clear liquids. CLAYTON drain with 40 mL of serosanguineous output. Patient did sit at bedside chair yesterday. Afebrile. WBC is down from 15.8-11.5 Hgb 11.2 PHYSICAL EXAM: VITAL SIGNS: Reviewed. GENERAL: Well-developed in no acute distress. HEENT: No sclera icterus. Extraocular movements grossly intact. Moist buccal mucosa. Head is atraumatic, normocephalic. ABDOMEN: Soft. Incisional dressing there are 3 small areas of blood saturation noted. Ostomy with small amount of liquidy brown stool. Stoma beefy red. NEUROLOGIC: Alert and oriented. Cranial nerves II through XII grossly intact. ASSESSMENT: 1. Perforated sigmoid diverticulitis status post sigmoid colectomy with end colostomy PLAN: -Continue epidural catheter for pain -Continue clear liquid diet -Continue IV fluids -Continue antibiotics -Encouraged patient to use incentive spirometer -Encouraged patient to increase activity -DVT prophylaxis subcu heparin and GI prophylaxis Protonix Physician Belt Changer note has been reviewed by physician. Signing provider agrees with the documented findings, assessment, and plan of care. I have personally seen and examined the patient, reviewed the PEBBLE MILL OPERATOR /PAs history, exam and MDM and agree with the assessment and plan as written. Based on total visit time, I have performed more than 50% of the visit. As above: Patient doing well today. Pain is controlled. Continue clear liquid diet. Await return bowel function. Ambulate. Objective - Vital Signs Vital signs: Vital Signs Temp 98.2 F 08/01/21 05:13 Pulse 68 08/01/21 08:40 Resp 18 08/01/21 08:40 BP 141/68 08/01/21 08:30 Pulse Ox 95 08/01/21 05:13 Intake & Output 07/31/21 08/01/21 08/01/21 18:59 06:59 18:59 Intake Total 100 Output Total 153 014 918 Balance -079 -061 -940 Weight 79.379 kg Intake: Intake, IV Titration 100 Amount Piperacillin-Tazobactam 3 100 .375 gm In Sodium Chloride 0.9% 100 ml @ 25 mls/hr IVPB Q8HR [facility] Rx# :[id number] Output: Drainage 70 10 30 Abdomen 70 10 30 Urine 275 300 500 Stool 2 100 100 Other: Voiding Method Indwelling Catheter Indwelling Catheter Indwelling Catheter - Labs CBC & Chem 7: 08/01/21 05:42 08/01/21 05:42 Labs: Abnormal Lab Results - Last 24 Hours (Table) 08/01/21 08/01/21 Range/Units 05:42 05:42 WBC 11.52 H (4.50-10.00) X 10*3/uL RBC 3.46 L (4.40-5.60) X 10*6/uL Hgb 11.2 L (13.0-17.0) g/dL Hct 33.5 L (39.6-50.0) % MCH 32.4 H (27.0-32.0) pg Immature Gran # 0.11 H (0.00-0.04) X 10*3/uL Neutrophils # 10.17 H (1.80-7.70) X 10*3/uL Lymphocytes # 0.60 L (0.90-5.00) X 10*3/uL Eosinophils # 0.03 L (0.04-0.35) X 10*3/uL Anion Gap 7.80 L (10.00-18.00) mmol/L Calcium 7.9 L (8.7-10.3) mg/dL
[2021-08-01] MEDS: ZOLPIDEM 5 MG TAB PO PRN (22:13)
[2021-08-02] MEDS: ROPIVACAINE 250 MG, HYDROMORPHONE (PF) 5 MG in SODIUM CHLORIDE 0.9% 200 ML EPIDURAL PRN (00:31)
[2021-08-02] MEDS: metroNIDAZOLE-NS PMX 500 MG in SALINE 1 100ML.BAG IVPB SCH ×4 (00:36→19:10)
[2021-08-02] MEDS: HEPARIN SODIUM,PORCINE/PF 5,000 UNIT/0.5 ML SYRINGE SQ SCH ×3 (00:37→15:35)
[2021-08-02] MEDS: PIPERACILLIN-TAZOBACTAM 3.375 GM in SODIUM CHLORIDE 0.9% 100 ML IVPB SCH ×3 (00:37→15:36)
[2021-08-02] MEDS: predniSONE 10 MG TAB PO SCH (08:45)
[2021-08-02] MEDS: PANTOPRAZOLE 40 MG/10 ML VIAL IV SCH (08:45)
[2021-08-02] MEDS: SODIUM CHLORIDE 0.9% 1,000 ML IV SCH ×3 (08:46→20:34)
[2021-08-02] MEDS ORDERED: LOSARTAN 25 MG TAB PO SCH (09:00)
[2021-08-02] MEDS: HYDROmorphone 1 MG/ML 1 ML SYRINGE IVP PRN ×3 (10:12→22:08)
--- NOTE | 2021-08-02 10:27 | P.PN ---
Progress Note - Text Progress Note Date: 08/02/21 (0447) Anesthesia Postop day #3 Status post sigmoid colectomy with end colostomy with epidural day #4 Patient seen and examined. Doing well without complaint. VAS 0 out of 10. No nausea vomiting or pruritus. Ropivacaine 0.1% with Dilaudid 20 mcg/mL at 8 mL an hour. Objective: Vital signs reviewed Lungs: Good chest excursion Abdomen: Appears nondistended Other: Epidural Site Intact without induration. Dressing intact Neuro: No apparent motor block. Sensory within normal limits. Assessment: Status post sigmoid colectomy with end colostomy postop day #3 Plan: Your medical management. Epidural to be DC'd. Discussed with nurse subcu heparin held this morning. Epidural to be pulled before next subcu heparin dose.
[2021-08-02 10:28] LABS: Basophils % (A) 1 %; Eosinophils # (A) 0.2 k/uL (0-0.7); Eosinophils % (A) 3 %; Lymphocytes # (A) 0.6 k/uL (1.0-4.8); Lymphocytes % (A) 8 %; MCH 31.8 pg (25.0-35.0); MCHC 32.4 g/dL (31.0-37.0); MCV 98.2 fL (80.0-100.0); Monocytes # (A) 0.4 k/uL (0-1.0); Monocytes % (A) 5 %; Neutrophils # (A) 6.1 k/uL (1.3-7.7); Neutrophils % (A) 82 %; Platelet Count 401 k/uL (150-450); RBC 3.77 m/uL (4.30-5.90); RDW 13.4 % (11.5-15.5); WBC 7.5 k/uL (3.8-10.6)
--- NOTE | 2021-08-02 10:38 | P.PN ---
Subjective Progress Note Date: 08/02/21 This is a pleasant 70 male with past medical history of sarcoidosis, hypertension. Presents because of abdominal pain in the left lower quadrant about 10/10 inm severity and now feels better with pain medication , pain is not radiating much, non specific in character, no nausea or vomiting , no diarrhea , his last bowel movement was about 2 days ago. also he is not eating well over the last two days he denies chest pain or shortness of breath, no fever , no headache or dizziness, no weakens or numbness he denies smoking or alcohol or illicit drugs Hemodynamically stable and patient is afebrile. As leukocytosis with WBC 15k, INR 0.9 BMP showing mild low sodium 136, rest of BMP and liver enzymes are unremarkable. CT of the abdomen and pelvis with no contrast, perforated sigmoid colonic diverticulitis with extensive pneumoperitoneum throughout the mesentery and extending up into the upper abdomen around the distal esophagus. No evidence of organizing fluid collection to suggest abscess at this time. Nonobstructing right renal calculi.Septal emphysema changes. Prostatomegaly Patient currently on normal saline with 30 mL/h and Zosyn. 07/28/2021 Patient abdominal pain in the left lower quadrant is improving, no nausea vomiting today. However patient still nothing by mouth. He does not have bowel movement and passing gas. Blood pressure is slightly elevated and restarted his Cozaar. Later on tonight patient refused to take his night dose of Solu-Medrol because it gets somewhat agitated, restarted his Ambien at night dose as needed also give him a bolus of 500 mL and close monitoring. Labs are stable. Hemoglobin A1c is 5.4%. He remains on Solu-Medrol 40 mg twice daily, Flagyl and Zosyn and normal saline at 1 30 mL/h 07/29/2021 Patient awake and alert not in distress, he was started on liquid diet but he started developing pain in his left lower quadrant and some colic which comes and goes which concerned him, explanation provided for the patient. He is hemodynamically stable. Steroids discharged back to prednisone 10 mg orally. We added losartan 25 mg daily, we'll increase it to his home dose of 50 mg from tomorrow. Continue with IV fluids normal saline 1:30, Flagyl and Zosyn per surgery team will follow closely as well 07/30/2021 Patient evaluated today ambulating from the rest room. Denies nausea, denies vomiting. Has not had a BM in 2 days. He is scheduled to undergo surgical repair of perforated diverticula today. He is also following with pulmonary for history of pulmonary sarcoidosis, continues on oral prednisone daily. Labs today white count 11.4, hemoglobin 12.7, neutrophils 10.1, sodium 138, potassium 3.3, magnesium 1.9, calcium 7.9. Patient received 1 bag of IV potassium. We will repeat this afternoon. Temperature 90.9, heart rate 78, blood pressure 147/79, 96% room air. Currently complains of abdominal pain mainly left lower quadrant rating a 6 out of 10 states that the pain medication helps when he gets it ho wever he is currently requesting medication. Continues on IV metronidazole, IV Zosyn. 07/31/2021 Post operative day #1 sigmoid colectomy with end colostomy secondary to perf orated sigmoid diverticula. Patient is monitored on medical floor. Afebrile, blood pressure 112/66. Saturating 92-94% on room air, incentive spirometer at the bedside which patient is able to achieve 1500. Continues on losartan 50 mg daily dose which was increased preoperatively. Continues on IV metronidazole, IV zosyn. Epidural is infusing for pain control. Tolerating clear liquid diet. He has gas and small amt of brown liquid stool through ostomy. Pulmonary services are also on consultation. Labs today showing WBC 15.8, hgb 11.6, potassium 4.5, calcium 7.6. 08/01/2021 Patient is evaluated today on bedrest, postoperative day #2. Epidural is infusing states he is having zero pain. Plan is for epidural to be removed tomorrow per patient. He is producing gas and stool from the ostomy. CLAYTON drain in place with serosanguineous drainage. Continues with indwelling catheter, urine is clear yellow. Continues with IV fluids. Appetite is fair, he would like more than clear liquid diet. He is using incentive spirometer. Denies chest pain, shortness of breath. No acute issues overnight. lunchroom monitor can be discontinued. Had concerns with blood pressure on the lower side and taking his losartan. Blood pressure in the 140's systolic today, decreased losartan to 25 m g po HS. Labs today are pending. 08/02/2021 Patient evaluated today, he was up in the chair yesterday. plan for epidural to be removed today. He is post operative day #3, having stool and gas from ostomy. Denies pain, no acute events overnight. Denies shortness of breath. He is on clear liquid diet. Continues on IV antibiotics. Evaluation and education by ostomy nurse was completed. Blood pressure in the 160's if he continues to be elevated will increase losartan back up to 50 mg. White count 7.5, hgb 12.0. Potassium level is pending. Review of Systems Constitutional: Denied any fatigue denied any fever. Cardio vascular: denied any chest pain, palpitations Gastrointestinal: denied any nausea, vomiting, diarrhea. Having gas and stool through ostomy. Pulmonary: Denied any shortness of breath cough Neurologic denied any new focal deficits All inpatient medications were reviewed and appropriate changes in these medications as dictated in the interval history and assessment and plan. PHYSICAL EXAMINATION: GENERAL: The patient is alert and oriented x3, not in any acute distress. Well developed, well nourished. HEENT: Pupils are round and equally reacting to light. EOMI. No scleral icterus. No conjunctival pallor. Normocephalic, atraumatic. No pharyngeal erythema. No thyromegaly. CARDIOVASCULAR: S1 and S2 present. No murmurs, rubs, or gallops. PULMONARY: Chest is clear to auscultation, no wheezing or crackles. ABDOMEN: Soft, tender, nondistended, hypoactive bowel sounds. No palpable organomegaly. Post surgical abdomen with ostomy present left of midline. MUSCULOSKELETAL: No joint swelling or deformity. EXTREMITIES: No cyanosis, clubbing, or pedal edema. NEUROLOGICAL: Gross neurological examination did not reveal any focal deficits. SKIN: No rashes. Surgical dressing intact. Assessment and Plan Assessment Acute abdominal pain secondary to acute diverticulitis, perforated sigmoid diverticulitis and extensive pneumoperitoneum Post operative day # 3 sigmoid colectomy with end colostomy. Hypokalemia, improved after replacement therapy History of hypertension History of sarcoidosis, on prednisone daily History of spontaneous pneumothorax Non obstructing right renal calculi Enlarged prostate GI Prophylaxis DVT Prophylaxis as per primary Full Code Plan Diet per primary Continue IV antibiotics Continue IV fluids Pain management per primary, plan is for epidural to be removed today IDC to be removed when patient ambulatory and epidural is removed Encourage ambulation, incentive spirometry Thank you kindly for this consultation. The impression and plan of care has been dictated by Mae Quintana, Nurse Practitioner as directed. Dr. Larissa MD I have performed a history and physical examination and medical decision making of this patient, discussed the same with the dictator, and agree with the dictators assessment and plan as written, documented as a scribe. Based on total visit time, I have performed more than 50% of this visit. Objective - Vital Signs Vital signs: Vital Signs Temp 98.3 F 08/02/21 05:32 Pulse 75 08/02/21 05:32 Resp 18 08/02/21 05:32 BP 165/82 08/02/21 05:32 Pulse Ox 97 08/02/21 05:32 Intake & Output 08/01/21 08/02/21 08/02/21 18:59 06:59 18:59 Intake Total 242.667 480 Output Total 630 2020 Balance -882 -6107.333 480 Intake: Intake, IV Titration 242.667 Amount Ropivacaine 250 mg 242.667 Hydromorphone (Pf) 5 mg In Sodium Chloride 0.9% 200 ml @ Per Protocol EPIDURAL .Q0M PRN Rx#: [id number] Oral 480 Output: Drainage 30 20 Abdomen 30 20 Urine 500 1900 Uretheral (Saenz) 1900 Stool 100 100 Other: Voiding Method Indwelling Catheter Indwelling Catheter - Labs CBC & Chem 7: 08/02/21 09:52 08/01/21 05:42 Labs: Abnormal Lab Results - Last 24 Hours (Table) 08/01/21 Range/Units 05:42 Anion Gap 7.80 L (10.00-18.00) mmol/L Calcium 7.9 L (8.7-10.3) mg/dL Assessment and Plan Time with Patient: Less than 30
[2021-08-02] MEDS ORDERED: Potassium Replacement Protocol 1 EACH MISC MISCELLANE PRN (13:24)
[2021-08-02] MEDS: POTASSIUM CHLORIDE ER 20 MEQ TAB.ER PO SCH ×2 (14:03→15:36)
--- NOTE | 2021-08-02 14:21 | P.PN ---
Subjective Progress Note Date: 08/02/21 CHIEF COMPLAINT: Perforated sigmoid diverticulitis HISTORY OF PRESENT ILLNESS: Patient is postop day #3 status post sigmoid colectomy with end colostomy. Patient's epidural discontinued today and Saenz catheter will be discontinued later. He is tolerating clear liquids. He reports his pain is okay. Denies any nausea or vomiting. Afebrile. WBC 11.52 down to 7.5 hemoglobin is 12 platelets 401 potassium is 3.4 PHYSICAL EXAM: VITAL SIGNS: Reviewed. GENERAL: Well-developed in no acute distress. HEENT: No sclera icterus. Extraocular movements grossly intact. Moist buccal mucosa. Head is atraumatic, normocephalic. ABDOMEN: Soft. Incisional dressing there are 3 small areas of blood saturation noted. Ostomy with small amount of liquidy brown stool. Stoma beefy red. NEUROLOGIC: Alert and oriented. Cranial nerves II through XII grossly intact. ASSESSMENT: 1. Perforated sigmoid diverticulitis status post sigmoid colectomy with end colostomy PLAN: -Epidural fluid catheter to be discontinued today -Continue clear liquid diet -Continue IV fluids -Continue antibiotics -Encouraged patient to use incentive spirometer -Encouraged patient to increase activity -Potassium being replaced -DVT prophylaxis subcu heparin and GI prophylaxis Protonix Physician [employer] note has been reviewed by physician. Signing provider agrees with the documented findings, assessment, and plan of care. I have personally seen and examined the patient, reviewed the SEARCH SPECIALIST /PAs history, exam and MDM and agree with the assessment and plan as written. Based on total visit time, I have performed more than 50% of the visit. As above: Patient doing well today. Saenz catheter and epidural catheter remov ed. Still passing flatus. Tolerating clears. He has been more active. Very small amount of serosanguineous drainage near the umbilicus on exam. Ostomy teaching to start today. We'll reevaluate tomorrow. Objective - Vital Signs Vital signs: Vital Signs Temp 97.8 F 08/02/21 11:48 Pulse 54 L 08/02/21 11:48 Resp 16 08/02/21 11:48 BP 151/89 08/02/21 11:48 Pulse Ox 95 08/02/21 11:48 Intake & Output 08/01/21 08/02/21 08/02/21 18:59 06:59 18:59 Intake Total 139.442 2139 Output Total 630 2020 100 Balance -859 -3537376.140 1960 Intake: Intake, IV Titration 242.667 Amount Ropivacaine 250 mg 242.667 Hydromorphone (Pf) 5 mg In Sodium Chloride 0.9% 200 ml @ Per Protocol EPIDURAL .Q0M PRN Rx#: [id number] Oral 1200 Output: Drainage 30 20 Abdomen 30 20 Urine 500 1900 Uretheral (Saenz) 1900 Stool 100 100 100 Other: Voiding Method Indwelling Catheter Indwelling Catheter Indwelling Catheter - Labs CBC & Chem 7: 08/02/21 09:52 08/02/21 09:52 Labs: Abnormal Lab Results - Last 24 Hours (Table) 08/02/21 08/02/21 Range/Units 09:52 09:52 RBC 3.77 L (4.30-5.90) m/uL Hgb 12.0 L (13.0-17.5) gm/dL Hct 37.0 L (39.0-53.0) % Lymphocytes # 0.6 L (1.0-4.8) k/uL Potassium 3.4 L (3.5-5.1) mmol/L
[2021-08-02] MEDS: KETOROLAC 15 MG/ML 1 ML VIAL IVP SCH (18:53)
[2021-08-02] MEDS: ZOLPIDEM 5 MG TAB PO PRN (22:38)
[2021-08-03] MEDS: PIPERACILLIN-TAZOBACTAM 3.375 GM in SODIUM CHLORIDE 0.9% 100 ML IVPB SCH ×3 (00:12→15:23)
[2021-08-03] MEDS: KETOROLAC 15 MG/ML 1 ML VIAL IVP SCH ×5 (00:13→22:42)
[2021-08-03] MEDS: metroNIDAZOLE-NS PMX 500 MG in SALINE 1 100ML.BAG IVPB SCH ×4 (00:13→17:49)
[2021-08-03] MEDS: HEPARIN SODIUM,PORCINE/PF 5,000 UNIT/0.5 ML SYRINGE SQ SCH ×3 (00:15→15:23)
[2021-08-03] MEDS ORDERED: hydrALAZINE HCL 20 MG/ML 1 ML VIAL IVP PRN (06:50)
[2021-08-03] MEDS: HYDROmorphone 1 MG/ML 1 ML SYRINGE IVP PRN ×3 (08:29→21:23)
[2021-08-03] MEDS: predniSONE 10 MG TAB PO SCH (08:33)
[2021-08-03] MEDS: LOSARTAN 50 MG TAB PO SCH (08:38)
[2021-08-03] MEDS: PANTOPRAZOLE 40 MG/10 ML VIAL IV SCH (08:39)
[2021-08-03] MEDS: SODIUM CHLORIDE 0.9% 1,000 ML IV SCH ×2 (11:46→13:22)
--- NOTE | 2021-08-03 11:53 | P.PN ---
Subjective Progress Note Date: 08/03/21 CHIEF COMPLAINT: Perforated sigmoid diverticulitis HISTORY OF PRESENT ILLNESS: Patient is postop day #4 status post sigmoid colectomy with end colostomy. Patient's epidural and Saenz catheter were discontinued yesterday. His diet was advanced to full liquids. His oral intake has increased. Ostomy output also has increased. He denies any nausea or vomiting. He does report some minimal swelling in the lower extremities. Medicine service has decreased IV fluids 75 mL per hour. Patient denies any shortness breath. Patient had reported that he is not urinating as frequent this morning. Afebrile. Labs for today are pending PHYSICAL EXAM: VITAL SIGNS: Reviewed. GENERAL: Well-developed in no acute distress. HEENT: No sclera icterus. Extraocular movements grossly intact. Moist buccal mucosa. Head is atraumatic, normocephalic. ABDOMEN: Soft. Incision site clean dry and intact. The dressing there is small amount of serosanguineous drainage noted. Ostomy with liquidy brown stool. NEUROLOGIC: Alert and oriented. Cranial nerves II through XII grossly intact. ASSESSMENT: 1. Perforated sigmoid diverticulitis status post sigmoid colectomy with end colostomy PLAN: -Continue full liquid diet -Agree with cutting back on IV fluids -Continue to monitor urine output -Continue antibiotics -Encouraged patient to use incentive spirometer -Encouraged patient to increase activity -DVT prophylaxis subcu heparin and GI prophylaxis Protonix Physician Lokie Driver note has been reviewed by physician. Signing provider agrees with the documented findings, assessment, and plan of care. I have personally seen and examined the patient, reviewed the JOURNEYMAN MEAT CUTTER /PAs history, exam and MDM and agree with the assessment and plan as written. Based on total visit time, I have performed more than 50% of the visit. As above: Patient complaining of some malaise today. Says he may be depressed. Tolerating liquid diet. Small amount of ostomy function. No vomiting. No significant nausea. Incision is clean and dry. Continue gradually increasing diet. Continue IV antibiotics. Keep drain place for now. Objective - Vital Signs Vital signs: Vital Signs Temp 97.8 F 08/03/21 05:51 Pulse 54 L 08/03/21 05:51 Resp 16 08/03/21 05:51 BP 137/71 08/03/21 08:50 Pulse Ox 97 08/03/21 05:51 Intake & Output 08/02/21 08/03/21 08/03/21 18:59 06:59 18:59 Intake Total 1380 2240 Output Total 460 1840 Balance 920 400 Intake: Intake, IV Titration 1760 Amount Piperacillin-Tazobactam 3 100 .375 gm In Sodium Chloride 0.9% 100 ml @ 25 mls/hr IVPB Q8HR [facility] Rx# :[id number] Sodium Chloride 0.9% 1, 1560 000 ml @ 130 mls/hr IV . Q7H42M [facility] Rx#:[id number] metroNIDAZOLE-NS PMX 500 100 mg In Saline 1 100ml.bag @ 100 mls/hr IVPB Q6H [facility] Rx#:[id number] Oral 1380 480 Output: Drainage 10 90 Abdomen 10 90 Urine 350 1650 Stool 100 100 Other: Voiding Method Indwelling Catheter Indwelling Catheter - Labs CBC & Chem 7: 08/03/21 11:53 08/03/21 11:53
[2021-08-03 12:15] LABS: Basophils % (A) 0 %; Eosinophils # (A) 0.1 k/uL (0-0.7); Eosinophils % (A) 1 %; HCT 39.9 % (39.0-53.0); HGB 13.4 gm/dL (13.0-17.5); Lymphocytes # (A) 0.3 k/uL (1.0-4.8); Lymphocytes % (A) 3 %; MCH 32.4 pg (25.0-35.0); MCHC 33.5 g/dL (31.0-37.0); MCV 96.7 fL (80.0-100.0); Mean Platelet Volume 6.8; Monocytes # (A) 0.4 k/uL (0-1.0); Monocytes % (A) 4 %; Neutrophils # (A) 9.4 k/uL (1.3-7.7); Neutrophils % (A) 91 %; Platelet Count 459 k/uL (150-450); RBC 4.12 m/uL (4.30-5.90); RDW 13.7 % (11.5-15.5); WBC 10.3 k/uL (3.8-10.6)
[2021-08-03 12:22] LABS: African American GFR (CKD) >90 (>60 ml/min/1.73 sqM); Anion Gap 8 mmol/L; Blood Urea Nitrogen 10 mg/dL (9-20); Calcium 7.9 mg/dL (8.4-10.2); Carbon Dioxide 26 mmol/L (22-30); Chloride 103 mmol/L (98-107); Glucose 129 mg/dL (74-99); Non-African American GFR(CKD) 89 (>60 ml/min/1.73 sqM); Potassium 3.1 mmol/L (3.5-5.1); Sodium 137 mmol/L (137-145)
[2021-08-03] MEDS: HYDROcodone/APAP 5-325MG 1 EACH TAB PO PRN (15:21)
[2021-08-03] MEDS ORDERED: ACETAMINOPHEN TAB 325 MG TAB PO PRN (17:48)
[2021-08-03] MEDS ORDERED: POTASSIUM CHLORIDE ER 20 MEQ TAB.ER PO ONE (17:51)
--- NOTE | 2021-08-03 17:55 | P.PN ---
Subjective Progress Note Date: 08/03/21 This is a pleasant 70 male with past medical history of sarcoidosis, hypertension. Presents because of abdominal pain in the left lower quadrant about 10/10 inm severity and now feels better with pain medication , pain is not radiating much, non specific in character, no nausea or vomiting , no diarrhea , his last bowel movement was about 2 days ago. also he is not eating well over the last two days he denies chest pain or shortness of breath, no fever , no headache or dizziness, no weakens or numbness he denies smoking or alcohol or illicit drugs Hemodynamically stable and patient is afebrile. As leukocytosis with WBC 15k, INR 0.9 BMP showing mild low sodium 136, rest of BMP and liver enzymes are unremarkable. CT of the abdomen and pelvis with no contrast, perforated sigmoid colonic diverticulitis with extensive pneumoperitoneum throughout the mesentery and extending up into the upper abdomen around the distal esophagus. No evidence of organizing fluid collection to suggest abscess at this time. Nonobstructing right renal calculi.Septal emphysema changes. Prostatomegaly Patient currently on normal saline with 30 mL/h and Zosyn. 07/28/2021 Patient abdominal pain in the left lower quadrant is improving, no nausea vomiting today. However patient still nothing by mouth. He does not have bowel movement and passing gas. Blood pressure is slightly elevated and restarted his Cozaar. Later on tonight patient refused to take his night dose of Solu-Medrol because it gets somewhat agitated, restarted his Ambien at night dose as needed also give him a bolus of 500 mL and close monitoring. Labs are stable. Hemoglobin A1c is 5.4%. He remains on Solu-Medrol 40 mg twice daily, Flagyl and Zosyn and normal saline at 1 30 mL/h 07/29/2021 Patient awake and alert not in distress, he was started on liquid diet but he started developing pain in his left lower quadrant and some colic which comes and goes which concerned him, explanation provided for the patient. He is hemodynamically stable. Steroids discharged back to prednisone 10 mg orally. We added losartan 25 mg daily, we'll increase it to his home dose of 50 mg from tomorrow. Continue with IV fluids normal saline 1:30, Flagyl and Zosyn per surgery team will follow closely as well 07/30/2021 Patient evaluated today ambulating from the rest room. Denies nausea, denies vomiting. Has not had a BM in 2 days. He is scheduled to undergo surgical repair of perforated diverticula today. He is also following with pulmonary for history of pulmonary sarcoidosis, continues on oral prednisone daily. Labs today white count 11.4, hemoglobin 12.7, neutrophils 10.1, sodium 138, potassium 3.3, magnesium 1.9, calcium 7.9. Patient received 1 bag of IV potassium. We will repeat this afternoon. Temperature 90.9, heart rate 78, blood pressure 147/79, 96% room air. Currently complains of abdominal pain mainly left lower quadrant rating a 6 out of 10 states that the pain medication helps when he gets it ho wever he is currently requesting medication. Continues on IV metronidazole, IV Zosyn. 07/31/2021 Post operative day #1 sigmoid colectomy with end colostomy secondary to perf orated sigmoid diverticula. Patient is monitored on medical floor. Afebrile, blood pressure 112/66. Saturating 92-94% on room air, incentive spirometer at the bedside which patient is able to achieve 1500. Continues on losartan 50 mg daily dose which was increased preoperatively. Continues on IV metronidazole, IV zosyn. Epidural is infusing for pain control. Tolerating clear liquid diet. He has gas and small amt of brown liquid stool through ostomy. Pulmonary services are also on consultation. Labs today showing WBC 15.8, hgb 11.6, potassium 4.5, calcium 7.6. 08/01/2021 Patient is evaluated today on bedrest, postoperative day #2. Epidural is infusing states he is having zero pain. Plan is for epidural to be removed tomorrow per patient. He is producing gas and stool from the ostomy. CLAYTON drain in place with serosanguineous drainage. Continues with indwelling catheter, urine is clear yellow. Continues with IV fluids. Appetite is fair, he would like more than clear liquid diet. He is using incentive spirometer. Denies chest pain, shortness of breath. No acute issues overnight. radiation monitor can be discontinued. Had concerns with blood pressure on the lower side and taking his losartan. Blood pressure in the 140's systolic today, decreased losartan to 25 m g po HS. Labs today are pending. 08/02/2021 Patient evaluated today, he was up in the chair yesterday. plan for epidural to be removed today. He is post operative day #3, having stool and gas from ostomy. Denies pain, no acute events overnight. Denies shortness of breath. He is on clear liquid diet. Continues on IV antibiotics. Evaluation and education by ostomy nurse was completed. Blood pressure in the 160's if he continues to be elevated will increase losartan back up to 50 mg. White count 7.5, hgb 12.0. Potassium level is pending. 08/03/2021 Patient is evaluated today post operative day #4 sigmoid colectomy with end colostomy. His diet has been increased to full liquid which he is tolerating and has increased his oral intake. Plan is to saline lock patients IV today. Epidural has been removed he is receiving IV dilaudid for pain as well as IV toradol and norco, does report a mild 3/10 dull headache today. Saenz has been removed. Midline dressing changed by primary team, intact. Having stool and gas from ostomy. Patient seems down about his overall diagnosis, reinforced educat ion and patient was encouraged to empty the ostomy today up in the bathroom. He is also requesting a shower today. Doing well on IS. Magnesium 1.8, potassium 3.1 Blood pressure elevated today, losartan increased to 50 mg and this was discussed with patient. Afebrile, oxygen saturation 95% on room air. Review of Systems Constitutional: Denied any fatigue denied any fever. Cardio vascular: denied any chest pain, palpitations Gastrointestinal: denied any nausea, vomiting, diarrhea. Having gas and stool through ostomy. Pulmonary: Denied any shortness of breath cough Neurologic denied any new focal deficits All inpatient medications were reviewed and appropriate changes in these medications as dictated in the interval history and assessment and plan. PHYSICAL EXAMINATION: GENERAL: The patient is alert and oriented x3, not in any acute distress. Well developed, well nourished. HEENT: Pupils are round and equally reacting to light. EOMI. No scleral icterus. No conjunctival pallor. Normocephalic, atraumatic. No pharyngeal erythema. No thyromegaly. CARDIOVASCULAR: S1 and S2 present. No murmurs, rubs, or gallops. PULMONARY: Chest is clear to auscultation, no wheezing or crackles. ABDOMEN: Soft, tender, mild distention, normoactive bowel sounds. No palpable organomegaly. Post surgical abdomen with ostomy present left of midline. MUSCULOSKELETAL: No joint swelling or deformity. EXTREMITIES: No cyanosis, clubbing, or pedal edema. NEUROLOGICAL: Gross neurological examination did not reveal any focal deficits. SKIN: No rashes. Surgical dressing intact. Assessment and Plan Assessment Acute abdominal pain secondary to acute diverticulitis, perforated sigmoid diverticulitis and extensive pneumoperitoneum Post operative day # 4 sigmoid colectomy with end colostomy. Hypokalemia, currently 3.1 History of hypertension History of sarcoidosis, on prednisone daily History of spontaneous pneumothorax Non obstructing right renal calculi Enlarged prostate GI Prophylaxis DVT Prophylaxis as per primary Full Code Plan Was advanced to full liquid by primary team Continue IV antibiotics Discontinue IV fluids Encourage ambulation, incentive spirometry Replace electrolytes Thank you kindly for this consultation. The impression and plan of care has been dictated by Mae Quintana Nurse Practitioner as directed. Dr. Larissa MD I have performed a history and physical examination and medical decision making of this patient, discussed the same with the dictator, and agree with the dictators assessment and plan as written, documented as a scribe. Based on total visit time, I have performed more than 50% of this visit. Objective - Vital Signs Vital signs: Vital Signs Temp 97.8 F 08/03/21 05:51 Pulse 54 L 08/03/21 05:51 Resp 16 08/03/21 05:51 BP 137/71 08/03/21 08:50 Pulse Ox 97 08/03/21 05:51 Intake & Output 08/02/21 08/03/21 08/03/21 18:59 06:59 18:59 Intake Total 1380 2240 Output Total 460 1840 Balance 920 400 Intake: Intake, IV Titration 1760 Amount Piperacillin-Tazobactam 3 100 .375 gm In Sodium Chloride 0.9% 100 ml @ 25 mls/hr IVPB Q8HR [facility] Rx# :[id number] Sodium Chloride 0.9% 1, 1560 000 ml @ 130 mls/hr IV . Q7H42M [facility] Rx#:[id number] metroNIDAZOLE-NS PMX 500 100 mg In Saline 1 100ml.bag @ 100 mls/hr IVPB Q6H [facility] Rx#:[id number] Oral 1380 480 Output: Drainage 10 90 Abdomen 10 90 Urine 350 1650 Stool 100 100 Other: Voiding Method Indwelling Catheter Indwelling Catheter - Labs CBC & Chem 7: 08/03/21 11:53 08/03/21 11:53 Assessment and Plan Time with Patient: Less than 30
[2021-08-03] MEDS: MAGNESIUM SULFATE-D5W PMX 1 GM in DEXTROSE/WATER 1 100ML.BAG IVPB SCH ×2 (19:48→21:23)
[2021-08-03] MEDS: ONDANSETRON 4 MG/2 ML VIAL IVP PRN (19:51)
[2021-08-03] MEDS: ZOLPIDEM 5 MG TAB PO PRN (21:27)
[2021-08-04] MEDS: KETOROLAC 15 MG/ML 1 ML VIAL IVP SCH ×2 (00:17→11:07)
[2021-08-04] MEDS: PIPERACILLIN-TAZOBACTAM 3.375 GM in SODIUM CHLORIDE 0.9% 100 ML IVPB SCH ×3 (00:17→16:19)
[2021-08-04] MEDS: HEPARIN SODIUM,PORCINE/PF 5,000 UNIT/0.5 ML SYRINGE SQ SCH ×4 (00:17→23:09)
[2021-08-04] MEDS: metroNIDAZOLE-NS PMX 500 MG in SALINE 1 100ML.BAG IVPB SCH ×4 (00:18→19:00)
[2021-08-04] MEDS: SODIUM CHLORIDE 0.9% 1,000 ML IV SCH (00:18)
[2021-08-04] MEDS: HYDROmorphone 1 MG/ML 1 ML SYRINGE IVP PRN ×7 (00:26→22:09)
[2021-08-04] MEDS: PANTOPRAZOLE 40 MG/10 ML VIAL IV SCH (07:25)
[2021-08-04] MEDS: predniSONE 10 MG TAB PO SCH (07:25)
[2021-08-04] MEDS: LOSARTAN 50 MG TAB PO SCH (07:25)
[2021-08-04] MEDS: POTASSIUM CHLORIDE ER 20 MEQ TAB.ER PO SCH (07:32)
--- NOTE | 2021-08-04 10:01 | P.PN ---
Subjective Progress Note Date: 08/04/21 This is a pleasant 70 male with past medical history of sarcoidosis, hypertension. Presents because of abdominal pain in the left lower quadrant about 10/10 inm severity and now feels better with pain medication , pain is not radiating much, non specific in character, no nausea or vomiting , no diarrhea , his last bowel movement was about 2 days ago. also he is not eating well over the last two days he denies chest pain or shortness of breath, no fever , no headache or dizziness, no weakens or numbness he denies smoking or alcohol or illicit drugs Hemodynamically stable and patient is afebrile. As leukocytosis with WBC 15k, INR 0.9 BMP showing mild low sodium 136, rest of BMP and liver enzymes are unremarkable. CT of the abdomen and pelvis with no contrast, perforated sigmoid colonic diverticulitis with extensive pneumoperitoneum throughout the mesentery and extending up into the upper abdomen around the distal esophagus. No evidence of organizing fluid collection to suggest abscess at this time. Nonobstructing right renal calculi.Septal emphysema changes. Prostatomegaly Patient currently on normal saline with 30 mL/h and Zosyn. 07/28/2021 Patient abdominal pain in the left lower quadrant is improving, no nausea vomiting today. However patient still nothing by mouth. He does not have bowel movement and passing gas. Blood pressure is slightly elevated and restarted his Cozaar. Later on tonight patient refused to take his night dose of Solu-Medrol because it gets somewhat agitated, restarted his Ambien at night dose as needed also give him a bolus of 500 mL and close monitoring. Labs are stable. Hemoglobin A1c is 5.4%. He remains on Solu-Medrol 40 mg twice daily, Flagyl and Zosyn and normal saline at 1 30 mL/h 07/29/2021 Patient awake and alert not in distress, he was started on liquid diet but he started developing pain in his left lower quadrant and some colic which comes and goes which concerned him, explanation provided for the patient. He is hemodynamically stable. Steroids discharged back to prednisone 10 mg orally. We added losartan 25 mg daily, we'll increase it to his home dose of 50 mg from tomorrow. Continue with IV fluids normal saline 1:30, Flagyl and Zosyn per surgery team will follow closely as well 07/30/2021 Patient evaluated today ambulating from the rest room. Denies nausea, denies vomiting. Has not had a BM in 2 days. He is scheduled to undergo surgical repair of perforated diverticula today. He is also following with pulmonary for history of pulmonary sarcoidosis, continues on oral prednisone daily. Labs today white count 11.4, hemoglobin 12.7, neutrophils 10.1, sodium 138, potassium 3.3, magnesium 1.9, calcium 7.9. Patient received 1 bag of IV potassium. We will repeat this afternoon. Temperature 90.9, heart rate 78, blood pressure 147/79, 96% room air. Currently complains of abdominal pain mainly left lower quadrant rating a 6 out of 10 states that the pain medication helps when he gets it ho wever he is currently requesting medication. Continues on IV metronidazole, IV Zosyn. 07/31/2021 Post operative day #1 sigmoid colectomy with end colostomy secondary to perf orated sigmoid diverticula. Patient is monitored on medical floor. Afebrile, blood pressure 112/66. Saturating 92-94% on room air, incentive spirometer at the bedside which patient is able to achieve 1500. Continues on losartan 50 mg daily dose which was increased preoperatively. Continues on IV metronidazole, IV zosyn. Epidural is infusing for pain control. Tolerating clear liquid diet. He has gas and small amt of brown liquid stool through ostomy. Pulmonary services are also on consultation. Labs today showing WBC 15.8, hgb 11.6, potassium 4.5, calcium 7.6. 08/01/2021 Patient is evaluated today on bedrest, postoperative day #2. Epidural is infusing states he is having zero pain. Plan is for epidural to be removed tomorrow per patient. He is producing gas and stool from the ostomy. CLAYTON drain in place with serosanguineous drainage. Continues with indwelling catheter, urine is clear yellow. Continues with IV fluids. Appetite is fair, he would like more than clear liquid diet. He is using incentive spirometer. Denies chest pain, shortness of breath. No acute issues overnight. child monitor can be discontinued. Had concerns with blood pressure on the lower side and taking his losartan. Blood pressure in the 140's systolic today, decreased losartan to 25 m g po HS. Labs today are pending. 08/02/2021 Patient evaluated today, he was up in the chair yesterday. plan for epidural to be removed today. He is post operative day #3, having stool and gas from ostomy. Denies pain, no acute events overnight. Denies shortness of breath. He is on clear liquid diet. Continues on IV antibiotics. Evaluation and education by ostomy nurse was completed. Blood pressure in the 160's if he continues to be elevated will increase losartan back up to 50 mg. White count 7.5, hgb 12.0. Potassium level is pending. 08/03/2021 Patient is evaluated today post operative day #4 sigmoid colectomy with end colostomy. His diet has been increased to full liquid which he is tolerating and has increased his oral intake. Plan is to saline lock patients IV today. Epidural has been removed he is receiving IV dilaudid for pain as well as IV toradol and norco, does report a mild 3/10 dull headache today. Saenz has been removed. Midline dressing changed by primary team, intact. Having stool and gas from ostomy. Patient seems down about his overall diagnosis, reinforced educat ion and patient was encouraged to empty the ostomy today up in the bathroom. He is also requesting a shower today. Doing well on IS. Magnesium 1.8, potassium 3.1 Blood pressure elevated today, losartan increased to 50 mg and this was discussed with patient. Afebrile, oxygen saturation 95% on room air. 08/04/2021 Patient today is feeling well. He was able to shower yesterday. He has increased ankle edema, lungs are clear. He can wear compression stockings. Continues on full liquid diet, no nausea vomiting or diarrhea. He is having stool and gas through ostomy. Headache has resolved. Labs are pending from today. Patient is afebrile, blood pressure 146/83, 96% room air, heart rate. Continues on IV metronidazole, IV Zosyn. Blood pressure is better today 140/80s, afebrile, 96% room air. Review of Systems Constitutional: Denied any fatigue denied any fever. Cardio vascular: denied any chest pain, palpitations Gastrointestinal: denied any nausea, vomiting, diarrhea. Having gas and stool through ostomy. Pulmonary: Denied any shortness of breath cough Neurologic denied any new focal deficits All inpatient medications were reviewed and appropriate changes in these medications as dictated in the interval history and assessment and plan. PHYSICAL EXAMINATION: GENERAL: The patient is alert and oriented x3, not in any acute distress. Well developed, well nourished. HEENT: Pupils are round and equally reacting to light. EOMI. No scleral icterus. No conjunctival pallor. Normocephalic, atraumatic. No pharyngeal erythema. No thyromegaly. CARDIOVASCULAR: S1 and S2 present. No murmurs, rubs, or gallops. PULMONARY: Chest is clear to auscultation, no wheezing or crackles. ABDOMEN: Soft, tender, mild distention, normoactive bowel sounds. No palpable organomegaly. Post surgical abdomen with ostomy present left of midline. MUSCULOSKELETAL: No joint swelling or deformity. EXTREMITIES: No cyanosis, clubbing, non pitting peripheral ankle edema NEUROLOGICAL: Gross neurological examination did not reveal any focal deficits. SKIN: No rashes. Surgical dressing intact. Assessment and Plan Assessment Acute abdominal pain secondary to acute diverticulitis, perforated sigmoid diver ticulitis and extensive pneumoperitoneum Post operative day # 5 sigmoid colectomy with end colostomy. Hypokalemia, currently 3.1 History of hypertension History of sarcoidosis, on prednisone daily History of spontaneous pneumothorax Non obstructing right renal calculi Enlarged prostate GI Prophylaxis DVT Prophylaxis as per primary Full Code Plan Was advanced to full liquid by primary team Continue IV antibiotics Discontinue IV fluids Use compression stockings Encourage ambulation, incentive spirometry Pending AM labs today, replace electrolytes if needed Thank you kindly for this consultation. The impression and plan of care has been dictated by Mae Quintana, Nurse Practitioner as directed. Dr. Larissa MD I have performed a history and physical examination and medical decision making of this patient, discussed the same with the dictator, and agree with the dictators assessment and plan as written, documented as a scribe. Based on total visit time, I have performed more than 50% of this visit. Objective - Vital Signs Vital signs: Vital Signs Temp 98.0 F 08/03/21 21:00 Pulse 65 08/03/21 21:00 Resp 18 08/03/21 21:00 BP 146/83 08/03/21 21:00 Pulse Ox 96 08/03/21 21:00 Intake & Output 08/03/21 08/04/21 08/04/21 18:59 06:59 18:59 Intake Total 900 400 Output Total 55 1020 Balance 845 -620 Weight 79.379 kg Intake: Intake, IV Titration 900 Amount Sodium Chloride 0.9% 1, 900 000 ml @ 75 mls/hr IV . [id number] [facility] Rx#:[id number] Oral 400 Output: Drainage 55 20 Abdomen 55 20 Urine 1000 Other: Voiding Method Indwelling Catheter Urinal - Labs CBC & Chem 7: 08/03/21 11:53 08/03/21 11:53 Labs: Abnormal Lab Results - Last 24 Hours (Table) 08/03/21 08/03/21 Range/Units 11:53 11:53 RBC 4.12 L (4.30-5.90) m/uL Plt Count 459 H (150-450) k/uL Neutrophils # 9.4 H (1.3-7.7) k/uL Lymphocytes # 0.3 L (1.0-4.8) k/uL Potassium 3.1 L (3.5-5.1) mmol/L Glucose 129 H (74-99) mg/dL Calcium 7.9 L (8.4-10.2) mg/dL Assessment and Plan Time with Patient: Less than 30
[2021-08-04 10:17] LABS: African American GFR (CKD) >90 (>60 ml/min/1.73 sqM); Anion Gap 4 mmol/L; Blood Urea Nitrogen 8 mg/dL (9-20); Calcium 7.6 mg/dL (8.4-10.2); Carbon Dioxide 24 mmol/L (22-30); Chloride 110 mmol/L (98-107); Glucose 121 mg/dL (74-99); Magnesium 2.2 mg/dL (1.6-2.3); Non-African American GFR(CKD) 88 (>60 ml/min/1.73 sqM); Potassium 3.1 mmol/L (3.5-5.1); Sodium 138 mmol/L (137-145)
[2021-08-04] MEDS: ONDANSETRON 4 MG/2 ML VIAL IVP PRN (10:19)
[2021-08-04] MEDS ORDERED: POTASSIUM CHLORIDE ER 20 MEQ TAB.ER PO STA (11:48)
--- NOTE | 2021-08-04 14:05 | P.PN ---
Subjective Progress Note Date: 08/04/21 CHIEF COMPLAINT: Perforated diverticulitis HISTORY OF PRESENT ILLNESS: The patient is a 70-year-old male admitted with perforated diverticulitis status post Griffin's procedure. He reports mild nausea after eating oatmeal this morning. He requests Zofran. Additionally reports discomfort with movement and activity as he does not have abdominal binder ROS: No reports of nausea and vomiting. No fevers or chills. No new chest pain. No productive sputum PHYSICAL EXAM: VITAL SIGNS: Reviewed CONSTITUTIONAL: Well developed and in no acute distress. EYES: Conjuctivae without sclera icterus. Extraocular movements grossly intact. HEAD, EARS, NOSE, THROAT: Moist buccal mucosa. Head is atraumatic, normocephalic. Hears conversational speech. No nasal drainage. RESPIRATORY: Non-labored respirations and equal bilateral excursions. CARDIOVASCULAR: Palpable 2+ radial pulses. ABDOMEN: Ostomy patent functioning. Dressing intact. No infection. MUSCULOSKELETAL: No gross deformity of the lower extremities noted. No clubbing. No cyanosis. SKIN: Good skin turgor. Well perfused. NEUROLOGIC: Cranial nerves II through XII grossly intact. No focal or lateralizing signs. PSYCH: Appropriate affect. Alert and oriented to person, place and time. CLINICAL LABS: Reviewed. WBC 10.3 yesterday. Potassium low at 3.1. ASSESSMENT: 1. Perforated diverticulitis 2. Hypokalemia PLAN: 1. Replace hypokalemia with potassium supplement 2. Abdominal binder ordered Objective - Vital Signs Vital signs: Vital Signs Temp 98.0 F 08/03/21 21:00 Pulse 65 08/03/21 21:00 Resp 18 08/03/21 21:00 BP 146/83 08/03/21 21:00 Pulse Ox 96 08/03/21 21:00 Intake & Output 08/03/21 08/04/21 08/04/21 18:59 06:59 18:59 Intake Total 900 400 Output Total 55 1020 Balance 845 -620 Weight 79.379 kg Intake: Intake, IV Titration 900 Amount Sodium Chloride 0.9% 1, 900 000 ml @ 75 mls/hr IV . [id number] [facility] Rx#:[id number] Oral 400 Output: Drainage 55 20 Abdomen 55 20 Urine 1000 Other: Voiding Method Indwelling Catheter Urinal Urinal - Labs CBC & Chem 7: 08/03/21 11:53 08/04/21 09:34 Labs: Abnormal Lab Results - Last 24 Hours (Table) 08/03/21 08/03/21 08/04/21 Range/Units 11:53 11:53 09:34 RBC 4.12 L (4.30-5.90) m/uL Plt Count 459 H (150-450) k/uL Neutrophils # 9.4 H (1.3-7.7) k/uL Lymphocytes # 0.3 L (1.0-4.8) k/uL Potassium 3.1 L 3.1 L (3.5-5.1) mmol/L Chloride 110 H (98-107) mmol/L BUN 8 L (9-20) mg/dL Glucose 129 H 121 H (74-99) mg/dL Calcium 7.9 L 7.6 L (8.4-10.2) mg/dL
[2021-08-04] MEDS: ZOLPIDEM 5 MG TAB PO PRN (22:09)
[2021-08-05] MEDS: PIPERACILLIN-TAZOBACTAM 3.375 GM in SODIUM CHLORIDE 0.9% 100 ML IVPB SCH ×3 (00:10→15:29)
[2021-08-05] MEDS: metroNIDAZOLE-NS PMX 500 MG in SALINE 1 100ML.BAG IVPB SCH ×4 (00:10→19:42)
[2021-08-05] MEDS: HYDROmorphone 1 MG/ML 1 ML SYRINGE IVP PRN ×4 (06:02→21:49)
[2021-08-05] MEDS: POTASSIUM CHLORIDE ER 20 MEQ TAB.ER PO SCH ×3 (08:11→19:42)
[2021-08-05] MEDS: PANTOPRAZOLE 40 MG/10 ML VIAL IV SCH (08:11)
[2021-08-05] MEDS: LOSARTAN 50 MG TAB PO SCH (08:11)
[2021-08-05] MEDS: predniSONE 10 MG TAB PO SCH (08:11)
[2021-08-05] MEDS: HEPARIN SODIUM,PORCINE/PF 5,000 UNIT/0.5 ML SYRINGE SQ SCH ×3 (08:12→23:08)
[2021-08-05] MEDS ORDERED: POTASSIUM CHLORIDE ER 20 MEQ TAB.ER PO STA (09:01)
--- NOTE | 2021-08-05 09:14 | P.PN ---
Subjective Progress Note Date: 08/05/21 This is a pleasant 70 male with past medical history of sarcoidosis, hypertension. Presents because of abdominal pain in the left lower quadrant about 10/10 inm severity and now feels better with pain medication , pain is not radiating much, non specific in character, no nausea or vomiting , no diarrhea , his last bowel movement was about 2 days ago. also he is not eating well over the last two days he denies chest pain or shortness of breath, no fever , no headache or dizziness, no weakens or numbness he denies smoking or alcohol or illicit drugs Hemodynamically stable and patient is afebrile. As leukocytosis with WBC 15k, INR 0.9 BMP showing mild low sodium 136, rest of BMP and liver enzymes are unremarkable. CT of the abdomen and pelvis with no contrast, perforated sigmoid colonic diverticulitis with extensive pneumoperitoneum throughout the mesentery and extending up into the upper abdomen around the distal esophagus. No evidence of organizing fluid collection to suggest abscess at this time. Nonobstructing right renal calculi.Septal emphysema changes. Prostatomegaly Patient currently on normal saline with 30 mL/h and Zosyn. 07/28/2021 Patient abdominal pain in the left lower quadrant is improving, no nausea vomiting today. However patient still nothing by mouth. He does not have bowel movement and passing gas. Blood pressure is slightly elevated and restarted his Cozaar. Later on tonight patient refused to take his night dose of Solu-Medrol because it gets somewhat agitated, restarted his Ambien at night dose as needed also give him a bolus of 500 mL and close monitoring. Labs are stable. Hemoglobin A1c is 5.4%. He remains on Solu-Medrol 40 mg twice daily, Flagyl and Zosyn and normal saline at 1 30 mL/h 07/29/2021 Patient awake and alert not in distress, he was started on liquid diet but he started developing pain in his left lower quadrant and some colic which comes and goes which concerned him, explanation provided for the patient. He is hemodynamically stable. Steroids discharged back to prednisone 10 mg orally. We added losartan 25 mg daily, we'll increase it to his home dose of 50 mg from tomorrow. Continue with IV fluids normal saline 1:30, Flagyl and Zosyn per surgery team will follow closely as well 07/30/2021 Patient evaluated today ambulating from the rest room. Denies nausea, denies vomiting. Has not had a BM in 2 days. He is scheduled to undergo surgical repair of perforated diverticula today. He is also following with pulmonary for history of pulmonary sarcoidosis, continues on oral prednisone daily. Labs today white count 11.4, hemoglobin 12.7, neutrophils 10.1, sodium 138, potassium 3.3, magnesium 1.9, calcium 7.9. Patient received 1 bag of IV potassium. We will repeat this afternoon. Temperature 90.9, heart rate 78, blood pressure 147/79, 96% room air. Currently complains of abdominal pain mainly left lower quadrant rating a 6 out of 10 states that the pain medication helps when he gets it ho wever he is currently requesting medication. Continues on IV metronidazole, IV Zosyn. 07/31/2021 Post operative day #1 sigmoid colectomy with end colostomy secondary to perf orated sigmoid diverticula. Patient is monitored on medical floor. Afebrile, blood pressure 112/66. Saturating 92-94% on room air, incentive spirometer at the bedside which patient is able to achieve 1500. Continues on losartan 50 mg daily dose which was increased preoperatively. Continues on IV metronidazole, IV zosyn. Epidural is infusing for pain control. Tolerating clear liquid diet. He has gas and small amt of brown liquid stool through ostomy. Pulmonary services are also on consultation. Labs today showing WBC 15.8, hgb 11.6, potassium 4.5, calcium 7.6. 08/01/2021 Patient is evaluated today on bedrest, postoperative day #2. Epidural is infusing states he is having zero pain. Plan is for epidural to be removed tomorrow per patient. He is producing gas and stool from the ostomy. CLAYTON drain in place with serosanguineous drainage. Continues with indwelling catheter, urine is clear yellow. Continues with IV fluids. Appetite is fair, he would like more than clear liquid diet. He is using incentive spirometer. Denies chest pain, shortness of breath. No acute issues overnight. bus driver/monitor can be discontinued. Had concerns with blood pressure on the lower side and taking his losartan. Blood pressure in the 140's systolic today, decreased losartan to 25 m g po HS. Labs today are pending. 08/02/2021 Patient evaluated today, he was up in the chair yesterday. plan for epidural to be removed today. He is post operative day #3, having stool and gas from ostomy. Denies pain, no acute events overnight. Denies shortness of breath. He is on clear liquid diet. Continues on IV antibiotics. Evaluation and education by ostomy nurse was completed. Blood pressure in the 160's if he continues to be elevated will increase losartan back up to 50 mg. White count 7.5, hgb 12.0. Potassium level is pending. 08/03/2021 Patient is evaluated today post operative day #4 sigmoid colectomy with end colostomy. His diet has been increased to full liquid which he is tolerating and has increased his oral intake. Plan is to saline lock patients IV today. Epidural has been removed he is receiving IV dilaudid for pain as well as IV toradol and norco, does report a mild 3/10 dull headache today. Saenz has been removed. Midline dressing changed by primary team, intact. Having stool and gas from ostomy. Patient seems down about his overall diagnosis, reinforced educat ion and patient was encouraged to empty the ostomy today up in the bathroom. He is also requesting a shower today. Doing well on IS. Magnesium 1.8, potassium 3.1 Blood pressure elevated today, losartan increased to 50 mg and this was discussed with patient. Afebrile, oxygen saturation 95% on room air. 08/04/2021 Patient today is feeling well. He was able to shower yesterday. He has increased ankle edema, lungs are clear. He can wear compression stockings. Continues on full liquid diet, no nausea vomiting or diarrhea. He is having stool and gas through ostomy. Headache has resolved. Labs are pending from today. Patient is afebrile, blood pressure 146/83, 96% room air, heart rate. Continues on IV metronidazole, IV Zosyn. Blood pressure is better today 140/80s, afebrile, 96% room air. 08/05/2021 Patient evaluated today resting in bed. Abdominal binder has been ordered to assist with pain with movement. He continues on full liquid diet, he reported some nausea around lunch time, and is receiving IV zosyn. He is also on IV Zosyn, IV metronidazole. IV fluids have been stopped and ALEJANDRA h ose will be applied today. will be here at noon for ostomy teaching. He is passing liquid stool and gas from the ostomy, which is increasing. His bowels are active. No chest pain, no shortness of breath. Potassium 3.4 today, increased to BID scheduled and will receive an additional dose today. Review of Systems Constitutional: Denied any fatigue denied any fever. Cardio vascular: denied any chest pain, palpitations Gastrointestinal: Denies vomiting, having some nausea after meals. Having gas and stool through ostomy. Abdomen feels tight. Pulmonary: Denied any shortness of breath cough Neurologic denied any new focal deficits All inpatient medications were reviewed and appropriate changes in these medications as dictated in the interval history and assessment and plan. PHYSICAL EXAMINATION: GENERAL: The patient is alert and oriented x3, not in any acute distress. Well developed, well nourished. HEENT: Pupils are round and equally reacting to light. EOMI. No scleral icterus. No conjunctival pallor. Normocephalic, atraumatic. No pharyngeal erythema. No thyromegaly. CARDIOVASCULAR: S1 and S2 present. No murmurs, rubs, or gallops. PULMONARY: Chest is clear to auscultation, no wheezing or crackles. ABDOMEN: Soft, tender, nondistention, normoactive bowel sounds. No palpable organomegaly. Post surgical abdomen with ostomy present left of midline. MUSCULOSKELETAL: No joint swelling or deformity. EXTREMITIES: No cyanosis, clubbing, non pitting peripheral ankle edema NEUROLOGICAL: Gross neurological examination did not reveal any focal deficits. SKIN: No rashes. Surgical dressing intact. Assessment and Plan Assessment Acute abdominal pain secondary to acute diverticulitis, perforated sigmoid diverticulitis and extensive pneumoperitoneum Post operative day # 6 sigmoid colectomy with end colostomy. Hypokalemia, currently 3.4, increased oral potassium History of hypertension History of sarcoidosis, on prednisone daily History of spontaneous pneumothorax Non obstructing right renal calculi Enlarged prostate GI Prophylaxis DVT Prophylaxis as per primary Full Code Plan Was advanced to full liquid by primary team Continue IV antibiotics Use compression stockings, abdominal binder has been ordered Encourage ambulation, incentive spirometry Potassium supplementation Repeat potassium this afternoon Ostomy teaching today with and bunghole borer. Thank you kindly for this consultation. The impression and plan of care has been dictated by Mae Quintana, Nurse Practitioner as directed. Dr. Larissa MD I have performed a history and physical examination and medical decision making of this patient, discussed the same with the dictator, and agree with the dictators assessment and plan as written, documented as a scribe. Based on total visit time, I have performed more than 50% of this visit. Objective - Vital Signs Vital signs: Vital Signs Temp 98.5 F 08/05/21 04:56 Pulse 81 08/05/21 04:56 Resp 16 08/05/21 04:56 BP 163/79 08/05/21 05:43 Pulse Ox 95 08/05/21 04:56 Intake & Output 08/04/21 08/05/21 08/05/21 18:59 06:59 18:59 Intake Total 300 900 Output Total 115 Balance 185 900 Intake: Intake, IV Titration 300 900 Amount Piperacillin-Tazobactam 3 200 .375 gm In Sodium Chloride 0.9% 100 ml @ 25 mls/hr IVPB Q8HR [facility] Rx# :[id number] Sodium Chloride 0.9% 1, 900 000 ml @ 75 mls/hr IV . [id number] [facility] Rx#:[id number] metroNIDAZOLE-NS PMX 500 100 mg In Saline 1 100ml.bag @ 100 mls/hr IVPB Q6H [facility] Rx#:[id number] Output: Drainage 15 Abdomen 15 Stool 100 Other: Voiding Method Urinal Urinal # Bowel Movements 100 - Labs CBC & Chem 7: 08/03/21 11:53 08/05/21 07:44 Labs: Abnormal Lab Results - Last 24 Hours (Table) 08/04/21 08/05/21 Range/Units 09:34 07:44 Potassium 3.1 L 3.4 L (3.5-5.1) mmol/L Chloride 110 H (98-107) mmol/L BUN 8 L (9-20) mg/dL Glucose 121 H (74-99) mg/dL Calcium 7.6 L (8.4-10.2) mg/dL Assessment and Plan Time with Patient: Less than 30
--- NOTE | 2021-08-05 15:51 | P.PN ---
Subjective Progress Note Date: 08/05/21 CHIEF COMPLAINT: Perforated diverticulitis HISTORY OF PRESENT ILLNESS: The patient is a 70-year-old male admitted with perforated diverticulitis status post Griffin's procedure. He is on full liquid diet however, clear liquid tray. His that is the nurses at bedside. He does report intermittent incisional pain. Some stools out of his ostomy bag. He had nausea yesterday. ROS: No fevers or chills. No new chest pain. No productive sputum PHYSICAL EXAM: VITAL SIGNS: Reviewed CONSTITUTIONAL: Well developed and in no acute distress. EYES: Conjuctivae without sclera icterus. Extraocular movements grossly intact. HEAD, EARS, NOSE, THROAT: Moist buccal mucosa. Head is atraumatic, norm ocephalic. Hears conversational speech. No nasal drainage. RESPIRATORY: Non-labored respirations and equal bilateral excursions. CARDIOVASCULAR: 2+ radial pulses. ABDOMEN: Ostomy patent functioning. Dressing intact. MUSCULOSKELETAL: No gross deformity of the lower extremities noted. No clubb ing. No cyanosis. SKIN: Good skin turgor. Well perfused. NEUROLOGIC: Cranial nerves II through XII grossly intact. No focal or lateralizing signs. PSYCH: Appropriate affect. Alert and oriented to person, place and time. CLINICAL LABS: Reviewed. Potassium elevated 3.4, hypokalemia ASSESSMENT: 1. Perforated diverticulitis 2. Hypokalemia PLAN: 1. At this time, diet may be advanced upon correction of his hypokalemia. He has increased risk for nausea due to hyperkalemia and electrolyte dyscrasias. 2. Abdominal binder ordered for incisional discomfort. 3. Nonnarcotic pain management also described Objective - Vital Signs Vital signs: Vital Signs Temp 98 F 08/05/21 14:50 Pulse 95 08/05/21 14:50 Resp 16 08/05/21 14:50 BP 126/77 08/05/21 14:50 Pulse Ox 97 08/05/21 14:50 Intake & Output 08/04/21 08/05/21 08/05/21 18:59 06:59 18:59 Intake Total 300 900 118 Output Total 115 500 Balance 185 900 -382 Intake: Intake, IV Titration 300 900 Amount Piperacillin-Tazobactam 3 200 .375 gm In Sodium Chloride 0.9% 100 ml @ 25 mls/hr IVPB Q8HR [facility] Rx# :[id number] Sodium Chloride 0.9% 1, 900 000 ml @ 75 mls/hr IV . [id number] [facility] Rx#:[id number] metroNIDAZOLE-NS PMX 500 100 mg In Saline 1 100ml.bag @ 100 mls/hr IVPB Q6H [facility] Rx#:[id number] Oral 118 Output: Drainage 15 Abdomen 15 Stool 100 500 Other: Voiding Method Urinal Urinal # Bowel Movements 100 - Labs CBC & Chem 7: 08/03/21 11:53 08/05/21 14:01 Labs: Abnormal Lab Results - Last 24 Hours (Table) 08/05/21 Range/Units 07:44 Potassium 3.4 L (3.5-5.1) mmol/L
[2021-08-05] MEDS: ZOLPIDEM 5 MG TAB PO PRN (21:49)
[2021-08-06] MEDS: metroNIDAZOLE-NS PMX 500 MG in SALINE 1 100ML.BAG IVPB SCH ×4 (00:09→19:41)
[2021-08-06] MEDS: PIPERACILLIN-TAZOBACTAM 3.375 GM in SODIUM CHLORIDE 0.9% 100 ML IVPB SCH ×3 (00:10→16:40)
[2021-08-06] MEDS: LOSARTAN 50 MG TAB PO SCH (08:10)
[2021-08-06] MEDS: POTASSIUM CHLORIDE ER 20 MEQ TAB.ER PO SCH ×2 (08:10→19:41)
[2021-08-06] MEDS: PANTOPRAZOLE 40 MG/10 ML VIAL IV SCH (08:10)
[2021-08-06] MEDS: predniSONE 10 MG TAB PO SCH (08:10)
[2021-08-06] MEDS: HEPARIN SODIUM,PORCINE/PF 5,000 UNIT/0.5 ML SYRINGE SQ SCH ×3 (08:14→21:32)
[2021-08-06] MEDS: HYDROcodone/APAP 5-325MG 1 EACH TAB PO PRN (08:53)
[2021-08-06 08:56] LABS: Basophils # (A) 0.04 X 10*3/uL (0.00-0.10); Basophils % (A) 0.4 %; Eosinophils # (A) 0.24 X 10*3/uL (0.04-0.35); Eosinophils % (A) 2.5 %; HCT 35.4 % (39.6-50.0); HGB 11.8 g/dL (13.0-17.0); Immature Grans, Automated 2.2 %; Lymphocytes % (A) 8.2 %; MCH 32.2 pg (27.0-32.0); MCHC 33.3 g/dL (32.0-37.0); MCV 96.5 fL (80.0-97.0); Mean Platelet Volume 9.5 fL (9.5-12.2); Monocytes % (A) 7.2 %; NRBC Per 100 WBC 0 /100 WBCS (0.0-0.0); Neutrophils # (A) 7.77 X 10*3/uL (1.80-7.70); Neutrophils % (A) 79.5 %; Platelet Count 385 X 10*3/uL (140-440); RBC 3.67 X 10*6/uL (4.40-5.60); RDW 14.2 % (11.5-14.5); WBC 9.76 X 10*3/uL (4.50-10.00)
[2021-08-06 09:21] LABS: African American GFR (CKD) 86.3 (60.0-200.0); Anion Gap 8.3 mmol/L (10.00-18.00); BUN/Creat Ratio 8.1 Ratio (12.00-20.00); Blood Urea Nitrogen 8.2 mg/dL (9.0-27.0); Carbon Dioxide 28.1 mmol/L (20.0-27.5); Non-African American GFR(CKD) 74.5 (60.0-200.0); Potassium 3.9 mmol/L (3.5-5.5)
[2021-08-06] MEDS ORDERED: KETOROLAC 15 MG/ML 1 ML VIAL IVP PRN (09:56)
--- NOTE | 2021-08-06 12:28 | P.PN ---
Subjective Progress Note Date: 08/06/21 CHIEF COMPLAINT: Perforated sigmoid diverticulitis HISTORY OF PRESENT ILLNESS: Patient is postop day #7 status post sigmoid colectomy with end colostomy. Patient's ostomy is functioning. He is having more output through the out ostomy. He reports that his pain is okay. He has noted that his pain has improved since surgery. He does report poor pain 6 out of 10 with movement. He did require IV Dilaudid this morning. He does have nausea when he takes the [place] and also reports that the [place] does not appear to be helping very much. CLAYTON drain with 10 mL of serositis output. When patient is lying still he has no abdominal pain. Afebrile. WBC is 9.76 hemoglobin 11.8 platelets 385 sodium 141 potassium is 3.9 creatinine is 1.0 PHYSICAL EXAM: VITAL SIGNS: Reviewed. GENERAL: Well-developed in no acute distress. HEENT: No sclera icterus. Extraocular movements grossly intact. Moist buccal mucosa. Head is atraumatic, normocephalic. ABDOMEN: Soft. Incision site clean dry and intact. The dressing there is small amount of serosanguineous drainage noted. Ostomy with liquidy brown stool. NEUROLOGIC: Alert and oriented. Cranial nerves II through XII grossly intact. ASSESSMENT: 1. Perforated sigmoid diverticulitis status post sigmoid colectomy with end colostomy PLAN: -Advance diet to low fiber -Added Ultram to help with pain control. Patient declined the Toradol. -Continue antibiotics -Encouraged patient to use incentive spirometer -Encouraged patient to increase activity -DVT prophylaxis subcu heparin and GI prophylaxis Protonix Physician Furniture Finisher note has been reviewed by physician. Signing provider agrees with the documented findings, assessment, and plan of care. I have personally seen and examined the patient, reviewed the DATA MANAGER /PAs history, exam and MDM and agree with the assessment and plan as written. Based on total visit time, I have performed more than 50% of the visit. As above: Patient doing well today. Tolerating diet. Plan discharge tomorrow with prescription for Ultram and Augmentin. We'll remove CLAYTON drain this evening. Objective - Vital Signs Vital signs: Vital Signs Temp 98.5 F 08/06/21 11:20 Pulse 63 08/06/21 11:20 Resp 18 08/06/21 11:20 BP 150/79 08/06/21 11:20 Pulse Ox 97 08/06/21 11:20 FiO2 Intake & Output 08/05/21 08/06/21 08/06/21 18:59 06:59 18:59 Intake Total 636 450 Output Total 500 950 940 Balance 136 -500 -940 Intake: Intake, IV Titration 400 Amount Piperacillin-Tazobactam 3 200 .375 gm In Sodium Chloride 0.9% 100 ml @ 25 mls/hr IVPB Q8HR [facility] Rx# :[id number] metroNIDAZOLE-NS PMX 500 200 mg In Saline 1 100ml.bag @ 100 mls/hr IVPB Q6H [facility] Rx#:[id number] Oral 236 450 Output: Urine 900 700 Stool 500 50 240 - Labs CBC & Chem 7: 08/06/21 05:30 08/06/21 05:30 Labs: Abnormal Lab Results - Last 24 Hours (Table) 08/06/21 08/06/21 Range/Units 05:30 05:30 RBC 3.67 L (4.40-5.60) X 10*6/uL Hgb 11.8 L (13.0-17.0) g/dL Hct 35.4 L (39.6-50.0) % MCH 32.2 H (27.0-32.0) pg Immature Gran # 0.21 H (0.00-0.04) X 10*3/uL Neutrophils # 7.77 H (1.80-7.70) X 10*3/uL Lymphocytes # 0.80 L (0.90-5.00) X 10*3/uL Carbon Dioxide 28.1 H (20.0-27.5) mmol/L Anion Gap 8.30 L (10.00-18.00) mmol/L BUN 8.2 L (9.0-27.0) mg/dL BUN/Creatinine Ratio 8.10 L (12.00-20.00) Ratio Calcium 8.0 L (8.7-10.3) mg/dL
[2021-08-06] MEDS: traMADol 50 MG TAB PO PRN ×2 (12:30→19:41)
--- NOTE | 2021-08-06 14:14 | P.PN ---
Subjective Progress Note Date: 08/06/21 This is a pleasant 70 male with past medical history of sarcoidosis, hypertension. Presents because of abdominal pain in the left lower quadrant about 10/10 inm severity and now feels better with pain medication , pain is not radiating much, non specific in character, no nausea or vomiting , no diarrhea , his last bowel movement was about 2 days ago. also he is not eating well over the last two days he denies chest pain or shortness of breath, no fever , no headache or dizziness, no weakens or numbness he denies smoking or alcohol or illicit drugs Hemodynamically stable and patient is afebrile. As leukocytosis with WBC 15k, INR 0.9 BMP showing mild low sodium 136, rest of BMP and liver enzymes are unremarkable. CT of the abdomen and pelvis with no contrast, perforated sigmoid colonic diverticulitis with extensive pneumoperitoneum throughout the mesentery and extending up into the upper abdomen around the distal esophagus. No evidence of organizing fluid collection to suggest abscess at this time. Nonobstructing right renal calculi.Septal emphysema changes. Prostatomegaly Patient currently on normal saline with 30 mL/h and Zosyn. 07/28/2021 Patient abdominal pain in the left lower quadrant is improving, no nausea vomiting today. However patient still nothing by mouth. He does not have bowel movement and passing gas. Blood pressure is slightly elevated and restarted his Cozaar. Later on tonight patient refused to take his night dose of Solu-Medrol because it gets somewhat agitated, restarted his Ambien at night dose as needed also give him a bolus of 500 mL and close monitoring. Labs are stable. Hemoglobin A1c is 5.4%. He remains on Solu-Medrol 40 mg twice daily, Flagyl and Zosyn and normal saline at 1 30 mL/h 07/29/2021 Patient awake and alert not in distress, he was started on liquid diet but he started developing pain in his left lower quadrant and some colic which comes and goes which concerned him, explanation provided for the patient. He is hemodynamically stable. Steroids discharged back to prednisone 10 mg orally. We added losartan 25 mg daily, we'll increase it to his home dose of 50 mg from tomorrow. Continue with IV fluids normal saline 1:30, Flagyl and Zosyn per surgery team will follow closely as well 07/30/2021 Patient evaluated today ambulating from the rest room. Denies nausea, denies vomiting. Has not had a BM in 2 days. He is scheduled to undergo surgical repair of perforated diverticula today. He is also following with pulmonary for history of pulmonary sarcoidosis, continues on oral prednisone daily. Labs today white count 11.4, hemoglobin 12.7, neutrophils 10.1, sodium 138, potassium 3.3, magnesium 1.9, calcium 7.9. Patient received 1 bag of IV potassium. We will repeat this afternoon. Temperature 90.9, heart rate 78, blood pressure 147/79, 96% room air. Currently complains of abdominal pain mainly left lower quadrant rating a 6 out of 10 states that the pain medication helps when he gets it ho wever he is currently requesting medication. Continues on IV metronidazole, IV Zosyn. 07/31/2021 Post operative day #1 sigmoid colectomy with end colostomy secondary to perf orated sigmoid diverticula. Patient is monitored on medical floor. Afebrile, blood pressure 112/66. Saturating 92-94% on room air, incentive spirometer at the bedside which patient is able to achieve 1500. Continues on losartan 50 mg daily dose which was increased preoperatively. Continues on IV metronidazole, IV zosyn. Epidural is infusing for pain control. Tolerating clear liquid diet. He has gas and small amt of brown liquid stool through ostomy. Pulmonary services are also on consultation. Labs today showing WBC 15.8, hgb 11.6, potassium 4.5, calcium 7.6. 08/01/2021 Patient is evaluated today on bedrest, postoperative day #2. Epidural is infusing states he is having zero pain. Plan is for epidural to be removed tomorrow per patient. He is producing gas and stool from the ostomy. CLAYTON drain in place with serosanguineous drainage. Continues with indwelling catheter, urine is clear yellow. Continues with IV fluids. Appetite is fair, he would like more than clear liquid diet. He is using incentive spirometer. Denies chest pain, shortness of breath. No acute issues overnight. threat monitoring analyst can be discontinued. Had concerns with blood pressure on the lower side and taking his losartan. Blood pressure in the 140's systolic today, decreased losartan to 25 m g po HS. Labs today are pending. 08/02/2021 Patient evaluated today, he was up in the chair yesterday. plan for epidural to be removed today. He is post operative day #3, having stool and gas from ostomy. Denies pain, no acute events overnight. Denies shortness of breath. He is on clear liquid diet. Continues on IV antibiotics. Evaluation and education by ostomy nurse was completed. Blood pressure in the 160's if he continues to be elevated will increase losartan back up to 50 mg. White count 7.5, hgb 12.0. Potassium level is pending. 08/03/2021 Patient is evaluated today post operative day #4 sigmoid colectomy with end colostomy. His diet has been increased to full liquid which he is tolerating and has increased his oral intake. Plan is to saline lock patients IV today. Epidural has been removed he is receiving IV dilaudid for pain as well as IV toradol and norco, does report a mild 3/10 dull headache today. Saenz has been removed. Midline dressing changed by primary team, intact. Having stool and gas from ostomy. Patient seems down about his overall diagnosis, reinforced educat ion and patient was encouraged to empty the ostomy today up in the bathroom. He is also requesting a shower today. Doing well on IS. Magnesium 1.8, potassium 3.1 Blood pressure elevated today, losartan increased to 50 mg and this was discussed with patient. Afebrile, oxygen saturation 95% on room air. 08/04/2021 Patient today is feeling well. He was able to shower yesterday. He has increased ankle edema, lungs are clear. He can wear compression stockings. Continues on full liquid diet, no nausea vomiting or diarrhea. He is having stool and gas through ostomy. Headache has resolved. Labs are pending from today. Patient is afebrile, blood pressure 146/83, 96% room air, heart rate. Continues on IV metronidazole, IV Zosyn. Blood pressure is better today 140/80s, afebrile, 96% room air. 08/05/2021 Patient evaluated today resting in bed. Abdominal binder has been ordered to assist with pain with movement. He continues on full liquid diet, he reported some nausea around lunch time, and is receiving IV zosyn. He is also on IV Zosyn, IV metronidazole. IV fluids have been stopped and ALEJANDRA h ose will be applied today. will be here at noon for ostomy teaching. He is passing liquid stool and gas from the ostomy, which is increasing. His bowels are active. No chest pain, no shortness of breath. Potassium 3.4 today, increased to BID scheduled and will receive an additional dose today. 08/06/2021 No acute events overnight. Patient is continued on full liquid diet, states he is tolerating, but has poor oral intake. He is making stool and gas through ostomy. He is complaining of abdominal pain mostly incisional rating 6/10 and states it is worse when he tries to move and get up. He has been lying in bed during the day when rounding. Ostomy nurse is following with patient. Per landscape management technician will be adjusted today per primary group and will trial tramadol. He also has norco and tramadol. There is dilaudid for breakthrough pain which he has been requesting. He is using incentive spirometry. Sodium today 3.9, hgb 11.8, no white count. Blood pressure 150/79 he is having periods of BP in the 170s this is probably related to pain. Review of Systems Constitutional: Denied any fatigue denied any fever. Cardio vascular: denied any chest pain, palpitations Gastrointestinal: Denies vomiting, having some nausea after meals. Having gas and stool through ostomy. Abdomen feels tight. Reports incisional pain Pulmonary: Denied any shortness of breath cough Neurologic denied any new focal deficits All inpatient medications were reviewed and appropriate changes in these me dications as dictated in the interval history and assessment and plan. PHYSICAL EXAMINATION: GENERAL: The patient is alert and oriented x3, not in any acute distress. Well developed, well nourished. HEENT: Pupils are round and equally reacting to light. EOMI. No scleral icterus. No conjunctival pallor. Normocephalic, atraumatic. No pharyngeal erythema. No thyromegaly. CARDIOVASCULAR: S1 and S2 present. No murmurs, rubs, or gallops. PULMONARY: Chest is clear to auscultation, no wheezing or crackles. ABDOMEN: Soft, tender, nondistention, normoactive bowel sounds. No palpable organomegaly. Post surgical abdomen with ostomy present left of midline. MUSCULOSKELETAL: No joint swelling or deformity. EXTREMITIES: No cyanosis, clubbing, non pitting peripheral ankle edema NEUROLOGICAL: Gross neurological examination did not reveal any focal deficits. SKIN: No rashes. Surgical dressing intact. Assessment and Plan Assessment Acute abdominal pain secondary to acute diverticulitis, perforated sigmoid diverticulitis and extensive pneumoperitoneum Post operative day # 7 sigmoid colectomy with end colostomy. Hypokalemia, currently 3.9, increased oral potassium History of hypertension History of sarcoidosis, on prednisone daily History of spontaneous pneumothorax Non obstructing right renal calculi Enlarged prostate GI Prophylaxis DVT Prophylaxis as per primary Full Code Plan Continues on full liquid diet Continue IV antibiotics Use compression stockings, abdominal binder has been ordered Encourage ambulation, incentive spirometry Continue daily potassium Ostomy teaching today with and assembler erector. Medically he is stable for discharge when cleared by primary team. Thank you kindly for this consultation. The impression and plan of care has been dictated by Mae Quintana, Nurse Practitioner as directed. Dr. Larissa MD I have performed a history and physical examination and medical decision making of this patient, discussed the same with the dictator, and agree with the dictators assessment and plan as written, documented as a scribe. Based on total visit time, I have performed more than 50% of this visit. Objective - Vital Signs Vital signs: Vital Signs Temp 97.6 F 08/06/21 05:00 Pulse 82 08/06/21 05:00 Resp 18 08/06/21 05:00 BP 171/85 08/06/21 05:00 Pulse Ox 97 08/06/21 05:00 FiO2 Intake & Output 08/05/21 08/06/21 08/06/21 18:59 06:59 18:59 Intake Total 636 450 Output Total 500 950 Balance 136 -500 Intake: Intake, IV Titration 400 Amount Piperacillin-Tazobactam 3 200 .375 gm In Sodium Chloride 0.9% 100 ml @ 25 mls/hr IVPB Q8HR [facility] Rx# :[id number] metroNIDAZOLE-NS PMX 500 200 mg In Saline 1 100ml.bag @ 100 mls/hr IVPB Q6H [facility] Rx#:[id number] Oral 236 450 Output: Urine 900 Stool 500 50 - Labs CBC & Chem 7: 08/06/21 05:30 08/06/21 05:30 Labs: Abnormal Lab Results - Last 24 Hours (Table) 08/06/21 08/06/21 Range/Units 05:30 05:30 RBC 3.67 L (4.40-5.60) X 10*6/uL Hgb 11.8 L (13.0-17.0) g/dL Hct 35.4 L (39.6-50.0) % MCH 32.2 H (27.0-32.0) pg Immature Gran # 0.21 H (0.00-0.04) X 10*3/uL Neutrophils # 7.77 H (1.80-7.70) X 10*3/uL Lymphocytes # 0.80 L (0.90-5.00) X 10*3/uL Carbon Dioxide 28.1 H (20.0-27.5) mmol/L Anion Gap 8.30 L (10.00-18.00) mmol/L BUN 8.2 L (9.0-27.0) mg/dL BUN/Creatinine Ratio 8.10 L (12.00-20.00) Ratio Calcium 8.0 L (8.7-10.3) mg/dL Assessment and Plan Time with Patient: Less than 30
[2021-08-06 20:57] VITALS: RESP 16
[2021-08-06] MEDS: ZOLPIDEM 5 MG TAB PO PRN (22:15)
[2021-08-07] MEDS: PIPERACILLIN-TAZOBACTAM 3.375 GM in SODIUM CHLORIDE 0.9% 100 ML IVPB SCH ×2 (00:20→08:36)
[2021-08-07] MEDS: metroNIDAZOLE-NS PMX 500 MG in SALINE 1 100ML.BAG IVPB SCH ×2 (00:20→08:36)
[2021-08-07] MEDS ORDERED: metroNIDAZOLE-NS PMX 500 MG in SALINE 1 100ML.BAG IVPB ONE (08:30)
[2021-08-07] MEDS: PANTOPRAZOLE 40 MG/10 ML VIAL IV SCH (08:35)
[2021-08-07] MEDS: predniSONE 10 MG TAB PO SCH (08:35)
[2021-08-07] MEDS: POTASSIUM CHLORIDE ER 20 MEQ TAB.ER PO SCH (08:35)
[2021-08-07] MEDS: LOSARTAN 50 MG TAB PO SCH (08:35)
[2021-08-07] MEDS: HEPARIN SODIUM,PORCINE/PF 5,000 UNIT/0.5 ML SYRINGE SQ SCH (08:36)
--- NOTE | 2021-08-07 09:06 | P.PN ---
Subjective Progress Note Date: 08/07/21 This is a pleasant 70 male with past medical history of sarcoidosis, hypertension. Presents because of abdominal pain in the left lower quadrant about 10/10 inm severity and now feels better with pain medication , pain is not radiating much, non specific in character, no nausea or vomiting , no diarrhea , his last bowel movement was about 2 days ago. also he is not eating well over the last two days he denies chest pain or shortness of breath, no fever , no headache or dizziness, no weakens or numbness he denies smoking or alcohol or illicit drugs Hemodynamically stable and patient is afebrile. As leukocytosis with WBC 15k, INR 0.9 BMP showing mild low sodium 136, rest of BMP and liver enzymes are unremarkable. CT of the abdomen and pelvis with no contrast, perforated sigmoid colonic diverticulitis with extensive pneumoperitoneum throughout the mesentery and extending up into the upper abdomen around the distal esophagus. No evidence of organizing fluid collection to suggest abscess at this time. Nonobstructing right renal calculi.Septal emphysema changes. Prostatomegaly Patient currently on normal saline with 30 mL/h and Zosyn. 07/28/2021 Patient abdominal pain in the left lower quadrant is improving, no nausea vomiting today. However patient still nothing by mouth. He does not have bowel movement and passing gas. Blood pressure is slightly elevated and restarted his Cozaar. Later on tonight patient refused to take his night dose of Solu-Medrol because it gets somewhat agitated, restarted his Ambien at night dose as needed also give him a bolus of 500 mL and close monitoring. Labs are stable. Hemoglobin A1c is 5.4%. He remains on Solu-Medrol 40 mg twice daily, Flagyl and Zosyn and normal saline at 1 30 mL/h 07/29/2021 Patient awake and alert not in distress, he was started on liquid diet but he started developing pain in his left lower quadrant and some colic which comes and goes which concerned him, explanation provided for the patient. He is hemodynamically stable. Steroids discharged back to prednisone 10 mg orally. We added losartan 25 mg daily, we'll increase it to his home dose of 50 mg from tomorrow. Continue with IV fluids normal saline 1:30, Flagyl and Zosyn per surgery team will follow closely as well 07/30/2021 Patient evaluated today ambulating from the rest room. Denies nausea, denies vomiting. Has not had a BM in 2 days. He is scheduled to undergo surgical repair of perforated diverticula today. He is also following with pulmonary for history of pulmonary sarcoidosis, continues on oral prednisone daily. Labs today white count 11.4, hemoglobin 12.7, neutrophils 10.1, sodium 138, potassium 3.3, magnesium 1.9, calcium 7.9. Patient received 1 bag of IV potassium. We will repeat this afternoon. Temperature 90.9, heart rate 78, blood pressure 147/79, 96% room air. Currently complains of abdominal pain mainly left lower quadrant rating a 6 out of 10 states that the pain medication helps when he gets it ho wever he is currently requesting medication. Continues on IV metronidazole, IV Zosyn. 07/31/2021 Post operative day #1 sigmoid colectomy with end colostomy secondary to perf orated sigmoid diverticula. Patient is monitored on medical floor. Afebrile, blood pressure 112/66. Saturating 92-94% on room air, incentive spirometer at the bedside which patient is able to achieve 1500. Continues on losartan 50 mg daily dose which was increased preoperatively. Continues on IV metronidazole, IV zosyn. Epidural is infusing for pain control. Tolerating clear liquid diet. He has gas and small amt of brown liquid stool through ostomy. Pulmonary services are also on consultation. Labs today showing WBC 15.8, hgb 11.6, potassium 4.5, calcium 7.6. 08/01/2021 Patient is evaluated today on bedrest, postoperative day #2. Epidural is infusing states he is having zero pain. Plan is for epidural to be removed tomorrow per patient. He is producing gas and stool from the ostomy. CLAYTON drain in place with serosanguineous drainage. Continues with indwelling catheter, urine is clear yellow. Continues with IV fluids. Appetite is fair, he would like more than clear liquid diet. He is using incentive spirometer. Denies chest pain, shortness of breath. No acute issues overnight. traffic monitor specialist can be discontinued. Had concerns with blood pressure on the lower side and taking his losartan. Blood pressure in the 140's systolic today, decreased losartan to 25 m g po HS. Labs today are pending. 08/02/2021 Patient evaluated today, he was up in the chair yesterday. plan for epidural to be removed today. He is post operative day #3, having stool and gas from ostomy. Denies pain, no acute events overnight. Denies shortness of breath. He is on clear liquid diet. Continues on IV antibiotics. Evaluation and education by ostomy nurse was completed. Blood pressure in the 160's if he continues to be elevated will increase losartan back up to 50 mg. White count 7.5, hgb 12.0. Potassium level is pending. 08/03/2021 Patient is evaluated today post operative day #4 sigmoid colectomy with end colostomy. His diet has been increased to full liquid which he is tolerating and has increased his oral intake. Plan is to saline lock patients IV today. Epidural has been removed he is receiving IV dilaudid for pain as well as IV toradol and norco, does report a mild 3/10 dull headache today. Saenz has been removed. Midline dressing changed by primary team, intact. Having stool and gas from ostomy. Patient seems down about his overall diagnosis, reinforced educat ion and patient was encouraged to empty the ostomy today up in the bathroom. He is also requesting a shower today. Doing well on IS. Magnesium 1.8, potassium 3.1 Blood pressure elevated today, losartan increased to 50 mg and this was discussed with patient. Afebrile, oxygen saturation 95% on room air. 08/04/2021 Patient today is feeling well. He was able to shower yesterday. He has increased ankle edema, lungs are clear. He can wear compression stockings. Continues on full liquid diet, no nausea vomiting or diarrhea. He is having stool and gas through ostomy. Headache has resolved. Labs are pending from today. Patient is afebrile, blood pressure 146/83, 96% room air, heart rate. Continues on IV metronidazole, IV Zosyn. Blood pressure is better today 140/80s, afebrile, 96% room air. 08/05/2021 Patient evaluated today resting in bed. Abdominal binder has been ordered to assist with pain with movement. He continues on full liquid diet, he reported some nausea around lunch time, and is receiving IV zosyn. He is also on IV Zosyn, IV metronidazole. IV fluids have been stopped and ALEJANDRA h ose will be applied today. will be here at noon for ostomy teaching. He is passing liquid stool and gas from the ostomy, which is increasing. His bowels are active. No chest pain, no shortness of breath. Potassium 3.4 today, increased to BID scheduled and will receive an additional dose today. 08/06/2021 No acute events overnight. Patient is continued on full liquid diet, states he is tolerating, but has poor oral intake. He is making stool and gas through ostomy. He is complaining of abdominal pain mostly incisional rating 6/10 and states it is worse when he tries to move and get up. He has been lying in bed during the day when rounding. Ostomy nurse is following with patient. Per treasury management sales consultant will be adjusted today per primary group and will trial tramadol. He also has norco and tramadol. There is dilaudid for breakthrough pain which he has been requesting. He is using incentive spirometry. Sodium today 3.9, hgb 11.8, no white count. Blood pressure 150/79 he is having periods of BP in the 170s this is probably related to pain. 08/07/2021 Patient today in the hallway ambulating. Continues with abominal pain, mostly incisional. Pain medications adjusted. Compression hose has been applied and patients ankle edema has improved. No shortness of breath, no chest pain. Lungs are clear. He is making stool and passing gas through ostomy. Blood pressure has improved to 137/80, afebrile, 95% room air. He has been advanced to low fiber diet. He is cleared medically for discharge when cleared by primary. Review of Systems Constitutional: Denied any fatigue denied any fever. Cardio vascular: denied any chest pain, palpitations Gastrointestinal: Denies vomiting, having some nausea after meals. Having gas and stool through ostomy. Reports incisional pain. Pulmonary: Denied any shortness of breath cough Neurologic denied any new focal deficits All inpatient medications were reviewed and appropriate changes in these medications as dictated in the interval history and assessment and plan. PHYSICAL EXAMINATION: GENERAL: The patient is alert and oriented x3, not in any acute distress. Well developed, well nourished. HEENT: Pupils are round and equally reacting to light. EOMI. No scleral icterus. No conjunctival pallor. Normocephalic, atraumatic. No pharyngeal erythema. No thyromegaly. CARDIOVASCULAR: S1 and S2 present. No murmurs, rubs, or gallops. PULMONARY: Chest is clear to auscultation, no wheezing or crackles. ABDOMEN: Soft, tender, nondistention, normoactive bowel sounds. No palpable organomegaly. Post surgical abdomen with ostomy present left of midline. MUSCULOSKELETAL: No joint swelling or deformity. EXTREMITIES: No cyanosis, clubbing, non pitting peripheral ankle edema NEUROLOGICAL: Gross neurological examination did not reveal any focal deficits. SKIN: No rashes. Surgical dressing intact. Assessment and Plan Assessment Acute abdominal pain secondary to acute diverticulitis, perforated sigmoid diverticulitis and extensive pneumoperitoneum Post operative day #8 sigmoid colectomy with end colostomy. Hypokalemia, resolved will continue on oral potassium. History of hypertension History of sarcoidosis, on prednisone daily History of spontaneous pneumothorax Non obstructing right renal calculi Enlarged prostate GI Prophylaxis DVT Prophylaxis as per primary Full Code Plan Advanced to low fiber diet Continue IV antibiotics Encourage ambulation, incentive spirometry Continue daily potassium Medically he is stable for discharge when cleared by primary team. Thank you kindly for this consultation. The impression and plan of care has been dictated by Mae Quintana Nurse Practitioner as directed. Dr. Larissa MD I have performed a history and physical examination and medical decision making of this patient, discussed the same with the dictator, and agree with the dictators assessment and plan as written, documented as a scribe. Based on total visit time, I have performed more than 50% of this visit. Objective - Vital Signs Vital signs: Vital Signs Temp 97.9 F 08/07/21 05:39 Pulse 74 08/07/21 05:39 Resp 16 08/07/21 05:39 BP 137/80 08/07/21 05:39 Pulse Ox 95 08/07/21 05:39 FiO2 Intake & Output 08/06/21 08/07/21 08/07/21 18:59 06:59 18:59 Intake Total 400 300 Output Total 2140 800 Balance -1740 -500 Weight 79.379 kg Intake: Intake, IV Titration 400 300 Amount Piperacillin-Tazobactam 3 200 100 .375 gm In Sodium Chloride 0.9% 100 ml @ 25 mls/hr IVPB Q8HR [facility] Rx# :[id number] metroNIDAZOLE-NS PMX 500 200 200 mg In Saline 1 100ml.bag @ 100 mls/hr IVPB Q6H [facility] Rx#:[id number] Output: Urine 1900 800 Stool 240 - Labs CBC & Chem 7: 08/06/21 05:30 08/06/21 05:30 Labs: Abnormal Lab Results - Last 24 Hours (Table) 08/06/21 Range/Units 05:30 Carbon Dioxide 28.1 H (20.0-27.5) mmol/L Anion Gap 8.30 L (10.00-18.00) mmol/L BUN 8.2 L (9.0-27.0) mg/dL BUN/Creatinine Ratio 8.10 L (12.00-20.00) Ratio Calcium 8.0 L (8.7-10.3) mg/dL Assessment and Plan Time with Patient: Less than 30
[2021-08-07] MEDS: traMADol 50 MG TAB PO PRN (09:44)
--- NOTE | 2021-08-07 11:44 | P.DS ---
Providers Date of admission: 07/26/21 19:21 Expected date of discharge: 08/07/21 Attending physician: Chepe Camejo Consults: 07/26/21 19:21 Consult Physician Routine Consulting Provider: Cash Hong Consult Reason/Comments: medicine consultation Do you want consulting provider notified?: Yes 07/26/21 19:48 Consult Physician Routine Consulting Provider: Aundrea Gabriel Consult Reason/Comments: sarcoidosis Do you want consulting provider notified?: Yes Primary care physician: Jannie Camejo Hospital Course: Discharge diagnosis 1. Perforated sigmoid diverticulitis status post sigmoid colectomy with end colostomy Hospital course This is a 70-year-old male with a known history of perforated sigmoid diverticulitis. He is status post sigmoid colectomy with end colostomy. Patient tolerated surgery well. His pain is controlled. He is tolerating diet. His ostomy is functioning. He is afebrile. He is up and ambulating. His incision site is clean dry and intact. Patient is stable for discharge. Please refer to chart for any further details. Physician Scale Mechanic note has been reviewed by physician. Signing provider agrees with the documented findings, assessment, and plan of care. I have personally seen and examined the patient, reviewed the [employer] /PAs history, exam and MDM and agree with the assessment and plan as written. Based on total visit time, I have performed more than 50% of the visit. As above: Patient doing well today. May discharge. Follow-up one week. Patient Condition at Discharge: Stable Plan - Discharge Summary Discharge Rx Participant: Yes New Discharge Prescriptions: New traMADol HCL [Ultram] 50 mg PO Q6HR PRN 3 Days #12 tab PRN Reason: Pain Potassium Chloride ER [K-Dur 20] 20 meq PO DAILY #30 tab Amoxic-Pot Clav 875-125Mg [Augmentin 875-125] 1 tab PO Q12HR 10 Days #20 tab Continue predniSONE 10 mg PO DAILY amLODIPine [Norvasc] 5 mg PO HS Losartan [Cozaar] 50 mg PO HS Zolpidem Tartrate [Zolpidem Tartrate ER] 12.5 mg PO HS Ascorbic Acid [Vitamin C] 500 mg PO DAILY [place]-3 Fatty Acids/Fish Oil [Fish Oil 1,000 mg Softgel] 2 capsule PO DAILY Cholecalciferol [Vitamin D3 (25 Mcg = 1000 Iu)] 25 mcg PO DAILY Lansoprazole 15 mg PO HS Discharge Medication List Losartan [Cozaar] 50 mg PO HS 12/09/19 [History] amLODIPine [Norvasc] 5 mg PO HS 12/09/19 [History] predniSONE 10 mg PO DAILY 12/09/19 [History] Zolpidem Tartrate [Zolpidem Tartrate ER] 12.5 mg PO HS 10/25/20 [History] Ascorbic Acid [Vitamin C] 500 mg PO DAILY 06/18/21 [History] Cholecalciferol [Vitamin D3 (25 Mcg = 1000 Iu)] 25 mcg PO DAILY 06/18/21 [History] [place]-3 Fatty Acids/Fish Oil [Fish Oil 1,000 mg Softgel] 2 capsule PO DAILY 06/18/21 [History] Lansoprazole 15 mg PO HS 07/26/21 [History] Amoxic-Pot Clav 875-125Mg [Augmentin 875-125] 1 tab PO Q12HR 10 Days #20 tab [Rx] Potassium Chloride ER [K-Dur 20] 20 meq PO DAILY #30 tab 08/07/21 [Rx] traMADol HCL [Ultram] 50 mg PO Q6HR PRN 3 Days #12 tab 08/07/21 [Rx] Follow up Appointment(s)/Referral(s): Chepe Camejo MD [Medical Doctor] - 08/16/21 8:15 am Jannie Camejo MD [Primary Care Provider] - 08/15/21 8:[address] [facility], [NON-STAFF] - 1 Week Ambulatory/Diagnostic Orders: Basic Metabolic Panel [LAB.AMB] Time Frame: 2 Days, Location: None Selected Patient Instructions/Handouts: Potassium Chloride (By mouth), Amoxicillin /Clavulanate Potassium (By mouth), Tramadol (By mouth), Diverticulitis (GEN), Colostomy Care (GEN), Low Fiber Diet (ED), Basic Metabolic Panel (GEN) Activity/Diet/Wound Care/Special Instructions: Recommendations for Colostomy Care on Discharge transition to Home from [facility]: Last pouching system change: 08.05.2021 Supplies sent from the hospital: Convatec flange #[id number] (3 from the hospital) Convatec pouch with filter #[id number] (3 from the hospital) Ostomy Powder (1) No sting prep pads (10) from the hospital Mr Shaikh is to empty the pouching system when it is 1/2 to 1/3 full while sitting on the toilet or facing the toilet straddle the toilet bowl and empty The entire pouching system should be changed every 3 - 5 days unless otherwise directed by the surgeon or Home Health nurse. Mr Shaikh also will be receiving free sample supplies for his ostomy care from [facility] to his home in 5 - 7 days after discharge from the hospital. No lifting over 10 pounds You may shower. No soaking or tub baths for 2 weeks Very light activity until you are reevaluated at your follow up appointment with your surgeon Discharge Disposition: HOME WITH HOME HEALTH SERVICES
[2021-08-07 12:01] VITALS: BP 132/80; PULSE 71; TEMP 99.3
== END 2021-08-07 15:01 | disposition home health service (06) | DRG 331 ==
LOC: EC 17:25 → 4SSUR 19:21 → 5NMEDONC 20:24
PROVIDERS: ADMIT Surgery; ATTEND Surgery
PROC: 0DTN0ZZ Resection of Sigmoid Colon, Open Approach (ICD-10-PCS; principal; 2021-07-30 15:20)
PROC: 0D1M0Z4 Bypass Descending Colon to Cutaneous, Open Approach (ICD-10-PCS; principal; 2021-07-30 15:20)
DX: K57.20 Diverticulitis of large intestine with perforation and abscess without bleeding (principal); I10 Essential (primary) hypertension; K66.8 Other specified disorders of peritoneum; E87.6 Hypokalemia; N20.0 Calculus of kidney; D86.0 Sarcoidosis of lung; I45.10 Unspecified right bundle-branch block; R00.0 Tachycardia, unspecified; N40.0 Benign prostatic hyperplasia without lower urinary tract symptoms; Z79.52 Long term (current) use of systemic steroids; Z79.899 Other long term (current) drug therapy; Z82.3 Family history of stroke; Z87.09 Personal history of other diseases of the respiratory system; Z87.891 Personal history of nicotine dependence; Z81.1 Family history of alcohol abuse and dependence; Z98.890 Other specified postprocedural states; Z87.19 Personal history of other diseases of the digestive system
CPT/HCPCS: 36415; 74176; 80048; 80053; 82172; 83036; 83605; 83735; 84132; 85025; 85610; 85730; 86850; 86900; 86901; 88307; 93005; 96365; 96375; 99285

== ENCOUNTER → 2021-12-19 | Outpatient (CLI) | payer MEDICARE, BC ==
[2021-12-19 22:57] LABS: HCT 39.1 % (39.6-50.0); HGB 13.6 g/dL (13.0-17.0); MCH 32.2 pg (27.0-32.0); MCHC 34.8 g/dL (32.0-37.0); MCV 92.7 fL (80.0-97.0); Mean Platelet Volume 11.1 fL (9.5-12.2); NRBC Per 100 WBC 0 /100 WBCS (0.0-0.0); Platelet Count 231 X 10*3/uL (140-440); RBC 4.22 X 10*6/uL (4.40-5.60); RDW 14.4 % (11.5-14.5); WBC 7.72 X 10*3/uL (4.50-10.00)
[2021-12-19 23:13] LABS: Anion Gap 13.1 mmol/L (10.00-18.00); Carbon Dioxide 21.4 mmol/L (20.0-27.5)
== END | disposition home or self-care (01) ==
LOC: LABPAT 15:16
PROVIDERS: ATTEND Surgery
DX: Z01.812 Encounter for preprocedural laboratory examination (principal); K57.92 Diverticulitis of intestine, part unspecified, without perforation or abscess without bleeding
CPT/HCPCS: 80051; 85027

== ENCOUNTER → 2021-12-27 | Day surgery (SDC) | payer MEDICARE, BC ==
[2021-12-25 16:18] VITALS: BMI 24.8
[~2021-12-27] MED LIST changes: -ACETAMINOPHEN TAB 500 MG TAB PO STA; -DEXAMETHASONE SOD PHOSPHATE 10 MG/ML 1 ML VIAL IV ONE; -GABAPENTIN 300 MG CAP PO STA; -HEPARIN SODIUM,PORCINE 5,000 UNIT/ML 1 ML VIAL SQ ONE; -KETOROLAC 15 MG/ML 1 ML VIAL IVP SCH; +LACTATED RINGERS 1,000 ML IV ONE; +LACTATED RINGERS 1,000 ML IV SCH; -ONDANSETRON 4 MG/2 ML VIAL IVP ONE; +PROPOFOL 10 MG/ML 20 ML VIAL IV ONE; -SCOPOLAMINE 1.5MG/72HR PATCH TRANSDERM ONE; -TAMSULOSIN 0.4 MG CAP.ER.24H PO STA
[2021-12-27 13:27] VITALS: TEMP 97.3
--- NOTE | 2021-12-27 14:00 | P.GSHP ---
History of Present Illness H&P Date: 12/27/21 Chief Complaint: Diverticulitis 71-year-old male here today for colonoscopy. Patient had Griffin's procedure earlier this year for perforated sigmoid diverticulitis. Patient is scheduled for colostomy reversal tomorrow. Otherwise doing well. Past Medical History Past Medical History: GERD/Reflux, Hypertension, Respiratory Disorder Additional Past Medical History / Comment(s): rupture diverticuli July 2021,RBBB. Pulmonary Sarcoidosis. Hx spontaneous pneumothorax. Rt inguinal hernia. History of Any Multi-Drug Resistant Organisms: None Reported Past Surgical History: Orthopedic Surgery Additional Past Surgical History / Comment(s): Griffin procedure w/ colostomy, Hernia's x3. knee,Robotic lysis of adhesions,VATS procedure Past Anesthesia/Blood Transfusion Reactions: No Reported Reaction Smoking Status: Former smoker - Past Family History Mother Family Medical History: No Reported History Additional Family Medical History / Comment(s): ETOH Father Family Medical History: CVA/TIA Additional Family Medical History / Comment(s): ETOH Medications and Allergies Home Medications Medication Instructions Recorded Confirmed Type Losartan [Cozaar] 50 mg PO QAM 12/09/19 12/27/21 History amLODIPine [Norvasc] 5 mg PO QAM 12/09/19 12/27/21 History predniSONE 10 mg PO QAM 12/09/19 12/27/21 History Zolpidem Tartrate [Zolpidem 12.5 mg PO HS 10/25/20 12/27/21 History Tartrate ER] Ascorbic Acid [Vitamin C] 500 mg PO DAILY 06/18/21 12/27/21 History Cholecalciferol [Vitamin D3 (25 25 mcg PO DAILY 06/18/21 12/27/21 History Mcg = 1000 Iu)] [place]-3 Fatty Acids/Fish Oil [Fish 2 capsule PO DAILY 06/18/21 12/27/21 History Oil 1,000 mg Softgel] Lansoprazole 15 mg PO HS 07/26/21 12/27/21 History Allergies Allergy/AdvReac Type Severity Reaction Status Date / Time adhesive tape Allergy tears Verified 12/27/21 13:27 skin-Please use paper tape Surgical - Exam Vital Signs Temp Pulse Resp BP Pulse Ox 97.3 F L 81 16 131/86 96 12/27/21 13:20 12/27/21 13:20 12/27/21 13:20 12/27/21 13:20 12/27/21 13:20 Physical exam: General: Well-developed, well-nourished HEENT: Normocephalic, sclerae nonicteric Abdomen: Nontender, nondistended Extremities: No edema Neuro: Alert and oriented Assessment and Plan (1) Diverticulitis Narrative/Plan: 71-year-old male with diverticulitis. We'll proceed with colonoscopy. Current Visit: No Status: Acute Code(s): K57.92 - DVTRCLI OF INTEST, PART UNSP, W/O PERF OR ABSCESS W/O BLEED SNOMED Code(s): 199794491
[2021-12-27 14:40] VITALS: BP 128/80; PULSE 67; RESP 15
--- NOTE | 2021-12-27 15:39 | P.PCN ---
Date of Procedure: 12/27/21 Procedure(s) Performed: PREOPERATIVE DIAGNOSIS: Diverticulitis POSTOPERATIVE DIAGNOSIS: Diverticulosis, ascending colon polyp, transverse colon polyp, fecal impaction PROCEDURE: Colonoscopy with snare polypectomy and manual disimpaction ANESTHESIA: MAC SURGEON: Chepe Camejo M.D. SPECIMENS: Polyps ENDOSCOPIC PROCEDURE: The patient was placed on the endoscopy table in the left decubitus position. The Olympus colonoscope was inserted into the anus and passed under direct visualization to the mid to proximal sigmoid colon. There was a fairly lengthy portion of sigmoid colon left distally. There was mild inflammation seen from disuse. The patient had some hard stool in the rectum that was evacuated manually. No polypoid lesions were seen. There was mild diverticulosis involving the sigmoid colon. The scope was then advanced into the ostomy and advanced under direct insufflation to the cecum. The appendiceal orifice was visualized. From that point the scope was slowly withdrawn inspecting all surfaces carefully. There were no neoplastic inflammatory or polypoid lesions throughout the cecum. In the ascending colon a small polyp was seen and removed using the snare with cautery technique. The transverse colon another small polyp was seen and removed in a similar fashion. The descending colon and ostomy appeared normal. The patient was taken to the recovery room in stable condition per anesthesia guidelines. RECOMMENDATIONS: Await biopsy results. Will proceed with colostomy reversal tomorrow.
== END ==
LOC: ORWHC2ENDO 11:27
PROVIDERS: ATTEND Surgery
DX: D12.2 Benign neoplasm of ascending colon (principal); D12.3 Benign neoplasm of transverse colon; K57.32 Diverticulitis of large intestine without perforation or abscess without bleeding; I10 Essential (primary) hypertension; K21.9 Gastro-esophageal reflux disease without esophagitis; Z87.891 Personal history of nicotine dependence; Z79.52 Long term (current) use of systemic steroids; Z88.8 Allergy status to other drugs, medicaments and biological substances
CPT/HCPCS: 88305; 44394; J2704; 86850; 86900; 86901

== ENCOUNTER 2021-12-28 07:30 | Inpatient (IN) | payer MEDICARE, BC ==
[2021-12-25 16:09] VITALS: BMI 24.8
[~2021-12-28 07:30] MED LIST changes: +ACETAMINOPHEN TAB 500 MG TAB PO PRN; +ALVIMOPAN 12 MG CAPSULE PO PRN; +DEXAMETHASONE SOD PHOSPHATE 4 MG/ML 1 ML VIAL IV ONE; +HEPARIN SODIUM,PORCINE/PF 5,000 UNIT/0.5 ML SYRINGE SQ PRN; +HYDROmorphone 0.5 MG/0.5 ML SYRINGE IVP PRN; -LACTATED RINGERS 1,000 ML IV ONE; -LACTATED RINGERS 1,000 ML IV SCH; +MIDAZOLAM 2 MG/2 ML VIAL IV PRN; +ONDANSETRON 4 MG/2 ML VIAL IVP ONE; -PROPOFOL 10 MG/ML 20 ML VIAL IV ONE; +metroNIDAZOLE-NS PMX 500 MG in SALINE 1 100ML.BAG IVPB PRN
[2021-12-28] MEDS: LACTATED RINGERS 1,000 ML IV SCH (08:23)
--- NOTE | 2021-12-28 08:46 | P.GSHP ---
History of Present Illness H&P Date: 12/28/21 Chief Complaint: Diverticulitis 71-year-old male here today for elective colostomy reversal. patient underwent colostomy reversal in July of this year. patient underwent colonoscopy yesterday showing 2 polyps proximally. The patient had a long segment of sigmoid colon left after recent resection. no issues with his colostomy. Past Medical History Past Medical History: GERD/Reflux, Hypertension, Respiratory Disorder Additional Past Medical History / Comment(s): rupture diverticuli July 2021,RBBB. Pulmonary Sarcoidosis. Hx spontaneous pneumothorax. Rt inguinal hernia. History of Any Multi-Drug Resistant Organisms: None Reported Past Surgical History: Orthopedic Surgery Additional Past Surgical History / Comment(s): Griffin procedure w/ colostomy, Hernia's x3. knee,Robotic lysis of adhesions,VATS procedure Past Anesthesia/Blood Transfusion Reactions: No Reported Reaction Smoking Status: Former smoker - Past Family History Mother Family Medical History: No Reported History Additional Family Medical History / Comment(s): ETOH Father Family Medical History: CVA/TIA Additional Family Medical History / Comment(s): ETOH Medications and Allergies Home Medications Medication Instructions Recorded Confirmed Type Losartan [Cozaar] 50 mg PO QAM 12/09/19 12/27/21 History amLODIPine [Norvasc] 5 mg PO QAM 12/09/19 12/27/21 History predniSONE 10 mg PO QAM 12/09/19 12/27/21 History Zolpidem Tartrate [Zolpidem 12.5 mg PO HS 10/25/20 12/28/21 History Tartrate ER] Ascorbic Acid [Vitamin C] 500 mg PO DAILY 06/18/21 12/27/21 History Cholecalciferol [Vitamin D3 (25 25 mcg PO DAILY 06/18/21 12/27/21 History Mcg = 1000 Iu)] [place]-3 Fatty Acids/Fish Oil [Fish 2 capsule PO DAILY 06/18/21 12/27/21 History Oil 1,000 mg Softgel] Lansoprazole 15 mg PO HS 07/26/21 12/28/21 History Allergies Allergy/AdvReac Type Severity Reaction Status Date / Time adhesive tape Allergy tears Verified 12/28/21 08:29 skin-Please use paper tape Surgical - Exam Vital Signs Temp Pulse Resp BP Pulse Ox 96.4 F L 79 18 138/66 97 12/28/21 08:35 12/28/21 08:35 12/28/21 08:35 12/28/21 08:35 12/28/21 08:35 Physical exam: General: Well-developed, well-nourished HEENT: Normocephalic, sclerae nonicteric Abdomen: Nontender, nondistended, incision well-healed, left-sided ostomy intact Extremities: No edema Neuro: Alert and oriented Assessment and Plan (1) Diverticulitis Narrative/Plan: 71-year-old male here for elective colostomy reversal. Risks of bleeding, infection, leak, abscess, need for ostomy, bladder bowel and ureteral injury reviewed. Patient understands and wishes to proceed. Current Visit: No Status: Acute Code(s): K57.92 - DVTRCLI OF INTEST, PART UNSP, W/O PERF OR ABSCESS W/O BLEED SNOMED Code(s): 789044315
[2021-12-28 08:54] LABS: Glucose,Whole Blood 91 mg/dL (70-110)
[2021-12-28] MEDS ORDERED: MIDAZOLAM 2 MG/2 ML VIAL IVP ONE (09:29)
[2021-12-28] MEDS ORDERED: fentaNYL (PF) 50 MCG/ML 2 ML AMP IVP ONE (09:29)
[2021-12-28] MEDS ORDERED: GLYCOPYRROLATE 0.2 MG/ML 2 ML VIAL ONE (10:50)
[2021-12-28] MEDS ORDERED: SUCCINYLCHOLINE CHLORIDE 200 MG/10 ML VIAL IV ONE (10:50)
[2021-12-28] MEDS ORDERED: fentaNYL (PF) 50 MCG/ML 2 ML AMP ONE (10:50)
[2021-12-28] MEDS ORDERED: NEOSTIGMINE 1 MG/ML 10 ML VIAL ONE (10:50)
[2021-12-28] MEDS ORDERED: PROPOFOL 10 MG/ML 20 ML VIAL IV ONE (10:50)
[2021-12-28] MEDS ORDERED: HYDROmorphone (PF) 1 MG/ML ONE (10:50)
[2021-12-28] MEDS ORDERED: MIDAZOLAM 2 MG/2 ML VIAL ONE (10:50)
[2021-12-28] MEDS ORDERED: LIDOCAINE 2% INJ 20 MG/ML (2 ML VIAL) ONE (10:50)
[2021-12-28] MEDS ORDERED: ROCURONIUM 10 MG/ML (5 ML VIAL) IV ONE (10:50)
[2021-12-28] MEDS ORDERED: PHENYLEPHRINE-0.9% NACL SYG 1,000 MCG/10 ML SYRINGE ONE (10:50)
[2021-12-28] MEDS ORDERED: NALOXONE 0.4 MG/ML 1 ML VIAL IV PRN (11:28)
--- NOTE | 2021-12-28 11:31 | P.ANPRN ---
Procedure Note - Anesthesia - Epidural/Spinal Epidural Time Out Performed: Yes Date of Procedure: 12/28/21 Procedure Start Time: :28 Procedure Stop Time: 09:39 Location of Patient: PreOp Indication: Acute Post-Operative Pain Sedation Type: Sedate with meaningful contact maintained Preparation: Sterile Dressing Position: Sitting Catheter Depth at Skin (cm): 10 Needle Guage: 18 Injectate: Test Dose Lidocaine1.5% w/1:200,000 epi (without response) Blood Aspirated: No Pain Paresthesia on Injection Noted: No Events: Uneventful and Well Tolerated
[2021-12-28] MEDS ORDERED: LACTATED RINGERS 1,000 ML IV ONE ×2 (12:00→13:34)
[2021-12-28] MEDS ORDERED: METOCLOPRAMIDE 5 MG/ML 2 ML VIAL IVP PRN (14:05)
--- NOTE | 2021-12-28 14:23 | P.OP ---
Date of Procedure: 12/28/21 Procedure(s) Performed: PREOPERATIVE DIAGNOSIS: Diverticulitis POSTOPERATIVE DIAGNOSIS: Same PROCEDURE: Colostomy reversal, drainage retroperitoneal abscess, lysis of adhesions SURGEON: Nell EBL: 50 mL ANESTHESIA: General COMPLICATIONS: None OPERATIVE PROCEDURE: Patient was placed on the operative table in the supine position. The patient was placed under general anesthesia. The patient was then placed in lithotomy. The stoma was closed using a pursestring 2-0 Vicryl stitch. The abdomen was prepped and draped in usual sterile fashion. An elliptical incision was made around the colostomy. Dissection through the subcutaneous fat took place using electrocautery. The stoma was fully mobilized and reduced back into the peritoneal cavity. At that time a vertical incision was made using a scalpel through the previous midline incision. The incision was lengthened superiorly by approximately 2-3 cm.. The Bookwalter retractor was utilized. The patient had adhesions in the abdominal cavity that were lysed using both sharp and blunt and electrocautery. There was a portion of small bowel that was adhesed to the retroperitoneum on the left-hand side. This was in the area where the patient's previous retroperitoneal extension of the perforation was present. As I was mobilizing the small bowel away from that area a pocket of purulent fluid was encountered. This was cultured. This extended into the retroperitoneum. I could not identify the full superior extent of this pocket but I estimate this abscess site measured approximately 5 x 3 x 2 cm. The bowel itself was indurated but there was no evidence of perforation there. Once we had adequate mobilization of the bowel it was re duced back into the upper abdomen. The patient had a long length of sigmoid colon left as the perforation was proximal. We started by making a colotomy just proximal to the colostomy itself. Glucagon was utilized. The colon was bluntly stretched with a ring forceps. It was large enough to accommodate a 25 stapler. The 25 anvil was placed into the bowel. This was milked proximally and approximately a 3-4 inch section of the colon was removed. The colon was divided using a year stapler. The anvil was brought out adjacent to the staple line. A 3-0 silk pursestring suture was placed around the anvil. The colon was lengthened somewhat by incising the white line of Toldt along the descending colon. Following that the sigmoid colon was mobilized by dividing the mesentery to the proximal sigmoid colon. I decided at that point to create a end-to-side anastomosis between the proximal descending colon and the mid to distal aspect of the sigmoid colon. A colotomy was made again in the proximal aspect of the sigmoid colon. The 25 stapler was advanced into the sigmoid colon until we reached dissection of the lateral aspect of the sigmoid colon that would reach nicely to the proximal descending colon staple line without tension. The obturator was brought out from the antimesenteric portion of the colon there. This was connected to the stapler and subsequently tightened and fired. I then removed the remainder of the redundant sigmoid colon up to a site 1.5-2 cm away from the end to side anastomosis site. There was no tension on that site. The bowel appeared visibly viable without evidence of ischemia. Interrupted 3-0 GI silk sutures were placed around the anastomosis to remove any potential tension. No bleeding was seen. The abdomen was irrigated. The bowel was clamped proximal to the anastomosis. The rigid sigmoidoscope was utilized to fill the anastomotic site nicely with air. There was saline in the pelvis at this time. No evidence of leak was seen. The abdomen was irrigated with saline. The liver, stomach, visualized colon, and small bowel appeared normal. The fascia at the stoma site was reapproximated using [id number] 0 Ethibond sutures in a vertical fashion. The subcutaneous tissues at the colostomy site were closed using interrupted 2-0 Vicryl sutures. The midline fascia was then reapproximated using 3 separate double-stranded #1 PDS sutures. The subcutaneous tissues were closed using 2-0 Vicryl sutures. The skin was then closed using keyon. Sterile dressings were then applied. DISPOSITION: Stable to recovery room
[2021-12-28] MEDS: ROPIVACAINE 250 MG, HYDROMORPHONE (PF) 5 MG in SODIUM CHLORIDE 0.9% 200 ML EPIDURAL PRN (14:26)
[2021-12-28] MEDS: D5-0.45% NACL WITH KCL 20MEQ/L 1,000 ML IV SCH ×2 (16:10→23:48)
[2021-12-28] MEDS: FAMOTIDINE 20 MG/2 ML VIAL IV SCH (20:14)
[2021-12-28] MEDS: HEPARIN SODIUM,PORCINE/PF 5,000 UNIT/0.5 ML SYRINGE SQ SCH (20:14)
[2021-12-28] MEDS: ONDANSETRON 4 MG/2 ML VIAL IVP PRN (21:24)
[2021-12-28] MEDS: PANTOPRAZOLE 40 MG TABLET PO SCH (22:03)
[2021-12-28] MEDS: ZOLPIDEM 5 MG TAB PO SCH (22:05)
[2021-12-29] MEDS: ONDANSETRON 4 MG/2 ML VIAL IVP PRN (04:18)
[2021-12-29] MEDS: LACTATED RINGERS 1,000 ML IV SCH (05:33)
[2021-12-29] MEDS: D5-0.45% NACL WITH KCL 20MEQ/L 1,000 ML IV SCH ×3 (07:14→23:18)
[2021-12-29] MEDS: predniSONE 10 MG TAB PO SCH (08:54)
[2021-12-29] MEDS: amLODIPine 5 MG TAB PO SCH (08:54)
[2021-12-29] MEDS: ALVIMOPAN 12 MG CAPSULE PO SCH ×2 (08:54→23:10)
[2021-12-29] MEDS: HEPARIN SODIUM,PORCINE/PF 5,000 UNIT/0.5 ML SYRINGE SQ SCH (08:54)
[2021-12-29] MEDS: FAMOTIDINE 20 MG/2 ML VIAL IV SCH ×2 (08:54→19:29)
[2021-12-29 08:56] LABS: Basophils # (A) 0.02 X 10*3/uL (0.00-0.10); Basophils % (A) 0.1 %; Eosinophils # (A) 0 X 10*3/uL (0.04-0.35); Eosinophils % (A) 0 %; HGB 12.8 g/dL (13.0-17.0); Immature Grans, Automated 0.5 %; Lymphocytes # (A) 0.56 X 10*3/uL (0.90-5.00); Lymphocytes % (A) 2.9 %; MCH 31.9 pg (27.0-32.0); MCHC 33.7 g/dL (32.0-37.0); MCV 94.8 fL (80.0-97.0); Mean Platelet Volume 10.8 fL (9.5-12.2); Monocytes # (A) 1.32 X 10*3/uL (0.20-1.00); Monocytes % (A) 6.9 %; NRBC Per 100 WBC 0 /100 WBCS (0.0-0.0); Neutrophils # (A) 17.09 X 10*3/uL (1.80-7.70); Neutrophils % (A) 89.6 %; Platelet Count 217 X 10*3/uL (140-440); RBC 4.01 X 10*6/uL (4.40-5.60); RDW 14.6 % (11.5-14.5); WBC 19.08 X 10*3/uL (4.50-10.00)
[2021-12-29 09:01] LABS: African American GFR (CKD) 60.4 (60.0-200.0); Anion Gap 8.6 mmol/L (10.00-18.00); BUN/Creat Ratio 13.93 Ratio (12.00-20.00); Blood Urea Nitrogen 18.8 mg/dL (9.0-27.0); Calcium 7.9 mg/dL (8.7-10.3); Carbon Dioxide 24.4 mmol/L (20.0-27.5); Non-African American GFR(CKD) 52.1 (60.0-200.0); Potassium 4.7 mmol/L (3.5-5.5)
--- NOTE | 2021-12-29 09:17 | P.PN ---
Subjective Progress Note Date: 12/29/21 Principal diagnosis: Diverticulitis Patient doing well today. Denies pain. Vital signs of been stable. Labs noted. Leukocytosis not unexpected at this time.. No bowel function thus far. Mild nausea last night but none this morning. Tolerating liquids. Objective - Vital Signs Vital signs: Vital Signs Temp 97.8 F 12/29/21 05:31 Pulse 86 12/29/21 05:31 Resp 18 12/29/21 05:31 BP 107/61 12/29/21 05:31 Pulse Ox 96 12/29/21 05:31 FiO2 Intake & Output 12/28/21 12/29/21 12/29/21 18:59 06:59 18:59 Intake Total 2150 Output Total 450 600 Balance 1700 -600 Weight 77.3 kg Intake: IV 2150 Output: Urine 400 600 Estimated Blood Loss 50 Other: Voiding Method Indwelling Catheter - Exam Abdomen: Soft, nondistended, dressing clean and dry, minimal tenderness - Labs CBC & Chem 7: 12/29/21 05:05 12/29/21 05:05 Labs: Abnormal Lab Results - Last 24 Hours (Table) 12/29/21 12/29/21 Range/Units 05:05 05:05 WBC 19.08 H (4.50-10.00) X 10*3/uL RBC 4.01 L (4.40-5.60) X 10*6/uL Hgb 12.8 L (13.0-17.0) g/dL Hct 38.0 L (39.6-50.0) % RDW 14.6 H (11.5-14.5) % Immature Gran # 0.09 H (0.00-0.04) X 10*3/uL Neutrophils # 17.09 H (1.80-7.70) X 10*3/uL Lymphocytes # 0.56 L (0.90-5.00) X 10*3/uL Monocytes # 1.32 H (0.20-1.00) X 10*3/uL Eosinophils # 0 L (0.04-0.35) X 10*3/uL Anion Gap 8.60 L (10.00-18.00) mmol/L Est GFR (CKD-EPI)NonAf 52.1 L (60.0-200.0) Glucose 128 H (70-110) mg/dL Calcium 7.9 L (8.7-10.3) mg/dL Microbiology - Last 24 Hours (Table) 12/28/21 12:26 Anaerobic Culture - Preliminary Abdomen 12/28/21 12:26 Wound Culture - Preliminary Abdomen Assessment and Plan (1) Diverticulitis Narrative/Plan: Patient doing well at this time. Continue increasing activity. He is currently in the chair. Continue clear liquids. Ambulate. Recheck labs tomorrow. Current Visit: No Status: Acute Code(s): K57.92 - DVTRCLI OF INTEST, PART UNSP, W/O PERF OR ABSCESS W/O BLEED SNOMED Code(s): 609465189
[2021-12-29] MEDS: diphenhydrAMINE 50 MG/ML 1 ML VIAL IVP PRN ×2 (09:33→20:30)
--- NOTE | 2021-12-29 10:29 | P.PN ---
Progress Note - Text Progress Note Date: 12/29/21 (331)
--- NOTE | 2021-12-29 10:53 | P.PN ---
Progress Note - Text Progress Note Date: 12/29/21 (5618) Anesthesia Postop day 1 Status post colostomy reversal with epidural day #2 Patient seen and examined. Doing well complaining of mild pruritus. VAS 0 out of 10. No nausea vomiting or pruritus. Ropivacaine 0.1% with Dilaudid 20 mcg/mL at 8 cc an hour. Objective: Vital signs reviewed Lungs: Good chest excursion Abdomen: Appears nondistended Other: Epidural Site Intact without induration. Dressing intact Neuro: No apparent motor block. Sensory within normal limits. Assessment: Status post colostomy reversal postop day #1 Plan: Continue current care with your medical management. Anticipate reevaluation tomorrow.
[2021-12-29] MEDS: ROPIVACAINE 250 MG, HYDROMORPHONE (PF) 5 MG in SODIUM CHLORIDE 0.9% 200 ML EPIDURAL PRN (11:45)
--- NOTE | 2021-12-29 13:33 | US ---
EXAMINATION TYPE: US venous doppler duplex LE LT DATE OF EXAM: 12/29/2021 1:12 PM COMPARISON: NONE CLINICAL HISTORY: possible DVT. burning sensation left leg. Pain left knee SIDE PERFORMED: left TECHNIQUE: The lower extremity deep venous system is examined utilizing real time linear array sonog jake with graded compression, doppler sonography and color-flow sonography. VESSELS IMAGED: Common Femoral Vein Deep Femoral Vein Greater Saphenous Vein * Femoral Vein Popliteal Vein Small Saphenous Vein * Proximal Calf Veins (* superficial vessels) Grayscale, color doppler, spectral doppler imaging performed of the deep veins of the lower extremiti es. Left Leg: +positive for DVT, left distal popliteal vein Low-level internal echoes present within the popliteal vein, there is a lack of color flow peripheral ly IMPRESSION: Deep venous thrombosis is present left popliteal vein
[2021-12-29] MEDS ORDERED: IBUPROFEN 600 MG TAB PO PRN (15:33)
[2021-12-29 17:09] LABS: INR 1.1 (<1.2); Prothrombin Time 11.5 sec (9.0-12.0)
[2021-12-29] MEDS ORDERED: HEPARIN SODIUM 1,000 UN/ML (10ML VL) IV PRN (18:30)
[2021-12-29] MEDS ORDERED: HEPARIN SODIUM 1,000 UN/ML (10ML VL) IV ONE (18:30)
[2021-12-29] MEDS: HEPARIN SOD,PORK IN 0.45% NACL 25,000 UNIT in 0.45% NACL 1 250ML.BAG IV SCH (18:58)
[2021-12-29] MEDS: HYDROmorphone 1 MG/ML 1 ML SYRINGE IVP PRN ×2 (19:16→23:09)
[2021-12-29] MEDS: PANTOPRAZOLE 40 MG TABLET PO SCH (19:30)
--- NOTE | 2021-12-29 20:35 | P.CONS ---
History of Present Illness - Reason for Consult Consult date: 12/29/21 Medical management - Chief Complaint Reversal of colostomy - History of Present Illness Patient is a 72-year-old male with known history of hypertension, GERD, ruptured diverticuli in July 2021, pulmonary sarcoidosis and previous history of smoking was admitted to the hospital for elective colostomy reversal. Patient had colostomy in place in July 2021. Patient had long segment of sigmoid colon left after recent resection. Patient is status post colostomy reversal, drainage of retroperitoneal abscess and lysis of additions. Currently denies any complaints of fever or chills. No nausea vomiting abdominal pain or diarrhea. Pain is controlled with medications. T-max is 99.8. Patient was complaining of left calf pain and tenderness this morning. Venous duplex was done which showed DVT in the left popliteal vein. Patient is on DVT prophylaxis while in the hospital. No complaints of cough or sputum production. No chest pain or shortness breath. No dizziness or lightheadedness. Saturating well on room air. Review of Systems Constitutional: Patient denies any fever or chills . no Generalized weakness. Abdomen: Patient denied any nausea or vomiting or abd. pain Cardiovascular: Patient denies any chest pain or short of breath no palpitations. Respiratory: patient denied any cough . no sputum production. No shortness of breath Neurologic: Patient denied any numbness or tingling headache. Musculoskeletal: Patient denies any complaints of joint swelling or deformity. Calf tenderness Skin: Negative Psychiatric: Negative Endocrine: No heat or cold intolerance. No recent weight gain. Genitourinary: No dysuria or hematuria. All other 14 point ROS negative except the above Past Medical History Past Medical History: GERD/Reflux, Hypertension, Respiratory Disorder Additional Past Medical History / Comment(s): rupture diverticuli July 2021,RBBB. Pulmonary Sarcoidosis. Hx spontaneous pneumothorax. Rt inguinal hernia. History of Any Multi-Drug Resistant Organisms: None Reported Past Surgical History: Orthopedic Surgery Additional Past Surgical History / Comment(s): Griffin procedure w/ colostomy, Hernia's x3. knee,Robotic lysis of adhesions,VATS procedure Past Anesthesia/Blood Transfusion Reactions: No Reported Reaction Smoking Status: Former smoker - Past Family History Mother Family Medical History: No Reported History Additional Family Medical History / Comment(s): ETOH Father Family Medical History: CVA/TIA Additional Family Medical History / Comment(s): ETOH Medications and Allergies Home Medications Medication Instructions Recorded Confirmed Type Losartan [Cozaar] 50 mg PO QAM 12/09/19 12/27/21 History amLODIPine [Norvasc] 5 mg PO QAM 12/09/19 12/27/21 History predniSONE 10 mg PO QAM 12/09/19 12/27/21 History Zolpidem Tartrate [Zolpidem 12.5 mg PO HS 10/25/20 12/28/21 History Tartrate ER] Ascorbic Acid [Vitamin C] 500 mg PO DAILY 06/18/21 12/27/21 History Cholecalciferol [Vitamin D3 (25 25 mcg PO DAILY 06/18/21 12/27/21 History Mcg = 1000 Iu)] [place]-3 Fatty Acids/Fish Oil [Fish 2 capsule PO DAILY 06/18/21 12/27/21 History Oil 1,000 mg Softgel] Lansoprazole 15 mg PO HS 07/26/21 12/28/21 History Allergies Allergy/AdvReac Type Severity Reaction Status Date / Time adhesive tape Allergy tears Verified 12/28/21 08:29 skin-Please use paper tape Physical Exam Vitals: Vital Signs Temp Pulse Pulse Resp BP Pulse Ox 12/29/21 10:57 99.8 F H 82 18 114/66 99 12/29/21 05:31 97.8 F 86 18 107/61 96 12/28/21 20:00 73 18 95 12/28/21 19:36 98.2 F 73 18 109/68 94 L 12/28/21 18:06 98 F 76 18 101/66 100 12/28/21 16:36 97.6 F 77 16 113/62 94 L 12/28/21 15:51 83 105/57 95 12/28/21 15:16 74 16 115/63 100 12/28/21 15:00 69 16 113/55 100 12/28/21 14:47 70 16 118/61 100 Intake and Output 12/28/21 12/29/21 12/29/21 22:59 06:59 14:59 Output Total 600 Balance -600 Output: Urine 600 Other: Voiding Method Indwelling Catheter Indwelling Catheter PHYSICAL EXAMINATION: Patient is lying in the bed comfortably, no acute distress, awake alert and oriented.. HEENT: Normocephalic. Neck is supple. Pupils reactive. Nostrils clear. Oral cavity is moist. Neck reveals no JVD, carotid bruits, or thyromegaly. CHEST EXAMINATION: Trachea is central. Symmetrical expansion. Lung ellis clear to auscultation and percussion. CARDIAC: Normal S1, S2 with no gallops. No murmurs ABDOMEN: Soft. Bowel sluggish. Abdominal surgical site is bandaged.. Nontender. No organomegaly. No abdominal bruits. Extremities: reveal no edema. calf tenderness. No clubbing or cyanosis Neurologically awake, alert, oriented x3 with well-coordinated movements. No focal deficits noted Skin: No rash or skin lesions. Psychiatric: Coperative. Nonsuicidal, Musculoskeletal: No joint swelling or deformity. Normal range of motion. Results CBC & Chem 7: 12/29/21 05:05 12/29/21 05:05 Labs: Abnormal Lab Results - Last 24 Hours (Table) 12/29/21 12/29/21 Range/Units 05:05 05:05 WBC 19.08 H (4.50-10.00) X 10*3/uL RBC 4.01 L (4.40-5.60) X 10*6/uL Hgb 12.8 L (13.0-17.0) g/dL Hct 38.0 L (39.6-50.0) % RDW 14.6 H (11.5-14.5) % Immature Gran # 0.09 H (0.00-0.04) X 10*3/uL Neutrophils # 17.09 H (1.80-7.70) X 10*3/uL Lymphocytes # 0.56 L (0.90-5.00) X 10*3/uL Monocytes # 1.32 H (0.20-1.00) X 10*3/uL Eosinophils # 0 L (0.04-0.35) X 10*3/uL Anion Gap 8.60 L (10.00-18.00) mmol/L Est GFR (CKD-EPI)NonAf 52.1 L (60.0-200.0) Glucose 128 H (70-110) mg/dL Calcium 7.9 L (8.7-10.3) mg/dL Microbiology - Last 24 Hours (Table) 12/28/21 12:26 Anaerobic Culture - Preliminary Abdomen 12/28/21 12:26 Wound Culture - Preliminary Abdomen Assessment and Plan Assessment: S/p reversal of colostomy postoperative day 1 with history of recent diverticulitis and colostomy bag placement and July 2021. Acute left popliteal vein DVT. Hypertension GERD Pulmonary sarcoidosis on prednisone daily History of spontaneous pneumothorax Previous history of smoking Plan: Patient will be continued on IV hydration, pain management and bowel regimen. Currently on pain management service. Due to acute DVT and left calf tenderness. Patient will be started on heparin drip once cleared by anesthesia. Patient is on epidural currently. Patient does have leukocytosis likely postsurgical inflammation and monitor for any infection. Follow-up intra-abdominal culture reports. We will continue to follow and further recommendations based on clinical course. Thank you for your consult. Time with Patient: Greater than 30
[2021-12-29] MEDS: ZOLPIDEM 5 MG TAB PO SCH (23:09)
[2021-12-30] MEDS: diphenhydrAMINE 50 MG/ML 1 ML VIAL IVP PRN ×2 (01:35→21:41)
[2021-12-30] MEDS ORDERED: ONDANSETRON 4 MG/2 ML VIAL IVP PRN (04:33)
[2021-12-30] MEDS: ONDANSETRON 4 MG/2 ML VIAL IVP PRN (04:36)
[2021-12-30] MEDS: HYDROmorphone 1 MG/ML 1 ML SYRINGE IVP PRN ×5 (06:52→18:55)
[2021-12-30] MEDS: LACTATED RINGERS 1,000 ML IV SCH (06:55)
[2021-12-30] MEDS: D5-0.45% NACL WITH KCL 20MEQ/L 1,000 ML IV SCH ×2 (07:51→21:42)
[2021-12-30] MEDS: predniSONE 10 MG TAB PO SCH (07:55)
[2021-12-30] MEDS: ALVIMOPAN 12 MG CAPSULE PO SCH ×2 (07:55→21:41)
[2021-12-30] MEDS: FAMOTIDINE 20 MG/2 ML VIAL IV SCH ×2 (07:55→21:42)
[2021-12-30] MEDS: amLODIPine 5 MG TAB PO SCH (07:56)
[2021-12-30 09:11] LABS: African American GFR (CKD) 86.8 (60.0-200.0); Anion Gap 7.1 mmol/L (10.00-18.00); Calcium 7.7 mg/dL (8.7-10.3); Carbon Dioxide 23.9 mmol/L (20.0-27.5); Non-African American GFR(CKD) 74.9 (60.0-200.0); Potassium 4.1 mmol/L (3.5-5.5)
[2021-12-30 09:25] LABS: Basophils # (A) 0.03 X 10*3/uL (0.00-0.10); Basophils % (A) 0.3 %; Eosinophils # (A) 0.04 X 10*3/uL (0.04-0.35); Eosinophils % (A) 0.3 %; HCT 35.1 % (39.6-50.0); HGB 11.9 g/dL (13.0-17.0); Immature Grans, Automated 0.5 %; Lymphocytes # (A) 0.59 X 10*3/uL (0.90-5.00); Lymphocytes % (A) 4.9 %; MCH 32.1 pg (27.0-32.0); MCHC 33.9 g/dL (32.0-37.0); MCV 94.6 fL (80.0-97.0); Mean Platelet Volume 10.8 fL (9.5-12.2); Monocytes # (A) 1.12 X 10*3/uL (0.20-1.00); Monocytes % (A) 9.3 %; NRBC Per 100 WBC 0 /100 WBCS (0.0-0.0); Neutrophils # (A) 10.16 X 10*3/uL (1.80-7.70); Neutrophils % (A) 84.7 %; Platelet Count 171 X 10*3/uL (140-440); RBC 3.71 X 10*6/uL (4.40-5.60); RDW 14.7 % (11.5-14.5)
--- NOTE | 2021-12-30 11:01 | P.PN ---
Subjective Progress Note Date: 12/30/21 Principal diagnosis: Diverticulitis Patient feels well this morning. No significant pain. Unfortunately yesterday the patient claimed of some pain behind the left knee. Patient says he does experience some swelling and pain there at times. It seemed a little bit worse the night of surgery he said. He underwent a Doppler which showed a DVT. The report does not elaborate on the acuteness of this DVT. He was empirically started on IV heparin at that time and because of that the epidural catheter was removed. Despite the epidural coming out his pain is been fairly well- controlled. No flatus or bowel movement. Patient is having some belching and some hiccups at times. Denies nausea currently but was nauseous earlier. White blood cell count is improved today. Cultures from the retroperitoneal abscess collection did grow gram-negative this. He was started on Rocephin for that reason. T-max 99. No tachycardia. Objective - Vital Signs Vital signs: Vital Signs Temp 99 F 12/30/21 05:00 Pulse 73 12/30/21 08:08 Resp 16 12/30/21 08:08 BP 126/76 12/30/21 08:08 Pulse Ox 97 12/30/21 08:08 FiO2 Intake & Output 12/29/21 12/30/21 12/30/21 18:59 06:59 18:59 Intake Total 2723.333 131.487 41.124 Output Total 600 1450 Balance 2123.333 -1318.513 41.124 Intake: Intake, IV Titration 1543.333 131.487 41.124 Amount D5-0.45% NaCl with KCl 1500 20Meq/l 1,000 ml @ 125 mls/hr IV .Q8H [facility] Rx#: [id number] Heparin Sod,Pork in 0.45% 131.487 41.124 NaCl 25,000 unit In 0.45 % NaCl 1 250ml.bag @ 18 UNITS/KG/HR 13.914 mls/hr IV .[id number] [facility] Rx#: [id number] Ropivacaine 250 mg 43.333 Hydromorphone (Pf) 5 mg In Sodium Chloride 0.9% 200 ml @ Per Protocol EPIDURAL .Q0M PRN Rx#: [id number] Oral 1180 Output: Urine 600 1450 Other: Voiding Method Indwelling Catheter # Voids 1 - Exam Abdomen: Soft, nondistended, incision with small amount of old bloody drainage, no erythema minimal tenderness - Labs CBC & Chem 7: 12/30/21 06:20 12/30/21 06:20 Labs: Abnormal Lab Results - Last 24 Hours (Table) 12/30/21 12/30/21 12/30/21 Range/Units 00:26 06:20 06:20 WBC 12.00 H (4.50-10.00) X 10*3/uL RBC 3.71 L (4.40-5.60) X 10*6/uL Hgb 11.9 L (13.0-17.0) g/dL Hct 35.1 L (39.6-50.0) % MCH 32.1 H (27.0-32.0) pg RDW 14.7 H (11.5-14.5) % Immature Gran # 0.06 H (0.00-0.04) X 10*3/uL Neutrophils # 10.16 H (1.80-7.70) X 10*3/uL Lymphocytes # 0.59 L (0.90-5.00) X 10*3/uL Monocytes # 1.12 H (0.20-1.00) X 10*3/uL APTT >200.0 H* (22.0-30.0) sec Anion Gap 7.10 L (10.00-18.00) mmol/L Glucose 121 H (70-110) mg/dL Calcium 7.7 L (8.7-10.3) mg/dL 12/30/21 Range/Units 06:20 WBC (4.50-10.00) X 10*3/uL RBC (4.40-5.60) X 10*6/uL Hgb (13.0-17.0) g/dL Hct (39.6-50.0) % MCH (27.0-32.0) pg RDW (11.5-14.5) % Immature Gran # (0.00-0.04) X 10*3/uL Neutrophils # (1.80-7.70) X 10*3/uL Lymphocytes # (0.90-5.00) X 10*3/uL Monocytes # (0.20-1.00) X 10*3/uL APTT 89.2 H (22.0-30.0) sec Anion Gap (10.00-18.00) mmol/L Glucose (70-110) mg/dL Calcium (8.7-10.3) mg/dL Microbiology - Last 24 Hours (Table) 12/28/21 12:26 Gram Stain - Preliminary Abdomen Wound Culture - Preliminary Gram Neg Bacilli Assessment and Plan (1) Diverticulitis Narrative/Plan: Patient doing fairly well today. Continue antibiotics ordered after the culture results were seen. Continue IV heparin for now. Continue oral and IV analgesics. Stay on clear liquids. Ambulate. Remove Saenz catheter today. Decrease IV fluid rate. Current Visit: No Status: Acute Code(s): K57.92 - DVTRCLI OF INTEST, PART UNSP, W/O PERF OR ABSCESS W/O BLEED SNOMED Code(s): 336637590
[2021-12-30] MEDS: HEPARIN SOD,PORK IN 0.45% NACL 25,000 UNIT in 0.45% NACL 1 250ML.BAG IV SCH (17:52)
[2021-12-30] MEDS: ZOLPIDEM 5 MG TAB PO SCH (21:41)
[2021-12-30] MEDS: PANTOPRAZOLE 40 MG TABLET PO SCH (21:41)
--- NOTE | 2021-12-31 02:09 | P.PN ---
Subjective Progress Note Date: 12/30/21 Patient is a 72-year-old male with known history of hypertension, GERD, ruptured diverticuli in July 2021, pulmonary sarcoidosis and previous history of smoking was admitted to the hospital for elective colostomy reversal. Patient had colostomy in place in July 2021. Patient had long segment of sigmoid colon left after recent resection. Patient is status post colostomy reversal, drainage of retroperitoneal abscess and lysis of additions. Currently denies any complaints of fever or chills. No nausea vomiting abdominal pain or diarrhea. Pain is controlled with medications. T-max is 99.8. Patient was complaining of left calf pain and tenderness this morning. Venous duplex was done which showed DVT in the left popliteal vein. Patient is on DVT prophylaxis while in the hospital. No complaints of cough or sputum production. No chest pain or shortness breath. No dizziness or lightheadedness. Saturating well on room air. 12/30/2021 Patient is resting in the bed. Awake alert oriented x3. No complaints of abdominal pain. Patient has not passed flatus. No cough or sputum production. Patient has been afebrile. No nausea vomiting or diarrhea. Fluid culture showing gram-negative bacilli and was started on ceftriaxone. Follow final culture report. Laboratory showed leukocytosis trending down to 12.0, hemoglobin 11.9 and platelets 171 Patient is being current on heparin drip for left popliteal DVT. Sodium 134 potassium 4.1 chloride 104 bicarb is 23.9 BUN 12.0 and creatinine 1.0 and calcium 7.7. Current medications reviewed. Objective - Vital Signs Vital signs: Vital Signs Temp 98.8 F 12/30/21 11:03 Pulse 70 12/30/21 11:03 Resp 16 12/30/21 11:03 BP 135/72 12/30/21 11:03 Pulse Ox 96 12/30/21 11:03 FiO2 Intake & Output 12/29/21 12/30/21 12/30/21 18:59 06:59 18:59 Intake Total 2723.333 131.487 100.645 Output Total 600 1450 1550 Balance 2123.333 -1318.513 -1449.355 Intake: Intake, IV Titration 1543.333 131.487 100.645 Amount D5-0.45% NaCl with KCl 1500 20Meq/l 1,000 ml @ 50 mls /hr IV .Q20H [facility] Rx#: [id number] Heparin Sod,Pork in 0.45% 131.487 100.645 NaCl 25,000 unit In 0.45 % NaCl 1 250ml.bag @ 18 UNITS/KG/HR 13.914 mls/hr IV .[id number] [facility] Rx#: [id number] Ropivacaine 250 mg 43.333 Hydromorphone (Pf) 5 mg In Sodium Chloride 0.9% 200 ml @ Per Protocol EPIDURAL .Q0M PRN Rx#: [id number] Oral 1180 Output: Urine 600 1450 1550 Uretheral (Saenz) 1300 Other: Voiding Method Indwelling Catheter # Voids 1 - Exam PHYSICAL EXAMINATION: Patient is lying in the bed comfortably, no acute distress, awake alert and oriented.. HEENT: Normocephalic. Neck is supple. Pupils reactive. Nostrils clear. Oral cavity is moist. Neck reveals no JVD, carotid bruits, or thyromegaly. CHEST EXAMINATION: Trachea is central. Symmetrical expansion. Lung ellis clear to auscultation and percussion. CARDIAC: Normal S1, S2 with no gallops. No murmurs ABDOMEN: Soft. Bowel sluggish. Abdominal surgical site is bandaged.. Nontender. No organomegaly. No abdominal bruits. Extremities: reveal no edema. calf tenderness. No clubbing or cyanosis Neurologically awake, alert, oriented x3 with well-coordinated movements. No focal deficits noted Skin: No rash or skin lesions. Psychiatric: Coperative. Nonsuicidal, Musculoskeletal: No joint swelling or deformity. Normal range of motion. - Labs CBC & Chem 7: 12/30/21 06:20 12/30/21 06:20 Labs: Abnormal Lab Results - Last 24 Hours (Table) 12/30/21 12/30/21 12/30/21 Range/Units 00:26 06:20 06:20 WBC 12.00 H (4.50-10.00) X 10*3/uL RBC 3.71 L (4.40-5.60) X 10*6/uL Hgb 11.9 L (13.0-17.0) g/dL Hct 35.1 L (39.6-50.0) % MCH 32.1 H (27.0-32.0) pg RDW 14.7 H (11.5-14.5) % Immature Gran # 0.06 H (0.00-0.04) X 10*3/uL Neutrophils # 10.16 H (1.80-7.70) X 10*3/uL Lymphocytes # 0.59 L (0.90-5.00) X 10*3/uL Monocytes # 1.12 H (0.20-1.00) X 10*3/uL APTT >200.0 H* (22.0-30.0) sec Anion Gap 7.10 L (10.00-18.00) mmol/L Glucose 121 H (70-110) mg/dL Calcium 7.7 L (8.7-10.3) mg/dL 12/30/21 12/30/21 Range/Units 06:20 14:01 WBC (4.50-10.00) X 10*3/uL RBC (4.40-5.60) X 10*6/uL Hgb (13.0-17.0) g/dL Hct (39.6-50.0) % MCH (27.0-32.0) pg RDW (11.5-14.5) % Immature Gran # (0.00-0.04) X 10*3/uL Neutrophils # (1.80-7.70) X 10*3/uL Lymphocytes # (0.90-5.00) X 10*3/uL Monocytes # (0.20-1.00) X 10*3/uL APTT 89.2 H 82.0 H (22.0-30.0) sec Anion Gap (10.00-18.00) mmol/L Glucose (70-110) mg/dL Calcium (8.7-10.3) mg/dL Microbiology - Last 24 Hours (Table) 12/28/21 12:26 Gram Stain - Preliminary Abdomen Wound Culture - Preliminary Gram Neg Bacilli Assessment and Plan Assessment: S/p reversal of colostomy postoperative day 1 with history of recent diverticulitis and colostomy bag placement and July 2021. Acute left popliteal vein DVT. Gram-negative bacilli in the abdominal fluid culture Hypertension GERD Pulmonary sarcoidosis on prednisone daily History of spontaneous pneumothorax Previous history of smoking Plan: Patient will be continued on IV hydration, pain management and bowel regimen. Currently on pain management service. Due to acute DVT and left calf tenderness. Patient will be started on heparin drip once cleared by anesthesia. Patient is on epidural currently. c/w ceftriaxone. Follow-up intra-abdominal culture reports. We will continue to follow and further recommendations based on clinical course. Time with Patient: Greater than 30
[2021-12-31] MEDS: LACTATED RINGERS 1,000 ML IV SCH (05:27)
[2021-12-31] MEDS: amLODIPine 5 MG TAB PO SCH (08:10)
[2021-12-31] MEDS: predniSONE 10 MG TAB PO SCH (08:10)
[2021-12-31] MEDS: ALVIMOPAN 12 MG CAPSULE PO SCH ×2 (08:10→20:38)
[2021-12-31] MEDS: FAMOTIDINE 20 MG/2 ML VIAL IV SCH ×2 (08:10→20:38)
[2021-12-31] MEDS: HYDROmorphone 1 MG/ML 1 ML SYRINGE IVP PRN ×2 (08:28→18:44)
[2021-12-31] MEDS: HEPARIN SOD,PORK IN 0.45% NACL 25,000 UNIT in 0.45% NACL 1 250ML.BAG IV SCH ×2 (08:34→18:24)
[2021-12-31 09:22] LABS: Basophils # (A) 0.02 X 10*3/uL (0.00-0.10); Basophils % (A) 0.2 %; Eosinophils # (A) 0.12 X 10*3/uL (0.04-0.35); Eosinophils % (A) 1.3 %; HCT 32.7 % (39.6-50.0); HGB 11.3 g/dL (13.0-17.0); Immature Grans, Automated 0.4 %; Lymphocytes # (A) 0.53 X 10*3/uL (0.90-5.00); Lymphocytes % (A) 5.9 %; MCH 32.3 pg (27.0-32.0); MCHC 34.6 g/dL (32.0-37.0); MCV 93.4 fL (80.0-97.0); Mean Platelet Volume 10.6 fL (9.5-12.2); Monocytes # (A) 0.82 X 10*3/uL (0.20-1.00); Monocytes % (A) 9.1 %; NRBC Per 100 WBC 0 /100 WBCS (0.0-0.0); Neutrophils # (A) 7.48 X 10*3/uL (1.80-7.70); Neutrophils % (A) 83.1 %; Platelet Count 173 X 10*3/uL (140-440); RDW 14.4 % (11.5-14.5); WBC 9.01 X 10*3/uL (4.50-10.00)
[2021-12-31 09:38] LABS: African American GFR (CKD) 86.8 (60.0-200.0); Anion Gap 6.5 mmol/L (10.00-18.00); Calcium 8.3 mg/dL (8.7-10.3); Carbon Dioxide 27.5 mmol/L (20.0-27.5); Non-African American GFR(CKD) 74.9 (60.0-200.0); Potassium 4.1 mmol/L (3.5-5.5)
--- NOTE | 2021-12-31 12:01 | P.PN ---
Subjective Progress Note Date: 12/31/21 CHIEF COMPLAINT: Diverticulitis HISTORY OF PRESENT ILLNESS: Patient is postop day #3 status post colostomy reversal, drainage retroperitoneal abscess and lysis of adhesions. Patient reports his pain is controlled. He did take a dose of IV Dilaudid this morning. He does report having nausea. Denies any vomiting. He is having flatus. Abdomen still slightly distended. Afebrile. WBC is down from 12-9.01 Hgb 11.3 platelets 173 since 141 potassium 4.1 and creatinine 1.0. Gram stain culture growing gram-negative bacilli. Anaerobic culture pending PHYSICAL EXAM: VITAL SIGNS: Reviewed. GENERAL: Well-developed in no acute distress. ABDOMEN: Distended. Minimal tenderness with palpation of the incision site. Midline incision with tiny amount of serosanguineous drainage. Colostomy reversal incision site no drainage clean dry and intact. NEUROLOGIC: Alert and oriented. Cranial nerves II through XII grossly intact. ASSESSMENT: 1. Diverticulitis status post colostomy reversal, drainage retroperitoneal abscess and lysis of adhesions. 2. DVT left leg PLAN: -Continue clear liquid diet -Continue antibiotics -Continue antiemetics as needed -Encouraged patient to use the oral pain medication -Encouraged patient to ambulate -Encouraged patient to use incentive spirometer -Continue IV heparin for DVT of left leg Physician Business Support Liaison note has been reviewed by physician. Signing provider agrees with the documented findings, assessment, and plan of care. I have personally seen and examined the patient, reviewed the COLORIST /PAs history, exam and MDM and agree with the assessment and plan as written. Based on total visit time, I have performed more than 50% of the visit. As above: Patient feels well. Sitting up in the chair.Can pain. No nausea or vomiting. He is having flatus. Advance to full liquids. Ambulate. Anticipate switching to oral anticoagulants tomorrow. Objective - Vital Signs Vital signs: Vital Signs Temp 98.0 F 12/31/21 11:40 Pulse 66 12/31/21 11:40 Resp 16 12/31/21 11:40 BP 160/75 12/31/21 11:40 Pulse Ox 96 12/31/21 11:40 FiO2 Intake & Output 12/30/21 12/31/21 12/31/21 18:59 06:59 18:59 Intake Total 2898.513 110.281 Output Total 1550 700 Balance 1348.513 -700 110.281 Intake: Intake, IV Titration 1018.513 110.281 Amount D5-0.45% NaCl with KCl 850 20Meq/l 1,000 ml @ 50 mls /hr IV .Q20H [facility] Rx#: [id number] Heparin Sod,Pork in 0.45% 118.513 110.281 NaCl 25,000 unit In 0.45 % NaCl 1 250ml.bag @ 18 UNITS/KG/HR 13.914 mls/hr IV .[id number] [facility] Rx#: [id number] cefTRIAXone 2 gm In 50 Sodium Chloride 0.9% 50 ml @ 100 mls/hr IVPB Q24HR [facility] Rx#:[id number] Oral 1880 Output: Urine 1550 700 Uretheral (Saenz) 1300 Other: Voiding Method Urinal # Voids 4 - Labs CBC & Chem 7: 12/31/21 05:50 12/31/21 05:50 Labs: Abnormal Lab Results - Last 24 Hours (Table) 12/30/21 12/30/21 12/31/21 Range/Units 14:01 21:08 05:50 RBC 3.50 L (4.40-5.60) X 10*6/uL Hgb 11.3 L (13.0-17.0) g/dL Hct 32.7 L (39.6-50.0) % MCH 32.3 H (27.0-32.0) pg Lymphocytes # 0.53 L (0.90-5.00) X 10*3/uL APTT 82.0 H 47.1 H (22.0-30.0) sec Anion Gap (10.00-18.00) mmol/L BUN (9.0-27.0) mg/dL BUN/Creatinine Ratio (12.00-20.00) Ratio Calcium (8.7-10.3) mg/dL 12/31/21 12/31/21 Range/Units 05:50 05:50 RBC (4.40-5.60) X 10*6/uL Hgb (13.0-17.0) g/dL Hct (39.6-50.0) % MCH (27.0-32.0) pg Lymphocytes # (0.90-5.00) X 10*3/uL APTT 42.1 H (22.0-30.0) sec Anion Gap 6.50 L (10.00-18.00) mmol/L BUN 7.0 L (9.0-27.0) mg/dL BUN/Creatinine Ratio 7.00 L (12.00-20.00) Ratio Calcium 8.3 L (8.7-10.3) mg/dL
[2021-12-31] MEDS: HYDROcodone/APAP 7.5-325MG 1 EACH TAB PO PRN (14:41)
[2021-12-31] MEDS: D5-0.45% NACL WITH KCL 20MEQ/L 1,000 ML IV SCH (18:09)
[2021-12-31] MEDS: ZOLPIDEM 5 MG TAB PO SCH (20:38)
[2021-12-31] MEDS: PANTOPRAZOLE 40 MG TABLET PO SCH (20:38)
[2021-12-31] MEDS: diphenhydrAMINE 50 MG/ML 1 ML VIAL IVP PRN (20:40)
--- NOTE | 2022-01-01 07:56 | PN ---
PROGRESS NOTE SUBJECTIVE: This is a 71-year-old gentleman, who was admitted with reversal of colostomy, is being closely monitored. No chest pain. No palpitations. No fever. The patient had a left leg DVT also. PHYSICAL EXAMINATION: VITAL SIGNS: Pulse 66, blood pressure 160/74, respirations 16. CHEST: Clear to auscultation. CARDIOVASCULAR: S1, S2. ABDOMEN: Soft. LABS: Hemoglobin 11.3. Other labs are noted. ASSESSMENT: 1. Status post reversal of colostomy. 2. Acute left popliteal deep venous thrombosis. 3. Gram-negative bacilli. 4. Abdominal fluid culture. 5. Hypertension. 6. Gastroesophageal reflux disease. RECOMMENDATIONS: Recommend to continue current management, symptomatic treatment. The final report is pending at this time. Transfusion of heparin to Eliquis and closely follow with Surgery. The patient is on Rocephin at this time. Further recommendations to follow. MMODL / IJN: [id number] /
[2022-01-01] MEDS: ALVIMOPAN 12 MG CAPSULE PO SCH ×2 (09:29→20:08)
[2022-01-01] MEDS: FAMOTIDINE 20 MG/2 ML VIAL IV SCH ×2 (09:29→20:09)
[2022-01-01] MEDS: amLODIPine 5 MG TAB PO SCH (09:29)
[2022-01-01] MEDS: predniSONE 10 MG TAB PO SCH (09:29)
[2022-01-01] MEDS: LOSARTAN 50 MG TAB PO SCH (10:38)
[2022-01-01] MEDS: HYDROcodone/APAP 7.5-325MG 1 EACH TAB PO PRN (11:39)
--- NOTE | 2022-01-01 12:57 | P.PN ---
Subjective Progress Note Date: 01/01/22 CHIEF COMPLAINT: Diverticulitis HISTORY OF PRESENT ILLNESS: Patient is postop day #4 status post colostomy reversal, drainage retroperitoneal abscess and lysis of adhesions. Patient does complain of abdominal pain. He has not had any pain medication since last night. Patient denies any nausea or vomiting. He is having flatus. No bowel movement. Afebrile. No new labs. Culture results grew E. coli. it program manager checking on insurance coverage of the [facility]. PHYSICAL EXAM: VITAL SIGNS: Reviewed. GENERAL: Well-developed in no acute distress. ABDOMEN: mildly Distended. Minimal tenderness with palpation of the incision site. Serosanguineous drainage noted on midline incisional dressing. NEUROLOGIC: Alert and oriented. Cranial nerves II through XII grossly intact. ASSESSMENT: 1. Diverticulitis status post colostomy reversal, drainage retroperitoneal abscess and lysis of adhesions. 2. DVT left leg PLAN: -Continue full liquid diet -Continue antibiotics -Continue antiemetics as needed -Encouraged patient to use the oral pain medication -Encouraged patient to ambulate -Encouraged patient to use incentive spirometer -Continue IV heparin for DVT of left leg Physician [place] note has been reviewed by physician. Signing provider agrees with the documented findings, assessment, and plan of care. I have personally seen and examined the patient, reviewed the SHED WORKERS SUPERVISOR /PAs history, exam and MDM and agree with the assessment and plan as written. Based on total visit time, I have performed more than 50% of the visit. As above: Patient had a bloody stool this afternoon. Remains on heparin drip. No leg pain. No abdominal pain. Denies nausea. Tolerating full liquids. Will advance diet. Monitor stool output. Objective - Vital Signs Vital signs: Vital Signs Temp 97.7 F 01/01/22 11:30 Pulse 77 01/01/22 11:30 Resp 16 01/01/22 11:30 BP 134/78 01/01/22 11:30 Pulse Ox 97 01/01/22 11:30 FiO2 Intake & Output 12/31/21 01/01/22 01/01/22 18:59 06:59 18:59 Intake Total 205.515 137.594 Output Total 425 Balance 205.515 -425 137.594 Intake: Intake, IV Titration 205.515 137.594 Amount Heparin Sod,Pork in 0.45% 205.515 137.594 NaCl 25,000 unit In 0.45 % NaCl 1 250ml.bag @ 18 UNITS/KG/HR 13.914 mls/hr IV .[id number] [facility] Rx#: [id number] Output: Urine 425 Other: Voiding Method Urinal - Labs CBC & Chem 7: 12/31/21 05:50 12/31/21 05:50 Labs: Abnormal Lab Results - Last 24 Hours (Table) 12/31/21 01/01/22 Range/Units 13:40 05:24 APTT 60.2 H 45.0 H (22.0-30.0) sec Microbiology - Last 24 Hours (Table) 12/28/21 12:26 Anaerobic Culture - Preliminary Abdomen 12/28/21 12:26 Gram Stain - Final Abdomen Wound Culture - Final Escherichia coli
[2022-01-01] MEDS: D5-0.45% NACL WITH KCL 20MEQ/L 1,000 ML IV SCH (15:29)
[2022-01-01] MEDS: HYDROmorphone 1 MG/ML 1 ML SYRINGE IVP PRN (15:48)
[2022-01-01] MEDS: HEPARIN SOD,PORK IN 0.45% NACL 25,000 UNIT in 0.45% NACL 1 250ML.BAG IV SCH (19:38)
[2022-01-01] MEDS: PANTOPRAZOLE 40 MG TABLET PO SCH (20:08)
[2022-01-01] MEDS: ZOLPIDEM 5 MG TAB PO SCH (20:09)
[2022-01-01] MEDS: diphenhydrAMINE 50 MG/ML 1 ML VIAL IVP PRN (22:32)
[2022-01-02 04:17] VITALS: BP 142/82; RESP 14; TEMP 98.6
--- NOTE | 2022-01-02 04:29 | PN ---
PROGRESS NOTE DATE OF SERVICE: 01/01/2022 SUBJECTIVE: This 71-year-old gentleman, admitted after surgery, also had DVT. The patient is on heparin, being transitioned to Eliquis. No chest pain. No palpitation. OBJECTIVE: VITAL SIGNS: Pulse is 77, blood pressure 130/72, respirations 16. CHEST: Clear to auscultation. CARDIOVASCULAR: S1, S2. ABDOMEN: Soft, status post surgery. EXTREMITIES: Left leg, no swelling. LABORATORY DATA: Reviewed. ASSESSMENT: 1. Status post reversal of colostomy. 2. Acute left popliteal deep venous thrombosis. 3. Abdominal wall culture, showing Escherichia coli, which is poly sensitive. RECOMMENDATIONS: I recommend to continue current management and symptomatic treatment. Short course of antibiotics and continue the Eliquis for at least 3 months. Follow closely with Surgery. Follow with primary physician as well as Hematology/Oncology outpatient. See orders for further details. MMODL / IJN: [id number] /
[2022-01-02] MEDS: LOSARTAN 50 MG TAB PO SCH (08:33)
[2022-01-02] MEDS: FAMOTIDINE 20 MG/2 ML VIAL IV SCH (08:33)
[2022-01-02] MEDS: ALVIMOPAN 12 MG CAPSULE PO SCH (08:33)
[2022-01-02] MEDS: amLODIPine 5 MG TAB PO SCH (08:34)
[2022-01-02] MEDS: D5-0.45% NACL WITH KCL 20MEQ/L 1,000 ML IV SCH (08:34)
[2022-01-02] MEDS: predniSONE 10 MG TAB PO SCH (08:34)
[2022-01-02 11:02] VITALS: PULSE 77
--- NOTE | 2022-01-02 13:02 | P.DS ---
Providers Date of admission: 12/28/21 07:52 Expected date of discharge: 01/02/22 Attending physician: Chepe Camejo Consults: 12/28/21 14:09 Consult Physician Routine Consulting Provider: Diogo Dias Consult Reason/Comments: med mgmt Do you want consulting provider notified?: Yes Primary care physician: Jannie Camejo Hospital Course: Discharge diagnosis 1. Diverticulitis status post colostomy reversal, drainage retroperitoneal abscess and lysis of adhesions. 2. DVT left leg 3. Seroma at the inferior aspect of the incision Hospital course This is a 71-year-old male with a known history of diverticulitis. He is status post colostomy reversal with drainage of retroperitoneal abscess and lysis of adhesions. Patient tolerated surgery well. His pain is controlled. He has been up and ambulating. He is tolerating diet. He is having bowel movements and flatus. He is afebrile. He did have serosanguineous drainage at the top portion of his incision which was a seroma. Patient did have 2 keyon removed from the incision and packed with the Aquacel silver dressing by Dr. Camejo. Patient is stable for discharge. He will be discharged with antibiotics. P matilde refer to chart for any further details. Physician Web Engineer note has been reviewed by physician. Signing provider agrees with the documented findings, assessment, and plan of care. Patient Condition at Discharge: Stable Plan - Discharge Summary Discharge Rx Participant: No New Discharge Prescriptions: New Apixaban [Eliquis Starter Pack (for VTE)] 5 - 10 mg PO DIRECTED 30 Days #1 each Amoxic-Pot Clav 875-125Mg [Augmentin 875-125] 1 tab PO Q12HR 10 Days #20 tab HYDROcodone/APAP 7.5-325MG [[place] 7.5-325] 1 tab PO Q4H PRN 3 Days #18 tab PRN Reason: Pain Continue predniSONE 10 mg PO QAM amLODIPine [Norvasc] 5 mg PO QAM Losartan [Cozaar] 50 mg PO QAM Zolpidem Tartrate [Zolpidem Tartrate ER] 12.5 mg PO HS Ascorbic Acid [Vitamin C] 500 mg PO DAILY Wingina-3 Fatty Acids/Fish Oil [Fish Oil 1,000 mg Softgel] 2 capsule PO DAILY Cholecalciferol [Vitamin D3 (25 Mcg = 1000 Iu)] 25 mcg PO DAILY Lansoprazole 15 mg PO HS Discharge Medication List Losartan [Cozaar] 50 mg PO QAM 12/09/19 [History] amLODIPine [Norvasc] 5 mg PO QAM 12/09/19 [History] predniSONE 10 mg PO QAM 12/09/19 [History] Zolpidem Tartrate [Zolpidem Tartrate ER] 12.5 mg PO HS 10/25/20 [History] Ascorbic Acid [Vitamin C] 500 mg PO DAILY 06/18/21 [History] Cholecalciferol [Vitamin D3 (25 Mcg = 1000 Iu)] 25 mcg PO DAILY 06/18/21 [History] Wingina-3 Fatty Acids/Fish Oil [Fish Oil 1,000 mg Softgel] 2 capsule PO DAILY 06/18/21 [History] Lansoprazole 15 mg PO HS 07/26/21 [History] Apixaban [Eliquis Starter Pack (for VTE)] 5 - 10 mg PO DIRECTED 30 Days #1 each 01/01/22 [Rx] Amoxic-Pot Clav 875-125Mg [Augmentin 875-125] 1 tab PO Q12HR 10 Days #20 tab 01/02/22 [Rx] HYDROcodone/APAP 7.5-325MG [[place] 7.5-325] 1 tab PO Q4H PRN 3 Days #18 tab 01/02/22 [Rx] Follow up Appointment(s)/Referral(s): Chepe Camejo MD [Medical Doctor] - 01/10/22 8:20 am Ignacio Mueller MD [STAFF PHYSICIAN] - 1 Week Patient Instructions/Handouts: Cefuroxime (By mouth), Apixaban (By mouth), Open Colostomy Reversal (DC) Activity/Diet/Wound Care/Special Instructions: No driving while taking [place] No lifting over 10 pounds You may shower. No soaking or tub baths for 2 weeks Very light activity until you are reevaluated at your follow up appointment with your surgeon Change incision packing daily with Aquacel silver dressing Discharge Disposition: HOME SELF-CARE
--- NOTE | 2022-01-03 22:01 | PN ---
PROGRESS NOTE DATE OF SERVICE: 01/02/2022 SUBJECTIVE: This 71-year-old gentleman, who was admitted after reversal of colostomy, is improving significantly. No chest pain. No palpitations. No fever. OBJECTIVE: VITAL SIGNS: Pulse is 86, blood pressure 142/82, respirations 14. CHEST: Clear to auscultation. ABDOMEN: Soft, status post surgery. LEGS: No edema. NERVOUS SYSTEM: Nonfocal. LABORATORY DATA: Reviewed. ASSESSMENT: 1. Status post reversal of colostomy. 2. Acute left popliteal deep venous thrombosis. 3. Abdominal wall culture showing Escherichia coli, which is poly sensitive. RECOMMENDATIONS: I recommend to continue current medications and symptomatic treatment. Eliquis as an outpatient for 3 months. Follow up with primary physician and Hematology/Oncology, and short course of antibiotics. Otherwise, rest of the recommendations per Surgery. Further recommendations to follow. MMODL / IJN: [id number] /
--- NOTE | 2022-01-04 12:12 | CDI ---
Documentation Clarification Form Date: 01/04/2022 10:47:00 AM From: Roz Warren Admit Date: 12/28/2021 07:52:00 AM Patient Name: Arcadio Shaikh Visit Number: [id number] Discharge Date: 01/02/2022 02:15:00 PM ATTENTION: The Clinical Documentation Specialists (CDI) and [facility] Coding Staff appreciate your assistance in clarifying documentation. Please respond to the clarification below the line at the bottom and electronically sign. The CDI & [facility] Coding staff will review the response and follow-up if needed. Please note: Queries are made part of the Legal Health Record. If you have any questions, please contact the author of this message via ITS. Dr. Chepe Camejo Lysis of adhesions is documented in the Operative Report on 12/28/21. Were the adhesions extensive? Additional clarification regarding the procedure is requested. History/Risk factors: retroperitoneal abscess, abdominal cavity adhesions, small bowel adhesed to the retroperitoneum, this was the area where the patient's previous retroperitoneal extension of perforation was present. Pre-Operative Diagnosis: Take down of colostomy Diverticulitis Postoperative Diagnosis: Same Clinical Indicators: previous colostomy with adhesions Treatment: Lysis of adhesions Please clarify the following: [remove unnecessary options] [ X] Extensive adhesions [ ] Adhesions not extensive [ } Other please specify MTDD
== END 2022-01-02 14:15 | disposition home or self-care (01) | DRG 329 ==
LOC: 2ORMAIN 07:52 → 5NMEDONC 14:15
PROVIDERS: ADMIT Surgery; ATTEND Surgery
PROC: 0W9H00Z Drainage of Retroperitoneum with Drainage Device, Open Approach (ICD-10-PCS; 2021-12-28)
PROC: 0DBN0ZZ Excision of Sigmoid Colon, Open Approach (ICD-10-PCS; principal; 2021-12-28 11:15)
PROC: 0DNW0ZZ Release Peritoneum, Open Approach (ICD-10-PCS; principal; 2021-12-28 11:15)
DX: Z43.3 Encounter for attention to colostomy (principal); K68.19 Other retroperitoneal abscess; I82.432 Acute embolism and thrombosis of left popliteal vein; K57.32 Diverticulitis of large intestine without perforation or abscess without bleeding; K66.0 Peritoneal adhesions (postprocedural) (postinfection); K21.9 Gastro-esophageal reflux disease without esophagitis; L29.9 Pruritus, unspecified; D86.0 Sarcoidosis of lung; I10 Essential (primary) hypertension; Z87.891 Personal history of nicotine dependence; K63.5 Polyp of colon; Z79.52 Long term (current) use of systemic steroids; Z79.899 Other long term (current) drug therapy
CPT/HCPCS: 80048; 85025; 85610; 85730; 86850; 86900; 86901; 87070; 87075; 87077; 87186; 87205; 88309

== ENCOUNTER → 2022-07-24 | Outpatient (CLI) | payer MEDICARE, BC ==
--- NOTE | 2022-07-24 21:13 | CT ---
EXAMINATION TYPE: CT heart w calcium score DATE OF EXAM: 07/24/2022 COMPARISON: None HISTORY: 71-year-old male Screening for cardiovascular disorder. Z13.6, I65.23. CT DLP: 87.40 mGycm Automated exposure control for dose reduction was used. CT CALCIUM SCORING Coronary calcium is a marker for plaque (fatty deposits) in a blood vessel or atherosclerosis (harden ing of the arteries). The presence and amount of calcium detected in a coronary artery by the CT sca n, indicates the presence and amount of atherosclerotic plaque. These calcium deposits appear years before the development of heart disease symptoms such as chest pain and shortness of breath. A calcium score is computed for each of the coronary arteries based upon the volume and density of th e calcium deposits. This can be referred to as your calcified plaque burden. It does not correspond directly to the percentage of narrowing in the artery but does correlate with the severity of the un derlying coronary atherosclerosis. PROCEDURE TECHNIQUE - Prospective Gating was used. Slice thickness: 3mm. Density threshold (HU): 130, Pixel threshold: 3, Algorithm: discrete. RESULTS Region: LM Calcium Score (Agatston): 0 Volume (mm3): 0 Mass (g): 0 Region: RCA Calcium Score (Agatston): 0 Volume (mm3): 0 Mass (g): 0 Region: LAD Calcium Score (Agatston): 61.1 (proximalmost LAD) Volume (mm3): 45.8 Mass (g): 15.3 Region: CX Calcium Score (Agatston): 0 Volume (mm3): 0 Mass (g): 0 Region: PDA Calcium Score (Agatston): 0 Volume (mm3): 0 Mass (g): 0 Total: Calcium Score (Agatston): 61.1 Volume (mm3): 45.83 Mass (g): 15.28 INCIDENTAL: * On the intelligence officer image, there appears to be asymmetric right hilar prominence. * Multiple calcified hilar and mediastinal lymph nodes suggesting prior granulomatous disease. * Mildly aneurysmal aortic root at 4.1 cm. Ectatic ascending aorta 3.8 cm. IMPRESSION: Calcium Score: 61.1 Implication: Definite, at least mild atherosclerotic plaque. Risk of Coronary Artery Disease: Mild or minimal coronary narrowings likely. INCIDENTAL: * Recommend contrast enhanced CT chest to assess the asymmetric right hilar soft tissue density. A m ass should be excluded. * Evidence of prior granulomatous disease. * Mildly aneurysmal aortic root at 4.1 cm.
--- NOTE | 2022-07-25 10:18 | US ---
EXAMINATION TYPE: US carotid duplex BILAT DATE OF EXAM: 07/24/2022 COMPARISON: NONE CLINICAL INDICATION: Male, 71 years old with history of I65.23 OCCLUSION AND STENOSIS, BILATERAL; lef t finger tingles, no h/o dvt TECHNIQUE: Carotid duplex ultrasound examination. Indirect Doppler criteria was utilized. FINDINGS: EXAM MEASUREMENTS: RIGHT: Peak Systolic Velocity (PSV) cm/sec ----- Right CCA: 63.4 ----- Right ICA: 70.9 ----- Right ECA: 78.8 ICA/CCA ratio: 1.1 RIGHT: End Diastole cm/sec ----- Right CCA: 14.1 ----- Right ICA: 22.5 ----- Right ECA: 12.6 LEFT: Peak Systolic Velocity (PSV) cm/sec ----- Left CCA: 56.8 ----- Left ICA: 74.2 ----- Left ECA: 41.3 ICA/CCA ratio: 1.3 LEFT: End Diastole cm/sec ----- Left CCA: 14.6 ----- Left ICA: 19.4 ----- Left ECA: 8.4 VERTEBRALS (direction of flow): Right Vertebral: Antegrade Left Vertebral: Antegrade Rhythm: Normal HIDE PULLER NOTES: Mild homogeneous plaque with no significant stenosis IMPRESSION: Mild homogeneous plaque with no significant hemodynamic stenosis as visualized. Criteria for Assigning % of Stenosis / Diameter reduction (Estimation based on the indirect measurements of the internal carotid artery velocities (ICA PSV). 1. Normal (no stenosis)=ICA PSV < 125 cm/s: ratio < 2.0: ICA EDV<40 cm/s. 2. Less than 50% stenosis=ICA PSV < 125 cm/s: ratio < 2.0: ICA EDV<40 cm/s. 3. 50 to 69% stenosis=ICA PSV of 125 to 230 cm/s: ration 2.0 ? 4.0: ICA EDV 40-100 cm/s. 4. Greater than 70% stenosis to near occlusion= ICA PSV > 230 cm/s: ratio > 4.0: ICA EDV > 100 cm/s. 5. Near occlusion= ICA PSV velocities may be low or undetectable: variable ratio and ICA EDV. 6. Total occlusion=unable to detect flow.
== END | disposition home or self-care (01) ==
LOC: RADCTMAIN 15:55
PROVIDERS: ATTEND Internal Medicine
DX: Z13.6 Encounter for screening for cardiovascular disorders (principal); I65.23 Occlusion and stenosis of bilateral carotid arteries; I70.0 Atherosclerosis of aorta
CPT/HCPCS: 75571; 93880

== ENCOUNTER → 2022-12-02 | Outpatient (CLI) | payer MEDICARE, BC ==
--- NOTE | 2022-12-02 16:22 | CA ---
Exercise Nuclear Stress Test Report Name: Arcadio Shaikh Exam Date: 12/02/2022 10:22 Exam Location: [place] Stress Ht (in): 70 Wt (lb): 175 BSA: 1.97 Ordering Phys: Tammie Viera MD Referring Phys: TAMMIE VIERA,, Technologist: EDUARDO,, Age: 71 Gender: M : 1950 Procedure CPT: Indications: I25.10, I71.21 ANEURYSM OF THE ASCENDING AORTA, ICD-10 Codes: Patient History: abnormal C Abnormal CT Chest pain ans shortness of breath Medications: Meds past 24 hrs: Pretest Chest Pain: STRESS TEST Giacomo Protocol Exercise Duration (min:sec): 06:[address] Depressions (mm): Angina Score: Lau Score: Resting HR (bpm): 74 Peak HR (bpm): 130 Resting BP (mmHg): 139 / 82 Peak BP (mmHg): / 77 MPHR: 148 Target HR: 126 % MPHR: 88 METS: 7.1 Total Dose: Peak Dose: Atropine: Double Product: BP Response: Stress Termination: Reached target heart rate Stress Symptoms: Dyspnea , Syncope Stress Summary: ECG ANALYSIS Resting ECG: Stress ECG: CONCLUSIONS Patient underwent exercise Cardiolite stress with a Giacomo protocol treadmill stress test. Patient exercised into Stage 2 for a total of 6 reaching a total of 7.1 METS. Patient's maximum heart rate was 130 which represented 87% age-predicted maximum heart rate. Stress EKG findings: At baseline patient's EKG showed normal sinus rhythm, left axis deviation, right bundle-branch block with nonspecific ST depressions V2 through V6. At peak exercise, EKG showed no significant change from baseline. Conclusions: 1. Nonspecific stress EKG portion secondary baseline EKG abnormalities 2. Fair exercise capacity. 3. Nuclear portion to be reported separately Dr. Adam Pradhan DO (Electronically Signed) Final Date: 02 December 2022 16:21
--- NOTE | 2022-12-02 16:47 | CA ---
Transthoracic Echo Report Name: Arcadio Shaikh Age: 71 Gender: M : 1950 Exam Date: 12/02/2022 08:37 Exam Location: [place] [facility] Ht (in): 70 Wt (lb): 175 Ordering Physician: Tammie Zapata MD Attending/Referring Phys: Manager R D Brigid Whitten RDCS Procedure CPT: Indications: I25.10, I71.21 ANEURYSM OF THE ASCENDING AORTA, Cardiac Hx: Technical Quality: Good Contrast 1: Total Dose (mL): Contrast 2: Total Dose (mL): MEASUREMENTS (Male / Female) Normal Values 2D ECHO LV Diastolic Diameter PLAX 5.1 cm 4.2 - 5.9 / 3.9 - 5.3 cm LV Systolic Diameter PLAX 3.5 cm IVS Diastolic Thickness 1.3 cm 0.6 - 1.0 / 0.6 - 0.9 cm LVPW Diastolic Thickness 1.2 cm 0.6 - 1.0 / 0.6 - 0.9 cm LV Relative Wall Thickness 0.5 RV Internal Dim ED PLAX 3.3 cm LA Systolic Diameter LX 3.4 cm 3.0 - 4.0 / 2.7 - 3.8 cm LV Diastolic Volume MOD 4C 76.3 cm??? LV Systolic Volume MOD 4C 38.6 cm??? LV Ejection Fraction MOD 4C 49.3 % LV Cardiac Index MOD 4C 1343.0 cm???/min???m??? LV Diastolic Length 4C 9.0 cm LV Systolic Length 4C 7.5 cm LV Diastolic Volume MOD 2C 132.3 cm??? LV Systolic Volume MOD 2C 57.8 cm??? LV Ejection Fraction MOD 2C 56.3 % LV Cardiac Index MOD 2C 2660.7 cm???/min???m??? LV Diastolic Length 2C 9.4 cm LV Systolic Length 2C 7.5 cm LA Volume 55.9 cm??? 18 - 58 / 22 - 52 cm??? M-MODE Aortic Root Diameter MM 4.1 cm MV E Point Septal Separation 0.9 cm AV Cusp Separation MM 2.6 cm DOPPLER AV Peak Velocity 125.8 cm/s AV Peak Gradient 6.3 mmHg AI Peak Velocity 368.2 cm/s AI Peak Gradient 54.2 mmHg AI Pressure Half Time 996.7 ms MV Area PHT 1.8 cm??? Mitral E Point Velocity 40.7 cm/s Mitral A Point Velocity 70.3 cm/s Mitral E to A Ratio 0.6 MV Deceleration Time 425.6 ms MV E' Velocity 5.7 cm/s Mitral E to MV E' Ratio 7.1 TR Peak Velocity 290.5 cm/s TR Peak Gradient 33.7 mmHg Right Ventricular Systolic Press 38.7 mmHg FINDINGS Left Ventricle Left ventricular ejection fraction is estimated at 50-55 %. Left ventricular cavity size normal. Mildly increased septal wall thickness. Right Ventricle Mild right ventricular dilatation. Mild pulmonary hypertension. Right Atrium Normal right atrial size. Left Atrium Mildly increased left atrial area. Mitral Valve Structurally normal mitral valve. Trace mitral regurgitation. Aortic Valve Trileaflet aortic valve. Mild aortic regurgitation. Tricuspid Valve Structurally normal tricuspid valve. Mild tricuspid regurgitation. Pulmonic Valve Structurally normal pulmonic valve. Trace pulmonic regurgitation. Pericardium Normal pericardium. No pericardial effusion. Aorta Mild aortic dilatation at the level of the sinotubular junction 41 mm CONCLUSIONS Left ventricular ejection fraction 50-55% I'll the increased left ventricular wall thickness Trace mitral regurgitation Mild aortic regurgitation Mild tricuspid regurgitation Ascending aortic aneurysm measuring 4.1 cm Previewed by: Dr. Adam Pradhan DO (Electronically Signed) Final Date: 02 December 2022 16:47
--- NOTE | 2022-12-03 08:19 | NM ---
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 The patient exercised using a VINNIE protocol and 1 minute prior to peak e xercise was injected with 24.9 mCi Tc 99m Sestamibi - Stress images obtained 30 minutes post injectio n. FINDINGS: Targeted heart rate was achieved during performance of the study. Review of stress and rest SPECT nadja ges demonstrates fixed perfusion defect involving the inferolateral myocardium. Gated analysis shows normal wall motion with an estimated left ventricular ejection fraction of 55 %. IMPRESSION: Predominantly fixed defect involving the inferior lateral myocardium correlate clinically for remote ischemia. Tiny area of stress-induced reversibility not excluded. A [place] level critical message alert has been initiated for Tammie Zapata MD via the [employer] Critical Results System on 12/03/2022 8:16 AM. This message alert has been sent to Tammie Zapata MD via the preferences provided by the clinician for the receipt of Radiology Critical Findings. Message ID [id number].
== END | disposition home or self-care (01) ==
LOC: RADNMMAIN 07:46
PROVIDERS: ATTEND Internal Medicine
DX: I08.3 Combined rheumatic disorders of mitral, aortic and tricuspid valves (principal); I25.10 Atherosclerotic heart disease of native coronary artery without angina pectoris; I71.21 Aneurysm of the ascending aorta, without rupture; R94.31 Abnormal electrocardiogram [ECG] [EKG]
CPT/HCPCS: 93017; 93306; 78452; A9500

== ENCOUNTER → 2023-01-01 | Outpatient (CLI) | payer MEDICARE, BC ==
--- NOTE | 2023-01-01 09:48 | BD ---
EXAMINATION TYPE: Axial Bone Density DATE OF EXAM: 01/01/2023 CLINICAL HISTORY: 72 years old Male. ICD-10 CODE: M85.851 OT DISRD OF BONE DENSITY AND STRUCTURE, Height: 5 ft 9 1/2 in Weight: 172 FRAX RISK QUESTIONS: Alcohol (3 or more units per day): no Family History (Parent hip fracture): not known Glucocorticoids (More than 3mos): yes (Ex: prednisone, prednisolone, methylprednisolone, dexamethasone, and hydrocortisone). History of Fracture in Adulthood: no Secondary Osteoporosis: 1. Type 1 Diabetes: no 2. Hyperthyroidism: no 4. Malnutrition: no 5. Chronic liver disease: no Rheumatoid Arthritis: no Current Tobacco Use: no RISK FACTORS HISTORY OF: Surgery to Spine/Hip(right/left)/Wrist (right/left): no Family History of Osteoporosis: no Active: yes Diet low in dairy products/other sources of calcium: no Lost more than 2 inches in height since high school: yes Frequent falls: no Poor Health: fair Hyperparathyroidism: no Adrenal Insufficiency: no MEDICATIONS: Prednisone or other steroids: yes How Lon years Additional Medications: Ambien, prednisone, blood pressure meds, Additional History: sarcoid EXAM MEASUREMENTS: Bone mineral densitometry was performed using the [employer] System. Bone mineral density as measured about the Lumbar spine is: ----- L1-L4(G/cm2): 1.374 T Score Values are as follows: ----- L1: 1.7 ----- L2: 0.5 ----- L3: 1.3 ----- L4: 2.7 ----- L1-L4: 1.6 Z Score Values are as follows: ----- L1: 2.0 ----- L2: 0.7 ----- L3: 1.5 ----- L4: 2.9 ----- L1-L4: 1.9 prev done at [place] Bone mineral density about the R hip (g/cm2): 1.095 Bone mineral density about the L hip (g/cm2): 1.018 T Score values are as follows: -----R Neck: 0.4 -----L Neck: -0.1 -----R Total: 0.6 -----L Total: 0.4 Z Score values are as follows: -----R Neck: 1.5 -----L Neck: 0.9 -----R Total: 0.7 -----L Total: 0.5 prev done at [place] FRAX%s: The graph provided illustrates a 5.1 % chance for a major osteoporotic fx and a 0.8% chance f or the hips probability for fx in 10 years time. IMPRESSION: Normal (Values between +1 and -1 indicate normal bone mass). Consider repeating this study in 5 year s or sooner if there is some new clinical indication. NOTE: T-SCORE=SD OF THE YOUNG ADULT MEAN.
== END | disposition home or self-care (01) ==
LOC: RADBDWWP 07:48
PROVIDERS: ATTEND Internal Medicine
DX: M85.851 Other specified disorders of bone density and structure, right thigh (principal)
CPT/HCPCS: 77080

== ENCOUNTER → 2023-01-10 | Outpatient (CLI) | payer MEDICARE, BC ==
[2023-01-10 17:32] LABS: Blood Urea Nitrogen 16.1 mg/dL (9.0-27.0); Carbon Dioxide 26.8 mmol/L (21.6-31.8); Chloride 105 mmol/L (96-109); Sodium 142 mmol/L (135-145)
[2023-01-10 18:23] LABS: HCT 40.8 % (39.6-50.0); HGB 13.6 d/dL (13.0-17.0); MCH 32.4 pg (27.0-32.0); MCHC 33.3 d/dL (32.0-37.0); MCV 97.1 FL (80.0-97.0); Mean Platelet Volume 10.8 FL (9.5-12.2); NRBC Per 100 WBC 0 X 10*3/uL (0.00-0.01); Platelet Count 206 X 10*3/uL (140-440); RDW 14.6 % (11.5-14.5); WBC 8.61 X 10*3/uL (4.50-10.00)
== END | disposition home or self-care (01) ==
LOC: LABPAT 08:20
PROVIDERS: ATTEND Internal Medicine Interventional Cardiology
DX: Z01.812 Encounter for preprocedural laboratory examination (principal); R07.9 Chest pain, unspecified
CPT/HCPCS: 36415; 80051; 82565; 84520; 85027

== ENCOUNTER 2023-01-13 05:39 | Day surgery (SDC) | payer MEDICARE, BC ==
[2023-01-13] MEDS ORDERED: SODIUM CHLORIDE 0.9% 1,000 ML in EMPTY BAG 1 BAG IV SCH (05:53)
[2023-01-13] MEDS ORDERED: ASPIRIN 325 MG TAB PO STA (05:53)
[2023-01-13] MEDS ORDERED: NITROGLYCERIN SL TABS 0.4 MG TAB SUBLINGUAL PRN (05:53)
[2023-01-13] MEDS ORDERED: ALPRAZolam 0.5 MG TAB PO PRN (05:53)
[2023-01-13] MEDS ORDERED: ALPRAZolam 0.25 MG TAB PO PRN (05:53)
[2023-01-13] MEDS ORDERED: SODIUM CHLORIDE 0.9% 1,000 ML IV ONE (06:46)
[2023-01-13 06:54] VITALS: RESP 16; TEMP 98.1
[2023-01-13 07:05] LABS: Basophils % (A) 0 %; Eosinophils # (A) 0.1 k/uL (0-0.7); Eosinophils % (A) 2 %; HCT 40.8 % (39.0-53.0); Lymphocytes # (A) 0.9 k/uL (1.0-4.8); Lymphocytes % (A) 12 %; MCH 33.4 pg (25.0-35.0); MCHC 34.3 g/dL (31.0-37.0); MCV 97.2 fL (80.0-100.0); Mean Platelet Volume 7.3; Monocytes # (A) 0.5 k/uL (0-1.0); Monocytes % (A) 7 %; Neutrophils # (A) 5.8 k/uL (1.3-7.7); Neutrophils % (A) 77 %; Platelet Count 237 k/uL (150-450); RDW 13.8 % (11.5-15.5); WBC 7.5 k/uL (3.8-10.6)
[2023-01-13] MEDS ORDERED: HEPARIN SODIUM 1,000 UN/ML (10ML VL) ONE (07:10)
[2023-01-13] MEDS ORDERED: VERAPAMIL 2.5 MG/ML 2 ML AMP ONE (07:10)
[2023-01-13 07:19] LABS: African American GFR (CKD) >90 (>60 ml/min/1.73 sqM); Anion Gap 7 mmol/L; Blood Urea Nitrogen 15 mg/dL (9-20); Calcium 8.8 mg/dL (8.4-10.2); Carbon Dioxide 26 mmol/L (22-30); Chloride 106 mmol/L (98-107); Glucose 89 mg/dL (74-99); Non-African American GFR(CKD) 83 (>60 ml/min/1.73 sqM); Potassium 3.8 mmol/L (3.5-5.1); Sodium 139 mmol/L (137-145)
[2023-01-13] MEDS ORDERED: MIDAZOLAM 2 MG/2 ML VIAL IVP ONE (07:41)
[2023-01-13] MEDS ORDERED: LIDOCAINE 1% INJ 10MG/ML (5 ML VIAL-PF) SQ ONE (07:42)
[2023-01-13] MEDS ORDERED: VERAPAMIL SYRINGE (5 MG/10 ML) INTRAARTER ONE (07:43)
[2023-01-13] MEDS ORDERED: HEPARIN SODIUM 1,000 UN/ML (10ML VL) IVP ONE (07:45)
[2023-01-13] MEDS ORDERED: fentaNYL (PF) 50 MCG/ML 2 ML AMP ONE (07:46)
[2023-01-13] MEDS ORDERED: fentaNYL (PF) 50 MCG/ML 2 ML AMP IVP ONE (07:46)
[2023-01-13] MEDS ORDERED: IOPAMIDOL-300 100ML BTL INJ ONE (07:51)
[2023-01-13] MEDS ORDERED: MORPHINE SULFATE 4 MG/ML SYRINGE ONE (07:55)
[2023-01-13] MEDS ORDERED: MORPHINE SULFATE 4 MG/ML SYRINGE IVP ONE (07:56)
[2023-01-13] MEDS ORDERED: RX INFO: IV CONTRAST WAS GIVEN 1 EACH MISC MISCELLANE PRN (08:04)
--- NOTE | 2023-01-13 08:11 | P.PCN ---
Date of Procedure: 01/13/23 Operative Findings: CARDIAC CATHETERIZATION PERFORMING PHYSICIAN: Asad Kessler MD, RPVI PROCEDURE PERFORMED: 1. Selective right and left coronary angiogram 2. Left heart catheterization 3. Ultrasound guided access of the right radial artery INDICATION: Chest discomfort in this 72-year-old gentleman who was known CAD and hypertension and dyslipidemia who underwent myocardial perfusion imaging stress test and that came in to be of normal COMPLICATION: None APPROACH: Right radial artery LEVEL OF SEDATION: Moderate with a sedation length of 13 minutes PROCEDURE DESCRIPTION: After obtaining an informed consent, the patient was brought to cardiac cork slabs sawyer. Local anesthesia was performed using lidocaine subcutaneously. The right radial artery was cannulated using Seldinger technique, the guidewire passed easily, following that we advanced a 5-Eritrean sheath dilator assembly, the wire and dilator were removed and sheath was flushed. Following that, 2 mg of verapamil along with 5000 unit heparin were given. Selective right and left coronary angiogram using a 6-Eritrean JR4 and JL 3.5 catheters. Following that we did left heart catheterization using 6-Eritrean pigtail catheter. The procedure was completed there was no complication. SELECTIVE CORONARY ANGIOGRAM: The right coronary artery: Large caliber vessel and a dominant vessel. The RCA has mild disease only. Distally bifurcates into PDA and PLV branches and both appeared to be angiographically normal Left main: Has mild disease only The left circumflex: Large caliber vessel nondominant vessel. The proximal LCx has mild disease only. Gives rises into a large OM branch which appeared to be angiographically normal. The mid and distal left circumflex are normal The left anterior descending artery: Large caliber vessel. The LAD appeared to be angiographically normal. Gives rises into the first and second diagonal branches and both appeared to be angiographically normal HEMODYNAMICS: The LVEDP was 12 mmHg was no significant gradient across aortic valve CONCLUSION: 1. Mild nonobstructive coronary artery disease 2. Normal left-sided filling pressure POSTPROCEDURE MANAGEMENT: Medical treatment
[2023-01-13] MEDS ORDERED: SODIUM CHLORIDE 0.9% 1,000 ML IV SCH (08:15)
[2023-01-13 12:06] VITALS: PULSE 76
[2023-01-13 12:28] VITALS: BP 118/65
== END 2023-01-13 12:14 | disposition home or self-care (01) ==
LOC: CATHCVL 05:39
PROVIDERS: ATTEND Internal Medicine Interventional Cardiology
DX: I25.10 Atherosclerotic heart disease of native coronary artery without angina pectoris (principal); I10 Essential (primary) hypertension; E78.5 Hyperlipidemia, unspecified; I73.9 Peripheral vascular disease, unspecified; F17.210 Nicotine dependence, cigarettes, uncomplicated; I77.819 Aortic ectasia, unspecified site; I38 Endocarditis, valve unspecified; Z79.899 Other long term (current) drug therapy
CPT/HCPCS: 93458; 76937; 80048; 85025; C1769; C1894; J2250; J2270; J2001; J3010; J1644; Q9967

== ENCOUNTER → 2023-03-05 | Outpatient (CLI) | payer MEDICARE, BC ==
--- NOTE | 2023-03-05 08:57 | MR ---
EXAMINATION TYPE: MR Prostate wo/w con DATE OF EXAM: 03/05/2023 8:11 AM COMPARISON: None. CLINICAL INDICATION:Male, 72 years old with history of R97.20 ELEVATED PROSTATE SPECIFIC ANTIGEN; Kathy vated PSA. TECHNIQUE: Multi-planar, multi-sequence imaging of the pelvis is performed prior to and following the uncomplicated administration of bolus intravenous gadolinium. CONTRAST: 8 Gadavist Interpretive Criteria: PI-RADS v2.1r SERUM PSA: 8.0 on 02/25/2023. No data available. on No data available.. No data available. on No data available.. No data available. on No data available.. SURGICAL PATHOLOGY: No data available. FINDINGS: Prostatic dimensions: 5.8 x 5.3 x 4.0 cm. Ellipsoid Volume:64.38 (PSA density=0.12 ng/mL/mL) CENTRAL GLAND (Central and Transition Zones/CZ+TZ): High DWI low ADC signal lesion in a wedge-shaped with associated low T2 signal measuring 12 x 8 mm on diffusion-weighted imaging in the central gland anteriorly involving the apex. (PI-RADS 4) Minimal m edian lobe hypertrophy with protrusion into the base of the bladder. PERIPHERAL ZONE (PZ): Bilateral linear, indistinct wedgelike areas of low ADC, and low T2 signal, No evidence of masslike a bnormality, or localized perfusional hypervascularity, to further suggest a focus of clinically signi ficant prostate cancer. (PI-RADS 2) SEMINAL VESICLES (SV): Symmetric and unremarkable. PERIPROSTATIC TISSUES: Unremarkable. LYMPH NODES: No enlarged pelvic lymph node. REMAINING PELVIS: Bladder wall is within normal limits given distention. No abnormal free or organized intrapelvic fluid collection. No pathologic bowel dilation or mural thickening. No hernia visualized OSSEOUS STRUCTURES: No suspicious osseous abnormality. IMPRESSION: 1. PI-RADS score: 4, left central gland apex anteriorly measuring 12 x 8 mm 2. Moderate BPH, estimated gland volume 64.38 mL. 3. No suspicious osseous lesion. No lymphadenopathy. No evidence of prostate adenocarcinoma involving the periprostatic tissues.
== END | disposition home or self-care (01) ==
LOC: RADMRIMAIN 06:55
PROVIDERS: ATTEND Internal Medicine
DX: N40.0 Benign prostatic hyperplasia without lower urinary tract symptoms (principal); R97.20 Elevated prostate specific antigen [PSA]
CPT/HCPCS: 72197; A9585

== ENCOUNTER → 2023-04-02 | Outpatient (CLI) | payer MEDICARE, BC ==
[2023-04-02 15:05] LABS: BUN/Creat Ratio 12.42 Ratio (12.00-20.00); Blood Urea Nitrogen 14.9 mg/dL (9.0-27.0); Calcium 9.1 mg/dL (8.7-10.3); Carbon Dioxide 25.7 mmol/L (21.6-31.8); Chloride 108 mmol/L (96-109); Glucose 101 mg/dL (70-110); Potassium 4.3 mmol/L (3.5-5.5); Sodium 145 mmol/L (135-145)
[2023-04-02 15:35] LABS: Basophils # (A) 0.03 X 10*3/uL (0.00-0.10); Basophils % (A) 0.3 %; Eosinophils # (A) 0.05 X 10*3/uL (0.04-0.35); Eosinophils % (A) 0.5 %; HCT 42.6 % (39.6-50.0); HGB 14.1 g/dL (13.0-17.0); Lymphocytes # (A) 0.53 X 10*3/uL (0.90-5.00); Lymphocytes % (A) 5.6 %; MCH 32.9 pg (27.0-32.0); MCHC 33.1 g/dL (32.0-37.0); MCV 99.5 FL (80.0-97.0); Mean Platelet Volume 10.4 FL (9.5-12.2); Monocytes # (A) 0.36 X 10*3/uL (0.20-1.00); Monocytes % (A) 3.8 %; NRBC Per 100 WBC 0 X 10*3/uL (0.00-0.01); Neutrophils # (A) 8.36 X 10*3/uL (1.80-7.70); Neutrophils % (A) 89.2 %; Platelet Count 212 X 10*3/uL (140-440); RBC 4.28 X 10*6/uL (4.40-5.60); RDW 14.6 % (11.5-14.5); WBC 9.39 X 10*3/uL (4.50-10.00)
== END | disposition home or self-care (01) ==
LOC: LABPAT 11:07
PROVIDERS: ATTEND Urology
DX: Z01.812 Encounter for preprocedural laboratory examination (principal); R97.20 Elevated prostate specific antigen [PSA]
CPT/HCPCS: 36415; 80048; 85025

== ENCOUNTER 2023-04-10 09:58 | Day surgery (SDC) | payer MEDICARE, BC ==
[2023-04-03 15:49] VITALS: BMI 25.1
--- NOTE | 2023-04-07 04:10 | P.GSHP ---
History of Present Illness H&P Date: 04/07/23 Chief Complaint: Elevated PSA level The patient is a 72-year-old white male with no family history of prostate cancer. His PSA level was 8.0 in February 2023, up from 4.53 and October 2022. MARYSE showed a small right apical nodule, not suspicious for malignancy. Prostate MRI revealed a PI-RADS 4 lesion within the left central gland at the apex. - Cardiovascular Cardiovascular: Reports high blood pressure - Genitourinary (Male) Genitourinary: Reports urinary frequency Past Medical History Past Medical History: Coronary Artery Disease (CAD), Deep Vein Thrombosis (DVT), GERD/Reflux, Hypertension, Respiratory Disorder Additional Past Medical History / Comment(s): hx TIA (August).,rupture diverticuli July 2021 with colostomy and later reversal, hx DVT left leg (12/29/21)., RBBB. Pulmonary Sarcoidosis., Hx spontaneous pneumothorax., kidney stones, elevated PSA, enlarged prostate. History of Any Multi-Drug Resistant Organisms: None Reported Past Surgical History: Heart Catheterization, Orthopedic Surgery Additional Past Surgical History / Comment(s): Griffin procedure w/ colostomy., reversal of colostomy & drainage retroperitoneal abscess & lysis of adhesions (12/28/21)., Inguinal Hernia's x3. Meniscus repair (june 2021), VATS procedure- resection of bullae and pleurodisis (10/2020) Past Anesthesia/Blood Transfusion Reactions: No Reported Reaction Past Psychological History: No Psychological Hx Reported Additional Psychological History / Comment(s): . Smoking Status: Former smoker Past Alcohol Use History: Occasional Additional Past Alcohol Use History / Comment(s): Pt started smoking in 1967 and quit in 1979., smokes 2ppd. drinks 2 beers/week. Past Drug Use History: None Reported - Past Family History Mother Family Medical History: No Reported History Additional Family Medical History / Comment(s): ETOH Father Family Medical History: CVA/TIA Additional Family Medical History / Comment(s): ETOH Medications and Allergies Home Medications Medication Instructions Recorded Confirmed Type Losartan [Cozaar] 50 mg PO QAM 12/09/19 04/03/23 History amLODIPine [Norvasc] 5 mg PO QAM 12/09/19 04/03/23 History predniSONE 10 mg PO QAM 12/09/19 04/03/23 History Zolpidem Tartrate [Zolpidem 12.5 mg PO HS 10/25/20 04/03/23 History Tartrate ER] [place]-3 Fatty Acids/Fish Oil [Fish 1 capsule PO DAILY 06/18/21 04/03/23 History Oil 1,000 mg Softgel] Ascorbic Acid [Vitamin C] 2,000 mg PO DAILY 04/03/23 04/03/23 History Famotidine [Pepcid] 40 mg PO HS 04/03/23 04/03/23 History Rosuvastatin [Crestor] 20 mg PO HS 04/03/23 04/03/23 History Vitamin D (Unknown Dose) 1 dose PO DAILY 04/03/23 History Allergies Allergy/AdvReac Type Severity Reaction Status Date / Time adhesive tape Allergy tears Verified 04/03/23 14:55 skin-Please use paper tape Surgical - Exam - General well developed, well nourished, no distress - Respiratory normal respiratory effort - Abdomen Abdomen: soft, non tender, no guarding, no rigid, no rebound - Genitourinary normal penis with no external lesions, testicles non-tender - Rectum Rectum: normal sphincter tone, no masses, other (Prostate moderately enlarged with small right apical nodule) - Psychiatric oriented to time, oriented to person, oriented to place, speech is normal, memory intact Assessment and Plan (1) Elevated prostate specific antigen [PSA] Status: Acute Code(s): R97.20 - ELEVATED PROSTATE SPECIFIC ANTIGEN [PSA] SNOMED Code(s): 715210780 Plan: The patient will undergo MRI-Ultrasound fusion transrectal biopsies of the prostate. The procedure has been reviewed in detail with the patient. He has been made aware of potential risks, which include anesthesia, bleeding, and infection. He is also aware that a negative biopsy does not completely rule out prostate cancer.
[~2023-04-10 09:58] MED LIST changes: -ACETAMINOPHEN TAB 500 MG TAB PO PRN; -ALVIMOPAN 12 MG CAPSULE PO PRN; +GENTAMICIN 40 MG/ML 2 ML VIAL IM PRN; -HEPARIN SODIUM,PORCINE/PF 5,000 UNIT/0.5 ML SYRINGE SQ PRN; +LACTATED RINGERS 1,000 ML IV SCH; -metroNIDAZOLE-NS PMX 500 MG in SALINE 1 100ML.BAG IVPB PRN
[2023-04-10 10:53] VITALS: RESP 18; TEMP 97.7
[2023-04-10 11:09] LABS: Glucose,Whole Blood 100 mg/dL (70-110)
[2023-04-10] MEDS ORDERED: fentaNYL (PF) 50 MCG/ML 2 ML AMP ONE (12:24)
[2023-04-10] MEDS ORDERED: PROPOFOL 10 MG/ML 20 ML VIAL IV ONE (12:24)
--- NOTE | 2023-04-10 13:11 | P.OP ---
Date of Procedure: 04/10/23 Preoperative Diagnosis: Elevated PSA level Postoperative Diagnosis: Same Procedure(s) Performed: MRI fusion biopsies of the prostate Anesthesia: MAC Surgeon: Frank Martinez Estimated Blood Loss (ml): 0 IV fluids (ml): 300 Pathology: other (Prostate biopsies) Condition: stable Disposition: PACU Indications for Procedure: The patient is a 72-year-old white male with no family history of prostate cancer. His PSA level was 8.0 in February 2023, up from 4.53 and October 2022. MARYSE showed a small right apical nodule, not suspicious for malignancy. Prostate MRI revealed a PI-RADS 4 lesion within the left central gland at the apex. Operative Findings: Standard biopsies obtained along with 3 biopsies of target lesion. Description of Procedure: The patient was taken to the operating room and placed in the left lateral decubitus position. MARYSE revealed a small nodule overlying the right apex, not suspicious for malignancy. The Slice transrectal ultrasound probe was placed intrarectally. It was then placed within the stand of the [employer] MRI/TRUS Fusion for Prostate Biopsy system. The prostate was imaged in both the axial and sagittal planes, revealing a prostate volume of 53 mL. Using the Biopty gun, 3 biopsies were obtained from the target lesion within the left apical transitional zone. The remaining 12 biopsies of the peripheral zone were obtained utilizing a standard template. Once the procedure was completed, the ultrasound probe was removed. The patient tolerated the procedure well was taken to the recovery room stable condition.
[2023-04-10 13:26] VITALS: BP 107/68; PULSE 69
== END 2023-04-10 13:50 | disposition home or self-care (01) ==
LOC: OR 09:58
PROVIDERS: ATTEND Urology
DX: C61 Malignant neoplasm of prostate (principal); I25.10 Atherosclerotic heart disease of native coronary artery without angina pectoris; Z86.718 Personal history of other venous thrombosis and embolism; K21.9 Gastro-esophageal reflux disease without esophagitis; I10 Essential (primary) hypertension; R97.20 Elevated prostate specific antigen [PSA]; Z86.73 Personal history of transient ischemic attack (TIA), and cerebral infarction without residual deficits; Z93.3 Colostomy status; D86.0 Sarcoidosis of lung; I45.10 Unspecified right bundle-branch block; Z87.442 Personal history of urinary calculi; Z87.891 Personal history of nicotine dependence; Z79.52 Long term (current) use of systemic steroids; Z79.899 Other long term (current) drug therapy; Z91.048 Other nonmedicinal substance allergy status; Z98.890 Other specified postprocedural states
CPT/HCPCS: 55700; 77021; 88344; 88305; J1580; J1100; J2405; J3010; J2704

== ENCOUNTER → 2023-07-16 | Outpatient (CLI) | payer MEDICARE, BC ==
[2023-07-16 10:54] LABS: Amphetamine Screen,Urine Not Detected (NotDetected); Barbiturate Screen,Urine Not Detected (NotDetected); Benzodiazepines Screen,Urine Not Detected (NotDetected); Cocaine Screen,Urine Not Detected (NotDetected); Methadone Screen, Urine Not Detected (NotDetected); Opiate Screen,Urine Not Detected (NotDetected); Oxycodone Screen, Urine Not Detected (NotDetected); Phencyclidine Screen,Urine Not Detected (NotDetected); Tricyclic Antidepressant,Urine Not Detected (NotDetected); Urn Cannabinoid Scrn Not Detected (NotDetected)
[2023-07-16 15:42] LABS: Basophils # (A) 0.02 X 10*3/uL (0.00-0.10); Basophils % (A) 0.3 %; Eosinophils # (A) 0.08 X 10*3/uL (0.04-0.35); Eosinophils % (A) 1.2 %; HCT 38.4 % (39.6-50.0); HGB 12.9 g/dL (13.0-17.0); Lymphocytes # (A) 0.72 X 10*3/uL (0.90-5.00); Lymphocytes % (A) 11.1 %; MCH 33.1 pg (27.0-32.0); MCHC 33.6 g/dL (32.0-37.0); MCV 98.5 FL (80.0-97.0); Monocytes # (A) 0.56 X 10*3/uL (0.20-1.00); Monocytes % (A) 8.7 %; NRBC Per 100 WBC 0 X 10*3/uL (0.00-0.01); Neutrophils # (A) 5.05 X 10*3/uL (1.80-7.70); Neutrophils % (A) 78.2 %; Platelet Count 140 X 10*3/uL (140-440); RDW 14.2 % (11.5-14.5); WBC 6.46 X 10*3/uL (4.50-10.00)
[2023-07-16 16:19] LABS: ALT 28 U/L (10-49); AST 24 U/L (14-35); Albumin/Globulin Ratio 2.67 Ratio (1.60-3.17); Alkaline Phosphatase 46 U/L (41-126); Blood Urea Nitrogen 12.9 mg/dL (9.0-27.0); Calcium 8.8 mg/dL (8.7-10.3); Carbon Dioxide 24.4 mmol/L (21.6-31.8); Chloride 106 mmol/L (96-109); Chol/HDL Ratio 1.67 Ratio; Globulin 1.5 g/dL (1.6-3.3); Glucose 107 mg/dL (70-110); LDL Cholesterol,Calculated 45.2 mg/dL (0.0-131.0); Potassium 3.4 mmol/L (3.5-5.5); Prostate Specific Antigen 4.64 ng/mL (0.000-6.500); Sodium 142 mmol/L (135-145); Total Bilirubin 0.8 mg/dL (0.3-1.2); Total Protein 5.5 g/dL (6.2-8.2); VLDL Calculation 12.74 mg/dL (5.00-40.00)
== END | disposition home or self-care (01) ==
LOC: LABWHC1 08:33
PROVIDERS: ATTEND Internal Medicine
DX: I10 Essential (primary) hypertension (principal); N40.0 Benign prostatic hyperplasia without lower urinary tract symptoms; E55.9 Vitamin D deficiency, unspecified; E78.2 Mixed hyperlipidemia; Z79.899 Other long term (current) drug therapy
CPT/HCPCS: 36415; 80053; 80061; 80306; 82306; 83036; 83735; 84153; 84443; 85025

== ENCOUNTER → 2023-12-19 | Outpatient (CLI) | payer MEDICARE, BC ==
[2023-12-19 15:50] LABS: C Reactive Protein 0.3 mg/dL (0.00-0.80); Prostate Specific Antigen 5.64 ng/mL (0.000-6.500)
[2023-12-19 16:39] LABS: Anti-DNA, DS unit <1.0 IU/mL; DNA Double-Stranded Negative (Negative)
[2023-12-22 12:28] LABS: Smooth Muscle Antibody 4 UNITS (<20)
[2023-12-22 14:49] LABS: C-ANCA <1:20 Titer (<1:20)
[2023-12-23 13:03] LABS: Histone Antibody 0.2 UNITS (<1.0)
== END | disposition home or self-care (01) ==
LOC: LABWHC1 10:53
PROVIDERS: ATTEND Urology
DX: C61 Malignant neoplasm of prostate (principal); R76.8 Other specified abnormal immunological findings in serum
CPT/HCPCS: 36415; 83516; 84153; 85652; 86038; 86140; 86160; 86162; 86225; 86235; 86255

== ENCOUNTER → 2024-01-09 | Outpatient (CLI) | payer MEDICARE, BC | END | disposition home or self-care (01) | LOC: LABPAT 09:42 | PROVIDERS: ATTEND Orthopaedic Surgery | CPT/HCPCS: 87070 ==

== ENCOUNTER → 2024-02-03 | Outpatient (CLI) | payer MEDICARE, BC ==
[2024-02-03 18:40] LABS: Basophils % (A) 0.4 %; Eosinophils % (A) 0.1 %; HCT 41.9 % (39.6-50.0); HGB 13.8 g/dL (13.0-17.0); Lymphocytes # (A) 0.54 X 10*3/uL (0.90-5.00); Lymphocytes % (A) 7.2 %; MCH 32.6 pg (27.0-32.0); MCHC 32.9 g/dL (32.0-37.0); MCV 99.1 FL (80.0-97.0); Mean Platelet Volume 11.2 FL (9.5-12.2); Monocytes # (A) 0.37 X 10*3/uL (0.20-1.00); Monocytes % (A) 4.9 %; NRBC Per 100 WBC 0 X 10*3/uL (0.00-0.01); Neutrophils # (A) 6.48 X 10*3/uL (1.80-7.70); Neutrophils % (A) 86.1 %; Platelet Count 176 X 10*3/uL (140-440); RBC 4.23 X 10*6/uL (4.40-5.60); RDW 14.6 % (11.5-14.5); WBC 7.53 X 10*3/uL (4.50-10.00)
[2024-02-03 18:41] LABS: Basophils # (A) 0.03 X 10*3/uL (0.00-0.10); Eosinophils # (A) 0.01 X 10*3/uL (0.04-0.35)
[2024-02-03 19:43] LABS: BUN/Creat Ratio 14.58 Ratio (12.00-20.00); Blood Urea Nitrogen 17.5 mg/dL (9.0-27.0); Calcium 9.5 mg/dL (8.7-10.3); Carbon Dioxide 24.6 mmol/L (21.6-31.8); Chloride 106 mmol/L (96-109); Glucose 116 mg/dL (70-110); Potassium 4.8 mmol/L (3.5-5.5); Sodium 142 mmol/L (135-145)
[2024-02-03 20:27] LABS: INR 0.99 sec (0.93-1.11); Prothrombin Time 10.7 sec (9.9-11.9)
== END | disposition home or self-care (01) ==
LOC: LABPAT 14:13
PROVIDERS: ATTEND Orthopaedic Surgery
DX: Z01.818 Encounter for other preprocedural examination (principal); M17.12 Unilateral primary osteoarthritis, left knee
CPT/HCPCS: 80048; 85025; 85610

== ENCOUNTER → 2024-03-24 | Outpatient (CLI) | payer MEDICARE, BC ==
[2024-03-24 14:25] LABS: Partial Thromboplastin Time 23.4 sec (22.0-30.0)
[2024-03-24 19:52] LABS: BUN/Creat Ratio 13.82 Ratio (12.00-20.00); Blood Urea Nitrogen 15.2 mg/dL (9.0-27.0); Carbon Dioxide 26.8 mmol/L (21.6-31.8); Chloride 105 mmol/L (96-109); Glucose 143 mg/dL (70-110); Potassium 4.1 mmol/L (3.5-5.5); Sodium 142 mmol/L (135-145)
[2024-03-24 19:53] LABS: ALT 24 U/L (10-49); AST 27 U/L (14-35); Albumin 4.2 g/dL (3.8-4.9); Albumin/Globulin Ratio 2.21 Ratio (1.60-3.17); Alkaline Phosphatase 47 U/L (41-126); Calcium 9.2 mg/dL (8.7-10.3); Globulin 1.9 g/dL (1.6-3.3); Total Bilirubin 0.8 mg/dL (0.3-1.2); Total Protein 6.1 g/dL (6.2-8.2)
[2024-03-24 20:12] LABS: HCT 40.3 % (39.6-50.0); HGB 13.6 g/dL (13.0-17.0); MCH 33.1 pg (27.0-32.0); MCHC 33.7 g/dL (32.0-37.0); MCV 98.1 FL (80.0-97.0); Mean Platelet Volume 10.4 FL (9.5-12.2); NRBC Per 100 WBC 0 X 10*3/uL (0.00-0.01); Platelet Count 194 X 10*3/uL (140-440); RBC 4.11 X 10*6/uL (4.40-5.60); RDW 14.4 % (11.5-14.5); WBC 8.27 X 10*3/uL (4.50-10.00)
== END | disposition home or self-care (01) ==
LOC: LABPAT 13:20
PROVIDERS: ATTEND Orthopaedic Surgery
DX: Z01.818 Encounter for other preprocedural examination (principal); Z22.322 Carrier or suspected carrier of Methicillin resistant Staphylococcus aureus; E11.9 Type 2 diabetes mellitus without complications; M17.12 Unilateral primary osteoarthritis, left knee
CPT/HCPCS: 80053; 83036; 85027; 85610; 85730; 87070; 93005

== ENCOUNTER → 2024-03-24 | Outpatient (CLI) | payer MEDICARE, BC ==
--- NOTE | 2024-03-24 13:57 | CT ---
CT left knee JENNI protocol HISTORY: Knee pain COMPARISON: None. TECHNIQUE: Multiple axial images are obtained through the lower extremities according to the JENNI pro tocol. FINDINGS: There is severe osteoarthritis in the medial compartment of the aorta there is near complete oblitera tion of the joint space in near [id number] configuration. There is hypertrophic spurring and modera te subchondral sclerosis. There is mild narrowing and hypertrophic spurring of the lateral patellofemoral compartments consiste nt with mild osteoarthritis. There is mild narrowing of the medial and lateral compartments with mild hypertrophic spurring in the right knee. There is mild narrowing of the hip joint spaces bilaterally. There are mild subchondral cysts in the humeral heads. There is no significant degenerative change in the ankles. IMPRESSION: 1. Tricompartment osteoarthritis of the left knee severe in the medial compartment as described above and mild on the lateral and patellofemoral compartments. 2. 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 3. No significant abnormality of the ankles. [facility], , 03/24/2024 1:55 PM
== END | disposition home or self-care (01) ==
LOC: RADCTMAIN 12:42
PROVIDERS: ATTEND Orthopaedic Surgery
DX: M17.12 Unilateral primary osteoarthritis, left knee (principal); M16.0 Bilateral primary osteoarthritis of hip

== ENCOUNTER 2024-04-21 19:18 | Inpatient (IN) | payer MEDICARE, BC ==
--- NOTE | 2024-04-21 20:13 | XR ---
EXAMINATION TYPE: XR chest 2V DATE OF EXAM: 04/21/2024 7:59 PM COMPARISON: Chest radiographs from 12/11/2020. CLINICAL INDICATION: Male, 73 years old with history of SOB; TECHNIQUE: XR chest 2V Frontal and lateral views of the chest. FINDINGS: Lungs/Pleura: There is flattening of the diaphragm with increased lucency of the lungs. No evidence o f pneumothorax, pleural effusion or focal consolidation. Pulmonary vascularity: Unremarkable. Heart/mediastinum: Cardiomediastinal silhouette is unremarkable. Musculoskeletal: No acute osseous pathology. IMPRESSION: 1. No acute cardiopulmonary disease process. 2. COPD changes. [facility], , 04/21/2024 8:11 PM
--- NOTE | 2024-04-21 21:01 | ED ---
SOB HPI - General Source: patient, RN notes reviewed Mode of arrival: ambulatory Limitations: no limitations - History of Present Illness MD Complaint: shortness of breath <Shyanne Oneil - Last Filed: 04/21/24 20:58> <Thuy Sage - Last Filed: 04/23/24 02:01> - General Chief Complaint: Shortness of Breath Stated Complaint: SOB Time Seen by Provider: 04/21/24 20:45 - History of Present Illness Initial Comments: Quick Note: This is a 73-year-old male who presents to the emergency department for shortness of breath. States that it started about 5 hours ago. Also repor ts a burning pain in the left lower chest. His largest concern is ruling out a pneumothorax, which has happened to him twice. He has knee replacement surgery coming up and wants to make sure nothing else is going on before he goes under anesthesia for that. (Shyanne Oneil) 73-year-old male presents emergency department reporting shortness of breath for the past 5 hours. Patient also has left lower chest pain. Patient has a history of pulmonary sarcoidosis on prednisone 10 mg, recurrent pneumothorax with VATS. Patient is supposed to have knee replacement surgery on Friday and wants to make sure nothing is going on before he goes under anesthesia. Patient states that his breathing is worse with ambulation and better with rest. He does not wear oxygen at home. He is not currently maintained on any inhalers or breathing treatments. Patient denies any fevers, chills or cough. He does admit to history of DVT after meniscus surgery. Patient is no longer on any anticoagulation. He denies any cardiac history. No other alleviating, precipitating or modifying factors (Thuy Sage) - Related Data Home Medications Medication Instructions Recorded Confirmed Losartan [Cozaar] 50 mg PO QAM 12/09/19 04/22/24 amLODIPine [Norvasc] 5 mg PO QAM 12/09/19 04/22/24 predniSONE 10 mg PO QAM 12/09/19 04/22/24 Zolpidem Tartrate [Zolpidem 12.5 mg PO HS 10/25/20 04/22/24 Tartrate ER] Ascorbic Acid [Vitamin C] 2,000 mg PO DAILY 04/03/23 04/22/24 Rosuvastatin [Crestor] 20 mg PO HS 04/03/23 04/22/24 Tamsulosin HCl [Flomax] 0.4 mg PO QAM 02/18/24 04/22/24 Vitamin B Complex 1 cap PO DAILY 04/16/24 04/22/24 Cholecalciferol (Vitamin D3) 75 mcg PO DAILY 04/22/24 04/22/24 [Vitamin D3 (3000 Iu)] Vitamin E (Dl,Tocopheryl Acet) 450 mg PO DAILY 04/22/24 04/22/24 [Vitamin E (1000 Iu = 450 MG)] Allergies Allergy/AdvReac Type Severity Reaction Status Date / Time adhesive tape Allergy tears Verified 04/22/24 07:19 skin-Please use paper tape Review of Systems ROS Other: All systems not noted in ROS Statement are negative. <Shyanne Oneil - Last Filed: 04/21/24 20:58> ROS Other: All systems not noted in ROS Statement are negative. <Thuy Sage - Last Filed: 04/23/24 02:01> ROS Statement: Those systems with pertinent positive or pertinent negative responses have been documented in the HPI. Past Medical History Past Medical History: GERD/Reflux, Hypertension, Respiratory Disorder Additional Past Medical History / Comment(s): rupture diverticuli July 2021,RBBB. Pulmonary Sarcoidosis. Hx spontaneous pneumothorax. Rt inguinal hernia. History of Any Multi-Drug Resistant Organisms: None Reported Past Surgical History: Orthopedic Surgery Additional Past Surgical History / Comment(s): Griffin procedure w/ colostomy, Hernia's x3. knee,Robotic lysis of adhesions,VATS procedure Past Anesthesia/Blood Transfusion Reactions: No Reported Reaction Past Psychological History: No Psychological Hx Reported Smoking Status: Never smoker Past Alcohol Use History: None Reported Past Drug Use History: None Reported - Past Family History Mother Family Medical History: No Reported History Additional Family Medical History / Comment(s): ETOH Father Family Medical History: CVA/TIA Additional Family Medical History / Comment(s): ETOH <Shyanne Oneil - Last Filed: 04/21/24 20:58> General Exam Limitations: no limitations <Shyanne Oneil - Last Filed: 04/21/24 20:58> General appearance: alert, in no apparent distress Head exam: Present: atraumatic, normocephalic, normal inspection Eye exam: Present: normal appearance, PERRL, EOMI. Absent: scleral icterus, conjunctival injection, periorbital swelling ENT exam: Present: normal exam, mucous membranes moist Neck exam: Present: normal inspection. Absent: tenderness, meningismus, lymphadenopathy Respiratory exam: Present: decreased breath sounds. Absent: respiratory distress, wheezes, rales, rhonchi, stridor Cardiovascular Exam: Present: regular rate, irregular rhythm, normal heart sounds. Absent: systolic murmur, diastolic murmur, rubs, gallop, clicks GI/Abdominal exam: Present: soft, normal bowel sounds. Absent: distended, tenderness, guarding, rebound, rigid Extremities exam: Present: normal inspection, full ROM, normal capillary refill. Absent: tenderness, pedal edema, joint swelling, calf tenderness Back exam: Present: normal inspection Neurological exam: Present: alert, oriented X3, CN II-XII intact Psychiatric exam: Present: normal affect, normal mood Skin exam: Present: warm, dry, intact, normal color. Absent: rash <Thuy Sage - Last Filed: 04/23/24 02:01> - General Exam Comments Initial Comments: Visual Physical Exam Vital signs reviewed General: Well-appearing, nontoxic, no acute distress. Head: Normocephalic, atraumatic Eyes: PERRLA, EOMI ENT: Airway patent Chest: Nonlabored breathing Skin: No visual rash, normal skin tone Neuro: Alert and oriented 3 Musculoskeletal: No gross abnormalities (Shyanne Oneil) Course Vital Signs 04/21/24 04/21/24 04/22/24 19:41 23:26 01:00 Temperature 97.8 F Pulse Rate 97 90 80 Respiratory 12 20 18 Rate Blood Pressure 111/72 170/74 133/83 O2 Sat by Pulse 96 99 97 Oximetry 04/22/24 04/22/24 04/22/24 01:03 02:00 08:00 Temperature Pulse Rate 78 73 Respiratory 20 20 18 Rate Blood Pressure 139/97 153/91 O2 Sat by Pulse 98 98 Oximetry 04/22/24 04/22/24 11:39 13:01 Temperature Pulse Rate 80 84 Respiratory 18 18 Rate Blood Pressure 131/89 136/78 O2 Sat by Pulse 99 98 Oximetry Medical Decision Making <Shyanne Oneil - Last Filed: 04/21/24 20:58> - Lab Data Result diagrams: 04/22/24 05:57 04/22/24 05:57 <Thuy Sage A - Last Filed: 04/23/24 02:01> - Medical Decision Making I performed the QuickNote portion of this chart. Signed Shyanne Oneil PA-C. (Shyanne Oneil) Was pt. sent in by a medical professional or institution ([facility]ado, BIOLOGICAL ENGINEER, urgent care, hospital, or long term...) When possible be specific @ -No Did you speak to anyone other than the patient for history (EMS, parent, family, police, friend...)? What history was obtained from this source @ -No Did you review nursing and triage notes (agree or disagree)? Why? @ -I reviewed and agree with nursing and triage notes Were old charts reviewed (outside hosp., previous admission, EMS record, old EKG, old radiological studies, urgent care reports/EKG's, long term records)? Report findings @ -No old charts were reviewed Differential Diagnosis (chest pain, altered mental status, abdominal pain women, abdominal pain men, vaginal bleeding, weakness, fever, dyspnea, syncope, headache, dizziness, GI bleed, back pain, seizure, CVA, palpatations, mental health, musculoskeletal)? @ -Differential Dyspnea: Coronary syndrome, arrhythmia, tamponade, asthma, COPD, pulmonary embolism, pneumonia, pneumothorax, pulmonary effusion, anaphylaxis, diabetic ketoacidosis, flailed chest, pulmonary contusion, diaphragmatic rupture, anemia, neuromuscular, this is not meant to be an all-inclusive list. EKG interpreted by me (3pts min.). @ -Yes and demonstrates A-fib with a rate of 91. QRS 150. QTc of 453. There is a right bundle branch block. No acute ST segment elevation Repeat done at 12:30 AM demonstrates sinus rhythm with rate of 81. Parable 213. QRS 154. QTc of 473. No acute ST segment elevations. Right Bundle branch block X-rays interpreted by me (1pt min.). @ -Yes and demonstrates no acute process CT interpreted by me (1pt min.). @ -Yes and demonstrates large PE, right without signs of heart strain U/S interpreted by me (1pt. min.). @ -None done What testing was considered but not performed or refused? (CT, X-rays, U/S, labs)? Why? @ -None What meds were considered but not given or refused? Why? @ -None Did you discuss the management of the patient with other professionals (liyah phelps i.e. , PA, BIOLOGICAL ENGINEER, lab, RT, psych nurse, high school social studies teacher, edger tailer, teacher, mounted police officer, case work aide)? Give summary @ -Discussed the case with Sean from pulmonology. Also spoke with Dr. Zapata who accepted the admission Was smoking cessation discussed for >3mins.? @ -No Was critical care preformed (if so, how long)? @ -Yes, 35 minutes for management of acute PE Were there social determinants of health that impacted care today? How? (Homelessness, low income, unemployed, alcoholism, drug addiction, transportation, low edu. Level, literacy, decrease access to med. care, detention, rehab)? @ -No Was there de-escalation of care discussed even if they declined (Discuss DNR or withdrawal of care, Hospice)? DNR status @ -No What co-morbidities impacted this encounter? (DM, HTN, Smoking, COPD, CAD, Cancer, CVA, ARF, Chemo, Hep., AIDS, mental health diagnosis, sleep apnea, morbid obesity)? @ -Sarcoidosis, pneumothoraces Was patient admitted / discharged? Hospital course, mention meds given and route, prescriptions, significant lab abnormalities, going to OR and other pertinent info. @ -Upon arrival patient seen and evaluated in room 10. Thorough history and physical exam was performed. Laboratory studies are conducted. Chest x-ray was performed. Patient does have history of DVT and therefore he is sent for a CT which demonstrates right sided PE. Patient is initiated on heparin. He is hemodynamically stable with no signs of heart strain on CT. Echo was ordered. Called and spoke with Dr. Zapata who agreed to admission. Also spoke with Sean from pulmonology. Patient admitted to the floor in stable condition Undiagnosed new problem with uncertain prognosis? @ -No Drug Therapy requiring intensive monitoring for toxicity (Heparin, Nitro, Insulin, Cardizem)? @ -No Were any procedures done? @ -No Diagnosis/symptom? @ -Acute respiratory insufficiency, acute PE Acute, or Chronic, or Acute on Chronic? @ -Acute Uncomplicated (without systemic symptoms) or Complicated (systemic symptoms)? @ -Complicated Side effects of treatment? @ -Bleeding Exacerbation, Progression, or Severe Exacerbation? @ -No Poses a threat to life or bodily function? How? (Chest pain, [place], SD, pneumonia, PE, COPD, DKA, ARF, appy, cholecystitis, CVA, Diverticulitis, Homicidal, Suicidal, threat to staff... and all critical care pts) @ -Yes as patient does have a large right-sided PE (Thuy Sage) - Lab Data Lab Results 04/21/24 04/21/24 04/21/24 Range/Units 21:19 21:19 21:19 WBC 14.6 H (3.8-10.6) k/uL RBC 4.73 (4.30-5.90) m/uL Hgb 15.3 (13.0-17.5) gm/dL Hct 45.9 (39.0-53.0) % MCV 96.9 (80.0-100.0) fL MCH 32.3 (25.0-35.0) pg MCHC 33.3 (31.0-37.0) g/dL RDW 13.6 (11.5-15.5) % Plt Count 191 (150-450) k/uL MPV 7.5 Neutrophils % 88 % Lymphocytes % 5 % Monocytes % 6 % Eosinophils % 1 % Basophils % 0 % Neutrophils # 12.8 H (1.3-7.7) k/uL Lymphocytes # 0.7 L (1.0-4.8) k/uL Monocytes # 0.9 (0-1.0) k/uL Eosinophils # 0.1 (0-0.7) k/uL Basophils # 0.0 (0-0.2) k/uL PT 11.2 (10.0-12.5) sec INR 1.0 (<1.2) APTT 24.1 (22.0-30.0) sec D-Dimer (<0.60) mg/L FEU Sodium 139 (137-145) mmol/L Potassium 4.3 (3.5-5.1) mmol/L Chloride 104 (98-107) mmol/L Carbon Dioxide 25 (22-30) mmol/L Anion Gap 10 mmol/L BUN 21 H (9-20) mg/dL Creatinine 1.29 H (0.66-1.25) mg/dL Est GFR (CKD-EPI)AfAm 63 (>60 ml/min/1.73 sqM) Est GFR (CKD-EPI)NonAf 54 (>60 ml/min/1.73 sqM) Glucose 115 H (74-99) mg/dL Lactic Ac Sepsis Rflx Plasma Lactic Acid Stefan (0.7-2.0) mmol/L Calcium 9.6 (8.4-10.2) mg/dL Total Bilirubin 1.1 (0.2-1.3) mg/dL AST 26 (17-59) U/L ALT 19 (4-49) U/L Alkaline Phosphatase 41 (38-126) U/L Troponin I (0.000-0.034) ng/mL NT-Pro-B Natriuret Pep pg/mL Total Protein 6.7 (6.3-8.2) g/dL Albumin 4.3 (3.5-5.0) g/dL Influenza Type A (PCR) (Not Detectd) Influenza Type B (PCR) (Not Detectd) RSV (PCR) (Not Detectd) SARS-CoV-2 (PCR) (Not Detectd) 04/21/24 04/21/24 04/21/24 Range/Units 21:19 21:19 21:19 WBC (3.8-10.6) k/uL RBC (4.30-5.90) m/uL Hgb (13.0-17.5) gm/dL Hct (39.0-53.0) % MCV (80.0-100.0) fL MCH (25.0-35.0) pg MCHC (31.0-37.0) g/dL RDW (11.5-15.5) % Plt Count (150-450) k/uL MPV Neutrophils % % Lymphocytes % % Monocytes % % Eosinophils % % Basophils % % Neutrophils # (1.3-7.7) k/uL Lymphocytes # (1.0-4.8) k/uL Monocytes # (0-1.0) k/uL Eosinophils # (0-0.7) k/uL Basophils # (0-0.2) k/uL PT (10.0-12.5) sec INR (<1.2) APTT (22.0-30.0) sec D-Dimer 9.44 H (<0.60) mg/L FEU Sodium (137-145) mmol/L Potassium (3.5-5.1) mmol/L Chloride (98-107) mmol/L Carbon Dioxide (22-30) mmol/L Anion Gap mmol/L BUN (9-20) mg/dL Creatinine (0.66-1.25) mg/dL Est GFR (CKD-EPI)AfAm (>60 ml/min/1.73 sqM) Est GFR (CKD-EPI)NonAf (>60 ml/min/1.73 sqM) Glucose (74-99) mg/dL Lactic Ac Sepsis Rflx Plasma Lactic Acid Stefan 2.1 H* (0.7-2.0) mmol/L Calcium (8.4-10.2) mg/dL Total Bilirubin (0.2-1.3) mg/dL AST (17-59) U/L ALT (4-49) U/L Alkaline Phosphatase (38-126) U/L Troponin I 0.048 H* (0.000-0.034) ng/mL NT-Pro-B Natriuret Pep pg/mL Total Protein (6.3-8.2) g/dL Albumin (3.5-5.0) g/dL Influenza Type A (PCR) (Not Detectd) Influenza Type B (PCR) (Not Detectd) RSV (PCR) (Not Detectd) SARS-CoV-2 (PCR) (Not Detectd) 04/21/24 04/21/24 04/21/24 Range/Units 21:26 21:50 23:27 WBC (3.8-10.6) k/uL RBC (4.30-5.90) m/uL Hgb (13.0-17.5) gm/dL Hct (39.0-53.0) % MCV (80.0-100.0) fL MCH (25.0-35.0) pg MCHC (31.0-37.0) g/dL RDW (11.5-15.5) % Plt Count (150-450) k/uL MPV Neutrophils % % Lymphocytes % % Monocytes % % Eosinophils % % Basophils % % Neutrophils # (1.3-7.7) k/uL Lymphocytes # (1.0-4.8) k/uL Monocytes # (0-1.0) k/uL Eosinophils # (0-0.7) k/uL Basophils # (0-0.2) k/uL PT (10.0-12.5) sec INR (<1.2) APTT (22.0-30.0) sec D-Dimer (<0.60) mg/L FEU Sodium (137-145) mmol/L Potassium (3.5-5.1) mmol/L Chloride (98-107) mmol/L Carbon Dioxide (22-30) mmol/L Anion Gap mmol/L BUN (9-20) mg/dL Creatinine (0.66-1.25) mg/dL Est GFR (CKD-EPI)AfAm (>60 ml/min/1.73 sqM) Est GFR (CKD-EPI)NonAf (>60 ml/min/1.73 sqM) Glucose (74-99) mg/dL Lactic Ac Sepsis Rflx Y Plasma Lactic Acid Stefan (0.7-2.0) mmol/L Calcium (8.4-10.2) mg/dL Total Bilirubin (0.2-1.3) mg/dL AST (17-59) U/L ALT (4-49) U/L Alkaline Phosphatase (38-126) U/L Troponin I (0.000-0.034) ng/mL NT-Pro-B Natriuret Pep 2790 pg/mL Total Protein (6.3-8.2) g/dL Albumin (3.5-5.0) g/dL Influenza Type A (PCR) Not Detected (Not Detectd) Influenza Type B (PCR) Not Detected (Not Detectd) RSV (PCR) Not Detected (Not Detectd) SARS-CoV-2 (PCR) Not Detected (Not Detectd) Disposition <Shyanne Oneil - Last Filed: 04/21/24 20:58> Is patient prescribed a controlled substance at d/c from ED?: No Time of Disposition: 23:52 Decision to Admit Reason: Admit from EC Decision Date: 04/21/24 Decision Time: 23:52 <Thuy Sage - Last Filed: 04/23/24 02:01> Clinical Impression: Pulmonary embolism, Chest pain, Acute respiratory insufficiency, Elevated trop onin Disposition: ADMITTED IP TO THIS HOSP Condition: Serious
[2024-04-21 21:27] LABS: Basophils % (A) 0 %; Eosinophils # (A) 0.1 k/uL (0-0.7); Eosinophils % (A) 1 %; HCT 45.9 % (39.0-53.0); HGB 15.3 gm/dL (13.0-17.5); Lymphocytes # (A) 0.7 k/uL (1.0-4.8); Lymphocytes % (A) 5 %; MCH 32.3 pg (25.0-35.0); MCHC 33.3 g/dL (31.0-37.0); MCV 96.9 fL (80.0-100.0); Mean Platelet Volume 7.5; Monocytes # (A) 0.9 k/uL (0-1.0); Monocytes % (A) 6 %; Neutrophils # (A) 12.8 k/uL (1.3-7.7); Neutrophils % (A) 88 %; Platelet Count 191 k/uL (150-450); RBC 4.73 m/uL (4.30-5.90); RDW 13.6 % (11.5-15.5); WBC 14.6 k/uL (3.8-10.6)
[2024-04-21 21:36] LABS: Partial Thromboplastin Time 24.1 sec (22.0-30.0); Prothrombin Time 11.2 sec (10.0-12.5)
[2024-04-21 21:37] LABS: ALT 19 U/L (4-49); AST 26 U/L (17-59); African American GFR (CKD) 63 (>60 ml/min/1.73 sqM); Albumin 4.3 g/dL (3.5-5.0); Alkaline Phosphatase 41 U/L (38-126); Anion Gap 10 mmol/L; Blood Urea Nitrogen 21 mg/dL (9-20); Calcium 9.6 mg/dL (8.4-10.2); Carbon Dioxide 25 mmol/L (22-30); Chloride 104 mmol/L (98-107); Glucose 115 mg/dL (74-99); Non-African American GFR(CKD) 54 (>60 ml/min/1.73 sqM); Potassium 4.3 mmol/L (3.5-5.1); Sodium 139 mmol/L (137-145); Total Bilirubin 1.1 mg/dL (0.2-1.3); Total Protein 6.7 g/dL (6.3-8.2)
[2024-04-21 22:09] LABS: Influenza A Not Detected (Not Detectd); Influenza B Not Detected (Not Detectd); RSV Not Detected (Not Detectd)
--- NOTE | 2024-04-21 23:34 | CT ---
EXAM: CT Angiography Chest With Intravenous Contrast CLINICAL HISTORY: ITS.REASON CT Reason: elevated d-dimer, hx dvt TECHNIQUE: Axial computed tomographic angiography images of the chest with intravenous contrast. CTDI is 24.17 mGy and DLP is 428.1 mGy-cm. This CT exam was performed using one or more of the following dose reduction techniques: automated exposure control, adjustment of the mA and/or kV according to patient size, and/or use of iterative reconstruction technique. MIP reconstructed images were created and reviewed. COMPARISON: 10/26/2020 FINDINGS: Pulmonary arteries: Pulmonary emboli extending from the right main pulmonary artery into the right middle and lower lobe pulmonary arteries. The thrombus from the right middle and lower lobe pulmonary arteries is occlusive. There is nonocclusive pulmonary emboli within the right upper lobe pulmonary arteries. Extensive fibrotic changes within the lung apices bilaterally. Aorta: No acute findings. No thoracic aortic aneurysm. Lungs: Unremarkable. No mass. No consolidation. Pleural space: Unremarkable. No significant effusion. No pneumothorax. Heart: there is slight flattening of the intraventricular septum. RV to LV ratio is 0.9. No cardiomegaly. No significant pericardial effusion. Mediastinum: Extensive bilateral hilar and mediastinal lymphadenopathy. Bones/joints: No acute fracture. No dislocation. Soft tissues: Unremarkable. Lymph nodes: See above. IMPRESSION: Occlusive pulmonary emboli within the right middle and lower lobes. Nonocclusive pulmonary emboli right upper lobe. No evidence of right heart strain and RV to LV ratio is 0.9. <MYCVCSECTION> Communications: 04/21/24 23:31 Call Doctor Regarding Pulmonary Embolism, called Dr. Sage on 04/21 23:31 (-05:00)
[2024-04-21] MEDS ORDERED: HEPARIN SODIUM 1,000 UN/ML (10ML VL) IV PRN (23:40)
[2024-04-21] MEDS ORDERED: NALOXONE 0.4 MG/ML 1 ML VIAL IV PRN (23:52)
[2024-04-22] MEDS: HEPARIN SODIUM 1,000 UN/ML (10ML VL) IV ONE (00:17)
[2024-04-22] MEDS: HEPARIN SOD,PORK IN 0.45% NACL 25,000 UNIT in 0.45% NACL 1 250ML.BAG IV SCH (00:18)
[2024-04-22 06:26] LABS: Basophils % (A) 0 %; Eosinophils # (A) 0.1 k/uL (0-0.7); Eosinophils % (A) 1 %; HCT 40.1 % (39.0-53.0); HGB 13.5 gm/dL (13.0-17.5); Lymphocytes % (A) 9 %; MCH 32.9 pg (25.0-35.0); MCHC 33.6 g/dL (31.0-37.0); MCV 97.9 fL (80.0-100.0); Mean Platelet Volume 7.5; Monocytes # (A) 0.8 k/uL (0-1.0); Monocytes % (A) 7 %; Neutrophils # (A) 8.5 k/uL (1.3-7.7); Neutrophils % (A) 81 %; Platelet Count 172 k/uL (150-450); RDW 13.8 % (11.5-15.5); WBC 10.6 k/uL (3.8-10.6)
[2024-04-22 06:39] LABS: African American GFR (CKD) 78 (>60 ml/min/1.73 sqM); Anion Gap 6 mmol/L; Blood Urea Nitrogen 21 mg/dL (9-20); Calcium 8.9 mg/dL (8.4-10.2); Carbon Dioxide 30 mmol/L (22-30); Chloride 104 mmol/L (98-107); Glucose 93 mg/dL (74-99); Non-African American GFR(CKD) 67 (>60 ml/min/1.73 sqM); Potassium 3.8 mmol/L (3.5-5.1); Sodium 140 mmol/L (137-145)
--- NOTE | 2024-04-22 07:06 | P.CNPUL ---
History of Present Illness Consult date: 04/22/24 Requesting physician: Thuy Sage Reason for consult: pulmonary embolism Chief complaint: Acute on chronic dyspnea History of present illness: Patient is a 73-year-old male with past medical history significant for hypertension, nonobstructive CAD, GERD, complicated diverticulitis with previous sigmoidectomy, prostate cancer, pulmonary sarcoidosis, previous spontaneous pneumothoraces requiring right-sided VATS resection of bullae and mechanical pleurodesis in 2020, and remote history of DVT developed after surgery. 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 Does follow in the pulmonary office with Dr. Gabriel. Patient presents the emergency department acute on chronic shortness of breath. Developed rather abruptly yesterday while going out to get his rubbish bins from the road. Also, endorses a burning left-sided chest pain. Does admit chronic lower extremity swelling in both legs. Denies any cough, hemoptysis. Denies any palpitations, lightheadedness or syncopal events. Workup in the ED included a D-dimer markedly elevated at 9.44. Troponins 0.048 and 0.039 respectively. NT proBNP 2790. EKG done on arrival: Showing atrial fibrillation, ventricular response controlled, S1 Q3 T3 pattern. chest CTA demonstrating large right mainstem pulmonary emboli extending into the right middle and lower segmental and subsegmental branches. No CT evidence of right-sided heart strain. Also, chronic sarcoid changes noted. With extensive bilateral hilar and mediastinal lymphadenopathy. CBC: WBC count 14.6, hemoglobin 15.3, platelets 191. Started on high intensity IV heparin protocol. Currently being evaluated in the emergency department. He was previously placed on 2 L/min nasal cannula. SpO2 reading 98% on bedside monitor. Heart rhythm currently appears sinus mechanism on bedside monitor, with frequent PACs. Heart rate 80 bpm. Blood pressure 139/97 mmHg. No signs of hemodynamic compromise. Patient states he has a history of DVT provoked by surgery. He completed 3 months of anticoagulants, and was subsequently discontinued. States that he does not have pharmaceutical insurance currently, and would likely have trouble paying for Eliquis again. Denies recent surgeries or trauma or hospitalizations. Did have a left knee surgery scheduled for next week. Does have prostate cancer, being monitored by his urologist. Echocardiogram is pending. Review of Systems Constitutional: Denies chills, Denies fever, Denies night sweats, Denies poor appetite, Denies weight gain, Denies weight loss Ears, nose, mouth and throat: Denies epistaxis Cardiovascular: Reports as per HPI Respiratory: Reports as per HPI Gastrointestinal: Denies hematemesis, Denies hematochezia, Denies melena Genitourinary: Denies dysuria, Denies hematuria Musculoskeletal: Denies limitation of motion Integumentary: Denies rash Neurological: Denies head injury, Denies headaches, Denies seizures, Denies syncope Psychiatric: Denies anxiety, Denies depression Past Medical History Past Medical History: GERD/Reflux, Hypertension, Respiratory Disorder Additional Past Medical History / Comment(s): rupture diverticuli July 2021,RBBB. Pulmonary Sarcoidosis. Hx spontaneous pneumothorax. Rt inguinal hernia. History of Any Multi-Drug Resistant Organisms: None Reported Past Surgical History: Orthopedic Surgery Additional Past Surgical History / Comment(s): Griffin procedure w/ colostomy, Hernia's x3. knee,Robotic lysis of adhesions,VATS procedure Past Anesthesia/Blood Transfusion Reactions: No Reported Reaction Past Psychological History: No Psychological Hx Reported Smoking Status: Never smoker Past Alcohol Use History: None Reported Past Drug Use History: None Reported - Past Family History Mother Family Medical History: No Reported History Additional Family Medical History / Comment(s): ETOH Father Family Medical History: CVA/TIA Additional Family Medical History / Comment(s): ETOH Medications and Allergies Home Medications Medication Instructions Recorded Confirmed Type Losartan [Cozaar] 50 mg PO QAM 12/09/19 04/16/24 History amLODIPine [Norvasc] 5 mg PO QAM 12/09/19 04/16/24 History predniSONE 10 mg PO QAM 12/09/19 04/16/24 History Zolpidem Tartrate [Zolpidem 12.5 mg PO HS 10/25/20 04/16/24 History Tartrate ER] Ascorbic Acid [Vitamin C] 2,000 mg PO DAILY 04/03/23 04/16/24 History Famotidine [Pepcid] 40 mg PO HS PRN 04/03/23 04/16/24 History Rosuvastatin [Crestor] 20 mg PO HS 04/03/23 04/16/24 History Vitamin D (Unknown Dose) 1 dose PO DAILY 04/03/23 04/16/24 History Tamsulosin HCl [Flomax] 0.4 mg PO DAILY 02/18/24 04/16/24 History Vitamin B Complex 1 each PO DAILY 04/16/24 04/16/24 History Vitamin E Mixed [Vitamin E] 1,000 unit PO DAILY 04/16/24 04/16/24 History Allergies Allergy/AdvReac Type Severity Reaction Status Date / Time adhesive tape Allergy tears Verified 04/21/24 19:43 skin-Please use paper tape Physical Exam Vitals: Vital Signs Temp Pulse Resp BP Pulse Ox 04/22/24 02:00 78 20 139/97 98 04/22/24 01:03 20 04/22/24 01:00 80 18 133/83 97 04/21/24 23:26 90 20 170/74 99 04/21/24 19:41 97.8 F 97 12 111/72 96 Intake and Output 04/21/24 04/21/24 04/22/24 14:59 22:59 06:59 Other: Weight 79.379 kg GENERAL EXAM: Alert, 73-year-old well-appearing male, comfortable in no apparent distress. HEAD: Normocephalic and atraumatic EYES: Normal reaction of pupils, equal size. NOSE: Clear with pink turbinates. THROAT: No erythema or exudates. NECK: No masses, no JVD. CHEST: No chest wall deformity. LUNGS: Equal air entry with no crackles, wheeze, rhonchi or dullness. On 2 L/min nasal cannula. No conversational dyspnea or accessory muscle use.. CVS: S1 and S2 normal with no audible murmur, irregular rhythm. No extra heart s ounds ABDOMEN: No hepatosplenomegaly, active bowel sounds, no guarding or rigidity. SPINE: No scoliosis or deformity SKIN: No rashes CENTRAL NERVOUS SYSTEM: No focal deficits, tone is normal in all 4 extremities. EXTREMITIES: There is no peripheral edema, clubbing, or cyanosis. Peripheral pulses are intact. Results - Laboratory Findings CBC and BMP: 04/22/24 05:57 04/22/24 05:57 PT/INR, D-dimer PT 11.2 sec (10.0-12.5) 04/21/24 21:19 INR 1.0 (<1.2) 04/21/24 21:19 D-Dimer 9.44 mg/L FEU (<0.60) H 04/21/24 21:19 Abnormal lab findings: Abnormal Labs 04/21/24 04/21/24 04/21/24 21:19 21:19 21:19 WBC 14.6 H Neutrophils # 12.8 H Lymphocytes # 0.7 L D-Dimer BUN 21 H Creatinine 1.29 H Glucose 115 H Plasma Lactic Acid Stefan 2.1 H* Troponin I 04/21/24 04/21/24 04/22/24 21:19 21:19 00:22 WBC Neutrophils # Lymphocytes # D-Dimer 9.44 H BUN Creatinine Glucose Plasma Lactic Acid Stefan Troponin I 0.048 H* 0.039 H* - Diagnostic Findings CT scan - chest: image reviewed Assessment and Plan Assessment: Right-sided pulmonary embolism, no CT evidence of right-sided heart strain, hemodynamics are stable Acute leukocytosis, reactive Acute kidney injury, improving History of DVT, provoked, following surgery Pulmonary sarcoidosis, maintained on 10 mg prednisone daily History of previous spontaneous pneumothoraces, status post right-sided VATS with resection of bulla and mechanical pleurodesis in 2020 History of complicated diverticulitis with previous sigmoidectomy History of prostate cancer, being monitored by his urologist on outpatient basis History of nonobstructive coronary artery disease Hypertension History of hyperlipidemia Osteoarthritis of the left knee, surgery will have to be postponed Plan: Continue supplemental oxygen maintain oxygen saturation of 92% or greater. Continues on high intensity IV heparin protocol No CT evidence of right-sided heart strain Transthoracic echocardiogram pending Venous Doppler of lower extremities pending Resume Prednisone 10 mg daily We will continue to follow I have personally seen and examined the patient, performed the documentation and the assessment and plan as written. Number of minutes spent on the visit:20 . Time with Patient: Greater than 30
--- NOTE | 2024-04-22 08:06 | US ---
EXAMINATION TYPE: US venous doppler duplex LE BI DATE OF EXAM: 04/22/2024 8:01 AM COMPARISON: NONE CLINICAL INDICATION: Male, 73 years old with history of pe; PE- on IV heparin, hx left DVT, Pain TECHNIQUE: The lower extremity deep venous system is examined utilizing real time linear array sonog jake with graded compression, color doppler sonography, and spectral doppler. SIDE PERFORMED: Bilateral FINDINGS: VESSELS IMAGED: Common Femoral Vein Deep Femoral Vein Greater Saphenous Vein * Femoral Vein Popliteal Vein Small Saphenous Vein * Proximal Calf Veins (* superficial vessels) Right Leg: Negative for DVT, Color Doppler imaging shows patency of the vessels. Spectral waveforms are within normal limits. Left Leg: Appears Positive for DVT from distal FV to proximal calf veins and one PTV. IMPRESSION: Positive for DVT left lower extremity as noted. [facility], , 04/22/2024 8:04 AM
[2024-04-22] MEDS: LOSARTAN 50 MG TAB PO SCH (09:41)
[2024-04-22] MEDS: amLODIPine 5 MG TAB PO SCH (09:41)
[2024-04-22] MEDS: TAMSULOSIN 0.4 MG CAP.ER.24H PO SCH (09:42)
[2024-04-22] MEDS: predniSONE 10 MG TAB PO SCH (09:42)
--- NOTE | 2024-04-22 12:21 | P.GSCN ---
History of Present Illness Consult date: 04/22/24 Reason for Consult: Pulmonary embolism, left lower extremity DVT Requesting physician: Tammie Zapata History of present illness: This is a pleasant 73-year-old male who presented to the emergency department yesterday with acute onset of shortness of breath. He past medical history does include hypertension, nonobstructive coronary artery disease, GERD, history of diverticulitis with sigmoidectomy, prostate cancer, sarcoidosis, previous spontaneous pneumothorax and remote history of left lower extremity DVT followin g meniscus injury. Patient is scheduled to undergo left knee replacement tomorrow but he was concerned with his breathing. He came in and had a CTA of the chest with reported bilateral PE and venous duplex with a left lower extremity DVT. Patient states he has been more sedentary secondary to knee pain. He is currently on 2 L of oxygen per nasal cannula with oxygen saturation 95 to 98%. He states he still having shortness of breath and chest pain. He had elevated troponins x 3. Echocardiogram pending. He states he has had some swelling and pain in that left leg but he thought it was secondary to his knee. Review of Systems A 14 point review systems was completed all pertinent positives and negatives as stated in the HPI. Past Medical History Past Medical History: GERD/Reflux, Hypertension, Respiratory Disorder Additional Past Medical History / Comment(s): rupture diverticuli July 2021,RBBB. Pulmonary Sarcoidosis. Hx spontaneous pneumothorax. Rt inguinal hernia. History of Any Multi-Drug Resistant Organisms: None Reported Past Surgical History: Orthopedic Surgery Additional Past Surgical History / Comment(s): Griffin procedure w/ colostomy, Hernia's x3. knee,Robotic lysis of adhesions,VATS procedure Past Anesthesia/Blood Transfusion Reactions: No Reported Reaction Past Psychological History: No Psychological Hx Reported Smoking Status: Never smoker Past Alcohol Use History: None Reported Past Drug Use History: None Reported - Past Family History Mother Family Medical History: No Reported History Additional Family Medical History / Comment(s): ETOH Father Family Medical History: CVA/TIA Additional Family Medical History / Comment(s): ETOH Medications and Allergies Home Medications Medication Instructions Recorded Confirmed Type Losartan [Cozaar] 50 mg PO QAM 12/09/19 04/22/24 History amLODIPine [Norvasc] 5 mg PO QAM 12/09/19 04/22/24 History predniSONE 10 mg PO QAM 12/09/19 04/22/24 History Zolpidem Tartrate [Zolpidem 12.5 mg PO HS 10/25/20 04/22/24 History Tartrate ER] Ascorbic Acid [Vitamin C] 2,000 mg PO DAILY 04/03/23 04/22/24 History Rosuvastatin [Crestor] 20 mg PO HS 04/03/23 04/22/24 History Tamsulosin HCl [Flomax] 0.4 mg PO QAM 02/18/24 04/22/24 History Vitamin B Complex 1 cap PO DAILY 04/16/24 04/22/24 History Cholecalciferol (Vitamin D3) 75 mcg PO DAILY 04/22/24 04/22/24 History [Vitamin D3 (3000 Iu)] Vitamin E (Dl,Tocopheryl Acet) 450 mg PO DAILY 04/22/24 04/22/24 History [Vitamin E (1000 Iu = 450 MG)] Allergies Allergy/AdvReac Type Severity Reaction Status Date / Time adhesive tape Allergy tears Verified 04/22/24 07:19 skin-Please use paper tape Surgical - Exam Vital Signs Temp Pulse Resp BP Pulse Ox 97.8 F 97 12 111/72 96 04/21/24 19:41 04/21/24 19:41 04/21/24 19:41 04/21/24 19:41 04/21/24 19:41 General appearance: The patient is alert, oriented, appears in no acute distress. HET: Head is normocephalic and atraumatic. Pupils are equal and reactive. Neck: Supple. Heart: Regular. Lungs: Equal expansion, normal respiratory effort. Abdomen: Soft, nontender, nondistended. Extremities: Normal skin color and turgor. Mild left lower extremity swelling. Palpable DP pulses bilaterally. Neurological: No focal deficits. Strength and sensation are grossly intact. Results - Labs 04/22/24 05:57 04/22/24 05:57 Abnormal Lab Results - Last 24 Hours (Table) 04/21/24 04/21/24 04/21/24 Range/Units 21:19 21:19 21:19 WBC 14.6 H (3.8-10.6) k/uL RBC (4.30-5.90) m/uL Neutrophils # 12.8 H (1.3-7.7) k/uL Lymphocytes # 0.7 L (1.0-4.8) k/uL APTT (22.0-30.0) sec D-Dimer (<0.60) mg/L FEU BUN 21 H (9-20) mg/dL Creatinine 1.29 H (0.66-1.25) mg/dL Glucose 115 H (74-99) mg/dL Plasma Lactic Acid Stefan 2.1 H* (0.7-2.0) mmol/L Troponin I (0.000-0.034) ng/mL 04/21/24 04/21/24 04/22/24 Range/Units 21:19 21:19 00:22 WBC (3.8-10.6) k/uL RBC (4.30-5.90) m/uL Neutrophils # (1.3-7.7) k/uL Lymphocytes # (1.0-4.8) k/uL APTT (22.0-30.0) sec D-Dimer 9.44 H (<0.60) mg/L FEU BUN (9-20) mg/dL Creatinine (0.66-1.25) mg/dL Glucose (74-99) mg/dL Plasma Lactic Acid Stefan (0.7-2.0) mmol/L Troponin I 0.048 H* 0.039 H* (0.000-0.034) ng/mL 04/22/24 04/22/24 04/22/24 Range/Units 05:57 05:57 05:57 WBC (3.8-10.6) k/uL RBC 4.10 L (4.30-5.90) m/uL Neutrophils # 8.5 H (1.3-7.7) k/uL Lymphocytes # (1.0-4.8) k/uL APTT 153.8 H* (22.0-30.0) sec D-Dimer (<0.60) mg/L FEU BUN (9-20) mg/dL Creatinine (0.66-1.25) mg/dL Glucose (74-99) mg/dL Plasma Lactic Acid Stefan (0.7-2.0) mmol/L Troponin I 0.038 H* (0.000-0.034) ng/mL 04/22/24 Range/Units 05:57 WBC (3.8-10.6) k/uL RBC (4.30-5.90) m/uL Neutrophils # (1.3-7.7) k/uL Lymphocytes # (1.0-4.8) k/uL APTT (22.0-30.0) sec D-Dimer (<0.60) mg/L FEU BUN 21 H (9-20) mg/dL Creatinine (0.66-1.25) mg/dL Glucose (74-99) mg/dL Plasma Lactic Acid Stefan (0.7-2.0) mmol/L Troponin I (0.000-0.034) ng/mL Diabetes panel 04/21/24 04/22/24 Range/Units 21:19 05:57 Sodium 139 140 (137-145) mmol/L Potassium 4.3 3.8 (3.5-5.1) mmol/L Chloride 104 104 (98-107) mmol/L Carbon Dioxide 25 30 (22-30) mmol/L BUN 21 H 21 H (9-20) mg/dL Creatinine 1.29 H 1.08 (0.66-1.25) mg/dL Glucose 115 H 93 (74-99) mg/dL Calcium 9.6 8.9 (8.4-10.2) mg/dL AST 26 (17-59) U/L ALT 19 (4-49) U/L Alkaline Phosphatase 41 (38-126) U/L Total Protein 6.7 (6.3-8.2) g/dL Albumin 4.3 (3.5-5.0) g/dL Calcium panel 04/21/24 04/22/24 Range/Units 21:19 05:57 Calcium 9.6 8.9 (8.4-10.2) mg/dL Albumin 4.3 (3.5-5.0) g/dL Pituitary panel 04/21/24 04/22/24 Range/Units 21:19 05:57 Sodium 139 140 (137-145) mmol/L Potassium 4.3 3.8 (3.5-5.1) mmol/L Chloride 104 104 (98-107) mmol/L Carbon Dioxide 25 30 (22-30) mmol/L BUN 21 H 21 H (9-20) mg/dL Creatinine 1.29 H 1.08 (0.66-1.25) mg/dL Glucose 115 H 93 (74-99) mg/dL Calcium 9.6 8.9 (8.4-10.2) mg/dL Adrenal panel 04/21/24 04/22/24 Range/Units 21:19 05:57 Sodium 139 140 (137-145) mmol/L Potassium 4.3 3.8 (3.5-5.1) mmol/L Chloride 104 104 (98-107) mmol/L Carbon Dioxide 25 30 (22-30) mmol/L BUN 21 H 21 H (9-20) mg/dL Creatinine 1.29 H 1.08 (0.66-1.25) mg/dL Glucose 115 H 93 (74-99) mg/dL Calcium 9.6 8.9 (8.4-10.2) mg/dL Total Bilirubin 1.1 (0.2-1.3) mg/dL AST 26 (17-59) U/L ALT 19 (4-49) U/L Alkaline Phosphatase 41 (38-126) U/L Total Protein 6.7 (6.3-8.2) g/dL Albumin 4.3 (3.5-5.0) g/dL - Imaging Comments: Chest CT angiogram reports occlusive pulmonary emboli within the right middle and lower lobes. Nonocclusive pulmonary emboli right upper lobe. Venous duplex reports positive DVT left lower extremity from distal femoral vein to proximal calf veins and 1 popliteal vein Assessment and Plan Assessment: 1. Submassive pulmonary embolism with right heart strain 2. Left lower extremity deep vein thrombosis 3. Pulmonary sarcoidosis Plan: 1. Echocardiogram reviewed with chairman ceo with evidence of right heart strain 2. Keep n.p.o. 3. Continue heparin drip 4. Patient will be scheduled for pulmonary thrombectomy with [facility] Thank you for this consultation we will continue to follow The impression and plan of care has been dictated as directed. Dr. Saenz I performed a history and examination of this patient, discussed the same with the dictator. I agree with the dictator's note ,documented as a scribe. Any additional findings or plans will be noted.
--- NOTE | 2024-04-22 13:12 | P.CRDCN ---
History of Present Illness Consult date: 04/22/24 Reason for Consult (text): Elevated PTT, chest pain. History of present illness: This is a 73-year-old male patient of Dr. Kessler with past medical history of CAD, hypertension, dyslipidemia, pulmonary sarcoidosis, thoracic aortic dilatation, aortic insufficiency, peripheral vascular disease, remote history of tobacco use, prostate cancer 6 months ago. We have been asked to evaluate the patient for elevated PTT and chest pain. Patient states that he has chronic shortness of breath due to the pulmonary sarcoidosis but as of yesterday at 1 PM. He noticed that he had significant dyspnea on exertion which was not normal for him. He also had a burning type chest pain. This pain worsened with deep breathing. Patient was found to be positive for PE and DVT has been started on heparin drip. Vascular surgery is on consult with plan for pulmonary thrombectomy this afternoon. Patient is seen today in the emergency center waiting for a bed on the observation unit. He appears to be quite comfortable. Blood pressure 136/78, heart rate 84, pulse ox 90% on 2 L nasal cannula. -EKG: Sinus rhythm right bundle branch block T wave inversion -Chest x-ray: No acute process. COPD. -CTA of the chest revealed occlusive pulmonary emboli within the right middle and lower lobes. Nonocclusive pulmonary emboli right upper lobe. No evidence of right heart strain and RV to LV ratio is 0.9. -Echocardiogram reveals positive RV strain, RV dysfunction and mild pulmonary hypertension. -Venous Doppler revealed left leg DVT. -Laboratory studies: WBC initially 14.6 now 10.6, hemoglobin 13.5. D-dimer 9.44. Electrolytes were normal. BUN 21 creatinine 1.29 with improvement to 1.08. Lactic acid 2.1. Troponin 0.048, 0.039 and 0.028. proBNP 2790. Cepheid viral panel negative. -Home cardiac medications: -Cardiac catheterization performed 2022 revealed minimal CAD. Review Of Systems: At the time of my exam: CONSTITUTIONAL: Denies fever or chills. HEENT: Denies blurred vision, vision changes, or eye pain. Denies hemoptysis CARDIOVASCULAR: Denies chest pain. Denies orthopnea. Denies PND. Denies palpitations RESPIRATORY: Denies shortness of breath. GASTROINTESTINAL: Denies abdominal pain. Denies nausea or vomiting. HEMATOLOGIC: Denies bleeding disorders. GENITOURINARY: Denies any blood in urine. SKIN: Denies puritis. Denies rash. Physical examination: Gen: This is a 73-year-old male patient appears to be in no acute distress VS: reviewed HEENT: Head is atraumatic, normocephalic. Pupils equal, round. Sclerae is anicteric. NECK: Supple. No JVD. LUNGS: Clear to auscultation. No wheezes or rhonchi. No intercostal retraction s. HEART: Regular rate and rhythm. No murmur. ABDOMEN: Soft No tenderness. EXTREMITIES: No pedal edema. No calf tenderness. NEUROLOGICAL: Patient is awake, alert and oriented x3. Assessment: Acute right-sided pulmonary embolism with right ventricular heart strain, scheduled for thrombectomy 2/ Left lower extremity DVT History of DVT following knee surgery Lactic acidosis Acute kidney injury Elevated troponin secondary to PE Pulmonary sarcoidosis Nonobstructive coronary artery disease Hypertension Dyslipidemia Thoracic aortic dilatation Aortic insufficiency Peripheral vascular disease Remote history of tobacco use history of prostate cancer Plan: Resume patient's home cardiac medications Continue heparin per protocol Vascular surgery planning for thrombectomy this afternoon Further recommendations to follow based upon clinical course Thank you kindly for this consultation. Nurse practitioner note has been reviewed, I agree with documented findings and plan of care. Patient was seen and examined. Past Medical History Past Medical History: GERD/Reflux, Hypertension, Respiratory Disorder Additional Past Medical History / Comment(s): rupture diverticuli July 2021,RBBB. Pulmonary Sarcoidosis. Hx spontaneous pneumothorax. Rt inguinal hernia. History of Any Multi-Drug Resistant Organisms: None Reported Past Surgical History: Orthopedic Surgery Additional Past Surgical History / Comment(s): Griffin procedure w/ colostomy, Hernia's x3. knee,Robotic lysis of adhesions,VATS procedure Past Anesthesia/Blood Transfusion Reactions: No Reported Reaction Past Psychological History: No Psychological Hx Reported Smoking Status: Never smoker Past Alcohol Use History: None Reported Past Drug Use History: None Reported - Past Family History Mother Family Medical History: No Reported History Additional Family Medical History / Comment(s): ETOH Father Family Medical History: CVA/TIA Additional Family Medical History / Comment(s): ETOH Medications and Allergies Home Medications Medication Instructions Recorded Confirmed Type Losartan [Cozaar] 50 mg PO QAM 12/09/19 04/22/24 History amLODIPine [Norvasc] 5 mg PO QAM 12/09/19 04/22/24 History predniSONE 10 mg PO QAM 12/09/19 04/22/24 History Zolpidem Tartrate [Zolpidem 12.5 mg PO HS 10/25/20 04/22/24 History Tartrate ER] Ascorbic Acid [Vitamin C] 2,000 mg PO DAILY 04/03/23 04/22/24 History Rosuvastatin [Crestor] 20 mg PO HS 04/03/23 04/22/24 History Tamsulosin HCl [Flomax] 0.4 mg PO QA 02/18/24 04/22/24 History Vitamin B Complex 1 cap PO DAILY 04/16/24 04/22/24 History Cholecalciferol (Vitamin D3) 75 mcg PO DAILY 04/22/24 04/22/24 History [Vitamin D3 (3000 Iu)] Vitamin E (Dl,Tocopheryl Acet) 450 mg PO DAILY 04/22/24 04/22/24 History [Vitamin E (1000 Iu = 450 MG)] Allergies Allergy/AdvReac Type Severity Reaction Status Date / Time adhesive tape Allergy tears Verified 04/22/24 07:19 skin-Please use paper tape Physical Exam Vitals: Vital Signs Temp Pulse Resp BP Pulse Ox 04/22/24 08:00 73 18 153/91 98 04/22/24 02:00 78 20 139/97 98 04/22/24 01:03 20 04/22/24 01:00 80 18 133/83 97 04/21/24 23:26 90 20 170/74 99 04/21/24 19:41 97.8 F 97 12 111/72 96 Intake and Output 04/21/24 04/22/24 04/22/24 22:59 06:59 14:59 Intake Total 104.541 Balance 104.541 Intake: Intake, IV Titration 104.541 Amount Heparin Sod,Pork in 0.45% 104.541 NaCl 25,000 unit In 0.45 % NaCl 1 250ml.bag @ 18 UNITS/KG/HR 14.288 mls/hr IV .[id number] [facility] Rx#: [id number] Other: Weight 79.379 kg Results 04/22/24 05:57 04/22/24 05:57 Cardiac Enzymes 04/21/24 04/21/24 04/22/24 Range/Units 21:19 21:19 00:22 AST 26 (17-59) U/L Troponin I 0.048 H* 0.039 H* (0.000-0.034) ng/mL 04/22/24 Range/Units 05:57 AST (17-59) U/L Troponin I 0.038 H* (0.000-0.034) ng/mL Coagulation 04/21/24 04/22/24 Range/Units 21:19 05:57 PT 11.2 (10.0-12.5) sec APTT 24.1 153.8 H* (22.0-30.0) sec CBC 04/21/24 04/22/24 Range/Units 21:19 05:57 WBC 14.6 H 10.6 (3.8-10.6) k/uL RBC 4.73 4.10 L (4.30-5.90) m/uL Hgb 15.3 13.5 (13.0-17.5) gm/dL Hct 45.9 40.1 (39.0-53.0) % Plt Count 191 172 (150-450) k/uL Comprehensive Metabolic Panel 04/21/24 04/22/24 Range/Units 21:19 05:57 Sodium 139 140 (137-145) mmol/L Potassium 4.3 3.8 (3.5-5.1) mmol/L Chloride 104 104 (98-107) mmol/L Carbon Dioxide 25 30 (22-30) mmol/L BUN 21 H 21 H (9-20) mg/dL Creatinine 1.29 H 1.08 (0.66-1.25) mg/dL Glucose 115 H 93 (74-99) mg/dL Calcium 9.6 8.9 (8.4-10.2) mg/dL AST 26 (17-59) U/L ALT 19 (4-49) U/L Alkaline Phosphatase 41 (38-126) U/L Total Protein 6.7 (6.3-8.2) g/dL Albumin 4.3 (3.5-5.0) g/dL Current Medications Generic Name Dose Route Start Last Admin Trade Name Freq PRN Reason Stop Dose Admin Amlodipine Besylate 5 mg 04/22/24 09:00 Amlodipine 5 Mg Tab PO QAM [facility] Atorvastatin Calcium 40 mg 04/22/24 21:00 Atorvastatin 40 Mg Tab PO HS TAWANDA Heparin Sodium (Porcine) 0 unit 04/21/24 23:40 Heparin Sodium 1,000 Un/Ml (10ml Vl) IV PER PROTOCOL PRN Low PTT Protocol Heparin Sodium/Sodium Chloride 250 mls @ 14.288 mls/hr 04/21/24 23:45 0 04/22/24 07:37 25,000 unit/ Sodium Chloride IV 0 units/kg/hr .[id number] TAWANDA 0 mls/hr Titration Protocol 18 UNITS/KG/HR Losartan Potassium 50 mg 04/22/24 09:00 Losartan 50 Mg Tab PO QAM TAWANDA Naloxone HCl 0.2 mg 04/21/24 23:52 Naloxone 0.4 Mg/Ml 1 Ml Vial IV Q2M PRN Opioid Reversal Prednisone 10 mg 04/22/24 09:00 Prednisone 10 Mg Tab PO QAM TAWANDA Tamsulosin HCl 0.4 mg 04/22/24 09:00 Tamsulosin 0.4 Mg Cap.Er.24h PO QAM TAWANDA Zolpidem Tartrate 5 mg 04/22/24 21:00 Zolpidem 5 Mg Tab PO HS [facility] Intake and Output 04/21/24 04/22/24 04/22/24 22:59 06:59 14:59 Intake Total 104.541 Balance 104.541 Intake: Intake, IV Titration 104.541 Amount Heparin Sod,Pork in 0.45% 104.541 NaCl 25,000 unit In 0.45 % NaCl 1 250ml.bag @ 18 UNITS/KG/HR 14.288 mls/hr IV .[id number] [facility] Rx#: [id number] Other: Weight 79.379 kg 04/22/24 05:57 04/22/24 05:57
[2024-04-22] MEDS: LIDOCAINE 1% INJ 10MG/ML (20 ML MDV) SQ ONE (13:36)
[2024-04-22] MEDS: fentaNYL (PF) 50 MCG/ML 2 ML AMP IVP ONE (13:37)
[2024-04-22] MEDS: MIDAZOLAM 2 MG/2 ML VIAL IVP ONE (13:37)
[2024-04-22] MEDS: SODIUM CHLORIDE 0.9% 500 ML 500 ML IV ONE (13:49)
[2024-04-22] MEDS: IOPAMIDOL-370 100ML BTL INJ ONE (14:35)
--- NOTE | 2024-04-22 14:45 | P.OP ---
Date of Procedure: 04/22/24 Description of Procedure: Preoperative diagnosis: Submassive pulmonary embolism with evidence of right heart strain Post operative diagnosis: Same Procedure: Ultrasound-guided right common femoral vein access Right ileofemoral venogram Introduction of catheter into the inferior vena cava Introduction of catheter into the main pulmonary artery Right pulmonary angiogram Primary percutaneous transluminal mechanical thrombectomy of the right main pulmonary artery Percutaneous transluminal mechanical thrombectomy of the right pulmonary artery, right interlobar artery and right middle lobe segmental branch Moderate conscious sedation x 37 minutes Surgeon: Dany Anesthesia: Moderate conscious sedation, personally monitored qualified RN with patient monitoring History and indications: The patient is a 73-year-old with evidence of submassive pulmonary embolism confirmed by imaging. Risks and benefits of going forward with all modes of intervention were discussed and it was decided upon mechanical thrombectomy. Procedure in detail: Patient was brought to the special suite and placed in supine position. The bilateral groins were prepped and draped in usual sterile fashion. A preprocedural timeout was performed, all parties were in agreement. Using ultrasound, the common femoral vein was identified. There appeared to be adequate compression without evidence of thrombus. Under ultrasound guidance, a micropuncture needle was utilized to access the vein and Seldinger technique was used to place a 8 Greek sheath. Guidewires and catheters were then used to access the pulmonary artery. An Amplatz wire was then left in place and the pulmonary artery. The femoral sheath was exchanged for the Inari 24F sheath. The thrombectomy catheter was then advanced over the Amplatz wire and mechanical thrombectomy was performed aspirating significant thrombus. There was successful extirpation of matter via mechanical thrombectomy within the pulmonary artery catheters and wires were then removed. The sheath was removed and manual compression was performed along with a [id number] suture. Hemostasis appeared adequate.
--- NOTE | 2024-04-22 15:03 | IR ---
EXAMINATION TYPE: IR angio upper extremity BI DATE OF EXAM: 04/22/2024 2:35 PM COMPARISON: Pre Operative Images if available both CT/MRI or plain film CLINICAL INDICATION: Male, 73 years old with history of PE, 9.0MIN 0.130 dap; TECHNIQUE: IR angio upper extremity BI, multiple fluoroscopic images provided for procedure. DAP: 2397.8 mGym2 Gycm2 uGym2 cGycm2 or equivalent. FINDINGS: IMPRESSION: 1. Report was generated for administrative purposes only. 2. Please see the operative/procedural note for further details. [facility], , 04/22/2024 3:01 PM
--- NOTE | 2024-04-22 16:48 | CA ---
Transthoracic Echo Report Name: Arcadio Shaikh Age: 73 Gender: M : 1950 Exam Date: 04/22/2024 08:33 Exam Location: [facility] Ht (in): 70 Wt (lb): 175 Ordering Physician: Thuy Sage DO Attending/Referring Phys: [id number], Chu [employer] Caretaker June Hunter, RDAGUSTINA Procedure CPT: Indications: Pulmonary Embolism Cardiac Hx: Technical Quality: Fair Contrast 1: Total Dose (mL): Contrast 2: Total Dose (mL): MEASUREMENTS (Male / Female) Normal Values 2D ECHO LV Diastolic Diameter PLAX 5.0 cm 4.2 - 5.9 / 3.9 - 5.3 cm LV Systolic Diameter PLAX 3.9 cm IVS Diastolic Thickness 1.0 cm 0.6 - 1.0 / 0.6 - 0.9 cm LVPW Diastolic Thickness 1.0 cm 0.6 - 1.0 / 0.6 - 0.9 cm LV Relative Wall Thickness 0.4 RV Internal Dim ED PLAX 3.9 cm LVOT Diameter 1.6 cm LA Systolic Diameter LX 4.2 cm 3.0 - 4.0 / 2.7 - 3.8 cm MV Area Planimetry 10.5 cm??? LV Diastolic Volume MOD BP 161.5 cm??? 67 - 155 / 56 - 104 cm??? LV Systolic Volume MOD BP 94.5 cm??? 22 - 58 / 19 - 49 cm??? LV Ejection Fraction MOD BP 41.5 % >= 55 % LV Cardiac Index MOD BP 2995.4 cm???/min???m??? LV Diastolic Volume MOD 4C 171.4 cm??? LV Systolic Volume MOD 4C 97.9 cm??? LV Ejection Fraction MOD 4C 42.9 % LV Cardiac Index MOD 4C 3288.7 cm???/min???m??? LV Diastolic Length 4C 9.2 cm LV Systolic Length 4C 8.2 cm LV Diastolic Volume MOD 2C 142.5 cm??? LV Systolic Volume MOD 2C 89.8 cm??? LV Ejection Fraction MOD 2C 37.0 % LV Cardiac Index MOD 2C 2358.8 cm???/min???m??? LV Diastolic Length 2C 8.6 cm LV Systolic Length 2C 8.4 cm LA Volume 50.3 cm??? 18 - 58 / 22 - 52 cm??? LA Volume Index 25.3 cm???/m??? 16 - 28 cm???/m??? DOPPLER AI Peak Velocity 357.3 cm/s AI Peak Gradient 51.1 mmHg AI Pressure Half Time 665.7 ms TR Peak Velocity 307.4 cm/s TR Peak Gradient 37.8 mmHg Right Atrial Pressure 5.0 mmHg Pulmonary Artery Systolic Pressu 42.8 mmHg Right Ventricular Systolic Press 42.8 mmHg FINDINGS Left Ventricle Left ventricular ejection fraction is estimated at 45 %. Mildly increased left ventricular diastolic volume. Severely increased left ventricular systolic volume. Moderately decreased left ventricular ejection fraction. Global hypokinesis. Right Ventricle Right ventricular dilatation. Moderately reduced right ventricular global systolic function. Mild pulmonary hypertension. Right Atrium Normal right atrial size. Left Atrium Mildly increased left atrial diameter. Mitral Valve Structurally normal mitral valve. No evidence for mitral valve prolapse. No mitral stenosis. Trace to mild mitral regurgitation. Aortic Valve Trileaflet aortic valve. No aortic stenosis. Mild aortic regurgitation. Tricuspid Valve Structurally normal tricuspid valve. No tricuspid stenosis. Mild tricuspid regurgitation. Pulmonic Valve Pulmonic valve not well visualized. No pulmonic stenosis. Trace pulmonic regurgitation. Pericardium No pericardial effusion. Aorta Normal size aortic root and proximal ascending aorta. CONCLUSIONS Mild LV systolic dysfunction Right ventricle is dilated with moderately decreased RV systolic function Mild pulmonary hypertension RV strain present Mild aortic and tricuspid regurgitation Previewed by: Dr. Martín Cruz MD (Electronically Signed) Final Date: 22 April 2024 16:47
--- NOTE | 2024-04-22 19:02 | P.HPIM ---
History of Present Illness H&P Date: 04/22/24 Chief Complaint: Hypoxemic respiratory failure due to PE atrial fibrillation with RVR HISTORY OF PRESENT ILLNESS: This is a 73-year-old male with a previous medical history significant for hypertension and hypertensive cardiovascular disease, mixed hyperlipidemia, history of sarcoidosis of the lung, history of DVT of the left lower extremity after knee surgery, history of mild COPD, history of prostate cancer, vitamin D deficiency, patient was seen in my office on April 01, 2024 and he was in for a preoperative medical clearance for left knee MAKOplasty that was scheduled to be done with Dr. Ward on April, patient has had laboratory e valuation as well as blood work because of that showed sinus rhythm with multiple PACs and right bundle branch block, apparently patient was in his usual state of health at about yesterday when he was trying to get the garbage can out of the driveway, and all of a sudden suffered to have a significant shortness of breath and he was quite dizzy and lightheaded, he felt that he is going to pass out, because of his shortness of breath he ended up going to the emergency department he drove himself to the ER for evaluation, he was found to have sinus rhythm with a PACs underlying rhythm right bundle branch block, but there is an EKG that showed evidence of atrial fibrillation in between, patient while he was on the monitor he converted he was started on heparin drip at that time, he was sent for CT angiography that showed evidence of occlusive pulmonary emboli of the right middle lobe and right lower lobes and nonocclusive emboli of the right upper lobes, patient also was seen in consultation by her cardiology as well as pulmonary medicine, he was seen in consultation by vascular surgery after the venous Doppler showed evidence of DVT of the left lower extremity, patient was kept on heparin drip, and he is scheduled to go for thrombectomy by vascular surgery since the patient is showing evidence of right ventricular strain pattern on echocardiogram with mild pulmonary hypertension, patient was admitted to the hospital for further evaluation and treatment. REVIEW OF SYSTEMS: Constitutional: No documented fever, no chills, no night sweats. No weight change. No weakness, fatigue or lethargy. No daytime sleepiness. EENT: No headache. No blurred vision or double vision, no loss of vision. No loss of Hearing, no ringing in the ears, no dizziness. No nasal drainage or congestion. No epistaxis. No sore throat. Lungs: positive for shortness of breath, no cough, no sputum production. No wheezing. Reports dyspnea with activity. Cardiovascular: positive for left sided chest pain, no lower extremity edema. positive for palpitations. No paroxysmal nocturnal dyspnea. No orthopnea. positive for lightheadedness and dizziness. No syncopal episodes. Abdominal: Reports abdominal pain. No nausea, vomiting. No diarrhea. No constipation. No bloody or tarry stools reports loss of appetite. Genitourinary: No dysuria, increased frequency, urgency. No urinary retention. Musculoskeletal: No myalgias. No muscle weakness, no gait dysfunction, no frequent falls. No back pain. No neck pain. Integumentary: No wounds, no lesions. No rash or pruritus. positive for unusual bruising. No change in hair or nails. Neurologic: No aphasia. No facial droop. No change in mentation. No head injury. No headache. No paralysis. No paresthesia. Psychiatric: No depression. No anxiety. No mood swings. Endocrine: No abnormal blood sugars. No weight change. PAST MEDICAL HISTORY: Hypertension and hypertensive cardiovascular disease. Mixed hyperlipidemia. Pulmonary sarcoidosis. COPD. History of DVT of the left lower extremity. Vitamin D deficiency. TIA. Prostate cancer. Osteoarthritis. PAST SURGICAL HISTORY: Appendectomy 1960. Multiple ganglionic cyst removed from the hand between 2009 and 2014 Multiple pneumothorax status post Thora vent followed by VATS on the right side in October 2021. Perforated bowel due to colonoscopy July 19, 2021 Colostomy reversal with lysis of adhesion December 2021 Left heart catheterization that showed minimal CAD December 2022 SOCIAL HISTORY: Patient denies any history of smoking, he drinks alcohol socially, he denies any drug use or abuse he lives with his . FAMILY HISTORY: Father at the age of 82 from stroke, mother at the age of 90 from pneumonia, patient has 3 daughters alive and well. PHYSICAL EXAMINATION: General: 73-year-old gentleman sitting up in bed in minimal respiratory distress. HEENT: Head is atraumatic, normocephalic, pupils were equal round reactive to light and recommendation, extraocular muscle movement were intact, sclera nonicteric, conjunctivae were pale, mucous membranes of the mouth are somewhat dry. Neck: Supple, no JVP, normal carotid upstroke bilaterally, no lymphadenopathy. Chest: Decreased breath sounds at the bases, few rhonchi, no expiratory wheezes, no chest wall tenderness, no intercostal retractions. Heart: First heart sound is normal, second heart sounds normal there is systolic ejection murmur 2 over systolic in the left sternal border. Abdomen: Soft, nontender, nondistended, positive bowel sounds. Extremities: There is no edema no calf tenderness DP +2 bilaterally. Neurologic examination: Patient is awake alert and oriented x3, cranial nerves II-12 appear grossly intact, muscle power were 5 out of 5 in upper extremities and 5 out of 5 in bilateral lower extremities, deep tendon reflexes normal bilaterally. ASSESSMENT AND PLAN: 1. Acute hypoxemic respiratory failure due to multiple obstructive pulmonary emboli of the right middle lobe and right lower lobes and nonobstructive emboli of the right upper lobes continue heparin drip, patient is scheduled to go for thrombectomy by vascular surgery Dr. Saenz this afternoon, monitor the patient symptoms very closely patient did have an echocardiogram that showed evidence of right ventricular strain pattern with mild pulmonary hypertension, therefore the indication for the patient to have thrombectomy done patient is to be maintained on heparin drip, he is to be on Eliquis for the rest of his life. 2. Atrial fibrillation that converted to a sinus rhythm with an underlying righ t bundle branch block. Continue heparin drip for now, patient will be switched to Eliquis for life cardiology consultation appreciated, echocardiogram was done, showed evidence of right ventricular strain pattern with mild pulmonary hypertension. 3. Left lower extremity DVT. Appears to be chronic continue patient on IV heparin for now, patient will need to be staying on Eliquis 5 mg orally twice every day for life. 4. Hypertension and hypertensive cardiovascular disease. Continue patient on amlodipine 5 mg orally once every day, losartan 50 mg orally once every day, monitor the patient blood pressure very closely. 5. Mixed hyperlipidemia. Continue patient on atorvastatin 40 mg orally once every day, monitor the patient lipid panel, keep LDL 55-70. 6. History of pulmonary sarcoidosis. Continue patient on prednisone 10 mg orally once every day. 7. Vitamin D deficiency. Stable at this time. 8. Prostate cancer . Appears to be stable at this time. Continue patient on Flomax 0.4 mg once every day. 9. Insomnia. Continue zolpidem 5 mg at bedtime. 10. Admit to inpatient. Estimated length of stay 2 midnights. 11. Patient is full code. Past Medical History Past Medical History: GERD/Reflux, Hypertension, Respiratory Disorder Additional Past Medical History / Comment(s): rupture diverticuli July 2021,RBBB. Pulmonary Sarcoidosis. Hx spontaneous pneumothorax. Rt inguinal hernia. History of Any Multi-Drug Resistant Organisms: None Reported Past Surgical History: Orthopedic Surgery Additional Past Surgical History / Comment(s): Griffin procedure w/ colostomy, Hernia's x3. knee,Robotic lysis of adhesions,VATS procedure Past Anesthesia/Blood Transfusion Reactions: No Reported Reaction Past Psychological History: No Psychological Hx Reported Smoking Status: Never smoker Past Alcohol Use History: None Reported Past Drug Use History: None Reported - Past Family History Mother Family Medical History: No Reported History Additional Family Medical History / Comment(s): ETOH Father Family Medical History: CVA/TIA Additional Family Medical History / Comment(s): ETOH Medications and Allergies Home Medications Medication Instructions Recorded Confirmed Type Losartan [Cozaar] 50 mg PO QAM 12/09/19 04/22/24 History amLODIPine [Norvasc] 5 mg PO QAM 12/09/19 04/22/24 History predniSONE 10 mg PO QAM 12/09/19 04/22/24 History Zolpidem Tartrate [Zolpidem 12.5 mg PO HS 10/25/20 04/22/24 History Tartrate ER] Ascorbic Acid [Vitamin C] 2,000 mg PO DAILY 04/03/23 04/22/24 History Rosuvastatin [Crestor] 20 mg PO HS 04/03/23 04/22/24 History Tamsulosin HCl [Flomax] 0.4 mg PO QAM 02/18/24 04/22/24 History Vitamin B Complex 1 cap PO DAILY 04/16/24 04/22/24 History Cholecalciferol (Vitamin D3) 75 mcg PO DAILY 04/22/24 04/22/24 History [Vitamin D3 (3000 Iu)] Vitamin E (Dl,Tocopheryl Acet) 450 mg PO DAILY 04/22/24 04/22/24 History [Vitamin E (1000 Iu = 450 MG)] Allergies Allergy/AdvReac Type Severity Reaction Status Date / Time adhesive tape Allergy tears Verified 04/22/24 07:19 skin-Please use paper tape Physical Exam Vitals: Vital Signs Temp Pulse Resp BP Pulse Ox 04/22/24 11:39 80 18 131/89 99 04/22/24 08:00 73 18 153/91 98 04/22/24 02:00 78 20 139/97 98 04/22/24 01:03 20 04/22/24 01:00 80 18 133/83 97 04/21/24 23:26 90 20 170/74 99 04/21/24 19:41 97.8 F 97 12 111/72 96 Intake and Output 04/21/24 04/22/24 04/22/24 22:59 06:59 14:59 Intake Total 104.541 Balance 104.541 Intake: Intake, IV Titration 104.541 Amount Heparin Sod,Pork in 0.45% 104.541 NaCl 25,000 unit In 0.45 % NaCl 1 250ml.bag @ 18 UNITS/KG/HR 14.288 mls/hr IV .[id number] [facility] Rx#: [id number] Other: Weight 79.379 kg Results CBC & Chem 7: 04/22/24 05:57 04/22/24 05:57 Labs: Abnormal Lab Results - Last 24 Hours (Table) 04/21/24 04/21/24 04/21/24 Range/Units 21:19 21:19 21:19 WBC 14.6 H (3.8-10.6) k/uL RBC (4.30-5.90) m/uL Neutrophils # 12.8 H (1.3-7.7) k/uL Lymphocytes # 0.7 L (1.0-4.8) k/uL APTT (22.0-30.0) sec D-Dimer (<0.60) mg/L FEU BUN 21 H (9-20) mg/dL Creatinine 1.29 H (0.66-1.25) mg/dL Glucose 115 H (74-99) mg/dL Plasma Lactic Acid Stefan 2.1 H* (0.7-2.0) mmol/L Troponin I (0.000-0.034) ng/mL 04/21/24 04/21/24 04/22/24 Range/Units 21:19 21:19 00:22 WBC (3.8-10.6) k/uL RBC (4.30-5.90) m/uL Neutrophils # (1.3-7.7) k/uL Lymphocytes # (1.0-4.8) k/uL APTT (22.0-30.0) sec D-Dimer 9.44 H (<0.60) mg/L FEU BUN (9-20) mg/dL Creatinine (0.66-1.25) mg/dL Glucose (74-99) mg/dL Plasma Lactic Acid Stefan (0.7-2.0) mmol/L Troponin I 0.048 H* 0.039 H* (0.000-0.034) ng/mL 04/22/24 04/22/24 04/22/24 Range/Units 05:57 05:57 05:57 WBC (3.8-10.6) k/uL RBC 4.10 L (4.30-5.90) m/uL Neutrophils # 8.5 H (1.3-7.7) k/uL Lymphocytes # (1.0-4.8) k/uL APTT 153.8 H* (22.0-30.0) sec D-Dimer (<0.60) mg/L FEU BUN (9-20) mg/dL Creatinine (0.66-1.25) mg/dL Glucose (74-99) mg/dL Plasma Lactic Acid Stefan (0.7-2.0) mmol/L Troponin I 0.038 H* (0.000-0.034) ng/mL 04/22/24 Range/Units 05:57 WBC (3.8-10.6) k/uL RBC (4.30-5.90) m/uL Neutrophils # (1.3-7.7) k/uL Lymphocytes # (1.0-4.8) k/uL APTT (22.0-30.0) sec D-Dimer (<0.60) mg/L FEU BUN 21 H (9-20) mg/dL Creatinine (0.66-1.25) mg/dL Glucose (74-99) mg/dL Plasma Lactic Acid Stefan (0.7-2.0) mmol/L Troponin I (0.000-0.034) ng/mL
[2024-04-22] MEDS: ATORVASTATIN 40 MG TAB PO SCH (20:13)
[2024-04-22] MEDS: ZOLPIDEM 5 MG TAB PO SCH (21:31)
[2024-04-23 07:25] LABS: Basophils % (A) 0 %; Eosinophils # (A) 0.2 k/uL (0-0.7); Eosinophils % (A) 2 %; HCT 38.7 % (39.0-53.0); HGB 12.8 gm/dL (13.0-17.5); Lymphocytes # (A) 0.8 k/uL (1.0-4.8); Lymphocytes % (A) 10 %; MCH 32.4 pg (25.0-35.0); MCHC 33.1 g/dL (31.0-37.0); MCV 98.1 fL (80.0-100.0); Mean Platelet Volume 7.1; Monocytes # (A) 0.7 k/uL (0-1.0); Monocytes % (A) 8 %; Neutrophils # (A) 6.6 k/uL (1.3-7.7); Neutrophils % (A) 78 %; Platelet Count 187 k/uL (150-450); RBC 3.94 m/uL (4.30-5.90); RDW 13.7 % (11.5-15.5); WBC 8.5 k/uL (3.8-10.6)
[2024-04-23 08:00] LABS: ALT 15 U/L (4-49); AST 16 U/L (17-59); African American GFR (CKD) >90 (>60 ml/min/1.73 sqM); Albumin 3.1 g/dL (3.5-5.0); Alkaline Phosphatase 50 U/L (38-126); Anion Gap 4 mmol/L; Blood Urea Nitrogen 20 mg/dL (9-20); Calcium 8.3 mg/dL (8.4-10.2); Carbon Dioxide 25 mmol/L (22-30); Chloride 108 mmol/L (98-107); Glucose 85 mg/dL (74-99); Magnesium 2.1 mg/dL (1.6-2.3); Non-African American GFR(CKD) 80 (>60 ml/min/1.73 sqM); Potassium 3.3 mmol/L (3.5-5.1); Sodium 137 mmol/L (137-145); Total Bilirubin 1.2 mg/dL (0.2-1.3); Total Protein 5.1 g/dL (6.3-8.2)
[2024-04-23] MEDS: Apixaban Initiation Dose--VTE 5 MG TAB PO SCH (09:00)
--- NOTE | 2024-04-23 10:58 | P.PN ---
Subjective Progress Note Date: 04/23/24 Principal diagnosis: Submassive PE, DVT Patient is seen and examined today as a follow-up. Yesterday he underwent pulmonary thrombectomy with Anastasia. A large amount of thrombus was removed. He states his breathing has improved. He has been up and ambulating. He is not requiring any oxygen supplementation. Oxygen saturation is 95 to 100% on room air. Denies any chest pain. No left lower extremity pain. Denies any bleeding from the right groin access site. Currently on a heparin drip. Will plan to transition to oral anticoagulation. Objective - Vital Signs Vital signs: Vital Signs Temp 97.6 F 04/23/24 07:56 Pulse 60 04/23/24 07:56 Resp 17 04/23/24 08:00 BP 143/82 04/23/24 07:56 Pulse Ox 96 04/23/24 07:56 FiO2 Intake & Output 04/22/24 04/23/24 04/23/24 18:59 06:59 18:59 Intake Total 204.541 540 145.459 Balance 204.541 540 145.459 Weight 79.379 kg Intake: IV 100 Intake, IV Titration 104.541 145.459 Amount Heparin Sod,Pork in 0.45% 104.541 145.459 NaCl 25,000 unit In 0.45 % NaCl 1 250ml.bag @ 18 UNITS/KG/HR 14.288 mls/hr IV .[id number] [facility] Rx#: [id number] Oral 540 Other: # Voids 1 1 - Exam General appearance: The patient is alert, oriented, appears in no acute distress. HET: Head is normocephalic and atraumatic. Pupils are equal and reactive. Neck: Supple. Heart: Regular. Lungs: Equal expansion, normal respiratory effort. Abdomen: Soft, nontender, nondistended. Extremities: Normal skin color and turgor. Right groin with suture intact, no surrounding hematoma or bleeding. Suture removed. Palpable DP pulses. Neurological: No focal deficits. Strength and sensation are grossly intact. - Labs CBC & Chem 7: 04/23/24 06:20 04/23/24 06:20 Labs: Abnormal Lab Results - Last 24 Hours (Table) 04/22/24 04/23/24 04/23/24 Range/Units 20:36 06:20 06:20 RBC 3.94 L (4.30-5.90) m/uL Hgb 12.8 L (13.0-17.5) gm/dL Hct 38.7 L (39.0-53.0) % Lymphocytes # 0.8 L (1.0-4.8) k/uL APTT 53.9 H (22.0-30.0) sec Potassium 3.3 L (3.5-5.1) mmol/L Chloride 108 H (98-107) mmol/L Calcium 8.3 L (8.4-10.2) mg/dL AST 16 L (17-59) U/L Total Protein 5.1 L (6.3-8.2) g/dL Albumin 3.1 L (3.5-5.0) g/dL 04/23/24 Range/Units 07:35 RBC (4.30-5.90) m/uL Hgb (13.0-17.5) gm/dL Hct (39.0-53.0) % Lymphocytes # (1.0-4.8) k/uL APTT 87.5 H (22.0-30.0) sec Potassium (3.5-5.1) mmol/L Chloride (98-107) mmol/L Calcium (8.4-10.2) mg/dL AST (17-59) U/L Total Protein (6.3-8.2) g/dL Albumin (3.5-5.0) g/dL Assessment and Plan Assessment: 1. Submassive pulmonary embolism with right heart strain status post percutaneous mechanical pulmonary thrombectomy 2. Left lower extremity deep vein thrombosis 3. Pulmonary sarcoidosis Plan: 1. Encourage ambulation 2. May discontinue heparin and start on Eliquis starter pack 3. Recommend outpatient follow-up in [address] Saenz 4. Right groin suture removed with good hemostasis. Patient is cleared from vascular surgery for discharge Thank you for this consultation, we will sign off at this time. The impression and plan of care has been dictated as directed. Dr. Lexi Matos performed a history and examination of this patient, discussed the same with the dictator. I agree with the dictator's note ,documented as a scribe. Any additional findings or plans will be noted.
--- NOTE | 2024-04-23 14:21 | P.PN ---
Subjective HISTORY OF PRESENT ILLNESS: This is a 73-year-old male patient of Dr. Kessler with past medical history of CAD, hypertension, dyslipidemia, pulmonary sarcoidosis, thoracic aortic dilatation, aortic insufficiency, peripheral vascular disease, remote history of tobacco use, prostate cancer 6 months ago. We have been asked to evaluate the patient for elevated PTT and chest pain. Patient states that he has chronic shortness of breath due to the pulmonary sarcoidosis but as of yesterday at 1 PM. He noticed that he had significant dyspnea on exertion which was not normal for him. He also had a burning type chest pain. This pain worsened with deep breathing. Patient was found to be positive for PE and DVT has been started on heparin drip. Vascular surgery is on consult with plan for pulmonary thrombectomy this afternoon. Patient is seen today in the emergency center waiting for a bed on the observation unit. He appears to be quite comfortable. Blood pressure 136/78, heart rate 84, pulse ox 90% on 2 L nasal cannula. -EKG: Sinus rhythm right bundle branch block T wave inversion -Chest x-ray: No acute process. COPD. -CTA of the chest revealed occlusive pulmonary emboli within the right middle and lower lobes. Nonocclusive pulmonary emboli right upper lobe. No evidence of right heart strain and RV to LV ratio is 0.9. -Echocardiogram reveals positive RV strain, RV dysfunction and mild pulmonary hypertension. -Venous Doppler revealed left leg DVT. -Laboratory studies: WBC initially 14.6 now 10.6, hemoglobin 13.5. D-dimer 9.44. Electrolytes were normal. BUN 21 creatinine 1.29 with improvement to 1.08. Lactic acid 2.1. Troponin 0.048, 0.039 and 0.028. proBNP 2790. Cepheid viral panel negative. -Home cardiac medications: -Cardiac catheterization performed 2022 revealed minimal CAD. 04/23/2024 Patient is status post thrombectomy with vascular surgery. Patient examined this morning at bedside. Patient reports significant improvement in her shortness of breath. He denies chest pain or pressure. He is anticoagulated with Eliquis. Vital signs are stable. PHYSICAL EXAM: VITAL SIGNS: Reviewed. GENERAL: Well-developed in no acute distress. NECK: Supple. No JVD or thyromegaly LUNGS: Respirations even and unlabored. Lungs essentially clear to auscultation bilaterally. HEART: Regular rate and rhythm. S1 and S2 heard. EXTREMITIES: Normal range of motion. No clubbing or cyanosis. Peripheral pulses intact. No lower extremity edema ASSESSMENT: Acute right-sided pulmonary embolism with right ventricular heart strain, status post thrombectomy Left lower extremity DVT History of DVT following knee surgery Lactic acidosis Acute kidney injury Elevated troponin secondary to PE Pulmonary sarcoidosis Nonobstructive coronary artery disease Hypertension Dyslipidemia Thoracic aortic dilatation Aortic insufficiency Peripheral vascular disease Remote history of tobacco use history of prostate cancer PLAN: Continue current cardiac medications Patient is stable for discharge today from a cardiac standpoint Further recommendations pending patient course Nurse practitioner note has been reviewed by physician. Signing provider agrees with the documented findings, assessment, and plan of care documented by [employer] INSTRUCTOR as a scribe. Objective - Vital Signs Vital signs: Vital Signs Temp 98.0 F 04/23/24 11:30 Pulse 82 04/23/24 11:30 Resp 17 04/23/24 11:30 BP 147/80 04/23/24 11:30 Pulse Ox 93 L 04/23/24 11:30 FiO2 Intake & Output 04/22/24 04/23/24 04/23/24 18:59 06:59 18:59 Intake Total 204.541 540 145.459 Output Total 300 Balance 204.541 540 -154.541 Weight 79.379 kg Intake: IV 100 Intake, IV Titration 104.541 145.459 Amount Heparin Sod,Pork in 0.45% 104.541 145.459 NaCl 25,000 unit In 0.45 % NaCl 1 250ml.bag @ 18 UNITS/KG/HR 14.288 mls/hr IV .[id number] [facility] Rx#: [id number] Oral 540 Output: Urine 300 Other: # Voids 1 1 - Labs CBC & Chem 7: 04/23/24 06:20 04/23/24 06:20 Labs: Abnormal Lab Results - Last 24 Hours (Table) 04/22/24 04/23/24 04/23/24 Range/Units 20:36 06:20 06:20 RBC 3.94 L (4.30-5.90) m/uL Hgb 12.8 L (13.0-17.5) gm/dL Hct 38.7 L (39.0-53.0) % Lymphocytes # 0.8 L (1.0-4.8) k/uL APTT 53.9 H (22.0-30.0) sec Potassium 3.3 L (3.5-5.1) mmol/L Chloride 108 H (98-107) mmol/L Calcium 8.3 L (8.4-10.2) mg/dL AST 16 L (17-59) U/L Total Protein 5.1 L (6.3-8.2) g/dL Albumin 3.1 L (3.5-5.0) g/dL 04/23/24 Range/Units 07:35 RBC (4.30-5.90) m/uL Hgb (13.0-17.5) gm/dL Hct (39.0-53.0) % Lymphocytes # (1.0-4.8) k/uL APTT 87.5 H (22.0-30.0) sec Potassium (3.5-5.1) mmol/L Chloride (98-107) mmol/L Calcium (8.4-10.2) mg/dL AST (17-59) U/L Total Protein (6.3-8.2) g/dL Albumin (3.5-5.0) g/dL
--- NOTE | 2024-04-23 15:19 | P.PN ---
Subjective Progress Note Date: 04/23/24 Principal diagnosis: Acute pulmonary embolism with RV strain Patient is a 73-year-old male with past medical history significant for hypertension, nonobstructive CAD, GERD, complicated diverticulitis with previous sigmoidectomy, prostate cancer, pulmonary sarcoidosis, previous spontaneous pneumothoraces requiring right-sided VATS resection of bullae and mechanical pleurodesis in 2020, and remote history of DVT developed after surgery. 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 Does follow in the pulmonary office with Dr. Gabriel. Patient presents the emergency department acute on chronic shortness of breath. Developed rather abruptly yesterday while going out to get his rubbish bins from the road. Also, endorses a burning left-sided chest pain. Does admit chronic lower extremity swelling in both legs. Denies any cough, hemoptysis. Denies any palpitations, lightheadedness or syncopal events. Workup in the ED included a D-dimer markedly elevated at 9.44. Troponins 0.048 and 0.039 respectively. NT proBNP 2790. EKG done on arrival: Showing atrial fibrillation, ventricular response controlled, S1 Q3 T3 pattern. chest CTA demonstrating large right mainstem pulmonary emboli extending into the right middle and lower segmental and subsegmental branches. No CT evidence of right-sided heart strain. Also, chronic sarcoid changes noted. With extensive bilateral hilar and mediastinal lymphadenopathy. CBC: WBC count 14.6, hemoglobin 15.3, platelets 191. Started on high intensity IV heparin protocol. Currently being evaluated in the emergency department. He was previously placed on 2 L/min nasal cannula. SpO2 reading 98% on bedside monitor. Heart rhythm currently appears sinus mechanism on bedside monitor, with frequent PACs. Heart rate 80 bpm. Blood pressure 139/97 mmHg. No signs of hemodynamic compromise. Patient states he has a history of DVT provoked by surgery. He completed 3 months of anticoagulants, and was subsequently discontinued. States that he does not have pharmaceutical insurance currently, and would likely have trouble paying for [employer] again. Denies recent surgeries or trauma or hospitalizations. Did have a left knee surgery scheduled for next week. Does have prostate cancer, being monitored by his urologist. Echocardiogram is pending. Seen today on 04/23/2024, patient is doing better, he is back to normal, asymptomatic, he is on Eliquis, he is status post thrombectomy of his large right-sided pulmonary embolus. Now he is on Eliquis, and relatively asymptomatic, I will clear the patient for discharge if cleared by other consultants. Objective - Vital Signs Vital signs: Vital Signs Temp 98.0 F 04/23/24 11:30 Pulse 82 04/23/24 11:30 Resp 17 04/23/24 11:30 BP 147/80 04/23/24 11:30 Pulse Ox 93 L 04/23/24 11:30 FiO2 Intake & Output 04/22/24 04/23/24 04/23/24 18:59 06:59 18:59 Intake Total 204.541 540 145.459 Output Total 300 Balance 204.541 540 -154.541 Weight 79.379 kg Intake: IV 100 Intake, IV Titration 104.541 145.459 Amount Heparin Sod,Pork in 0.45% 104.541 145.459 NaCl 25,000 unit In 0.45 % NaCl 1 250ml.bag @ 18 UNITS/KG/HR 14.288 mls/hr IV .[id number] [facility] Rx#: [id number] Oral 540 Output: Urine 300 Other: # Voids 1 1 - Exam GENERAL EXAM: 73-year-old white male in no distress, on room air HEAD: Normocephalic and atraumatic EYES: Normal reaction of pupils, equal size. NOSE: Clear with pink turbinates. THROAT: No erythema or exudates. NECK: No masses, no JVD. CHEST: No chest wall deformity. LUNGS: Equal air entry with no crackles, wheeze, rhonchi or dullness. CVS: S1 and S2 normal with no audible murmur, irregular rhythm. No extra heart sounds ABDOMEN: No hepatosplenomegaly, active bowel sounds, no guarding or rigidity. SPINE: No scoliosis or deformity SKIN: No rashes CENTRAL NERVOUS SYSTEM: No focal deficits, tone is normal in all 4 extremities. EXTREMITIES: There is no peripheral edema, clubbing, or cyanosis. Peripheral pulses are intact. - Labs CBC & Chem 7: 04/23/24 06:20 04/23/24 06:20 Labs: Abnormal Lab Results - Last 24 Hours (Table) 04/22/24 04/23/24 04/23/24 Range/Units 20:36 06:20 06:20 RBC 3.94 L (4.30-5.90) m/uL Hgb 12.8 L (13.0-17.5) gm/dL Hct 38.7 L (39.0-53.0) % Lymphocytes # 0.8 L (1.0-4.8) k/uL APTT 53.9 H (22.0-30.0) sec Potassium 3.3 L (3.5-5.1) mmol/L Chloride 108 H (98-107) mmol/L Calcium 8.3 L (8.4-10.2) mg/dL AST 16 L (17-59) U/L Total Protein 5.1 L (6.3-8.2) g/dL Albumin 3.1 L (3.5-5.0) g/dL 04/23/24 Range/Units 07:35 RBC (4.30-5.90) m/uL Hgb (13.0-17.5) gm/dL Hct (39.0-53.0) % Lymphocytes # (1.0-4.8) k/uL APTT 87.5 H (22.0-30.0) sec Potassium (3.5-5.1) mmol/L Chloride (98-107) mmol/L Calcium (8.4-10.2) mg/dL AST (17-59) U/L Total Protein (6.3-8.2) g/dL Albumin (3.5-5.0) g/dL Assessment and Plan Assessment: Impression: Right-sided pulmonary embolism, with right-sided cardiac strain based on echocardiogram, status post thrombectomy done by vascular surgery with good results. Acute kidney injury, resolved History of DVT, provoked, following surgery Pulmonary sarcoidosis, maintained on 10 mg prednisone daily History of previous spontaneous pneumothoraces, status post right-sided VATS with resection of bulla and mechanical pleurodesis in 2020 History of complicated diverticulitis with previous sigmoidectomy History of prostate cancer, being monitored by his urologist on outpatient basis History of nonobstructive coronary artery disease Hypertension History of hyperlipidemia Osteoarthritis of the left knee, surgery will have to be postponed Recommendation: Will clear the patient for discharge if cleared by other consultants on the case Patient should continue Eliquis and I am recommending lifetime therapy with E liquis Patient to follow-up with Dr. De Dios on outpatient basis as he sees him normally for his sarcoidosis. Time with Patient: Less than 30
--- NOTE | 2024-04-23 15:20 | P.PN ---
Subjective Progress Note Date: 04/23/24 HISTORY OF PRESENT ILLNESS: This is a 73-year-old male with a previous medical history significant for hypertension and hypertensive cardiovascular disease, mixed hyperlipidemia, history of sarcoidosis of the lung, history of DVT of the left lower extremity after knee surgery, history of mild COPD, history of prostate cancer, vitamin D deficiency, patient was seen in my office on April 01, 2024 and he was in for a preoperative medical clearance for left knee MAKOplasty that was scheduled to be done with Dr. Ward on April, patient has had laboratory evaluation as well as blood work because of that showed sinus rhythm with multiple PACs and right bundle branch block, apparently patient was in his usual state of health at about yesterday when he was trying to get the garbage can out of the driveway, and all of a sudden suffered to have a significant shortness of breath and he was quite dizzy and lightheaded, he felt that he is going to pass out, because of his shortness of breath he ended up going to the emergency department he drove himself to the ER for evaluation, he was found to have sinus rhythm with a PACs underlying rhythm right bundle branch block, but there is an EKG that showed evidence of atrial fibrillation in between, patient while he was on the monitor he converted he was started on heparin drip at that time, he was sent for CT angiography that showed evidence of occlusive pulmonary emboli of the right middle lobe and right lower lobes and nonocclusive emboli of the right upper lobes, patient also was seen in consultation by her cardiology as well as pulmonary medicine, he was seen in consultation by vascular surgery after the venous Doppler showed evidence of DVT of the left lower extremity, patient was kept on heparin drip, and he is scheduled to go for thrombectomy by vascular surgery since the patient is showing evidence of right ventricular strain pattern on echocardiogram with mild pulmonary hypertension, patient was admitted to the hospital for further evaluation and treatment. 04/23: Patient sitting up in bed in no apparent distress, he is feeling better today, he denies any chest pain, he denies any shortness of breath, he continues to be on 2 L nasal cannula, he has no abdominal pain, nausea vomiting or diarrhea, he tolerated his procedure history of thrombectomy of the pulmonary emboli, continue patient on current treatment plan, continue heparin drip, transition to Eliquis 10 mg orally twice every day for 7 days and after that 5 mg twice a day for life patient at this point in time is stable. REVIEW OF SYSTEMS: Constitutional: No documented fever, no chills, no night sweats. No weight change. No weakness, fatigue or lethargy. No daytime sleepiness. EENT: No headache. No blurred vision or double vision, no loss of vision. No loss of Hearing, no ringing in the ears, no dizziness. No nasal drainage or congestion. No epistaxis. No sore throat. Lungs: positive for shortness of breath, no cough, no sputum production. No wheezing. Reports dyspnea with activity. Cardiovascular: positive for left sided chest pain, no lower extremity edema. positive for palpitations. No paroxysmal nocturnal dyspnea. No orthopnea. positive for lightheadedness and dizziness. No syncopal episodes. Abdominal: Reports abdominal pain. No nausea, vomiting. No diarrhea. No constipation. No bloody or tarry stools reports loss of appetite. Genitourinary: No dysuria, increased frequency, urgency. No urinary retention. Musculoskeletal: No myalgias. No muscle weakness, no gait dysfunction, no frequent falls. No back pain. No neck pain. Integumentary: No wounds, no lesions. No rash or pruritus. positive for unusual bruising. No change in hair or nails. Neurologic: No aphasia. No facial droop. No change in mentation. No head injury. No headache. No paralysis. No paresthesia. Psychiatric: No depression. No anxiety. No mood swings. Endocrine: No abnormal blood sugars. No weight change. PHYSICAL EXAMINATION: General: 73-year-old gentleman sitting up in bed in minimal resp iratory distress. HEENT: Head is atraumatic, normocephalic, pupils were equal round reactive to light and recommendation, extraocular muscle movement were intact, sclera nonicteric, conjunctivae were pale, mucous membranes of the mouth are somewhat dry. Neck: Supple, no JVP, normal carotid upstroke bilaterally, no lymphadenopathy. Chest: Decreased breath sounds at the bases, few rhonchi, no expiratory wheezes, no chest wall tenderness, no intercostal retractions. Heart: First heart sound is normal, second heart sounds normal there is systolic ejection murmur 2 over systolic in the left sternal border. Abdomen: Soft, nontender, nondistended, positive bowel sounds. Extremities: There is no edema no calf tenderness DP +2 bilaterally. Neurologic examination: Patient is awake alert and oriented x3, cranial nerves II-12 appear grossly intact, muscle power were 5 out of 5 in upper extremities and 5 out of 5 in bilateral lower extremities, deep tendon reflexes normal bilaterally. ASSESSMENT AND PLAN: 1. Acute hypoxemic respiratory failure due to multiple obstructive pulmonary emboli of the right middle lobe and right lower lobes and nonobstructive emboli of the right upper lobes status post thrombectomy that was done successfully by Dr. Saenz yesterday, continue heparin drip, transition to Eliquis 10 mg twice every day for 7 days followed by 5 mg orally twice every day for life. 2. Atrial fibrillation that converted to a sinus rhythm with an underlying right bundle branch block. Continue heparin drip for now, patient will be switched to Eliquis for life cardiology consultation appreciated, echocardiogram was done, showed evidence of right ventricular strain pattern with mild pulmonary hypertension. 3. Left lower extremity DVT. Appears to be chronic continue patient on IV heparin for now, patient will need to be staying on Eliquis 5 mg orally twice every day for life. 4. Hypertension and hypertensive cardiovascular disease. Continue patient on amlodipine 5 mg orally once every day, losartan 50 mg orally once every day, monitor the patient blood pressure very closely. 5. Mixed hyperlipidemia. Continue patient on atorvastatin 40 mg orally once every day, monitor the patient lipid panel, keep LDL 55-70. 6. History of pulmonary sarcoidosis. Continue patient on prednisone 10 mg orally once every day. 7. Vitamin D deficiency. Stable at this time. 8. Prostate cancer . Appears to be stable at this time. Continue patient on Flomax 0.4 mg once every day. 9. Insomnia. Continue zolpidem 5 mg at bedtime. Objective - Vital Signs Vital signs: Vital Signs Temp 98.4 F 04/23/24 04:37 Pulse 94 04/23/24 04:37 Resp 18 04/23/24 04:37 BP 131/74 04/23/24 04:37 Pulse Ox 95 04/23/24 04:37 FiO2 Intake & Output 04/22/24 04/22/24 04/23/24 06:59 18:59 06:59 Intake Total 204.541 540 Balance 204.541 540 Weight 79.379 kg 79.379 kg Intake: IV 100 Intake, IV Titration 104.541 Amount Heparin Sod,Pork in 0.45% 104.541 NaCl 25,000 unit In 0.45 % NaCl 1 250ml.bag @ 18 UNITS/KG/HR 14.288 mls/hr IV .[id number] [facility] Rx#: [id number] Oral 540 Other: # Voids 1 1 - Labs CBC & Chem 7: 04/22/24 05:57 04/22/24 05:57 Labs: Abnormal Lab Results - Last 24 Hours (Table) 04/22/24 04/22/24 04/22/24 Range/Units 05:57 05:57 05:57 RBC 4.10 L (4.30-5.90) m/uL Neutrophils # 8.5 H (1.3-7.7) k/uL APTT 153.8 H* (22.0-30.0) sec BUN (9-20) mg/dL Troponin I 0.038 H* (0.000-0.034) ng/mL 04/22/24 04/22/24 Range/Units 05:57 20:36 RBC (4.30-5.90) m/uL Neutrophils # (1.3-7.7) k/uL APTT 53.9 H (22.0-30.0) sec BUN 21 H (9-20) mg/dL Troponin I (0.000-0.034) ng/mL
[2024-04-23] MEDS: POTASSIUM CHLORIDE ER 20 MEQ TAB.ER PO STA (18:12)
--- NOTE | 2024-04-24 06:37 | P.PN ---
Subjective Progress Note Date: 04/24/24 The patient was seen and evaluated this morning. He is doing well. The shortness of breath has improved. He has been in and out atrial fibrillation on the monitor. Giving the pulmonary embolism the A-fib could be triggered by the pulmonary embolism. I am going to add small dose of beta-jasper to the current medical regimen. Otherwise continue oral anticoagulation. The physical examination overall appears to be unremarkable. The patient can be discharged home. ASSESSMENT: Acute right-sided pulmonary embolism with right ventricular heart strain, status post thrombectomy Left lower extremity DVT History of DVT following knee surgery Paroxysmal atrial fibrillation likely to be triggered by the pulmonary embolism Lactic acidosis Acute kidney injury Elevated troponin secondary to PE Pulmonary sarcoidosis Nonobstructive coronary artery disease Hypertension Dyslipidemia Thoracic aortic dilatation Aortic insufficiency Peripheral vascular disease Remote history of tobacco use history of prostate cancer PLAN: Continue current cardiac medications Patient is stable for discharge today from a cardiac standpoint Objective - Vital Signs Vital signs: Vital Signs Temp 98.2 F 04/24/24 04:00 Pulse 79 04/24/24 04:00 Resp 18 04/24/24 04:00 BP 130/84 04/24/24 04:00 Pulse Ox 96 04/24/24 04:00 FiO2 Intake & Output 04/23/24 04/23/24 04/24/24 06:59 18:59 06:59 Intake Total 540 263.459 Output Total 300 Balance 540 -36.541 Intake: Intake, IV Titration 145.459 Amount Heparin Sod,Pork in 0.45% 145.459 NaCl 25,000 unit In 0.45 % NaCl 1 250ml.bag @ 18 UNITS/KG/HR 14.288 mls/hr IV .[id number] [facility] Rx#: [id number] Oral 540 118 Output: Urine 300 Other: # Voids 1 4 - Labs CBC & Chem 7: 04/23/24 06:20 04/23/24 06:20 Labs: Abnormal Lab Results - Last 24 Hours (Table) 04/23/24 04/23/24 04/23/24 Range/Units 06:20 06:20 07:35 RBC 3.94 L (4.30-5.90) m/uL Hgb 12.8 L (13.0-17.5) gm/dL Hct 38.7 L (39.0-53.0) % Lymphocytes # 0.8 L (1.0-4.8) k/uL APTT 87.5 H (22.0-30.0) sec Potassium 3.3 L (3.5-5.1) mmol/L Chloride 108 H (98-107) mmol/L Calcium 8.3 L (8.4-10.2) mg/dL AST 16 L (17-59) U/L Total Protein 5.1 L (6.3-8.2) g/dL Albumin 3.1 L (3.5-5.0) g/dL
[2024-04-24 06:51] LABS: Basophils % (A) 0 %; Eosinophils # (A) 0.2 k/uL (0-0.7); Eosinophils % (A) 2 %; HCT 37.5 % (39.0-53.0); HGB 12.6 gm/dL (13.0-17.5); Lymphocytes # (A) 0.8 k/uL (1.0-4.8); Lymphocytes % (A) 9 %; MCH 32.5 pg (25.0-35.0); MCHC 33.8 g/dL (31.0-37.0); MCV 96.3 fL (80.0-100.0); Mean Platelet Volume 7.8; Monocytes # (A) 0.6 k/uL (0-1.0); Monocytes % (A) 7 %; Neutrophils # (A) 7.1 k/uL (1.3-7.7); Neutrophils % (A) 80 %; Platelet Count 176 k/uL (150-450); RBC 3.89 m/uL (4.30-5.90); RDW 14.1 % (11.5-15.5); WBC 8.8 k/uL (3.8-10.6)
[2024-04-24 07:16] LABS: ALT 15 U/L (4-49); AST 19 U/L (17-59); African American GFR (CKD) >90 (>60 ml/min/1.73 sqM); Albumin 3.1 g/dL (3.5-5.0); Alkaline Phosphatase 42 U/L (38-126); Anion Gap 7 mmol/L; Blood Urea Nitrogen 20 mg/dL (9-20); Calcium 8.5 mg/dL (8.4-10.2); Carbon Dioxide 23 mmol/L (22-30); Chloride 109 mmol/L (98-107); Glucose 86 mg/dL (74-99); Non-African American GFR(CKD) 83 (>60 ml/min/1.73 sqM); Potassium 3.7 mmol/L (3.5-5.1); Sodium 139 mmol/L (137-145); Total Bilirubin 1.1 mg/dL (0.2-1.3); Total Protein 5.3 g/dL (6.3-8.2)
[2024-04-24] MEDS: METOPROLOL SUCCINATE (ER) 25 MG TAB.ER.24H PO SCH (07:54)
[2024-04-24 09:13] VITALS: BP 139/77; PULSE 88; RESP 17; TEMP 97.5
--- NOTE | 2024-04-24 10:43 | P.DS ---
Providers Date of admission: 04/21/24 23:59 Expected date of discharge: 04/24/24 Attending physician: Tammie Zapata Consults: 04/21/24 23:52 Consult Physician Urgent Consulting Provider: Sophie Fuentes Consult Reason/Comments: acute resp insuff, acute pulmonary embolism Do you want consulting provider notified?: Yes 04/22/24 08:01 Consult Physician Routine Consulting Provider: Asad Kessler Consult Reason/Comments: elevated PTT, Chest pain Do you want consulting provider notified?: Yes 04/22/24 10:38 Consult Physician Routine Consulting Provider: Riri Mccollum Consult Reason/Comments: PE, DVT Do you want consulting provider notified?: Yes Primary care physician: Tammie Zapata Hospital Course: HISTORY OF PRESENT ILLNESS: This is a 73-year-old male with a previous medical history significant for hypertension and hypertensive cardiovascular disease, mixed hyperlipidemia, history of sarcoidosis of the lung, history of DVT of the left lower extremity after knee surgery, history of mild COPD, history of prostate cancer, vitamin D deficiency, patient was seen in my office on April 01, 2024 and he was in for a preoperative medical clearance for left knee MAKOplasty that was scheduled to be done with Dr. Ward on April, patient has had laboratory evaluation as well as blood work because of that showed sinus rhythm with mu ltiple PACs and right bundle branch block, apparently patient was in his usual state of health at about yesterday when he was trying to get the garbage can out of the driveway, and all of a sudden suffered to have a significant shortness of breath and he was quite dizzy and lightheaded, he felt that he is going to pass out, because of his shortness of breath he ended up going to the emergency depa rtment he drove himself to the ER for evaluation, he was found to have sinus rhythm with a PACs underlying rhythm right bundle branch block, but there is an EKG that showed evidence of atrial fibrillation in between, patient while he was on the monitor he converted he was started on heparin drip at that time, he was sent for CT angiography that showed evidence of occlusive pulmonary emboli of the right middle lobe and right lower lobes and nonocclusive emboli of the right upper lobes, patient also was seen in consultation by her cardiology as well as pulmonary medicine, he was seen in consultation by vascular surgery after the venous Doppler showed evidence of DVT of the left lower extremity, patient was kept on heparin drip, and he is scheduled to go for thrombectomy by vascular surgery since the patient is showing evidence of right ventricular strain pattern on echocardiogram with mild pulmonary hypertension, patient was admitted to the hospital for further evaluation and treatment. 04/23: Patient sitting up in bed in no apparent distress, he is feeling better today, he denies any chest pain, he denies any shortness of breath, he continues to be on 2 L nasal cannula, he has no abdominal pain, nausea vomiting or diarrhea, he tolerated his procedure history of thrombectomy of the pulmonary emboli, continue patient on current treatment plan, continue heparin drip, transition to Eliquis 10 mg orally twice every day for 7 days and after that 5 mg twice a day for life patient at this point in time is stable. 04/24: Patient is doing a lot better today, he is on room air, he denies any chest pain, shortness of breath, is not having hemoptysis, he has no pleurisy, he is ambulating well with no evidence of acute issues, patient was cleared by pulmonary and cardiology, patient is to stay on Eliquis 10 mg twice every day for 7 days and then 5 mg twice every day for the rest of his life. Patient will follow-up with me as an outpatient next week, patient was provided with some s amples of Eliquis, he was given also saving cards to be activated by using the one 800-number from the company. Discharge diagnoses: 1. Acute hypoxemic respiratory failure due to multiple obstructive pulmonary emboli of the right middle lobe and right lower lobes and nonobstructive emboli of the right upper lobes status post thrombectomy that was done successfully by Dr. Saenz 2. Atrial fibrillation that converted to a sinus rhythm with an underlying right bundle branch block. 3. Left lower extremity DVT. 4. Hypertension and hypertensive cardiovascular disease. 5. Mixed hyperlipidemia. 6. History of pulmonary sarcoidosis. 7. Vitamin D deficiency. 8. Prostate cancer . Patient Condition at Discharge: Serious Plan - Discharge Summary Discharge Rx Participant: Yes New Discharge Prescriptions: New Apixaban [Eliquis Starter Pack (for VTE)] 5 - 10 mg PO DIRECTED 30 Days #1 each No Action predniSONE 10 mg PO QAM amLODIPine [Norvasc] 5 mg PO QAM Losartan [Cozaar] 50 mg PO QAM Zolpidem Tartrate [Zolpidem Tartrate ER] 12.5 mg PO HS Cholecalciferol (Vitamin D3) [Vitamin D3 (3000 Iu)] 75 mcg PO DAILY Ascorbic Acid [Vitamin C] 2,000 mg PO DAILY Rosuvastatin [Crestor] 20 mg PO HS Tamsulosin HCl [Flomax] 0.4 mg PO QAM Vitamin B Complex 1 cap PO DAILY Vitamin E (Dl,Tocopheryl Acet) [Vitamin E (1000 Iu = 450 MG)] 450 mg PO DAILY Discharge Medication List Losartan [Cozaar] 50 mg PO QAM 12/09/19 [History] amLODIPine [Norvasc] 5 mg PO QAM 12/09/19 [History] predniSONE 10 mg PO QAM 12/09/19 [History] Zolpidem Tartrate [Zolpidem Tartrate ER] 12.5 mg PO HS 10/25/20 [History] Ascorbic Acid [Vitamin C] 2,000 mg PO DAILY 04/03/23 [History] Rosuvastatin [Crestor] 20 mg PO HS 04/03/23 [History] Tamsulosin HCl [Flomax] 0.4 mg PO QAM 02/18/24 [History] Vitamin B Complex 1 cap PO DAILY 04/16/24 [History] Cholecalciferol (Vitamin D3) [Vitamin D3 (3000 Iu)] 75 mcg PO DAILY 04/22/24 [History] Vitamin E (Dl,Tocopheryl Acet) [Vitamin E (1000 Iu = 450 MG)] 450 mg PO DAILY 04/22/24 [History] Apixaban [Eliquis Starter Pack (for VTE)] 5 - 10 mg PO DIRECTED 30 Days #1 each 04/23/24 [Rx] Follow up Appointment(s)/Referral(s): Tammie Zapata MD [Primary Care Provider] - 1-2 days Riri Mccollum DO [STAFF PHYSICIAN] - 1 Week (Follow-up with Dr. Saenz from vascular surgery secondary to PE and DVT)
--- NOTE | 2024-04-24 10:57 | P.PN ---
Subjective Progress Note Date: 04/24/24 Principal diagnosis: Acute pulmonary embolism with RV strain Patient is a 73-year-old male with past medical history significant for hypertension, nonobstructive CAD, GERD, complicated diverticulitis with previous sigmoidectomy, prostate cancer, pulmonary sarcoidosis, previous spontaneous pneumothoraces requiring right-sided VATS resection of bullae and mechanical pleurodesis in 2020, and remote history of DVT developed after surgery. 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 Does follow in the pulmonary office with Dr. Gabriel. Patient presents the emergency department acute on chronic shortness of breath. Developed rather abruptly yesterday while going out to get his rubbish bins from the road. Also, endorses a burning left-sided chest pain. Does admit chronic lower extremity swelling in both legs. Denies any cough, hemoptysis. Denies any palpitations, lightheadedness or syncopal events. Workup in the ED included a D-dimer markedly elevated at 9.44. Troponins 0.048 and 0.039 respectively. NT proBNP 2790. EKG done on arrival: Showing atrial fibrillation, ventricular response controlled, S1 Q3 T3 pattern. chest CTA demonstrating large right mainstem pulmonary emboli extending into the right middle and lower segmental and subsegmental branches. No CT evidence of right-sided heart strain. Also, chronic sarcoid changes noted. With extensive bilateral hilar and mediastinal lymphadenopathy. CBC: WBC count 14.6, hemoglobin 15.3, platelets 191. Started on high intensity IV heparin protocol. Currently being evaluated in the emergency department. He was previously placed on 2 L/min nasal cannula. SpO2 reading 98% on bedside monitor. Heart rhythm currently appears sinus mechanism on bedside monitor, with frequent PACs. Heart rate 80 bpm. Blood pressure 139/97 mmHg. No signs of hemodynamic compromise. Patient states he has a history of DVT provoked by surgery. He completed 3 months of anticoagulants, and was subsequently discontinued. States that he does not have pharmaceutical insurance currently, and would likely have trouble paying for [employer] again. Denies recent surgeries or trauma or hospitalizations. Did have a left knee surgery scheduled for next week. Does have prostate cancer, being monitored by his urologist. Echocardiogram is pending. Seen today on 04/23/2024, patient is doing better, he is back to normal, asymptomatic, he is on Eliquis, he is status post thrombectomy of his large right-sided pulmonary embolus. Now he is on Eliquis, and relatively asymptomatic, I will clear the patient for discharge if cleared by other consultants. Seen today on 04/24/2024, patient continues to do well, I have cleared the patient for discharge yesterday, patient continues to do well, he is on Eliquis, no issues, no chest pain, he does have some dyspnea on exertion, but overall significantly improved compared to baseline. Patient is going to be discharged home today on Eliquis. Objective - Vital Signs Vital signs: Vital Signs Temp 97.5 F L 04/24/24 08:00 Pulse 88 04/24/24 08:00 Resp 17 04/24/24 08:00 BP 139/77 04/24/24 08:00 Pulse Ox 97 04/24/24 08:00 FiO2 Intake & Output 04/23/24 04/24/24 04/24/24 18:59 06:59 18:59 Intake Total 263.459 118 Output Total 300 Balance -36.541 118 Intake: Intake, IV Titration 145.459 Amount Heparin Sod,Pork in 0.45% 145.459 NaCl 25,000 unit In 0.45 % NaCl 1 250ml.bag @ 18 UNITS/KG/HR 14.288 mls/hr IV .[id number] TAWANDA Rx#: [id number] Oral 118 118 Output: Urine 300 Other: # Voids 4 2 - Exam GENERAL EXAM: 73-year-old white male in no distress, on room air HEAD: Normocephalic and atraumatic EYES: Normal reaction of pupils, equal size. NOSE: Clear with pink turbinates. THROAT: No erythema or exudates. NECK: No masses, no JVD. CHEST: No chest wall deformity. LUNGS: Equal air entry with no crackles, wheeze, rhonchi or dullness. CVS: S1 and S2 normal with no audible murmur, irregular rhythm. No extra heart sounds ABDOMEN: No hepatosplenomegaly, active bowel sounds, no guarding or rigidity. SPINE: No scoliosis or deformity SKIN: No rashes CENTRAL NERVOUS SYSTEM: No focal deficits, tone is normal in all 4 extremities. EXTREMITIES: There is no peripheral edema, clubbing, or cyanosis. Peripheral pulses are intact. - Labs CBC & Chem 7: 04/24/24 06:20 04/24/24 06:20 Labs: Abnormal Lab Results - Last 24 Hours (Table) 04/24/24 04/24/24 Range/Units 06:20 06:20 RBC 3.89 L (4.30-5.90) m/uL Hgb 12.6 L (13.0-17.5) gm/dL Hct 37.5 L (39.0-53.0) % Lymphocytes # 0.8 L (1.0-4.8) k/uL Chloride 109 H (98-107) mmol/L Total Protein 5.3 L (6.3-8.2) g/dL Albumin 3.1 L (3.5-5.0) g/dL Assessment and Plan Assessment: Impression: Right-sided pulmonary embolism, with right-sided cardiac strain based on echocardiogram, status post thrombectomy done by vascular surgery with good results. Acute kidney injury, resolved History of DVT, provoked, following surgery Pulmonary sarcoidosis, maintained on 10 mg prednisone daily History of previous spontaneous pneumothoraces, status post right-sided VATS with resection of bulla and mechanical pleurodesis in 2020 History of complicated diverticulitis with previous sigmoidectomy History of prostate cancer, being monitored by his urologist on outpatient basis History of nonobstructive coronary artery disease Hypertension History of hyperlipidemia Osteoarthritis of the left knee, surgery will have to be postponed Recommendation: Clear for discharge exam, patient to continue Eliquis, I would recommend lifetime treatment. Patient to follow-up with Dr. De Dios on outpatient basis. Time with Patient: Less than 30
--- NOTE | 2024-04-27 13:31 | CDI ---
Documentation Clarification Form Date: 04/27/2024 01:11:44 PM From: Linda Pack Admit Date: 04/21/2024 11:59:00 PM Patient Name: Arcadio Shaikh Visit Number: [id number] Discharge Date: 04/24/2024 10:52:00 AM ATTENTION: The Clinical Documentation Specialists (CDI) and [facility] Coding Staff appreciate your assistance in clarifying documentation. Please respond to the clarification below the line at the bottom and electronically sign. The CDI & [facility] Coding staff will review the response and follow-up if needed. Please note: Queries are made part of the Legal Health Record. If you have any questions, please contact the author of this message via ITS. Doctor/Provider: Tammie Zapata Acute Pulmonary Embolism with right sided heart strain is documented in the consult note 04/22/24. Additional clarification requested. History/Risk Factors: patient is a 73 year old male with a medical history of hypertension, nonobstructive CAD, GERD, complicated diverticulitis with previous sigmoidectomy, prostate cancer, pulmonary sarcoidosis, previous spontaneous pneumothoraces, and history of DVT after surgery. Clinical Indicators: patient presented with acute on chronic shortness of breath. Developed rather abruptly. Was found to have right sided pulmonary embolism, with right sided cardiac strain per the echo. Underwent a mechanical thrombectomy. BNP: 2790 Echo results: mild LV systolic dysfunction, right ventricle is dilated with moderately decreased RV systolic function, mild pulmonary hypertension, RV strain present, mild aortic and tricuspid regurgitation Lung CT: occlusive pulmonary emboli within the right middle and lower lobes. Non-occlusive pulmonary emboli right upper lobe. No evidence of right heart strain and RV to LV ration is 0.9. Consults: Pulmonology- acute right sided pulmonary embolism with right ventricular strain Surgical consult- submassive pulmonary embolism with right heart strain, left lower extremity DVT. Treatment: IV heparin drip, lifetime anticoagulation therapy, underwent percutaneous transluminal mechanical thrombectomy of the right main pulmonary artery, right interlobar artery and right middle lobe segmental branch Please clarify Acute Pulmonary Embolism with right heart strain, if known: [ x ] Acute Thrombotic Pulmonary Embolism with acute cor pulmonale [ ] Acute Thrombotic Pulmonary Embolism without acute cor pulmonale [ ] Unable to determine [ ] Other, please specify MTDD
== END 2024-04-24 10:52 | disposition home or self-care (01) | DRG 163 ==
LOC: EC 19:18 → 1SOBS 23:59 → 3SCARD 04-22 14:24
PROVIDERS: ADMIT Internal Medicine; ATTEND Internal Medicine
PROC: 02CQ3ZZ Extirpation of Matter from Right Pulmonary Artery, Percutaneous Approach (ICD-10-PCS; principal; 2024-04-22 14:50)
PROC: B31S1ZZ Fluoroscopy of Right Pulmonary Artery using Low Osmolar Contrast (ICD-10-PCS; principal; 2024-04-22 14:50)
PROC: B51B1ZZ Fluoroscopy of Right Lower Extremity Veins using Low Osmolar Contrast (ICD-10-PCS; principal; 2024-04-22 14:50)
DX: I26.09 Other pulmonary embolism with acute cor pulmonale (principal); J96.01 Acute respiratory failure with hypoxia; E87.20 Acidosis, unspecified; I27.20 Pulmonary hypertension, unspecified; I82.412 Acute embolism and thrombosis of left femoral vein; C61 Malignant neoplasm of prostate; J44.9 Chronic obstructive pulmonary disease, unspecified; I77.810 Thoracic aortic ectasia; I11.9 Hypertensive heart disease without heart failure; I35.1 Nonrheumatic aortic (valve) insufficiency; N17.9 Acute kidney failure, unspecified; I48.0 Paroxysmal atrial fibrillation; R79.1 Abnormal coagulation profile; M17.12 Unilateral primary osteoarthritis, left knee; E55.9 Vitamin D deficiency, unspecified; E78.2 Mixed hyperlipidemia; D86.0 Sarcoidosis of lung; I25.10 Atherosclerotic heart disease of native coronary artery without angina pectoris; K21.9 Gastro-esophageal reflux disease without esophagitis; R79.89 Other specified abnormal findings of blood chemistry; R59.0 Localized enlarged lymph nodes; I73.9 Peripheral vascular disease, unspecified; I45.10 Unspecified right bundle-branch block; G47.00 Insomnia, unspecified; Z79.01 Long term (current) use of anticoagulants; Z79.52 Long term (current) use of systemic steroids; Z79.899 Other long term (current) drug therapy; Z87.891 Personal history of nicotine dependence; Z86.73 Personal history of transient ischemic attack (TIA), and cerebral infarction without residual deficits; Z86.718 Personal history of other venous thrombosis and embolism
CPT/HCPCS: 36415; 37184; 37185; 71046; 71275; 75741; 76937; 80048; 80053; 83605; 83735; 83880; 84484; 85025; 85379; 85610; 85730; 87636; 93005; 93306; 93970; 96365; 96366; 99291

== ENCOUNTER → 2024-05-27 | Outpatient (CLI) | payer MEDICARE, BC ==
--- NOTE | 2024-05-27 08:57 | US ---
EXAMINATION TYPE: US venous doppler duplex LE BI DATE OF EXAM: 05/27/2024 8:48 AM COMPARISON: Prior bilateral venous ultrasound April 22, 2024 CLINICAL INDICATION: Male, 73 years old with history of R09.89 SYMPTOMS AND SIGNS INVOLVING THE CIRC; Hx of DVT and PE on blood thinners. , Pain TECHNIQUE: The lower extremity deep venous system is examined utilizing real time linear array sonog jake with graded compression, color doppler sonography, and spectral doppler. SIDE PERFORMED: Bilateral FINDINGS: VESSELS IMAGED: Common Femoral Vein Deep Femoral Vein Greater Saphenous Vein * Femoral Vein Popliteal Vein Small Saphenous Vein * Proximal Calf Veins (* superficial vessels) Right Leg: Negative for DVT, Color Doppler imaging shows patency of the vessels. Spectral waveforms are within normal limits. Left Leg: Negative for DVT , Color Doppler imaging shows patency of the vessels. Spectral waveforms are within normal limits. IMPRESSION: No ultrasound evidence for acute deep venous thrombosis currently. [facility], , 05/27/2024 8:55 AM
== END | disposition home or self-care (01) ==
LOC: RADUSWWP 08:23
PROVIDERS: ATTEND Internal Medicine
DX: R09.89 Other specified symptoms and signs involving the circulatory and respiratory systems (principal)
CPT/HCPCS: 93970

== ENCOUNTER → 2024-06-30 | Outpatient (CLI) | payer MEDICARE, BC ==
[2024-06-30 15:48] LABS: Basophils # (A) 0.03 X 10*3/uL (0.00-0.10); Basophils % (A) 0.4 %; Eosinophils % (A) 1.3 %; HCT 39.7 % (39.6-50.0); HGB 13.4 g/dL (13.0-17.0); Lymphocytes % (A) 13.2 %; MCH 32.8 pg (27.0-32.0); MCHC 33.8 g/dL (32.0-37.0); MCV 97.1 FL (80.0-97.0); Mean Platelet Volume 11.2 FL (9.5-12.2); Monocytes # (A) 0.73 X 10*3/uL (0.20-1.00); Monocytes % (A) 9.7 %; NRBC Per 100 WBC 0 X 10*3/uL (0.00-0.01); Neutrophils # (A) 5.61 X 10*3/uL (1.80-7.70); Neutrophils % (A) 74.3 %; Platelet Count 168 X 10*3/uL (140-440); RBC 4.09 X 10*6/uL (4.40-5.60); RDW 14.6 % (11.5-14.5); WBC 7.55 X 10*3/uL (4.50-10.00)
[2024-06-30 16:20] LABS: BUN/Creat Ratio 12.55 Ratio (12.00-20.00); Blood Urea Nitrogen 13.8 mg/dL (9.0-27.0); Glucose 91 mg/dL (70-110)
[2024-06-30 16:21] LABS: Calcium 8.9 mg/dL (8.7-10.3); Carbon Dioxide 24.1 mmol/L (21.6-31.8); Chloride 107 mmol/L (96-109); Potassium 3.6 mmol/L (3.5-5.5); Sodium 141 mmol/L (135-145)
== END | disposition home or self-care (01) ==
LOC: LABWHC1 08:55
PROVIDERS: ATTEND Urology
DX: Z01.812 Encounter for preprocedural laboratory examination (principal); C61 Malignant neoplasm of prostate
CPT/HCPCS: 36415; 80048; 85025

== ENCOUNTER 2024-07-08 07:56 | Day surgery (SDC) | payer MEDICARE, BC ==
[2024-07-05 14:48] VITALS: BMI 25.1
--- NOTE | 2024-07-07 12:31 | P.GSHP ---
History of Present Illness H&P Date: 07/07/24 Chief Complaint: Prostate cancer The patient is a 73-year-old white male diagnosed with prostate cancer in March 2023. 3 of 13 biopsies were positive, showing [place] score 7 (3+4) adenocarcinoma. The PSA level at that time was 8.0, and he opted for active surveillance rather than treatment. Brain his most recent PSA level was 7.0. He underwent removal of a pulmonary embolus in April 2024 and is now receiving Eliquis. He now comes for prostate ultrasound with biopsies as part of his active surveillance protocol. - Cardiovascular Cardiovascular: Reports high blood pressure - Genitourinary (Male) Genitourinary: Reports urinary frequency Past Medical History Past Medical History: Atrial Fibrillation, Cancer, GERD/Reflux, Hypertension, Prostate Disorder, Respiratory Disorder Additional Past Medical History / Comment(s): rupture diverticuli July 2021,RBBB. Pulmonary Sarcoidosis. Hx spontaneous pneumothorax. Rt inguinal hernia. PE 04/2024. Intermittent A fib. Prostate cancer. History of Any Multi-Drug Resistant Organisms: None Reported Past Surgical History: Orthopedic Surgery Additional Past Surgical History / Comment(s): Griffin procedure w/ colostomy, Hernia's x3. knee,Robotic lysis of adhesions,VATS procedure Past Anesthesia/Blood Transfusion Reactions: No Reported Reaction Smoking Status: Former smoker - Past Family History Mother Family Medical History: No Reported History Additional Family Medical History / Comment(s): ETOH Father Family Medical History: CVA/TIA Additional Family Medical History / Comment(s): ETOH Medications and Allergies Home Medications Medication Instructions Recorded Confirmed Type Losartan [Cozaar] 50 mg PO QAM 12/09/19 07/05/24 History amLODIPine [Norvasc] 5 mg PO QAM 12/09/19 07/05/24 History predniSONE 10 mg PO QAM 12/09/19 07/05/24 History Zolpidem Tartrate [Zolpidem 10 mg PO HS 10/25/20 07/05/24 History Tartrate ER] Rosuvastatin [Crestor] 20 mg PO HS 04/03/23 07/05/24 History Tamsulosin HCl [Flomax] 0.4 mg PO QAM 02/18/24 07/05/24 History Vitamin B Complex 1 cap PO DAILY 04/16/24 07/05/24 History Cholecalciferol (Vitamin D3) 75 mcg PO DAILY 04/22/24 07/05/24 History [Vitamin D3 (3000 Iu)] Apixaban [Eliquis Starter Pack 5 - 10 mg PO DIRECTED 30 Days 04/23/24 07/05/24 Rx (for VTE)] #1 each Metoprolol Succinate (ER) [Toprol 25 mg PO DAILY #90 tab 04/24/24 07/05/24 Rx XL] traMADol HCL 50 mg PO Q6H PRN 07/05/24 07/05/24 History Allergies Allergy/AdvReac Type Severity Reaction Status Date / Time adhesive tape Allergy tears Verified 07/05/24 14:40 skin-Please use paper tape Surgical - Exam - General well developed, well nourished, no distress - Respiratory normal respiratory effort - Abdomen Abdomen: soft, non tender, no guarding, no rigid, no rebound - Genitourinary normal penis with no external lesions, testicles non-tender - Rectum Rectum: normal sphincter tone, no masses, other (Prostate moderately enlarged with tiny nodule overlying right apex) - Psychiatric oriented to time, oriented to person, oriented to place, speech is normal, memory intact Assessment and Plan (1) Malignant neoplasm of prostate Status: Acute Code(s): C61 - MALIGNANT NEOPLASM OF PROSTATE SNOMED Code(s): 755107037 Plan: Transrectal ultrasound of the prostate with biopsies. The procedure has been reviewed in detail with the patient. He is aware of risks, which include anesthesia, bleeding, and infection.
[~2024-07-08 07:56] MED LIST changes: -DEXAMETHASONE SOD PHOSPHATE 4 MG/ML 1 ML VIAL IV ONE; -GENTAMICIN 40 MG/ML 2 ML VIAL IM PRN; -LACTATED RINGERS 1,000 ML IV SCH; +LIDOCAINE 1% (10MG/ML) FOR IV START INTRADERMA PRN; -ONDANSETRON 4 MG/2 ML VIAL IVP ONE; +fentaNYL (PF) 50 MCG/ML 2 ML AMP IVP PRN
[2024-07-08] MEDS: IV FLUID CONTINUATION 1,000 ML IV ONE ×2 (08:27→10:53)
[2024-07-08 08:33] VITALS: TEMP 97
[2024-07-08] MEDS: LACTATED RINGERS 1,000 ML IV SCH (08:43)
[2024-07-08] MEDS: ONDANSETRON 4 MG/2 ML VIAL IVP ONE (08:45)
[2024-07-08] MEDS: DEXAMETHASONE SOD PHOSPHATE 4 MG/ML 1 ML VIAL IV ONE (08:45)
[2024-07-08 08:46] LABS: Glucose,Whole Blood 86 mg/dL (70-110)
[2024-07-08] MEDS: GENTAMICIN 40 MG/ML 2 ML VIAL IM PRN (08:46)
[2024-07-08] MEDS ORDERED: PROPOFOL 10 MG/ML 20 ML VIAL IV ONE (10:27)
[2024-07-08] MEDS ORDERED: LIDOCAINE 1% INJ 10MG/ML (20 ML MDV) ONE (10:27)
--- NOTE | 2024-07-08 10:57 | P.OP ---
Date of Procedure: 07/08/24 Preoperative Diagnosis: Adenocarcinoma of the prostate Postoperative Diagnosis: Same Procedure(s) Performed: Transrectal ultrasound of the prostate with ultrasound-guided biopsies Anesthesia: MAC Surgeon: Frank Martinez Estimated Blood Loss (ml): 5 IV fluids (ml): 300 Pathology: other (Prostate biopsies) Condition: stable Disposition: PACU Indications for Procedure: The patient is a 73-year-old white male diagnosed with prostate cancer in March 2023. 3 of 13 biopsies were positive, showing [place] score 7 (3+4) adenocarcinoma. The PSA level at that time was 8.0, and he opted for active surveillance rather than treatment. Brain his most recent PSA level was 7.0. He underwent removal of a pulmonary embolus in April 2024 and is now receiving Eliquis. He now comes for prostate ultrasound with biopsies as part of his active surveillance protocol. Operative Findings: No suspicious lesions seen Description of Procedure: The patient was taken to the operating room and placed in the left lateral decubitus position. MARYSE revealed the prostate to be mildly enlarged but smooth. The Zumigo transrectal ultrasound probe was placed intrarectally. The prostate was imaged in both the axial and sagittal planes, revealing a prostate volume of 46 mL. No suspicious lesions were seen within the prostate. Using the Biopty gun, 12 biopsies were obtained from the peripheral zone utilizing a standard template. Once the procedure was completed, the ultrasound probe was removed. The patient tolerated the procedure well was taken to the recovery room stable condition.
[2024-07-08 11:14] VITALS: BP 105/68; PULSE 65; RESP 14
== END 2024-07-08 11:34 | disposition home or self-care (01) ==
LOC: OR 07:56
PROVIDERS: ATTEND Urology
DX: C61 Malignant neoplasm of prostate (principal); I48.91 Unspecified atrial fibrillation; I10 Essential (primary) hypertension; K21.9 Gastro-esophageal reflux disease without esophagitis; L23.1 Allergic contact dermatitis due to adhesives; Z87.891 Personal history of nicotine dependence; Z86.711 Personal history of pulmonary embolism; Z86.73 Personal history of transient ischemic attack (TIA), and cerebral infarction without residual deficits; Z82.3 Family history of stroke; Z98.890 Other specified postprocedural states; Z79.52 Long term (current) use of systemic steroids; Z79.899 Other long term (current) drug therapy
CPT/HCPCS: 55700; 88344; 88305; 88341; 88342; J1580; J1100; J2405; J2003; J2704